=== PATIENT | female | born 1935 | race African-American/Black ===

== ENCOUNTER 2016-11-11 08:50 | Day surgery (SDC) | payer OTHER, BC ==
[2016-11-11 10:11] LABS: MCH 31.2 pg (25.7-33.7); MCHC 30.6 g/dl (32.0-36.0); MEAN CELL VOLUME 101.8 fl (80-96); RDW 24.1 % (11.6-15.6)
[2016-11-11 10:15] LABS: PLATELET COUNT 78 K/MM3 (134-434)
[2016-11-11 13:50] LABS: ANISOCYTOSIS 2+; HYPOCHROMIA 2+; POIKILOCYTOSIS 2+; POLYCHROMASIA 1+; SMUDGE CELLS FEW
[2016-11-11 13:51] LABS: MICROCYTOSIS 1+; OVALOCYTES 1+; STOMATOCYTE 1+; TEAR DROP CELLS 1+
[2016-11-11] MEDS ORDERED: ACETAMINOPHEN 325 MG TABLET (FP) PO ONE (14:45)
[2016-11-11] MEDS ORDERED: FUROSEMIDE 40 MG/4 ML INJECTABLE VIAL IVPB ONE (16:00)
[2016-11-11 17:01] VITALS: BP 143/79; PULSE 83; TEMP 99.3
== END 2016-11-11 23:00 | disposition home or self-care (01) ==
LOC: JBLOOD 08:50 → J7W 08:51 → JBLOOD 23:00
PROVIDERS: ATTEND Internal Medicine Geriatric Medicine
PROC: 30233N1 Transfusion of Nonautologous Red Blood Cells into Peripheral Vein, Percutaneous Approach (ICD-10-PCS; principal; 2016-11-11)
DX: C91.10 Chronic lymphocytic leukemia of B-cell type not having achieved remission (principal); D63.0 Anemia in neoplastic disease
CPT/HCPCS: 36415; 36430; 85027; 86850; 86900; 86901; 86922; P9058

== ENCOUNTER 2016-12-23 06:41 | Day surgery (SDC) | payer OTHER, BC ==
[2016-12-23 09:01] LABS: MCH 31.7 pg (25.7-33.7); MCHC 30.9 g/dl (32.0-36.0); MEAN CELL VOLUME 102.4 fl (80-96); MEAN PLT VOLUME 9.5 fl (7.5-11.1); PLATELET COUNT 72 K/MM3 (134-434); WHITE BLOOD COUNT 20.5 K/mm3 (4.0-10.0)
[2016-12-23] MEDS ORDERED: FUROSEMIDE 40 MG/4 ML INJECTABLE VIAL IVPB SCH (09:30)
[2016-12-23 21:52] VITALS: BP 138/75; PULSE 85; TEMP 98.5
== END 2016-12-23 21:58 | disposition home or self-care (01) ==
LOC: JBLOOD 06:41 → J7W 06:42 → JBLOOD 21:58
PROVIDERS: ATTEND Internal Medicine Geriatric Medicine
PROC: 30233N1 Transfusion of Nonautologous Red Blood Cells into Peripheral Vein, Percutaneous Approach (ICD-10-PCS; principal; 2016-12-23)
PROC: 3E033GC Introduction of Other Therapeutic Substance into Peripheral Vein, Percutaneous Approach (ICD-10-PCS; 2016-12-23)
DX: C91.10 Chronic lymphocytic leukemia of B-cell type not having achieved remission (principal); D63.0 Anemia in neoplastic disease
CPT/HCPCS: 36415; 36430; 85027; 86850; 86900; 86901; 86922; P9038; P9058

== ENCOUNTER 2017-01-25 05:37 | Inpatient (IN) | payer OTHER, BC ==
--- NOTE | 2017-01-25 05:43 | PDOC ---
[id number]: Clinical Condition - History of Present Illness Initial Comments: 01/25/17 06:09 The patient is a 81 year old female with significant past medical history of hypertension, hyperlipidemia, diabetes, anemia, recent dx of CLL, and hypothyroidism who presents to the ED BIBA from [facility] facility for respiratory distress. As per [place] records, patient was sent to the ER to be elevated due to respiratory distress. Patients O2 saturation was 73%. 8L of O2 was placed and O2 saturations went up to 95%. Patient presents to the ER on CPAP. Allergies: NKDA Social History: No alcohol, tobacco, or drug use reported. Past Surgical History: None reported PCP: Dr. Arnulfo Trejo <Ashly Sauceda - Last Filed: 01/25/17 06:24> - General History Source: EMS <Kaleb Mckee - Last Filed: 01/25/17 20:09> - General Stated Complaint: DIFFICULTY BREATHING Time Seen by Provider: 01/25/17 05:42 Past History <Ashly Sauceda - Last Filed: 01/25/17 06:24> - Past Medical History Anemia: Yes Asthma: Yes COPD: Yes Diabetes: Yes GI Disorders: Yes (GERD) HTN: Yes Hypercholesterolemia: Yes Thyroid Disease: Yes (HYPO) - Psycho/Social/Smoking Cessation Hx Suicidal Ideation: No Smoking History: Never smoked <Kaleb Mckee - Last Filed: 01/25/17 20:09> - Past Medical History Allergies/Adverse Reactions: Allergies Allergy/AdvReac Type Severity Reaction Status Date / Time No Known Allergies Allergy Verified 01/25/17 05:57 Home Medications: Ambulatory Orders Aa/Hydrolyzed Collagen, Whey [Lps Neutral Flavor Liquid] 30 ml PO BID 10/15/16 Acetaminophen [Tylenol] 650 mg PO Q6H PRN 10/15/16 Albuterol 2.5/Ipratropium 0.5 [Duoneb -] 1 amp NEB QID PRN 10/15/16 Aspirin [Ecotrin] 81 mg PO DAILY 10/15/16 Atorvastatin Ca [Lipitor] 40 mg PO HS 10/15/16 Gabapentin 300 mg PO HS 10/15/16 Insulin Detemir [Levemir Flextouch] 6 unit SQ AM 10/15/16 Menthol/Zinc Oxide [Calmoseptine Ointment] 3.5 gm TP TID 10/15/16 Metoprolol Tartrate [Lopressor -] 25 mg PO BID 10/15/16 Montelukast Na [Singulair -] 10 mg PO HS 10/15/16 Thyroid [[place] Thyroid] 30 mg PO DAILY 10/15/16 Ascorbate Calcium [Vitamin C] 500 mg PO TID 01/25/17 Benzonatate [Tessalon Pearls -] 100 mg PO TID 01/25/17 Cephalexin Monohydrate [Keflex -] 500 mg PO BID 01/25/17 Chlorhexidine Gluconate [Hibiclens For Decolonization -] 1 applic TP TID Chlorpheniramine/Dextromethorp [Robitussin Long-Acting Liq] 10 ml PO Q8H PRN 03/08 Docusate Sodium [Colace -] 200 mg PO HS 01/25/17 Ferrous Sulfate 325 mg PO TID 01/25/17 Insulin (Novolog) [Novolog Flexpen] 0 units SQ TID 01/25/17 Multivitamin with Minerals [Icaps Plus] 1 each PO DAILY 01/25/17 Review of Systems - Review of Systems Able to Perform ROS?: No Comments:: 01/25/17 06:09 Unable to obtain ROS due to clinical condition <Ashly Sauceda - Last Filed: 01/25/17 06:24> *Physical Exam - Vital Signs Last Vital Signs Temp Pulse Resp BP Pulse Ox 99.6 F 94 H 16 70/60 100 01/25/17 05:37 01/25/17 05:37 01/25/17 05:37 01/25/17 05:37 01/25/17 05:37 - Physical Exam Comments: 01/25/17 06:10 GENERAL: Well developed, well nourished. Awake and alert. No acute distress. HEENT: Normocephalic, atraumatic. PERRLA, EOMI. No conjunctival pallor. Sclera are non- icteric. Moist mucous membranes. Oropharynx is clear. NECK: Supple. Full ROM. No JVD. Carotid pulses 2+ and symmetric, without bruits. No thyromegaly. No lymphadenopathy. CARDIOVASCULAR: Regular rate and rhythm. No murmurs, rubs, or gallops. PULMONARY: Patient lying supine on CPAP. No evidence of respiratory distress. Good bilateral air exchange. Lungs clear to auscultation bilaterally. No wheezing, rales or rhonchi. ABDOMINAL: Soft. Non-tender. Non-distended. No rebound or guarding. No organomegaly. Normoactive bowel sounds. MUSCULOSKELETAL Normal range of motion at all joints. No bony deformities or tenderness. No CVA tenderness. EXTREMITIES: No cyanosis. No clubbing. No edema. No calf tenderness. SKIN: Warm and dry. Normal capillary refill. No rashes. No jaundice. NEUROLOGICAL: Alert, awake, appropriate. Cranial nerves 2-12 intact. No gross focal neurological deficits. <Ashly Sauceda - Last Filed: 01/25/17 06:24> Heart Score/ECG Review - ECG Impressions Comment:: 01/25/17 06:24 Sinus rhythm with premature supraventricular complexes @94bpm Nonspecific T wave abnormality Abnormal ECG <Ashly Sauceda - Last Filed: 01/25/17 06:24> ED Treatment Course - LABORATORY CBC & Chemistry Diagram: 01/25/17 06:07 01/25/17 06:07 <Ashly Sauceda - Last Filed: 01/25/17 06:24> - LABORATORY CBC & Chemistry Diagram: 01/25/17 06:07 01/25/17 06:07 <Kaleb Mckee - Last Filed: 01/25/17 20:09> Medical Decision Making - Medical Decision Making 01/25/17 20:08 Dr. Mckee: The scribe's documentation has been prepared under my direction and personally reviewed by me in its entirery. I confirm that the note above accurately reflects all work, treatment, procedures, and medical decision making performed by me. pATIENT ADMITTED FOR RESPIRATORY DISTRESS. <Kaleb Mckee - Last Filed: 01/25/17 20:09> *DC/Admit/Observation/Transfer - Attestations Scribe Attestion: 01/25/17 06:10 Documentation prepared by Ashly Sauceda, acting as medical insurance verifier for Kaleb Mckee MD <Ashly Sauceda - Last Filed: 01/25/17 06:24> <Kaleb Mckee - Last Filed: 01/25/17 20:09> Diagnosis at time of Disposition: Acute respiratory failure with hypoxia - Discharge Dispostion Condition at time of disposition: Guarded - Referrals
[2017-01-25] MEDS ORDERED: SODIUM CHLORIDE 1,000 ML IV STA (05:50)
[2017-01-25 06:13] VITALS: BMI 20.6
[2017-01-25 06:26] LABS: MCH 31.5 pg (25.7-33.7); MCHC 28.4 g/dl (32.0-36.0); RDW 28.2 % (11.6-15.6)
[2017-01-25 06:31] LABS: WHITE BLOOD COUNT 71.6 K/mm3 (4.0-10.0)
[2017-01-25 06:53] LABS: ALBUMIN 2.9 g/dl (3.4-5.0); ALK PHOS 47 U/L (45-117); ANION GAP 10 (8-16); BILIRUBIN,TOTAL 0.3 mg/dL (0.2-1.0); CALCIUM 8.3 mg/dL (8.5-10.1); CO2 28 mmol/L (21-32); CREATININE 0.6 mg/dL (0.55-1.02); GLUCOSE,RANDOM 219 mg/dL (74-106); SGOT/AST 28 U/L (15-37); SGPT/ALT 16 U/L (12-78); TOT PROT 5.8 g/dl (6.4-8.2)
[2017-01-25 06:55] LABS: TROPONIN I < 0.02 ng/ml (0.00-0.05)
[2017-01-25 07:19] LABS: MEAN PLT VOLUME 9.5 fl (7.5-11.1); PLATELET COUNT 72 K/MM3 (134-434)
[2017-01-25 07:21] LABS: ANISOCYTOSIS 3+
[2017-01-25 07:37] LABS: URINE APPEARANCE CLEAR; URINE BILIRUBIN NEGATIVE (NEGATIVE); URINE BLOOD NEGATIVE (NEGATIVE); URINE COLOR LTYELLOW; URINE GLUCOSE (UA) 2+ (NEGATIVE); URINE KETONE NEGATIVE (NEGATIVE); URINE LEUK ESTERASE NEGATIVE (NEGATIVE); URINE NITRITE NEGATIVE (NEGATIVE); URINE PROTEIN NEGATIVE (NEGATIVE); URINE UROBILINOGEN NEGATIVE E.U./dl (0.2-1.0)
[2017-01-25 08:20] LABS: ALLENS TEST POSITIVE; ART PUNCT SITE RIGHT RADIAL; ARTERIAL BLD GAS O2 SATURATION 96.3 % (90-98.9); ARTERIAL BLOOD GAS HCO3 25.7 meq/L (22-26); ARTERIAL BLOOD GAS PO2 82.9 mmHg (68-100); LPM/O2% 50%; MECH. VENT. BIPAP; METHEMOGLOBIN 0.3 % (0.4-1.5); PT. ON O2? YES; TYPE OF O2 BIPAP; VENT RATE 14
[2017-01-25 08:21] LABS: ARTERIAL BLOOD GAS pH 7.37 (7.35-7.45)
--- NOTE | 2017-01-25 08:43 | PDOC ---
*Physical Exam - Vital Signs Last Vital Signs Temp Pulse Resp BP Pulse Ox 99.6 F 85 18 119/52 98 01/25/17 05:37 01/25/17 06:47 01/25/17 06:47 01/25/17 06:47 01/25/17 08:18 - Physical Exam Comments: 01/25/17 08:36 111/67 RR 18, O2 100% on bipap ED Treatment Course - LABORATORY CBC & Chemistry Diagram: 01/25/17 06:07 01/25/17 06:07 - ADDITIONAL ORDERS Additional order review: Laboratory Results 01/25/17 01/25/17 01/25/17 08:10 07:10 06:07 Puncture Site Right radial ABG pH 7.37 ABG pCO2 at Pt Temp 45.3 H ABG pO2 at Pt Temp 82.9 ABG HCO3 25.7 ABG O2 Sat (Measured) 96.3 ABG O2 Content 8.2 L* ABG Base Excess 1.0 Jose Test Positive Carboxyhemoglobin 2.3 H Methemoglobin 0.3 L O2 Delivery Device Bipap Oxygen Flow Rate 50% Vent Mode S/t Vent Rate 14 Mechanical Rate Bipap PEEP 0.0 Pressure Support Vent 12/6 Sodium Potassium Chloride Carbon Dioxide Anion Gap BUN Creatinine Creat Clearance w eGFR Random Glucose Lactic Acid 2.308 H* Calcium Total Bilirubin AST ALT Alkaline Phosphatase Creatine Kinase Troponin I Total Protein Albumin Urine Color Ltyellow Urine Appearance Clear Urine pH 5.0 Ur Specific [place] 1.016 Urine Protein Negative Urine Glucose (UA) 2+ H Urine Ketones Negative Urine Blood Negative Urine Nitrite Negative Urine Bilirubin Negative Urine Urobilinogen Negative Ur Leukocyte Esterase Negative 01/25/17 01/25/17 06:07 06:07 Puncture Site ABG pH ABG pCO2 at Pt Temp ABG pO2 at Pt Temp ABG HCO3 ABG O2 Sat (Measured) ABG O2 Content ABG Base Excess Jose Test Carboxyhemoglobin Methemoglobin O2 Delivery Device Oxygen Flow Rate Vent Mode Vent Rate Mechanical Rate PEEP Pressure Support Vent Sodium 147 H Potassium 3.9 Chloride 109 H Carbon Dioxide 28 Anion Gap 10 BUN 21 H D Creatinine 0.6 Creat Clearance w eGFR > 60 Random Glucose 219 H D Lactic Acid Calcium 8.3 L Total Bilirubin 0.3 D AST 28 D ALT 16 D Alkaline Phosphatase 47 Creatine Kinase 70 Troponin I < 0.02 Total Protein 5.8 L Albumin 2.9 L Urine Color Urine Appearance Urine pH Ur Specific [place] Urine Protein Urine Glucose (UA) Urine Ketones Urine Blood Urine Nitrite Urine Bilirubin Urine Urobilinogen Ur Leukocyte Esterase 01/25/17 06:07 RBC 1.92 L MCV 111.0 H MCHC 28.4 L RDW 28.2 H MPV 9.5 Neutrophils % 7.0 L D Lymphocytes % 93.0 H - Medications Given in the ED: ED Medications Discontinued Medications Generic Name Dose Route Start Last Admin Trade Name Freq PRN Reason Stop Dose Admin Sodium Chloride 1,000 mls @ 1,000 mls/hr 01/25/17 05:50 01/25/17 05:57 Normal Saline - IV 01/25/17 06:49 1,000 mls/hr ASDIR STA Administration Medical Decision Making - Medical Decision Making 01/25/17 08:36 Received signout on this 81-year-old female who presented with hypoxic respiratory distress from [facility], improved on BiPAP. Labs were notable for baseline CLL, negative troponin, chest x-ray consistent with pulmonary edema. Patient was given normal saline bolus because of hypotension. Blood pressure currently improved at 111 systolic, will hold on any diuresis for now. Antibiotics were held in the absence of fever or clear source ABG this morning on Bipap was wnl. Plan at signout was to admit. Stephanie Trejo, accepted for inpt tele by Dr. Yoo. Will monitor and upgrade to ICU as needed - respiratory status and BP currently improved. *DC/Admit/Observation/Transfer Diagnosis at time of Disposition: Acute respiratory failure with hypoxia - Discharge Dispostion Condition at time of disposition: Guarded Admit: Yes - Referrals Referrals: Arnulfo Trejo MD [Primary Care Provider] - - Patient Instructions - Post Discharge Activity
--- NOTE | 2017-01-25 09:23 | HP ---
CHIEF COMPLAINT: Respiratory distress PCP: Dr. Trejo in [facility], previously was seeing Dr. Autumn Rosas in [place] ( [phone]; [phone]) Oncology: Dr. Hardy Cardiology: Dr. Hdz ([facility]) HISTORY OF PRESENT ILLNESS: This is an 81 year old female with a history of HTN , IDDM, CLL diagnosed about seven years ago, anemia requiring transfusions, breast ca s/p lumpectomy about 5 years ago, systolic CHF, mild dementia, and hypothyroidism transferred to the ED from her SNF this morning in respiratory distress. On arrival, patient was tachypneic with SpO2 73% on room air. She is now satting 100% on NIPPV. Her son states she was admitted [facility] about a month ago and also required Bi- Pap. She had pneumonia at that time. 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 Smoking: Never smoker Alcohol: None Family History: Non-contributory to this admission Allergies No Known Allergies Allergy (Verified 01/25/17 05:57) HOME MEDICATIONS: Home Medications Medication Instructions Recorded Aa/Hydrolyzed Collagen, Whey [Lps 30 ml PO BID 10/15/16 Neutral Flavor Liquid] Acetaminophen [Tylenol] 650 mg PO Q6H PRN 10/15/16 Albuterol 2.5/Ipratropium 0.5 1 amp NEB QID 10/15/16 [Duoneb -] Aspirin [Ecotrin] 81 mg PO DAILY 10/15/16 Atorvastatin Ca [Lipitor] 40 mg PO HS 10/15/16 Gabapentin 300 mg PO HS 10/15/16 Insulin Detemir [Levemir Flextouch] 6 unit SQ AM 10/15/16 Menthol/Zinc Oxide [Calmoseptine 3.5 gm TP TID 10/15/16 Ointment] Metoprolol Tartrate [Lopressor -] 25 mg PO BID 10/15/16 Montelukast Na [Singulair -] 10 mg PO HS 10/15/16 Thyroid [[place] Thyroid] 30 mg PO DAILY 10/15/16 Benzonatate [Tessalon Pearls -] 100 mg PO TID 01/25/17 Cephalexin Monohydrate [Keflex -] 500 mg PO BID 01/25/17 Chlorpheniramine/Dextromethorp 10 ml PO Q8H PRN 01/25/17 [Robitussin Long-Acting Liq] Docusate Sodium [Colace -] 200 mg PO HS 01/25/17 Ferrous Sulfate 325 mg PO TID 01/25/17 Insulin (Novolog) [Novolog Flexpen] 0 units SQ BIDAC 01/25/17 REVIEW OF SYSTEMS: Patient is unable to participate PHYSICAL EXAMINATION GENERAL: Lethargic but arousable to voice. HEAD: Normal with no signs of trauma. EYES: Bilateral cataracts, extraocular movements intact, sclera anicteric, conjunctiva clear. No lid lag. EARS, NOSE, THROAT: Ears normal, nares patent, oropharynx clear without exudates. Moist mucous membranes. NECK: Normal range of motion, supple without lymphadenopathy, JVD, or masses. LUNGS: Breath sounds absent right side. Coarse breath sounds left side. No wheezes, and no crackles. No accessory muscle use. HEART: Regular rate and rhythm, normal S1 and S2 without murmur, rub or gallop. ABDOMEN: Soft, nontender, not distended, normoactive bowel sounds, no guarding, no rebound, no masses. No hepatomegaly or splenomegaly. MUSCULOSKELETAL: Normal range of motion at all joints. No bony deformities or tenderness. No CVA tenderness. UPPER EXTREMITIES: 2+ pulses, warm, well-perfused. No cyanosis. No clubbing. No peripheral edema. LOWER EXTREMITIES: 2+ pulses, warm, well-perfused. No calf tenderness. No peripheral edema. NEUROLOGICAL: Cranial nerves II-XII intact. GCS E 3 V 4 M 6 = 13. PSYCHIATRIC: Cooperative. Good eye contact. Appropriate mood and affect. SKIN: 4cm x 6cm stage 2 gluteal cleft ulcer; no surrounding erythema. Open lesions/excoriation to right labia minoria and labia majora; no exudate. Problem List - Problem (1) Acute respiratory failure with hypoxia Assessment/Plan: -With opacification of right lung -Will obtain CT chest to better characterize opacification -Pulm/CCM consulted for thoracentesis (diagnostic and therapeutic) -Will cover with abx for possible HCAP -WBC 71, which is not high enough to suggest leukostasis in CLL -Work of breathing and SpO2 are stable on Bi-Pap Code(s): J96.01 - ACUTE RESPIRATORY FAILURE WITH HYPOXIA (2) CLL (chronic lymphocytic leukemia) Assessment/Plan: -Patient had an outpatient PET scan yesterday (also with history of breast ca); report is not yet available, need to follow up -Additional records requested from former PCP's office -Discussed with Dr. Young- will follow Code(s): C91.10 - CHRONIC LYMPHOCYTIC LEUK OF B-CELL TYPE NOT ACHIEVE REMIS (3) Anemia Assessment/Plan: -Transfuse 2 units PRBC now -Consent obtained from son Michi Stock via telephone, witnessed by Sheyla Forbes RN Code(s): D64.9 - ANEMIA, UNSPECIFIED Qualifiers: Anemia type: unspecified type Qualified Code(s): D64.9 - Anemia, unspecified (4) Diabetes mellitus Assessment/Plan: -FS q6h -ISS -Continue Levemir at half usual dose while NPO Code(s): E11.9 - TYPE 2 DIABETES MELLITUS WITHOUT COMPLICATIONS (5) Hypertension Assessment/Plan: -Borderline BP; hold anti-hypertensives for now Code(s): I10 - ESSENTIAL (PRIMARY) HYPERTENSION (6) Hypothyroid Assessment/Plan: -Check TSH -Continue levothyroxine (on 30mg [place] Thyroid = 50mcg levothyroxine po = 25mcg IVP daily) Code(s): E03.9 - HYPOTHYROIDISM, UNSPECIFIED (7) Leukocytosis Assessment/Plan: -[id number] secondary to CLL -Follow Code(s): D72.829 - ELEVATED WHITE BLOOD CELL COUNT, UNSPECIFIED (8) Vaginal sore Assessment/Plan: -There is a note in SNF records that patient saw gas adjuster and was prescribed "prophylactic" Keflex -Is currently receiving broad-spectrum abx -Will add Nystatin ointment Code(s): N89.8 - OTHER SPECIFIED NONINFLAMMATORY DISORDERS OF VAGINA (9) Pressure ulcer Assessment/Plan: -Frequent turning/positioning -Allevyn Code(s): L89.90 - PRESSURE ULCER OF UNSPECIFIED SITE, UNSPECIFIED STAGE (10) Elevated lactic acid level Assessment/Plan: -Likely secondary to hypoxemia, less likely sepsis -Repeat Code(s): R79.89 - OTHER SPECIFIED ABNORMAL FINDINGS OF BLOOD CHEMISTRY (11) DVT prophylaxis Assessment/Plan: -[facility] Code(s): VVM5200 - Visit type - Emergency Visit Emergency Visit: Yes ED Registration Date: 01/25/17 Care time: The patient presented to the Emergency Department on the above date and was hospitalized for further evaluation of their emergent condition. - New Patient This patient is new to me today: Yes Date on this admission: 01/25/17 - Critical Care Critical Care patient: Yes Total Critical Care Time (in minutes): 35 Critical Care Statement: The care of this patient involved high complexity decision making to prevent further life threatening deterioration of the patient 's condition and/or to evalute & treat vital organ system(s) failure or risk of failure.
[2017-01-25] MEDS ORDERED: PIPERACILLIN/TAZOB 4.5 GM/100 ML PRE-DOCKED IVPB ONE (11:30)
[2017-01-25] MEDS ORDERED: PIPERACILLIN/TAZOB 4.5 GM 100 ML IVPB ONE (12:30)
[2017-01-25] MEDS ORDERED: HEPARIN NA (PORCINE) 5,000 UNITS/ML 1ML VIAL ONE (12:30)
[2017-01-25] MEDS: HEPARIN NA (PORCINE) 5,000 UNITS/ML 1ML VIAL SQ SCH ×3 (12:38→22:14)
[2017-01-25] MEDS ORDERED: INSULIN (NOVOLOG) ASPART 100 UNITS/ML 10ML VIAL ONE (12:46)
[2017-01-25] MEDS: INSULIN SLIDING SCALE (NOVOLOG) 1 VIAL SQ SCH ×3 (12:47→22:08)
--- NOTE | 2017-01-25 13:30 | EKG ---
Test Reason : Blood Pressure : / mmHG Vent. Rate : 094 BPM Atrial Rate : 100 BPM P-R Int : 130 ms QRS Dur : 092 ms QT Int : 368 ms P-R-T Axes : 062 065 145 degrees QTc Int : 460 ms SINUS RHYTHM WITH PREMATURE SUPRAVENTRICULAR COMPLEXES NONSPECIFIC T WAVE ABNORMALITY ABNORMAL ECG WHEN COMPARED WITH ECG OF 15-OCT-2016 09:42, PREMATURE VENTRICULAR COMPLEXES ARE NO LONGER PRESENT PREMATURE SUPRAVENTRICULAR COMPLEXES ARE NOW PRESENT T WAVE INVERSION NO LONGER EVIDENT IN ANTERIOR LEADS Confirmed by OLGA MERCADO, PAIGE ([id number]) on 01/25/2017 1:29:41 PM Referred By: Confirmed By:PAIGE ESPINOZA MD
--- NOTE | 2017-01-25 16:28 | CON.PULM ---
Consult Consult Specialty:: PULMONARY Referred by:: MARTHA Alex Reason for Consultation:: abnormal CXR - History of Present Illness Chief Complaint: shortness of breath History of Present Illness: 81yo female with h/o HTN, DM, CLL, anemia, LV systolic dysfunction, hypothyroidism, dementia who was transferred from the custodial for respiratory distress. Noted to be hypoxic on room air to 73%. Pt currently on BiPAP, somnolent but arousable, unable to provide further history at this time. Noted to be anemic, CXR showing opacification of right hemithorax. CXR from Sep 2016 showing right effusion and deviation of trachea to right. No fevers recorded on admission. 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 Home Medications - Allergies Allergies/Adverse Reactions: Allergies Allergy/AdvReac Type Severity Reaction Status Date / Time No Known Allergies Allergy Verified 01/25/17 05:57 - Home Medications Home Medications: Ambulatory Orders Aa/Hydrolyzed Collagen, Whey [Lps Neutral Flavor Liquid] 30 ml PO BID 10/15/16 Acetaminophen [Tylenol] 650 mg PO Q6H PRN 10/15/16 Albuterol 2.5/Ipratropium 0.5 [Duoneb -] 1 amp NEB QID PRN 10/15/16 Aspirin [Ecotrin] 81 mg PO DAILY 10/15/16 Atorvastatin Ca [Lipitor] 40 mg PO HS 10/15/16 Gabapentin 300 mg PO HS 10/15/16 Insulin Detemir [Levemir Flextouch] 6 unit SQ AM 10/15/16 Menthol/Zinc Oxide [Calmoseptine Ointment] 3.5 gm TP TID 10/15/16 Metoprolol Tartrate [Lopressor -] 25 mg PO BID 10/15/16 Montelukast Na [Singulair -] 10 mg PO HS 10/15/16 Thyroid [[place] Thyroid] 30 mg PO DAILY 10/15/16 Ascorbate Calcium [Vitamin C] 500 mg PO TID 01/25/17 Benzonatate [Tessalon Pearls -] 100 mg PO TID 01/25/17 Cephalexin Monohydrate [Keflex -] 500 mg PO BID 01/25/17 Chlorhexidine Gluconate [Hibiclens For Decolonization -] 1 applic TP TID Chlorpheniramine/Dextromethorp [Robitussin Long-Acting Liq] 10 ml PO Q8H PRN 03/08 Docusate Sodium [Colace -] 200 mg PO HS 01/25/17 Ferrous Sulfate 325 mg PO TID 01/25/17 Insulin (Novolog) [Novolog Flexpen] 0 units SQ TID 01/25/17 Multivitamin with Minerals [Icaps Plus] 1 each PO DAILY 01/25/17 Review of Systems Unable to obtain ROS, reason: pt lethargic Physical Exam Vital Sings: Vital Signs Temperature 97.1 F L 01/25/17 14:00 Pulse Rate 74 01/25/17 14:04 Respiratory Rate 22 01/25/17 14:00 Blood Pressure 103/62 01/25/17 14:00 O2 Sat by Pulse Oximetry (%) 95 01/25/17 14:04 Constitutional: Yes: Other (somnolent but arousable) Eyes: Yes: Conjunctiva Clear, EOM Intact HENT: Yes: Atraumatic, Normocephalic Neck: Yes: Supple, Trachea Midline Cardiovascular: Yes: Regular Rate and Rhythm Respiratory: Yes: Diminished (decreased breath sounds right) ...Clubbing: No Gastrointestinal: Yes: Normal Bowel Sounds, Soft. No: Tenderness Edema: No Neurological: Yes: Other (somnolent ) Labs: ABG Results ABG pH 7.37 (7.35-7.45) 01/25/17 08:10 ABG pCO2 at Pt Temp 45.3 mmHg (35-45) H 01/25/17 08:10 ABG pO2 at Pt Temp 82.9 mmHg (68-100) 01/25/17 08:10 ABG HCO3 25.7 meq/L (22-26) 01/25/17 08:10 ABG O2 Sat (Measured) 96.3 % (90-98.9) 01/25/17 08:10 ABG O2 Content 8.2 % vol (15-22) L* 01/25/17 08:10 ABG Base Excess 1.0 meq/l (-2-2) 01/25/17 08:10 Imaging - Results Chest X-ray: Report Reviewed, Image Reviewed (opacification of right hemithorax) Problem List - Problems (1) Acute respiratory failure with hypoxia Code(s): J96.01 - ACUTE RESPIRATORY FAILURE WITH HYPOXIA (2) Pleural effusion Code(s): J90 - PLEURAL EFFUSION, NOT ELSEWHERE CLASSIFIED (3) CLL (chronic lymphocytic leukemia) Code(s): C91.10 - CHRONIC LYMPHOCYTIC LEUK OF B-CELL TYPE NOT ACHIEVE REMIS (4) Diabetes mellitus Code(s): E11.9 - TYPE 2 DIABETES MELLITUS WITHOUT COMPLICATIONS (5) Hypertension Code(s): I10 - ESSENTIAL (PRIMARY) HYPERTENSION (6) Hypothyroid Code(s): E03.9 - HYPOTHYROIDISM, UNSPECIFIED (7) Anemia Code(s): D64.9 - ANEMIA, UNSPECIFIED Qualifiers: Anemia type: unspecified type Qualified Code(s): D64.9 - Anemia, unspecified (8) Lactic acidosis Code(s): E87.2 - ACIDOSIS Assessment/Plan Acute Hypoxic Respiratory Failure Right Pleural Effusion vs Atelectasis Lactic Acidosis likely due to hypoxia CLL HTN DM Hypothyroidism - CT chest noncontrast to further evaluate abnormal CXR - O2 to keep SpO2 >90% - BiPAP as needed to assist in work of breathing - aspiration precautions - received empiric antibiotics - f/u cultures - DVT prophylaxis - further recommendations pending above CT chest Thank you for this consult Jose Fields MD
--- NOTE | 2017-01-25 19:52 | CONSULT ---
Consult - text type - Consultation Consultation Note: The patient is a 81 year old female with significant past medical history of hypertension, hyperlipidemia, diabetes, anemia, recent dx of CLL, and hypothyroidism who presents to the ED BIBA from [facility] facility for respiratory distress. As per [place] records, patient was sent to the ER to be evaluated due to respiratory distress. Patients O2 saturation was 73% . 8L of O2 was placed and O2 saturations went up to 95%. Patient presents to the ER on CPAP. Allergies: NKDA Social History: No alcohol, tobacco, or drug use reported. - Past Medical History Anemia: Yes Asthma: Yes COPD: Yes Diabetes: Yes GI Disorders: Yes (GERD) HTN: Yes Hypercholesterolemia: Yes Thyroid Disease: Yes (HYPO) CLL h/o breast cancer dementia - Psycho/Social/Smoking Cessation Hx Smoking History: Never smoked Allergies/Adverse Reactions: Allergies Allergy/AdvReac Type Severity Reaction Status Date / Time No Known Allergies Allergy Verified 01/25/17 05:57 Home Medications: Ambulatory Orders Aa/Hydrolyzed Collagen, Whey [Lps Neutral Flavor Liquid] 30 ml PO BID 10/15/16 Acetaminophen [Tylenol] 650 mg PO Q6H PRN 10/15/16 Albuterol 2.5/Ipratropium 0.5 [Duoneb -] 1 amp NEB QID 10/15/16 Aspirin [Ecotrin] 81 mg PO DAILY 10/15/16 Atorvastatin Ca [Lipitor] 40 mg PO HS 10/15/16 Gabapentin 300 mg PO HS 10/15/16 Insulin Detemir [Levemir Flextouch] 6 unit SQ AM 10/15/16 Menthol/Zinc Oxide [Calmoseptine Ointment] 3.5 gm TP TID 10/15/16 Metoprolol Tartrate [Lopressor -] 25 mg PO BID 10/15/16 Montelukast Na [Singulair -] 10 mg PO HS 10/15/16 Thyroid [Creston Thyroid] 30 mg PO DAILY 10/15/16 Benzonatate [Tessalon Pearls -] 100 mg PO TID 01/25/17 Cephalexin Monohydrate [Keflex -] 500 mg PO BID 01/25/17 Chlorpheniramine/Dextromethorp [Robitussin Long-Acting Liq] 10 ml PO Q8H PRN 03/08 Docusate Sodium [Colace -] 200 mg PO HS 01/25/17 Ferrous Sulfate 325 mg PO TID 01/25/17 Insulin (Novolog) [Novolog Flexpen] 0 units SQ BIDAC 01/25/17 Active Medications Acetaminophen (Tylenol -) 650 mg PO Q6H PRN PRN Reason: FEVER OR PAIN Heparin Sodium (Porcine) (Heparin -) 5,000 unit SQ TID [facility] Last Admin: 01/25/17 18:47 Dose: Not Given Insulin Aspart (Novolog Vial Sliding Scale -) 1 vial SQ ACHS SRINIVASA PRN Reason: Protocol Last Admin: 01/25/17 18:48 Dose: Not Given Insulin Detemir (Levemir Vial) 3 units SQ AM SRINIVASA Levothyroxine Sodium (Synthroid Injection -) 25 mcg IVPUSH DAILY SRINIVASA Nystatin (Mycostatin Ointment -) 1 applic TP BID [facility] Last Vital Signs Temp Pulse Resp BP Pulse Ox 99.6 F 94 H 16 70/60 100 01/25/17 05:37 01/25/17 05:37 01/25/17 05:37 01/25/17 05:37 01/25/17 05:37 - Physical Exam OnBiPAP Cor: RSR, No murmurs, No gallops Lungs:decreased breath sounds Abd: Soft, Normal bowel sounds, No organomegaly Ext:No significant edema paraperesis generalized lymphadenopathy rt. mastectomy Abnormal Lab Results 01/25/17 01/25/17 01/25/17 06:07 06:07 06:07 WBC 71.6 H* D RBC 1.92 L Hgb 6.0 L* Hct 21.3 L MCV 111.0 H MCHC 28.4 L RDW 28.2 H Plt Count 72 L Neutrophils % 7.0 L D Lymphocytes % 93.0 H ABG pCO2 at Pt Temp ABG O2 Content Carboxyhemoglobin Methemoglobin Sodium 147 H Chloride 109 H BUN 21 H D Random Glucose 219 H D Lactic Acid 2.308 H* Calcium 8.3 L Total Protein 5.8 L Albumin 2.9 L Urine Glucose (UA) Crossmatch 01/25/17 01/25/17 01/25/17 07:10 08:10 10:05 WBC RBC Hgb Hct MCV MCHC RDW Plt Count Neutrophils % Lymphocytes % ABG pCO2 at Pt Temp 45.3 H ABG O2 Content 8.2 L* Carboxyhemoglobin 2.3 H Methemoglobin 0.3 L Sodium Chloride BUN Random Glucose Lactic Acid Calcium Total Protein Albumin Urine Glucose (UA) 2+ H Crossmatch See Detail Current Medications Generic Name Dose Route Start Last Admin Trade Name Freq PRN Reason Stop Dose Admin Acetaminophen 650 mg 01/25/17 09:53 Tylenol - PO Q6H PRN FEVER OR PAIN Heparin Sodium (Porcine) 5,000 unit 01/25/17 10:00 01/25/17 18:47 Heparin - SQ Not Given TID SRINIVASA Insulin Aspart 1 vial 01/25/17 11:00 01/25/17 18:48 Novolog Vial Sliding Scale - SQ Not Given ACHS [facility] Protocol Insulin Detemir 3 units 01/26/17 07:00 Levemir Vial SQ AM SRINIVASA Levothyroxine Sodium 25 mcg 01/26/17 10:00 Synthroid Injection - IVPUSH DAILY SRINIVASA Nystatin 1 applic 01/25/17 22:00 Mycostatin Ointment - TP BID SRINIVASA A/P 81 y/o patient with CLL, h/o breast cancer, dementia, has been assisted resident and wheel chair 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 pleural effusion CLL--trisomy 12. also generalized adenopathy diagnosed several yrs. ago in [facility] Never treated, was being monitored More recently transfusion dependent check LDh/hapto/emiliana given overall comorbidities, functional status will need to discuss with family goals of care start allopurinol Breast cancer -- s/p resection. +margin. ER+ no adjuvant therapy was given as she declined per her primary oncologist in [place] Pleural effusion --check PT/PTT check thoracentesis fluid cytology Lt. lingular infiltrate--antibiotics empiric
[2017-01-25] MEDS: ALLOPURINOL 300 MG TABLET (FP) PO SCH (22:14)
[2017-01-25] MEDS: NYSTATIN 100000 UNIT/GM TOPICAL OINTMENT 15 GM TUBE TP SCH (23:16)
[2017-01-26] MEDS ORDERED: PIPERACILLIN/TAZOB 2.25 GM 2.25 GM in DEXTROSE 5%-WATER - 50 ML IVPB SCH (02:00)
[2017-01-26] MEDS ORDERED: PIPERACILLIN/TAZOB 2.25 GM/50 ML PRE-DOCKED BAG IVPB ONE (02:00)
[2017-01-26] MEDS: INSULIN SLIDING SCALE (NOVOLOG) 1 VIAL SQ SCH ×4 (06:19→22:02)
[2017-01-26] MEDS: INSULIN DETEMIR 100 UNITS/ML MDV SQ SCH (06:19)
[2017-01-26] MEDS: HEPARIN NA (PORCINE) 5,000 UNITS/ML 1ML VIAL SQ SCH (06:27)
[2017-01-26 08:22] LABS: MCH 29.9 pg (25.7-33.7); MCHC 30.8 g/dl (32.0-36.0); MEAN CELL VOLUME 97.1 fl (80-96); MEAN PLT VOLUME 9.9 fl (7.5-11.1); PLATELET COUNT 57 K/MM3 (134-434)
[2017-01-26 08:28] LABS: INR 1.08 (0.82-1.09); PROTHROMBIN TIME (PATIENT) 11.9 SEC (9.98-11.88)
[2017-01-26 08:31] LABS: ACTIVATED PTT 29.6 SECONDS (26.9-34.4)
[2017-01-26 08:46] LABS: WHITE BLOOD COUNT 57.9 K/mm3 (4.0-10.0)
[2017-01-26 08:48] LABS: ALBUMIN 2.8 g/dl (3.4-5.0); ALK PHOS 46 U/L (45-117); ANION GAP 12 (8-16); BILIRUBIN,TOTAL 0.6 mg/dL (0.2-1.0); CALCIUM 7.7 mg/dL (8.5-10.1); CO2 25 mmol/L (21-32); CREATININE 0.5 mg/dL (0.55-1.02); GLUCOSE,RANDOM 80 mg/dL (74-106); LDH 340 U/L (84-246); MAGNESIUM 2.4 mg/dL (1.8-2.4); SGOT/AST 16 U/L (15-37); SGPT/ALT 16 U/L (12-78); THYROID STIMULATING HORMONE 0.47 uIU/ml (0.358-3.74); TOT PROT 5.8 g/dl (6.4-8.2); TROPONIN I < 0.02 ng/ml (0.00-0.05); URIC ACID 5.6 mg/dL (2.6-7.2)
[2017-01-26] MEDS: NYSTATIN 100000 UNIT/GM TOPICAL OINTMENT 15 GM TUBE TP SCH ×2 (10:52→22:03)
[2017-01-26] MEDS: ALLOPURINOL 300 MG TABLET (FP) PO SCH ×2 (10:54→15:23)
[2017-01-26] MEDS: LEVOTHYROXINE SODIUM 100 MCG VIAL IVPUSH SCH (11:02)
--- NOTE | 2017-01-26 12:28 | PN ---
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 (short form) - Note 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: Subjective: The patient was seen and examined at the bedside, she is comfortable on bipap. She has no complaints at this time. Current Medications Generic Name Dose Route Start Last Admin Trade Name Juan Antonio PRN Reason Stop Dose Admin Acetaminophen 650 mg 01/25/17 09:53 Tylenol - PO Q6H PRN FEVER OR PAIN Allopurinol 300 mg 01/25/17 21:00 01/26/17 10:54 Zyloprim - PO Not Given DAILY SRINIVASA Heparin Sodium (Porcine) 5,000 unit 01/25/17 10:00 01/26/17 06:27 Heparin - SQ 5,000 unit TID SRINIVASA Administration Insulin Aspart 1 vial 01/25/17 11:00 01/26/17 11:08 Novolog Vial Sliding Scale - SQ Not Given ACHS [facility] Protocol Insulin Detemir 3 units 01/26/17 07:00 01/26/17 06:19 Levemir Vial SQ Not Given AM SRINIVASA Levothyroxine Sodium 25 mcg 01/26/17 10:00 01/26/17 11:02 Synthroid Injection - IVPUSH 25 mcg DAILY SRINIVASA Administration Nystatin 1 applic 01/25/17 22:00 01/26/17 10:52 Mycostatin Ointment - TP 1 applic BID SRINIVASA Administration Piperacillin Sod/Tazobactam Sod 3.375 gm 01/26/17 12:30 Zosyn 3.375gm Ivpb (Pre-Docked) IVPB Q8H-IV SRINIVASA Protocol Objective: Vital Signs Period Temp Pulse Resp BP Sys/Choi Pulse Ox Last 24 Hr 97.1 F-98.8 F 62-82 16-22 95-133/54-73 95-100 Physical Exam: General: NAD, A&Ox3 Lungs: Left lung CTA. Right lung with extremely diminished breath sounds Heart: RRR, S1S2 Abd: Soft, non-tender, non-distended. Normoactive bowel sounds Ext: Warm, well-perfused. 2+ DP/PT bilaterally Neuro: Unable to assess, patient on bipap machine CBCD WBC 57.9 K/mm3 (4.0-10.0) H* 01/26/17 05:50 RBC 2.76 M/mm3 (3.60-5.2) L D 01/26/17 05:50 Hgb 8.3 GM/dL (10.7-15.3) L D 01/26/17 05:50 Hct 26.8 % (32.4-45.2) L D 01/26/17 05:50 MCV 97.1 fl (80-96) H 01/26/17 05:50 MCHC 30.8 g/dl (32.0-36.0) L 01/26/17 05:50 RDW 27.0 % (11.6-15.6) H 01/26/17 05:50 Plt Count 57 K/MM3 (134-434) L D 01/26/17 05:50 MPV 9.9 fl (7.5-11.1) 01/26/17 05:50 CMP Sodium 151 mmol/L (136-145) H 01/26/17 05:50 Potassium 3.7 mmol/L (3.5-5.1) 01/26/17 05:50 Chloride 114 mmol/L (98-107) H 01/26/17 05:50 Carbon Dioxide 25 mmol/L (21-32) 01/26/17 05:50 Anion Gap 12 (8-16) 01/26/17 05:50 BUN 18 mg/dL (7-18) 01/26/17 05:50 Creatinine 0.5 mg/dL (0.55-1.02) L 01/26/17 05:50 Creat Clearance w eGFR > 60 (>60) 01/26/17 05:50 Random Glucose 80 mg/dL (74-106) D 01/26/17 05:50 Calcium 7.7 mg/dL (8.5-10.1) L 01/26/17 05:50 Total Bilirubin 0.6 mg/dL (0.2-1.0) D 01/26/17 05:50 AST 16 U/L (15-37) D 01/26/17 05:50 ALT 16 U/L (12-78) 01/26/17 05:50 Alkaline Phosphatase 46 U/L (45-117) 01/26/17 05:50 Total Protein 5.8 g/dl (6.4-8.2) L 01/26/17 05:50 Albumin 2.8 g/dl (3.4-5.0) L 01/26/17 05:50 CARDIAC ENZYMES Creatine Kinase 38 IU/L (26-192) 01/26/17 05:50 Troponin I < 0.02 ng/ml (0.00-0.05) 01/26/17 05:50 Microbiology 01/25/17 07:10 Urine - Urine - Catheterized Urine Culture - Final 01/25/17 06:07 Blood - Peripheral Venous Blood Culture - Preliminary NO GROWTH OBTAINED AFTER 24 HOURS, INCUBATION TO CONTINUE FOR 4 DAYS. 01/25/17 06:07 Blood - Peripheral Venous Blood Culture - Preliminary NO GROWTH OBTAINED AFTER 24 HOURS, INCUBATION TO CONTINUE FOR 4 DAYS. Assessment: This is an 81 year old female with PMHx of HTN, IDDM, CLL (dx 7 years ago), anemia requiring transfusions, breast cancer s/p lumpectomy ~5 years ago, systolic CHF, mild dementia, hypothyroidism who presented to the ED in acute respiratory distress. Plan: 1) Pulmonary: Acute hypoxic respiratory failure, large right pleural effusion - F/u IR for thoracentesis (send fluid for analysis) - Bipap as needed Lingular infiltrate - Continue Zosyn coverage for HCAP - Lactic acidosis resolved - Appreciate pulmonary consult 2) Heme/onc: CLL, chronic anemia requiring transfusion - S/p 2u PRBC, with Hgb 8.3 after infusions - Diagnosed 7 years ago with CLL, never treated - F/u LDH, hapto, emiliana - Start Allopurinol - Patient had recent PET scan, will need to follow-up results - Appreciate heme/onc consult Breast cancer s/p resection, +margin, ER+ - Per Dr. Young, "no adjuvant therapy was given as she declined per her primary oncologist in [place]" 3) Endocrine: IDDM - BGM q6h while npo - ISS - Levemir (will increase dose once tolerating diet) Hypothyroidism - F/u TSH - Continue Synthroid 4) F/E/N: - NPO for thoracentesis - Hypernatremia: continue to monitor 5) Prophylaxis: - Hold all chemical anticoagulation 2/2 thrombocytopenia - Pressure ulcers: allevyn dressing - Vaginal sore: patient was taking Keflex at SNF for it, not started here given patient on broad spectrum abx 6) Dispo: - Requires continued inpatient care CODE STATUS: FULL CODE Visit type - Emergency Visit Emergency Visit: Yes ED Registration Date: 01/25/17 Care time: The patient presented to the Emergency Department on the above date and was hospitalized for further evaluation of their emergent condition. - New Patient This patient is new to me today: Yes Date on this admission: 02/11/17 - Critical Care Critical Care patient: No
[2017-01-26 12:40] LABS: SMUDGE CELLS MANY
[2017-01-26] MEDS: PIPERACILLIN/TAZOB 3.375 GM/50 ML PRE-DOCKED IVPB SCH ×2 (13:38→18:47)
[2017-01-26 13:48] LABS: GLUCOSE,PLEURAL FLUID 61.239; TOTAL PROTEIN,PLEURAL FLUID 4.148
[2017-01-26 13:50] LABS: CHLORIDE PLEURAL FLUID 114
[2017-01-26 16:18] LABS: PLEURAL FLUID APPEARANCE TURBID; PLEURAL FLUID COLOR RED; PLEURAL FLUID LYMPHOCYTES 97 %; PLEURAL FLUID MACROPHAGES 3 %; PLEURAL FLUID SOURCE PLEURAL
--- NOTE | 2017-01-26 16:42 | PN ---
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 (short form) - Note 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: Patient seen and examined on the Telemetry unit. Lethargic but arousable on NIPPV. Intake & Output 01/23/17 01/24/17 01/25/17 01/26/17 23:59 23:59 23:59 23:59 Intake Total 450 525 Balance 450 525 Weight 128 lb 0.006 oz Last Vital Signs Temp Pulse Resp BP Pulse Ox 97.8 F 82 20 120/65 100 01/26/17 13:12 01/26/17 15:24 01/26/17 15:24 01/26/17 15:24 01/26/17 14:27 Active Medications Acetaminophen (Tylenol -) 650 mg PO Q6H PRN PRN Reason: FEVER OR PAIN Allopurinol (Zyloprim -) 300 mg PO DAILY [facility] Last Admin: 01/26/17 15:23 Dose: 300 mg Insulin Aspart (Novolog Vial Sliding Scale -) 1 vial SQ ACHS SRINIVASA PRN Reason: Protocol Last Admin: 01/26/17 11:08 Dose: Not Given Insulin Detemir (Levemir Vial) 3 units SQ AM [facility] Last Admin: 01/26/17 06:19 Dose: Not Given Levothyroxine Sodium (Synthroid Injection -) 25 mcg IVPUSH DAILY [facility] Last Admin: 01/26/17 11:02 Dose: 25 mcg Nystatin (Mycostatin Ointment -) 1 applic TP BID [facility] Last Admin: 01/26/17 10:52 Dose: 1 applic Piperacillin Sod/Tazobactam Sod (Zosyn 3.375gm Ivpb (Pre-Docked)) 3.375 gm IVPB Q8H-IV SRINIVASA PRN Reason: Protocol Last Admin: 01/26/17 13:38 Dose: 3.375 gm Constitutional: Yes: Other (somnolent but arousable on NIPPV) Eyes: Yes: Conjunctiva Clear, EOM Intact HENT: Yes: Atraumatic, Normocephalic Neck: Yes: Supple, Trachea Midline Cardiovascular: Yes: Regular Rate and Rhythm Respiratory: Yes: Diminished (decreased breath sounds right) ...Clubbing: No Gastrointestinal: Yes: Normal Bowel Sounds, Soft. No: Tenderness Edema: No Neurological: Yes: Other (somnolent ) Labs: Laboratory Results - last 24 hr 01/25/17 01/25/17 01/25/17 10:05 20:55 21:00 WBC RBC Hgb Hct MCV MCHC RDW Plt Count MPV Neutrophils % Lymphocytes % Monocytes % Differential Comment Smudge Cells INR PTT (Actin FS) Fibrinogen Sodium Potassium Chloride Carbon Dioxide Anion Gap BUN Creatinine Creat Clearance w eGFR POC Glucometer 85 Random Glucose Lactic Acid 1.234 Uric Acid Calcium Magnesium Total Bilirubin AST ALT Alkaline Phosphatase LD Total Creatine Kinase Troponin I B-Natriuretic Peptide Total Protein Albumin TSH Pleural Fluid Source Pleural Color Pleural Appearance Pleural WBC Pleural RBC Pleural Neutrophils Pleural Lymphocytes Pleural Macrophages Pleural Chloride Pleural Total Protein Pleural Albumin Pleural LDH Pleural Glucose Pleural Amylase Pleural Cholesterol Blood Type A POSITIVE Antibody Screen Negative Direct Antiglob Test Crossmatch See Detail 01/25/17 01/26/17 01/26/17 21:00 04:31 05:50 WBC 57.9 H* RBC 2.76 L D Hgb 8.3 L D Hct 26.8 L D MCV 97.1 H MCHC 30.8 L RDW 27.0 H Plt Count 57 L D MPV 9.9 Neutrophils % 19.0 L D Lymphocytes % 79.0 H Monocytes % 2.0 L Differential Comment Manual diff done Smudge Cells Many INR PTT (Actin FS) Fibrinogen Sodium Potassium Chloride Carbon Dioxide Anion Gap BUN Creatinine Creat Clearance w eGFR POC Glucometer 132 Random Glucose Lactic Acid Uric Acid Calcium Magnesium Total Bilirubin AST ALT Alkaline Phosphatase LD Total Creatine Kinase Troponin I B-Natriuretic Peptide Total Protein Albumin TSH Pleural Fluid Source Pleural Color Pleural Appearance Pleural WBC Pleural RBC Pleural Neutrophils Pleural Lymphocytes Pleural Macrophages Pleural Chloride Pleural Total Protein Pleural Albumin Pleural LDH Pleural Glucose Pleural Amylase Pleural Cholesterol Blood Type Antibody Screen Direct Antiglob Test Negative Crossmatch 01/26/17 01/26/17 01/26/17 05:50 05:50 11:06 WBC RBC Hgb Hct MCV MCHC RDW Plt Count MPV Neutrophils % Lymphocytes % Monocytes % Differential Comment Smudge Cells INR 1.08 PTT (Actin FS) 29.6 Fibrinogen 397.0 Sodium 151 H Potassium 3.7 Chloride 114 H Carbon Dioxide 25 Anion Gap 12 BUN 18 Creatinine 0.5 L Creat Clearance w eGFR > 60 POC Glucometer 94 Random Glucose 80 D Lactic Acid Uric Acid 5.6 Calcium 7.7 L Magnesium 2.4 Total Bilirubin 0.6 D AST 16 D ALT 16 Alkaline Phosphatase 46 LD Total 340 H Creatine Kinase 38 Troponin I < 0.02 B-Natriuretic Peptide 516.43 H Total Protein 5.8 L Albumin 2.8 L TSH 0.47 Pleural Fluid Source Pleural Color Pleural Appearance Pleural WBC Pleural RBC Pleural Neutrophils Pleural Lymphocytes Pleural Macrophages Pleural Chloride Pleural Total Protein Pleural Albumin Pleural LDH Pleural Glucose Pleural Amylase Pleural Cholesterol Blood Type Antibody Screen Direct Antiglob Test Crossmatch 01/26/17 01/26/17 12:00 15:45 WBC RBC Hgb Hct MCV MCHC RDW Plt Count MPV Neutrophils % Lymphocytes % Monocytes % Differential Comment Smudge Cells INR PTT (Actin FS) Fibrinogen Sodium Potassium Chloride Carbon Dioxide Anion Gap BUN Creatinine Creat Clearance w eGFR POC Glucometer 100 Random Glucose Lactic Acid Uric Acid Calcium Magnesium Total Bilirubin AST ALT Alkaline Phosphatase LD Total Creatine Kinase Troponin I B-Natriuretic Peptide Total Protein Albumin TSH Pleural Fluid Source Pleural Pleural Color Red Pleural Appearance Turbid Pleural WBC 79189 Pleural RBC 127393 Pleural Neutrophils Y Pleural Lymphocytes 97 Pleural Macrophages 3 Pleural Chloride 114 Pleural Total Protein 4.148 Pleural Albumin 2 Pleural LDH 437 Pleural Glucose 61.239 Pleural Amylase 27.264 Pleural Cholesterol 56 Blood Type Antibody Screen Direct Antiglob Test Crossmatch Imaging - Results Chest X-ray: Report Reviewed, Image Reviewed (opacification of right hemithorax) Problem List - Problems (1) Acute respiratory failure with hypoxia Code(s): J96.01 - ACUTE RESPIRATORY FAILURE WITH HYPOXIA (2) Pleural effusion Code(s): J90 - PLEURAL EFFUSION, NOT ELSEWHERE CLASSIFIED (3) CLL (chronic lymphocytic leukemia) Code(s): C91.10 - CHRONIC LYMPHOCYTIC LEUK OF B-CELL TYPE NOT ACHIEVE REMIS (4) Diabetes mellitus Code(s): E11.9 - TYPE 2 DIABETES MELLITUS WITHOUT COMPLICATIONS (5) Hypertension Code(s): I10 - ESSENTIAL (PRIMARY) HYPERTENSION (6) Hypothyroid Code(s): E03.9 - HYPOTHYROIDISM, UNSPECIFIED (7) Anemia Code(s): D64.9 - ANEMIA, UNSPECIFIED Qualifiers: Anemia type: unspecified type Qualified Code(s): D64.9 - Anemia, unspecified (8) Lactic acidosis Code(s): E87.2 - ACIDOSIS Assessment/Plan Acute Hypoxic Respiratory Failure Right Pleural Effusion vs Atelectasis Lactic Acidosis likely due to hypoxia CLL HTN DM Hypothyroidism S/P Right Pleural effusion drainage - Follow pleural cultures / cytology - O2 to keep SpO2 >90% - BiPAP as needed to assist in work of breathing - aspiration precautions - received empiric antibiotics - f/u cultures - DVT prophylaxis - Need to discuss GOC given age and overall condition Dr Darby
--- NOTE | 2017-01-26 20:11 | PN ---
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 (short form) - Note 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: PAtient seen and examined On nasl canula s/p chest tube placement feels better Last Vital Signs Temp Pulse Resp BP Pulse Ox 98.4 F 79 20 125/77 93 L 01/26/17 17:00 01/26/17 17:00 01/26/17 17:00 01/26/17 17:00 01/26/17 19:04 Cor: RSR, No murmurs, No gallops Lungs: Clear to P&A ant. Abd: Soft, Normal bowel sounds, No organomegaly Ext:No significant edema Abnormal Lab Results 01/25/17 01/26/17 01/26/17 10:05 05:50 05:50 WBC 57.9 H* RBC 2.76 L D Hgb 8.3 L D Hct 26.8 L D MCV 97.1 H MCHC 30.8 L RDW 27.0 H Plt Count 57 L D Neutrophils % 19.0 L D Lymphocytes % 79.0 H Monocytes % 2.0 L Sodium 151 H Chloride 114 H Creatinine 0.5 L Calcium 7.7 L LD Total 340 H B-Natriuretic Peptide 516.43 H Total Protein 5.8 L Albumin 2.8 L Crossmatch See Detail Active Medications Generic Name Dose Route Start Last Admin Trade Name Freq PRN Reason Stop Dose Admin Acetaminophen 650 mg 01/25/17 09:53 Tylenol - PO Q6H PRN FEVER OR PAIN Albuterol/Ipratropium 1 amp 01/26/17 18:23 Duoneb - NEB Q6H PRN SHORTNESS OF BREATH Allopurinol 300 mg 01/25/17 21:00 01/26/17 15:23 Zyloprim - PO 300 mg DAILY SRINIVASA Administration Insulin Aspart 1 vial 01/25/17 11:00 01/26/17 17:00 Novolog Vial Sliding Scale - SQ Not Given ACHS [facility] Protocol Insulin Detemir 3 units 01/26/17 07:00 01/26/17 06:19 Levemir Vial SQ Not Given AM SRINIVASA Levothyroxine Sodium 25 mcg 01/26/17 10:00 01/26/17 11:02 Synthroid Injection - IVPUSH 25 mcg DAILY SRINIVASA Administration Nystatin 1 applic 01/25/17 22:00 01/26/17 10:52 Mycostatin Ointment - TP 1 applic BID SRINIVASA Administration Piperacillin Sod/Tazobactam Sod 3.375 gm 01/26/17 12:30 01/26/17 18:47 Zosyn 3.375gm Ivpb (Pre-Docked) IVPB 3.375 gm Q8H-IV SRINIVASA Administration Protocol A/P 81 y/o patient with CLL, h/o breast cancer, dementia, has been snf resident and wheel chair 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 pleural effusion CLL--trisomy 12. also generalized adenopathy diagnosed several yrs. ago in [place] Never treated, was being monitored More recently transfusion dependent check LDh/hapto/emiliana given overall comorbidities, functional status will need to discuss with family goals of care start allopurinol Breast cancer -- s/p resection. +margin. ER+ no adjuvant therapy was given as she declined per her primary oncologist in [place] Pleural effusion --s/p chest tube on the Left await pleural fluid cytology
[2017-01-27] MEDS: ACETAMINOPHEN 325 MG TABLET (FP) PO PRN ×2 (02:30→23:14)
[2017-01-27] MEDS: PIPERACILLIN/TAZOB 3.375 GM/50 ML PRE-DOCKED IVPB SCH ×3 (02:35→18:34)
[2017-01-27] MEDS ORDERED: ACETAMINOPHEN 650 MG SUPP.RECT PR ONE (03:01)
[2017-01-27] MEDS: INSULIN SLIDING SCALE (NOVOLOG) 1 VIAL SQ SCH ×4 (06:30→23:13)
[2017-01-27] MEDS: INSULIN DETEMIR 100 UNITS/ML MDV SQ SCH (06:30)
[2017-01-27 07:31] LABS: MCHC 30.8 g/dl (32.0-36.0); MEAN CELL VOLUME 97.5 fl (80-96); MEAN PLT VOLUME 9.8 fl (7.5-11.1); PLATELET COUNT 52 K/MM3 (134-434); RDW 27.4 % (11.6-15.6)
[2017-01-27 07:36] LABS: WHITE BLOOD COUNT 43.9 K/mm3 (4.0-10.0)
[2017-01-27 07:52] LABS: ALBUMIN 2.6 g/dl (3.4-5.0); ANION GAP 9 (8-16); CALCIUM 7.5 mg/dL (8.5-10.1); CO2 28 mmol/L (21-32); CREATININE 0.6 mg/dL (0.55-1.02); GLUCOSE,RANDOM 95 mg/dL (74-106); SGOT/AST 14 U/L (15-37); SGPT/ALT 10 U/L (12-78)
[2017-01-27 07:57] LABS: ALK PHOS 43 U/L (45-117); BILIRUBIN,TOTAL 0.7 mg/dL (0.2-1.0); TOT PROT 5.2 g/dl (6.4-8.2)
[2017-01-27] MEDS ORDERED: POTASSIUM CHLORIDE TABS 20 MEQ TABLET.ER (FP) PO ONE (09:00)
--- NOTE | 2017-01-27 09:00 | CONSULT ---
Consultation: REQUESTING PROVIDER: CONSULT REQUEST: (Infectious Disease) We have been asked to medically evaluate this patient for fever. HISTORY OF PRESENT ILLNESS: Patient is an 81 year old female with a PMHx of HTN, IDDM, CLL diagnosed 7 years ago and on no treatment, Anemia requiring transfusions, systolic CHF, dementia, and hypthyroidism who presented for acute respiratory distress associated with fever and leukocytosis. Patient was then found to have a complete opacification of right hemothorax on initial chest x-ray and pleural effusion. Patient is now s/p thoracocentesis and chest tube placement. She has been on BiPaP since admission. Patient continues to have leukocytosis and fevers despite being on Zosyn. Otherwise, patient is unable to provide further history due to medical condition REVIEW OF SYSTEMS: CONSTITUTIONAL: Present: fever Absent: chills, diaphoresis, generalized weakness, malaise, loss of appetite, weight change HEENT: Absent: rhinorrhea, nasal congestion, throat pain, throat swelling, difficulty swallowing, mouth swelling, ear pain, eye pain, visual changes CARDIOVASCULAR: Absent: chest pain, syncope, palpitations, irregular heart rate, lightheadedness , peripheral edema RESPIRATORY: Present: cough, shortness of breath, dyspnea with exertion, orthopnea, wheezing Absent: stridor, hemoptysis GASTROINTESTINAL: Absent: abdominal pain, abdominal distension, nausea, vomiting, diarrhea, constipation, melena, hematochezia GENITOURINARY: Absent: dysuria, frequency, urgency, hesitancy, hematuria, flank pain, genital pain MUSCULOSKELETAL: Absent: myalgia, arthralgia, joint swelling, back pain, neck pain SKIN: Absent: rash, itching, pallor HEMATOLOGIC/IMMUNOLOGIC: Absent: easy bleeding, easy bruising, lymphadenopathy, frequent infections ENDOCRINE: Absent: unexplained weight gain, unexplained weight loss, heat intolerance, cold intolerance NEUROLOGIC: Absent: headache, focal weakness or paresthesias, dizziness, unsteady gait, seizure, mental status changes, bladder or bowel incontinence PSYCHIATRIC: Absent: anxiety, depression, suicidal or homicidal ideation, hallucinations. PHYSICAL EXAMINATION Vital Signs - 24 hr 01/26/17 01/26/17 01/26/17 10:00 10:32 11:31 Temperature 98 F Pulse Rate 78 102 H Pulse Rate [ Left Upper Arm] Respiratory 20 20 Rate Respiratory Rate [Left Upper Arm] Blood Pressure 112/59 223/82 Blood Pressure [Left Upper Arm ] O2 Sat by Pulse 100 98 Oximetry (%) O2 Sat by Pulse Oximetry (%) [ Left Upper Arm] 01/26/17 01/26/17 01/26/17 11:40 11:50 12:00 Temperature Pulse Rate Pulse Rate [ 87 88 94 H Left Upper Arm] Respiratory Rate Respiratory 21 22 20 Rate [Left Upper Arm] Blood Pressure Blood Pressure 139/71 145/65 117/58 [Left Upper Arm ] O2 Sat by Pulse Oximetry (%) O2 Sat by Pulse 97 100 100 Oximetry (%) [ Left Upper Arm] 01/26/17 01/26/17 01/26/17 12:25 13:12 14:27 Temperature 97.8 F Pulse Rate 77 73 Pulse Rate [ Left Upper Arm] Respiratory 21 20 Rate Respiratory Rate [Left Upper Arm] Blood Pressure 113/58 116/59 Blood Pressure [Left Upper Arm ] O2 Sat by Pulse 99 100 Oximetry (%) O2 Sat by Pulse Oximetry (%) [ Left Upper Arm] 01/26/17 01/26/17 01/26/17 15:24 17:00 19:04 Temperature 98.4 F Pulse Rate 82 79 Pulse Rate [ Left Upper Arm] Respiratory 20 20 Rate Respiratory Rate [Left Upper Arm] Blood Pressure 120/65 125/77 Blood Pressure [Left Upper Arm ] O2 Sat by Pulse 93 L Oximetry (%) O2 Sat by Pulse Oximetry (%) [ Left Upper Arm] 01/26/17 01/27/17 01/27/17 21:00 02:00 02:39 Temperature 99.3 F 98.2 F 101.3 F H Pulse Rate 84 117 H 114 H Pulse Rate [ Left Upper Arm] Respiratory 20 20 22 Rate Respiratory Rate [Left Upper Arm] Blood Pressure 128/57 154/94 145/76 Blood Pressure [Left Upper Arm ] O2 Sat by Pulse 93 L Oximetry (%) O2 Sat by Pulse Oximetry (%) [ Left Upper Arm] 01/27/17 06:00 Temperature 99.4 F Pulse Rate 72 Pulse Rate [ Left Upper Arm] Respiratory 20 Rate Respiratory Rate [Left Upper Arm] Blood Pressure 100/52 Blood Pressure [Left Upper Arm ] O2 Sat by Pulse Oximetry (%) O2 Sat by Pulse Oximetry (%) [ Left Upper Arm] GENERAL: Lethargic with no respiratory distress on BIPAP. NECK: Cervical lymphadenopathy bilaterally LUNGS: Decreased breath sounds throughout lung bases with rhonchi and wheezes anteriorly. HEART: RRR, normal S1 and S2 without murmur, rub or gallop. ABDOMEN: Soft, nontender, not distended EXTREMITIES: Inguinal lymphadenopathy bilaterally, 2+ pulses, warm, well- perfused. No cyanosis. No clubbing. Cap refill <2 seconds. No peripheral edema. SKIN: Warm, dry, normal turgor, no rashes or lesions noted. Laboratory Results - last 24 hr 01/26/17 01/26/17 01/26/17 05:50 05:50 11:06 WBC RBC Hgb Hct MCV MCHC RDW Plt Count MPV Neutrophils % 19.0 L D Lymphocytes % 79.0 H Monocytes % 2.0 L Differential Comment Manual diff done Smudge Cells Many Haptoglobin 325 H Sodium Potassium Chloride Carbon Dioxide Anion Gap BUN Creatinine Creat Clearance w eGFR POC Glucometer 94 Random Glucose Calcium Total Bilirubin AST ALT Alkaline Phosphatase Total Protein Albumin Pleural Fluid Source Pleural Color Pleural Appearance Pleural WBC Pleural RBC Pleural Neutrophils Pleural Lymphocytes Pleural Macrophages Pleural Chloride Pleural Total Protein Pleural Albumin Pleural LDH Pleural Glucose Pleural Amylase Pleural Cholesterol 01/26/17 01/26/17 01/26/17 12:00 15:45 22:01 WBC RBC Hgb Hct MCV MCHC RDW Plt Count MPV Neutrophils % Lymphocytes % Monocytes % Differential Comment Smudge Cells Haptoglobin Sodium Potassium Chloride Carbon Dioxide Anion Gap BUN Creatinine Creat Clearance w eGFR POC Glucometer 100 91 Random Glucose Calcium Total Bilirubin AST ALT Alkaline Phosphatase Total Protein Albumin Pleural Fluid Source Pleural Pleural Color Red Pleural Appearance Turbid Pleural WBC 60045 Pleural RBC 571404 Pleural Neutrophils Y Pleural Lymphocytes 97 Pleural Macrophages 3 Pleural Chloride 114 Pleural Total Protein 4.148 Pleural Albumin 2 Pleural LDH 437 Pleural Glucose 61.239 Pleural Amylase 27.264 Pleural Cholesterol 56 01/27/17 01/27/17 01/27/17 05:35 05:35 06:11 WBC 43.9 H* RBC 2.60 L Hgb 7.8 L Hct 25.3 L MCV 97.5 H MCHC 30.8 L RDW 27.4 H Plt Count 52 L MPV 9.8 Neutrophils % Lymphocytes % Monocytes % Differential Comment Smudge Cells Haptoglobin Sodium 149 H Potassium 3.2 L Chloride 112 H Carbon Dioxide 28 Anion Gap 9 BUN 17 Creatinine 0.6 Creat Clearance w eGFR > 60 POC Glucometer 108 Random Glucose 95 Calcium 7.5 L Total Bilirubin 0.7 AST 14 L ALT 10 L D Alkaline Phosphatase 43 L Total Protein 5.2 L Albumin 2.6 L Pleural Fluid Source Pleural Color Pleural Appearance Pleural WBC Pleural RBC Pleural Neutrophils Pleural Lymphocytes Pleural Macrophages Pleural Chloride Pleural Total Protein Pleural Albumin Pleural LDH Pleural Glucose Pleural Amylase Pleural Cholesterol Active Medications Generic Name Dose Route Start Last Admin Trade Name Freq PRN Reason Stop Dose Admin Acetaminophen 650 mg 01/25/17 09:53 01/27/17 02:30 Tylenol - PO 650 mg Q6H PRN Administration FEVER OR PAIN Albuterol/Ipratropium 1 amp 01/26/17 18:23 Duoneb - NEB Q6H PRN SHORTNESS OF BREATH Allopurinol 300 mg 01/25/17 21:00 01/26/17 15:23 Zyloprim - PO 300 mg DAILY SRINIVASA Administration Insulin Aspart 1 vial 01/25/17 11:00 01/27/17 06:30 Novolog Vial Sliding Scale - SQ Not Given ACHS SRINIVASA Protocol Insulin Detemir 3 units 01/26/17 07:00 01/27/17 06:30 Levemir Vial SQ Not Given AM SRINIVASA Levothyroxine Sodium 25 mcg 01/26/17 10:00 01/26/17 11:02 Synthroid Injection - IVPUSH 25 mcg DAILY SRINIVASA Administration Nystatin 1 applic 01/25/17 22:00 01/26/17 22:03 Mycostatin Ointment - TP 1 applic BID SRINIVASA Administration Piperacillin Sod/Tazobactam Sod 3.375 gm 01/26/17 12:30 01/27/17 02:35 Zosyn 3.375gm Ivpb (Pre-Docked) IVPB 3.375 gm Q8H-IV SRINIVASA Administration Protocol Potassium Chloride 40 meq 01/27/17 09:00 K-Dur - PO 01/27/17 09:01 ONCE ONE ASSESSMENT/PLAN: Patient likely to have leukocytosis and fevers secondary to CLL and right lung pleural effusion. Will repeat Chest X-ray Will repeat blood and urine cultures, and UA Pleural fluid cultures pending Continue Zosyn Patient is likely aspirating Chest tube draining blood, possibly malignant pleural effusion Dispo: We will continue to follow the patient. Thank you for this consultative opportunity. Visit type - Emergency Visit Emergency Visit: Yes ED Registration Date: 01/25/17 Care time: The patient presented to the Emergency Department on the above date and was hospitalized for further evaluation of their emergent condition. - New Patient This patient is new to me today: Yes Date on this admission: 01/30/17 - Critical Care Critical Care patient: No
[2017-01-27] MEDS: LEVOTHYROXINE SODIUM 100 MCG VIAL IVPUSH SCH (10:07)
[2017-01-27] MEDS: ALLOPURINOL 300 MG TABLET (FP) PO SCH (10:07)
[2017-01-27] MEDS: NYSTATIN 100000 UNIT/GM TOPICAL OINTMENT 15 GM TUBE TP SCH ×2 (10:07→23:13)
--- NOTE | 2017-01-27 10:50 | CONSULT ---
Admitting History and Physical - Primary Care Physician PCP: Irasema Wild - Admission History of Present Illness: Per EMR: "HISTORY OF PRESENT ILLNESS: Patient is an 81 year old female with a PMHx of HTN, IDDM, CLL diagnosed 7 years ago and on no treatment, Anemia requiring transfusions, systolic CHF, dementia, and hypthyroidism who presented for acute respiratory distress associated with fever and leukocytosis. Patient was then found to have a complete opacification of right hemothorax on initial chest x-ray and pleural effusion. Patient is now s/p thoracocentesis and chest tube placement. She has been on BiPaP since admission." Referred for a swallowing evaluation with report of difficulty swallowing medication and soup with mashed noodles. History Source: Medical Record Limitations to Obtaining History: Clinical Condition - Past Medical History FOSTER WINDER: Yes: Dementia Cardiovascular: Yes: HTN, Hyperlipdemia Heme/Onc: Yes: Anemia, Other (myelodysplasia/ CLL? 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 Does not to respond to questions.), Flat Affect Attention: Distractible, Mild Impairment Ability to Follow Directions: Fair Head/Neck Control: Fair - Hearing Hearing: Normal Speech Evaluation - Communication Primary Language: SUDANESE Communication: Yes: Simple Responses (vague, reduced articulatory rate and precision.) - Speech Production Intelligibility: Yes: Mildly Impaired - Speech Characteristics Voice Loudness: Normal Voice Pitch: Yes: Normal Voice Phonatory-based Quality: Yes: Normal Speech Pattern: Impaired Speech Clarity: < 75% Nasal Resonance: Normal Articulation: Yes: Imprecise Rate of Speech: Too Slow - Language/Auditory Comprehension Follows: Yes: 1 Stage Simple Commands (with repetition. Very slow to respond. Distractible. Impaired attention, insight,memory.) Observation: Comprehends Conversational Speech: Yes (simple), Benefits from Slow Speech: Yes, Benefits from Repetiton: Yes, Benefits from Increased Volume of Speech: No - Language/Verbal Expression Able to Respond to Simple Queries: Yes: Moderately Impaired - Swallow Evaluation/Bedside Assessment Current Nutritional Intake: Regular, Thin Liquids Dentition: Yes: Adequate Facial Symmetry at Rest: Symmetrical Facial Symmetry on Retraction: Symmetrical Facial Movement: Controlled Against Resistance Opening: Weak Against Resistance Closing: Weak Pucker Lips: Normal Lingual Movement: Normal, Symmetric Lingual Speed of Movement: Reduced Lingual Movement Strgth Against Opposition: Reduced Lingual Movement Characteristics: Normal Velopharyngeal Movement: Normal Laryngeal Elevation: Impaired Laryngeal Movement: Reduced Excursion, Labored,delay initiation, Reduced Velocity, Other (Very delayed, often absent swallow. Needs repeated reminders to swallow) Rate of Intake: Slow/Holding (chews extensively crushed meds in applesauce) Labial Seal: Impaired Bilaterally (weak) Chewing: Impaired (slow munching, extensive, poor rotary movement.) Oral Prep Time: Increased A-P Transit: Impaired Pocketing: Present Bilaterally Timing of Swallow: Delayed Coughing/Throat Clear: Yes (delayed) Recommendations - Speech Evaluation, Impression/Plan Impression: Slow to respond. Impaired attention with distractibility. Poor insight and memory. Moderate oropharyngeal dysphagia with moderate risk of aspiration. Needs careful monitoring in this pt with right lung involement. - Dysphagia Impressions/Plan Swallowing Skills: Impaired Dysphagia Impressions: Moderate Impairment, Ongoing Evaluation, Suspect Aspiration *Silent aspiration: cannot be R/O at bedside Dysphagia Treatment Plan: Small Bites, Chin Tuck/Down, Safe Rate, 1/2 tsp. at a time, Elevate HOB during feed, Other (tell pt to "SWALLOW" repeatedly, and palpate larynx for reflex.Alternate puree with single sip of liquid.) Recommendations: Modified Barium Swallow (When stronger.), Other (NPO if becomes more congested.) - Recommendations Diet Consistency: Dysphagia Pureed Medication Administration: Crushed with applesauce Liquids: Victor Thick (single careful sips) Supplement: Magic Cup, Other (Ensure compact)
--- NOTE | 2017-01-27 10:55 | PN ---
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 (short form) - Note 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: Subjective: The patient was seen and examined at the bedside, she is comfortable on bipap. Chest tube placed yesterday, 1L output yesterday Tmax 101.3 this AM, f/u ID consult, recultured Current Medications Generic Name Dose Route Start Last Admin Trade Name Freq PRN Reason Stop Dose Admin Acetaminophen 650 mg 01/25/17 09:53 01/27/17 02:30 Tylenol - PO 650 mg Q6H PRN Administration FEVER OR PAIN Albuterol/Ipratropium 1 amp 01/26/17 18:23 Duoneb - NEB Q6H PRN SHORTNESS OF BREATH Allopurinol 300 mg 01/25/17 21:00 01/27/17 10:07 Zyloprim - PO 300 mg DAILY SRINIVASA Administration Insulin Aspart 1 vial 01/25/17 11:00 01/27/17 06:30 Novolog Vial Sliding Scale - SQ Not Given ACHS SRINIVASA Protocol Insulin Detemir 3 units 01/26/17 07:00 01/27/17 06:30 Levemir Vial SQ Not Given AM SRINIVASA Levothyroxine Sodium 25 mcg 01/26/17 10:00 01/27/17 10:07 Synthroid Injection - IVPUSH 25 mcg DAILY SRINIVASA Administration Nystatin 1 applic 01/25/17 22:00 01/27/17 10:07 Mycostatin Ointment - TP 1 applic BID SRINIVASA Administration Piperacillin Sod/Tazobactam Sod 3.375 gm 01/26/17 12:30 01/27/17 10:05 Zosyn 3.375gm Ivpb (Pre-Docked) IVPB 3.375 gm Q8H-IV SRINIVASA Administration Protocol Objective: Vital Signs Period Temp Pulse Resp BP Sys/Choi Pulse Ox Last 24 Hr 97.8 F-101.3 F 72-117 20-22 100-223/52-94 93-100 Physical Exam: General: NAD, A&Ox3 Lungs: Left lung CTA. Right lung with diminished breath sounds, rhonchi. Right chest tube in place, bloody output Heart: RRR, S1S2 Abd: Soft, non-tender, non-distended. Normoactive bowel sounds Ext: Warm, well-perfused. 2+ DP/PT bilaterally Neuro: Unable to assess, patient on bipap machine CBCD WBC 43.9 K/mm3 (4.0-10.0) H* 01/27/17 05:35 RBC 2.60 M/mm3 (3.60-5.2) L 01/27/17 05:35 Hgb 7.8 GM/dL (10.7-15.3) L 01/27/17 05:35 Hct 25.3 % (32.4-45.2) L 01/27/17 05:35 MCV 97.5 fl (80-96) H 01/27/17 05:35 MCHC 30.8 g/dl (32.0-36.0) L 01/27/17 05:35 RDW 27.4 % (11.6-15.6) H 01/27/17 05:35 Plt Count 52 K/MM3 (134-434) L 01/27/17 05:35 MPV 9.8 fl (7.5-11.1) 01/27/17 05:35 CMP Sodium 149 mmol/L (136-145) H 01/27/17 05:35 Potassium 3.2 mmol/L (3.5-5.1) L 01/27/17 05:35 Chloride 112 mmol/L (98-107) H 01/27/17 05:35 Carbon Dioxide 28 mmol/L (21-32) 01/27/17 05:35 Anion Gap 9 (8-16) 01/27/17 05:35 BUN 17 mg/dL (7-18) 01/27/17 05:35 Creatinine 0.6 mg/dL (0.55-1.02) 01/27/17 05:35 Creat Clearance w eGFR > 60 (>60) 01/27/17 05:35 Random Glucose 95 mg/dL (74-106) 01/27/17 05:35 Calcium 7.5 mg/dL (8.5-10.1) L 01/27/17 05:35 Total Bilirubin 0.7 mg/dL (0.2-1.0) 01/27/17 05:35 AST 14 U/L (15-37) L 01/27/17 05:35 ALT 10 U/L (12-78) L D 01/27/17 05:35 Alkaline Phosphatase 43 U/L (45-117) L 01/27/17 05:35 Total Protein 5.2 g/dl (6.4-8.2) L 01/27/17 05:35 Albumin 2.6 g/dl (3.4-5.0) L 01/27/17 05:35 CARDIAC ENZYMES Creatine Kinase 38 IU/L (26-192) 01/26/17 05:50 Troponin I < 0.02 ng/ml (0.00-0.05) 01/26/17 05:50 Microbiology 01/25/17 06:07 Blood - Peripheral Venous Blood Culture - Preliminary NO GROWTH OBTAINED AFTER 48 HOURS, INCUBATION TO CONTINUE FOR 3 DAYS. 01/25/17 06:07 Blood - Peripheral Venous Blood Culture - Preliminary NO GROWTH OBTAINED AFTER 48 HOURS, INCUBATION TO CONTINUE FOR 3 DAYS. 01/26/17 12:00 Pleural Fluid LOIS Preparation - Preliminary 01/26/17 12:00 Pleural Fluid Fungal Culture - Preliminary 01/25/17 07:10 Urine - Urine - Catheterized Urine Culture - Final Assessment: This is an 81 year old female with PMHx of HTN, IDDM, CLL (dx 7 years ago), anemia requiring transfusions, breast cancer s/p lumpectomy ~5 years ago, systolic CHF, mild dementia, hypothyroidism who presented to the ED in acute respiratory distress. Plan: 1) Pulmonary: Acute hypoxic respiratory failure 2/2 large right pleural effusion - S/p right chest tube placement on 01/26 - Exudative pleural fluid - Cytology negative for malignancy - Monitor output - Bipap as needed Lingular infiltrate - Tmax 101.3 overnight, recultured, repeat chest x-ray - Continue Zosyn coverage for HCAP - Lactic acidosis resolved - Appreciate pulmonary consult 2) Heme/onc: CLL, chronic anemia requiring transfusion - S/p 2u PRBC /, monitor H/H, slight drop today - Diagnosed 7 years ago with CLL, never treated - F/u LDH, hapto, emiliana - Start Allopurinol - Patient had recent PET scan, will need to follow-up results - Appreciate heme/onc consult Breast cancer s/p resection, +margin, ER+ - Per Dr. Young, "no adjuvant therapy was given as she declined per her primary oncologist in [place]" 3) Endocrine: IDDM - BGM ACHS - ISS ACHS - Levemir (will increase dose once tolerating diet) Hypothyroidism - TSH wnl - Continue Synthroid 4) F/E/N: - F/u swallow evaluation, per RN patient was not tolerating diet well - Hypernatremia: Improving, continue to monitor 5) Prophylaxis: - Hold all chemical anticoagulation 2/2 thrombocytopenia - Pressure ulcers: allevyn dressing - Vaginal sore: patient was taking Keflex at SNF for it, not started here given patient on broad spectrum abx 6) Dispo: - Requires continued inpatient care CODE STATUS: FULL CODE Visit type - Emergency Visit Emergency Visit: Yes ED Registration Date: 01/25/17 Care time: The patient presented to the Emergency Department on the above date and was hospitalized for further evaluation of their emergent condition. - New Patient This patient is new to me today: No - Critical Care Critical Care patient: No
--- NOTE | 2017-01-27 11:03 | PN ---
Teaching Attending Note Name of Resident: Cee Lynne ATTENDING PHYSICIAN STATEMENT I saw and evaluated the patient. I reviewed the resident's note and discussed the case with the resident. I agree with the resident's findings and plan as documented. 81 year old with CLL admitted with tachypnea, dount to have large right pleural effusion on 01/25 tapped on 01/26 fever overnight SUBJECTIVE: awake and alert not eager to talk, doesnt want to be hear no headache, no chest pain, no abdominal pain no nausea or vomiting no dysuria OBJECTIVE: Vital Signs Period Temp Pulse Resp BP Sys/Choi Pulse Ox Last 24 Hr 97.8 F-101.3 F 72-117 20-22 100-154/52-94 93-100 cor-rrr lungs decreased bs at bases abd soft,nt ext no edema +adenopathy CBC, BMP 01/27/17 05:35 01/27/17 05:35 ASSESSMENT AND PLAN: fever s/p chest tube drainaage exudative pleural effusion CLL ?parapneumonic ?malignant could she be aspirating continue zosyn f/u cultures
--- NOTE | 2017-01-27 11:44 | PN ---
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 (short form) - Note 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: PAtient seen and examined On nasal canula s/p chest tube placement Last Vital Signs Temp Pulse Resp BP Pulse Ox 99.4 F 72 20 100/52 95 01/27/17 06:00 01/27/17 06:00 01/27/17 06:00 01/27/17 06:00 01/27/17 11:18 Cor: RSR, No murmurs, No gallops Lungs: Clear to P&A ant. Abd: Soft, Normal bowel sounds, No organomegaly Ext:No significant edema Abnormal Lab Results 01/26/17 01/26/17 01/27/17 05:50 05:50 05:35 WBC 43.9 H* RBC 2.60 L Hgb 7.8 L Hct 25.3 L MCV 97.5 H MCHC 30.8 L RDW 27.4 H Plt Count 52 L Neutrophils % 19.0 L D Lymphocytes % 79.0 H Monocytes % 2.0 L Haptoglobin 325 H Sodium Potassium Chloride Calcium AST ALT Alkaline Phosphatase Total Protein Albumin 01/27/17 05:35 WBC RBC Hgb Hct MCV MCHC RDW Plt Count Neutrophils % Lymphocytes % Monocytes % Haptoglobin Sodium 149 H Potassium 3.2 L Chloride 112 H Calcium 7.5 L AST 14 L ALT 10 L D Alkaline Phosphatase 43 L Total Protein 5.2 L Albumin 2.6 L Active Medications Generic Name Dose Route Start Last Admin Trade Name Freq PRN Reason Stop Dose Admin Acetaminophen 650 mg 01/25/17 09:53 01/27/17 02:30 Tylenol - PO 650 mg Q6H PRN Administration FEVER OR PAIN Albuterol/Ipratropium 1 amp 01/26/17 18:23 Duoneb - NEB Q6H PRN SHORTNESS OF BREATH Allopurinol 300 mg 01/25/17 21:00 01/27/17 10:07 Zyloprim - PO 300 mg DAILY SRINIVASA Administration Insulin Aspart 1 vial 01/25/17 11:00 01/27/17 11:20 Novolog Vial Sliding Scale - SQ Not Given ACHS [facility] Protocol Insulin Detemir 3 units 01/26/17 07:00 01/27/17 06:30 Levemir Vial SQ Not Given AM SRINIVASA Levothyroxine Sodium 25 mcg 01/26/17 10:00 01/27/17 10:07 Synthroid Injection - IVPUSH 25 mcg DAILY SRINIVASA Administration Nystatin 1 applic 01/25/17 22:00 01/27/17 10:07 Mycostatin Ointment - TP 1 applic BID SRINIVASA Administration Piperacillin Sod/Tazobactam Sod 3.375 gm 01/26/17 12:30 01/27/17 10:05 Zosyn 3.375gm Ivpb (Pre-Docked) IVPB 3.375 gm Q8H-IV SRINIVASA Administration Protocol A/P 81 y/o patient with CLL, h/o breast cancer, dementia, 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 pleural effusion CLL--trisomy 12. also generalized adenopathy diagnosed several yrs. ago in [place] Never treated, was being monitored More recently transfusion dependent emiliana --neg. LDH --300s given overall comorbidities, functional status will need to discuss with family goals of care---called son and discussed that she is being treated for a pneumonia ? aspiration, lowere immunity from CLL Check Quant. immunoglobulins Breast cancer -- s/p resection. +margin. ER+ no adjuvant therapy was given as she declined per her primary oncologist in [place] will check bone scan Pleural effusion --s/p chest tube on the Left await pleural fluid cytology Pneumonia: on zosyn ? aspiration check speech and swallow palliative care team and family meeting regrding goals of care ?
[2017-01-27 12:20] LABS: URINE APPEARANCE CLEAR; URINE BILIRUBIN NEGATIVE (NEGATIVE); URINE BLOOD NEGATIVE (NEGATIVE); URINE COLOR YELLOW; URINE GLUCOSE (UA) NEGATIVE (NEGATIVE); URINE KETONE 1+ (NEGATIVE); URINE LEUK ESTERASE NEGATIVE (NEGATIVE); URINE NITRITE NEGATIVE (NEGATIVE); URINE PROTEIN NEGATIVE (NEGATIVE); URINE UROBILINOGEN NEGATIVE E.U./dl (0.2-1.0)
--- NOTE | 2017-01-27 13:21 | PATH ---
Cytology Non-Gynecological Report Patient Name: ANGEL MORALES Med. Rec. #: [id number] /Age/Gender: 1935 (Age: 81) / F Account: [id number] Location: 4 TELEMETRY U Taken: 01/26/2017 Received: 01/26/2017 Reported: 01/27/2017 Physicians: Devonte Wyatt M.D. Smitha Mellacheruvu, M.D. Specimen(s) Received MISCELLANEOUS FLUID RIGHT CHEST Clinical History None given Final Diagnosis RIGHT CHEST, THORACENTESIS: SATISFACTORY FOR EVALUATION. LYMPHOCYTIC PLEURAL EFFUSION; CANNOT RULE OUT INVOLVEMENT BY CHRONIC LYMPHOCYTIC LEUKEMIA (CLL). NO METASTATIC CARCINOMA IDENTIFIED. ABUNDANT SMALL LYMPHOCYTES, AND BENIGN MESOTHELIAL CELLS PRESENT. Comment: This case was discussed with Dr. Souza on January 27, 2017. Hematopathology consultation to rule out involvement by CLL has been requested, and a report will follow. Electronically Signed Jose Grewal M.D. Addendum Reported: 02/01/2017 Addendum Diagnosis This case was seen in consultation with hematopathology service at [facility], [place], [place] ([id number], Dr. Lama). The consult's diagnosis is as follows: Low grade CD5+ B cell lymphoma (see comment). Comment: Clinical history of previously diagnosed chronic lymphocytic leukemia (CLL) is noted. The immunophenotypic findings are compatible with involvement by CLL. The cell block shows predominantly small-medium size lymphocytes, rare larger forms are seen. Scattered mesothelial cells also identified. Immunostains performed and interpreted at [facility] demonstrate B-cell predominance this co-expression of CD5(dim) and CD23(dim, focal). CD20 and PAX5 immunostains highlight B cells with a subset positive for CD5 and CD23; CD3 and LEF1 highlighted T cells; BCL-2 is positive; BCL-6 and BCL-1 are negative. Jose Mccurdy M.D. Gross Description A. Approximately 50 cc of bloody fluid received fixed in 50% alcohol. One cytofunnel and one cellblock prepared.
--- NOTE | 2017-01-27 14:37 | PN ---
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 (short form) - Note 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: PULMONARY CHART REVIEWED PATIENT EXAMINED RIGHT CHEST TUBE BLOODY DRAINAGE PLEURAL FLUID CYTOLOGY MAY BE C/W CLL AWAIT FURTHER TESTING Acute Hypoxic Respiratory Failure Right Pleural Effusion bloody lymphocytic exudate s/p drainage Lactic Acidosis CLL HTN DM Hypothyroidism - await final ananlysis on pleural fluid - O2 to keep SpO2 >90% - BiPAP as needed to assist in work of breathing - aspiration precautions - received empiric antibiotics - f/u cultures - DVT prophylaxis - Need to discuss GOC given age and overall condition Cheri ALAS MD
[2017-01-27] MEDS: ALBUTEROL SO4 2.5/IPRATROPIUM 0.5 INH SOL 3 ML VIAL.NEB. NEB PRN (23:20)
[2017-01-28] MEDS: PIPERACILLIN/TAZOB 3.375 GM/50 ML PRE-DOCKED IVPB SCH (02:37)
[2017-01-28] MEDS: INSULIN SLIDING SCALE (NOVOLOG) 1 VIAL SQ SCH ×4 (06:19→22:00)
[2017-01-28] MEDS: INSULIN DETEMIR 100 UNITS/ML MDV SQ SCH (06:20)
[2017-01-28 07:42] LABS: MCH 30.4 pg (25.7-33.7); MCHC 30.9 g/dl (32.0-36.0); MEAN CELL VOLUME 98.4 fl (80-96); MEAN PLT VOLUME 10.1 fl (7.5-11.1); PLATELET COUNT 44 K/MM3 (134-434); RDW 27.5 % (11.6-15.6); WHITE BLOOD COUNT 44.6 K/mm3 (4.0-10.0)
[2017-01-28 08:18] LABS: ALBUMIN 2.5 g/dl (3.4-5.0); ALK PHOS 41 U/L (45-117); ANION GAP 9 (8-16); BILIRUBIN,TOTAL 0.5 mg/dL (0.2-1.0); CALCIUM 7.5 mg/dL (8.5-10.1); CO2 28 mmol/L (21-32); COCKROFT - GAULT 82.195; CREATININE 0.5 mg/dL (0.55-1.02); GLUCOSE,RANDOM 86 mg/dL (74-106); SGOT/AST 11 U/L (15-37); SGPT/ALT 10 U/L (12-78); TOT PROT 5.3 g/dl (6.4-8.2)
[2017-01-28 09:44] LABS: SMUDGE CELLS MANY
--- NOTE | 2017-01-28 09:55 | PN ---
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, Physician Chief Complaint: ID Zosyn continues Bloody drainage through the chest tube No fevers complaints NAD - Current Medication List Current Medications: Active Medications Acetaminophen (Tylenol -) 650 mg PO Q6H PRN PRN Reason: FEVER OR PAIN Last Admin: 01/27/17 23:14 Dose: 650 mg Albuterol/Ipratropium (Duoneb -) 1 amp NEB Q6H PRN PRN Reason: SHORTNESS OF BREATH Last Admin: 01/27/17 23:20 Dose: 1 amp Allopurinol (Zyloprim -) 300 mg PO DAILY [facility] Last Admin: 01/27/17 10:07 Dose: 300 mg Insulin Aspart (Novolog Vial Sliding Scale -) 1 vial SQ ACHS SRINIVASA PRN Reason: Protocol Last Admin: 01/28/17 06:19 Dose: Not Given Insulin Detemir (Levemir Vial) 3 units SQ AM SRINIVASA Last Admin: 01/28/17 06:20 Dose: 3 units Levothyroxine Sodium (Synthroid Injection -) 25 mcg IVPUSH DAILY [facility] Last Admin: 01/27/17 10:07 Dose: 25 mcg Nystatin (Mycostatin Ointment -) 1 applic TP BID [facility] Last Admin: 01/27/17 23:13 Dose: 1 applic Piperacillin Sod/Tazobactam Sod (Zosyn 3.375gm Ivpb (Pre-Docked)) 3.375 gm IVPB Q8H-IV SRINIVASA PRN Reason: Protocol Last Admin: 01/28/17 02:37 Dose: 3.375 gm - Objective Vital Signs: Vital Signs Temperature 98.0 F 01/28/17 06:21 Pulse Rate 83 01/28/17 06:21 Respiratory Rate 20 01/28/17 09:00 Blood Pressure 138/74 01/28/17 06:21 O2 Sat by Pulse Oximetry (%) 98 01/28/17 09:00 Neck: Yes: WNL, Supple Cardiovascular: Yes: Regular Rate and Rhythm, S1, S2 Respiratory: Yes: WNL, Regular, CTA Bilaterally, Diminished Gastrointestinal: Yes: Soft. No: Tenderness Labs: CBC, BMP 01/28/17 05:35 01/28/17 05:35 INR, PTT INR 1.08 (0.82-1.09) 01/26/17 05:50 Fibrinogen 397.0 mg/dL (238-498) 01/26/17 05:50 Assessment/Plan Microbiology 01/27/17 11:30 Urine - Urine - Catheterized Urine Culture - Final NO GROWTH OBTAINED 01/26/17 12:00 Pleural Fluid Gram Stain - Final 01/27/17 08:52 Blood - Peripheral Venous Blood Culture - Preliminary NO GROWTH OBTAINED AFTER 24 HOURS, INCUBATION TO CONTINUE FOR 4 DAYS. 01/27/17 08:42 Blood - Peripheral Venous Blood Culture - Preliminary NO GROWTH OBTAINED AFTER 24 HOURS, INCUBATION TO CONTINUE FOR 4 DAYS. 01/26/17 12:00 Pleural Fluid LOIS Preparation - Preliminary 01/26/17 12:00 Pleural Fluid Fungal Culture - Preliminary 01/26/17 12:00 Pleural Fluid Body Fluid Culture - Preliminary NO AEROBIC GROWTH, 24 HRS Laboratory Tests 01/26/17 01/28/17 01/28/17 12:00 05:35 05:35 WBC 44.6 H* Hgb 8.0 L Hct 26.0 L Plt Count 44 L BUN 18 Pleural Fluid Source Pleural Pleural Color Red Pleural Appearance Turbid Pleural WBC 83764 Pleural RBC 613947 Pleural Total Protein 4.148 Pleural LDH 437 Pleural Glucose 61.239 Assessment CLL with bloody pleural effusion Does not appear infected On Zosyn Plan Consider stopping antibiotic Cryptococcal Kwaku Tran MD
[2017-01-28] MEDS: ALLOPURINOL 300 MG TABLET (FP) PO SCH (10:02)
[2017-01-28] MEDS: NYSTATIN 100000 UNIT/GM TOPICAL OINTMENT 15 GM TUBE TP SCH ×2 (10:02→22:00)
[2017-01-28] MEDS: LEVOTHYROXINE SODIUM 100 MCG VIAL IVPUSH SCH (10:04)
[2017-01-28] MEDS: ACETAMINOPHEN 325 MG TABLET (FP) PO PRN (15:16)
[2017-01-28] MEDS: ACETAMINOPHEN 650 MG SUPP.RECT PR PRN (16:05)
--- NOTE | 2017-01-28 16:10 | PN ---
Physical Exam: SUBJECTIVE: Patient seen and examined. She has no acute complaints, she appears weak, denies SOB. Answers yes and no, slow response. Events: T max 101.2 OBJECTIVE: Vital Signs Period Temp Pulse Resp BP Sys/Choi Pulse Ox Last 24 Hr 98.0 F-101.6 F 74-99 18-20 106-145/60-84 96-98 PE Neuro: alert, awake, cn 2-12intact Pulm: bibasilar ronchi, R>L, R sided CT with sanguinous drainage CV: s1 s2 rrr no mrg Abd: s nt nd +bs Ext: warm, no le edema Skin: feels hot Laboratory Results - last 24 hr 01/28/17 01/28/17 01/28/17 05:35 05:35 06:13 WBC 44.6 H* RBC 2.64 L Hgb 8.0 L Hct 26.0 L MCV 98.4 H MCHC 30.9 L RDW 27.5 H Plt Count 44 L MPV 10.1 Neutrophils % 11.0 L D Lymphocytes % 89.0 H Differential Comment Manual diff done Smudge Cells Many Sodium 151 H Potassium 3.5 Chloride 114 H Carbon Dioxide 28 Anion Gap 9 BUN 18 Creatinine 0.5 L Creat Clearance w eGFR > 60 POC Glucometer 95 Random Glucose 86 Calcium 7.5 L Total Bilirubin 0.5 D AST 11 L D ALT 10 L Alkaline Phosphatase 41 L Total Protein 5.3 L Albumin 2.5 L Blood Type Antibody Screen Crossmatch 01/26/17 01/26/17 01/28/17 05:50 05:50 05:35 Haptoglobin 325 H LD Total 340 H IgG Pending IgA Pending IgM Pending Active Medications Generic Name Dose Route Start Last Admin Trade Name Freq PRN Reason Stop Dose Admin Acetaminophen 650 mg 01/25/17 09:53 01/27/17 23:14 Tylenol - PO 650 mg Q6H PRN Administration FEVER OR PAIN Acetaminophen 650 mg 01/28/17 15:33 01/28/17 16:05 Tylenol Suppository - [place] 650 mg Q6H PRN Administration FEVER OR PAIN Albuterol/Ipratropium 1 amp 01/26/17 18:23 01/27/17 23:20 Duoneb - NEB 1 amp Q6H PRN Administration SHORTNESS OF BREATH Allopurinol 300 mg 01/25/17 21:00 01/28/17 10:02 Zyloprim - PO 300 mg DAILY SRINIVASA Administration Insulin Aspart 1 vial 01/25/17 11:00 01/28/17 12:04 Novolog Vial Sliding Scale - SQ 2 unit ACHS SRINIVASA Administration Protocol Insulin Detemir 3 units 01/26/17 07:00 01/28/17 06:20 Levemir Vial SQ 3 units AM SRINIVASA Administration Levothyroxine Sodium 25 mcg 01/26/17 10:00 01/28/17 10:04 Synthroid Injection - IVPUSH 25 mcg DAILY SRINIVASA Administration Nystatin 1 applic 01/25/17 22:00 01/28/17 10:02 Mycostatin Ointment - TP 1 applic BID SRINIVASA Administration Imaging: - ECHO: normal LV size, function, severe MR, RVSP 50-60mmhg Assessment: 81 year old female with PMHx of HTN, IDDM, CLL (dx 7 years ago), anemia requiring transfusions, breast cancer s/p lumpectomy ~5 years ago, systolic CHF, mild dementia, hypothyroidism admitted for acute respiratory distress. Plan: 1. Acute hypoxic respiratory failure 2/2 large right pleural effusion - S/p right chest tube placement on 01/26 - Exudative pleural fluid - Cytology negative for malignancy - Bipap as needed 2. Lingular infiltrate - Febrile this afternoon - Continue zosyn - Repeat BC negative - ID seeing 3. CLL, chronic anemia requiring transfusion - Diagnosed 7 years ago with CLL, declined treatment - 2uPRBC 01/25 - Bone scan per oncology - Palliative Care consulted - Allopurinol 300mg - Follow-up results to recent PET scan 4. Breast cancer s/p resection, +margin, ER+ - Per Dr. Young, "no adjuvant therapy was given as she declined per her primary oncologist in [place]" 5. DM II - BGM, ISS ACHS - Levemir 3units qam 6. Hypothyroidism - TSH wnl - Continue Synthroid 7. Hypovolemic Hypernatremia - Appears chronic while here - 2L water deficit - Will give NS @75cc/hr x1 bag 8. Nutrition - Dysphagia pureed 9. Prophylaxis - Hold all chemical anticoagulation 2/2 thrombocytopenia - Pressure ulcers: allevyn dressing - Vaginal sore: patient was taking Keflex at SNF for it, not started here given patient on broad spectrum abx Visit type - Emergency Visit Emergency Visit: Yes ED Registration Date: 01/25/17 Care time: The patient presented to the Emergency Department on the above date and was hospitalized for further evaluation of their emergent condition. - New Patient This patient is new to me today: Yes Date on this admission: 01/28/17 - Critical Care Critical Care patient: No
[2017-01-28] MEDS ORDERED: SODIUM CHLORIDE 1,000 ML IV SCH (16:45)
[2017-01-29] MEDS: INSULIN DETEMIR 100 UNITS/ML MDV SQ SCH (06:30)
[2017-01-29] MEDS: INSULIN SLIDING SCALE (NOVOLOG) 1 VIAL SQ SCH ×4 (06:31→21:21)
[2017-01-29 08:06] LABS: IGG IMMUNOGLOBULIN 825 mg/dL (700-1600); IGM IMMUNOGLOBULIN 7 mg/dL (26-217)
--- NOTE | 2017-01-29 10:40 | PN ---
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 (short form) - Note 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: PULMONARY FEBRILE BP 138/68 ANICTERIC RIGHT CHEST TUBE S1S2 BS+ SOFT DIMINISHED EDEMA RIGHT CHEST TUBE BLOODY DRAINAGE PLEURAL FLUID CYTOLOGY MAY BE C/W CLL AWAIT FURTHER TESTING Acute Hypoxic Respiratory Failure Right Pleural Effusion bloody lymphocytic exudate s/p drainage Lactic Acidosis CLL HTN DM Hypothyroidism - await final ananlysis on pleural fluid - O2 to keep SpO2 >90% - BiPAP as needed to assist in work of breathing - aspiration precautions - off antibiotics at this point - cultures unrevealing - DVT prophylaxis - Need to discuss GOC given age and overall condition Cheri ALAS MD
[2017-01-29] MEDS ORDERED: PT OWN MED DRAWER 7, Y5N ONE (11:27)
[2017-01-29] MEDS: ALLOPURINOL 300 MG TABLET (FP) PO SCH (11:30)
[2017-01-29] MEDS: LEVOTHYROXINE SODIUM 100 MCG VIAL IVPUSH SCH (11:31)
[2017-01-29] MEDS: NYSTATIN 100000 UNIT/GM TOPICAL OINTMENT 15 GM TUBE TP SCH ×2 (11:31→21:20)
--- NOTE | 2017-01-29 15:33 | PN ---
Physical Exam: SUBJECTIVE: Patient seen and examined. She says she feels better than yesterday , no dyspnea, or tachypnea noted. OBJECTIVE: Vital Signs Period Temp Pulse Resp BP Sys/Choi Pulse Ox Last 24 Hr 97.3 F-101.5 F 76-103 16-22 111-139/64-74 98-100 PE Neuro: alert, awake, cn 2-12intact Pulm: bibasilar ronchi, R>L, R sided CT with sanguinous drainage CV: s1 s2 rrr no mrg Abd: s nt nd +bs Ext: warm, no le edema Laboratory Results - last 24 hr 01/25/17 01/28/17 01/28/17 10:05 05:35 17:31 POC Glucometer 122 IgG 825 IgA 134 IgM 7 L Blood Type A POSITIVE Antibody Screen Negative Crossmatch See Detail Active Medications Generic Name Dose Route Start Last Admin Trade Name Freq PRN Reason Stop Dose Admin Acetaminophen 650 mg 01/25/17 09:53 01/27/17 23:14 Tylenol - PO 650 mg Q6H PRN Administration FEVER OR PAIN Acetaminophen 650 mg 01/28/17 15:33 01/28/17 16:05 Tylenol Suppository - [place] 650 mg Q6H PRN Administration FEVER OR PAIN Albuterol/Ipratropium 1 amp 01/26/17 18:23 01/27/17 23:20 Duoneb - NEB 1 amp Q6H PRN Administration SHORTNESS OF BREATH Allopurinol 300 mg 01/25/17 21:00 01/29/17 11:30 Zyloprim - PO 300 mg DAILY SRINIVASA Administration Insulin Aspart 1 vial 01/25/17 11:00 01/29/17 12:19 Novolog Vial Sliding Scale - SQ Not Given [facility] Protocol Insulin Detemir 3 units 01/26/17 07:00 01/29/17 06:30 Levemir Vial SQ 3 units AM SRINIVASA Administration Levothyroxine Sodium 25 mcg 01/26/17 10:00 01/29/17 11:31 Synthroid Injection - IVPUSH 25 mcg DAILY SRINIVASA Administration Nystatin 1 applic 01/25/17 22:00 01/29/17 11:31 Mycostatin Ointment - TP 1 applic BID SRINIVASA Administration Imaging: - ECHO: normal LV size, function, severe MR, RVSP 50-60mmhg Assessment: 81 year old female with PMHx of HTN, IDDM, CLL (dx 7 years ago), anemia requiring transfusions, breast cancer s/p lumpectomy ~5 years ago, systolic CHF, mild dementia, hypothyroidism admitted for acute respiratory distress. Plan: 1. Acute hypoxic respiratory failure 2/2 large right pleural effusion - S/p right chest tube placement on 01/26 - Exudative pleural fluid, final results pending - Cytology negative for malignancy - Bipap as needed 2. Lingular infiltrate - Observe off zosyn (day 1) - Afebrile today 3. CLL, chronic anemia requiring transfusion - Diagnosed 7 years ago with CLL, declined treatment - 2uPRBC 4/5 - IGM- 7 - Allopurinol 300mg - Follow-up results to recent PET scan - Bone scan per oncology - Palliative Care consulted 4. Breast cancer s/p resection, +margin, ER+ - Per Dr. Young, "no adjuvant therapy was given as she declined per her primary oncologist in [place]" 5. DM II - BGM, ISS ACHS - Levemir 3 units qam 6. Hypothyroidism - Continue Synthroid - TSH wnl 7. Hypovolemic Hypernatremia - s/p 1L NS - Repeat BMP now 8. Nutrition - Dysphagia pureed 9. Prophylaxis - Hold all chemical anticoagulation 2/2 thrombocytopenia - Pressure ulcers: allevyn dressing - Vaginal sore: patient was taking Keflex at SNF for it, not started here given patient on broad spectrum abx Visit type - Emergency Visit Emergency Visit: Yes ED Registration Date: 01/25/17 Care time: The patient presented to the Emergency Department on the above date and was hospitalized for further evaluation of their emergent condition. - New Patient This patient is new to me today: No - Critical Care Critical Care patient: No
[2017-01-29 18:40] LABS: CALCIUM 7.5 mg/dL (8.5-10.1); COCKROFT - GAULT 102.765; CREATININE 0.4 mg/dL (0.55-1.02)
[2017-01-29] MEDS: ACETAMINOPHEN 325 MG TABLET (FP) PO PRN (21:18)
[2017-01-29] MEDS: ALBUTEROL SO4 2.5/IPRATROPIUM 0.5 INH SOL 3 ML VIAL.NEB. NEB PRN (22:20)
[2017-01-30] MEDS: INSULIN SLIDING SCALE (NOVOLOG) 1 VIAL SQ SCH ×4 (06:17→22:44)
[2017-01-30] MEDS: INSULIN DETEMIR 100 UNITS/ML MDV SQ SCH (06:21)
[2017-01-30 07:55] LABS: ALBUMIN 2.4 g/dl (3.4-5.0); ANION GAP 11 (8-16); CALCIUM 7.7 mg/dL (8.5-10.1); CO2 27 mmol/L (21-32); GLUCOSE,RANDOM 91 mg/dL (74-106); MAGNESIUM 2.3 mg/dL (1.8-2.4)
[2017-01-30 08:00] LABS: ALK PHOS 43 U/L (45-117); BILIRUBIN,TOTAL 0.4 mg/dL (0.2-1.0); CREATININE 0.3 mg/dL (0.55-1.02); PHOSPHOROUS 2.6 mg/dL (2.5-4.9); SGOT/AST 15 U/L (15-37); SGPT/ALT 10 U/L (12-78); TOT PROT 5.4 g/dl (6.4-8.2)
[2017-01-30 08:02] LABS: MCH 30.6 pg (25.7-33.7); MCHC 30.8 g/dl (32.0-36.0); MEAN CELL VOLUME 99.1 fl (80-96); MEAN PLT VOLUME 9.2 fl (7.5-11.1); PLATELET COUNT 42 K/MM3 (134-434); RDW 27.3 % (11.6-15.6)
[2017-01-30 08:16] LABS: WHITE BLOOD COUNT 43.9 K/mm3 (4.0-10.0)
--- NOTE | 2017-01-30 08:25 | PN ---
Physical Exam: SUBJECTIVE: Patient seen and examined by me at bedside. Patient is more alert and responsive today. Chest tube still in place with sanguineous drainage. Otherwise, no overnight events. OBJECTIVE: Vital Signs Period Temp Pulse Resp BP Sys/Choi Pulse Ox Last 24 Hr 98.4 F-100.4 F 87-103 20-22 119-159/58-88 94-98 GENERAL: Awake, alert and in no acute distress NECK: Cervical lymphadenopathy bilaterally LUNGS: Decreased breath sounds throughout lung bases with rhonchi and wheezes anteriorly. HEART: RRR, normal S1 and S2 without murmur, rub or gallop. ABDOMEN: Soft, nontender, not distended EXTREMITIES: Inguinal lymphadenopathy bilaterally, No peripheral edema. Laboratory Results - last 24 hr 01/29/17 01/29/17 01/29/17 11:55 18:10 21:14 WBC RBC Hgb Hct MCV MCHC RDW Plt Count MPV Neutrophils % Lymphocytes % Sodium 149 H Potassium 3.6 Chloride 112 H Carbon Dioxide 29 Anion Gap 8 BUN 13 D Creatinine 0.4 L POC Glucometer 115 99 Random Glucose 85 Calcium 7.5 L 01/30/17 05:35 WBC 43.9 H* RBC 2.76 L Hgb 8.4 L Hct 27.4 L MCV 99.1 H MCHC 30.8 L RDW 27.3 H Plt Count 42 L MPV 9.2 Neutrophils % Y Lymphocytes % Y Sodium Potassium Chloride Carbon Dioxide Anion Gap BUN Creatinine POC Glucometer Random Glucose Calcium Active Medications Generic Name Dose Route Start Last Admin Trade Name Freq PRN Reason Stop Dose Admin Acetaminophen 650 mg 01/25/17 09:53 01/29/17 21:18 Tylenol - PO 650 mg Q6H PRN Administration FEVER OR PAIN Acetaminophen 650 mg 01/28/17 15:33 01/28/17 16:05 Tylenol Suppository - [place] 650 mg Q6H PRN Administration FEVER OR PAIN Albuterol/Ipratropium 1 amp 01/26/17 18:23 01/29/17 22:20 Duoneb - NEB 1 amp Q6H PRN Administration SHORTNESS OF BREATH Allopurinol 300 mg 01/25/17 21:00 01/29/17 11:30 Zyloprim - PO 300 mg DAILY SRINIVASA Administration Insulin Aspart 1 vial 01/25/17 11:00 01/30/17 06:17 Novolog Vial Sliding Scale - SQ Not Given ACHS [facility] Protocol Insulin Detemir 3 units 01/26/17 07:00 01/30/17 06:21 Levemir Vial SQ 3 units AM SRINIVASA Administration Levothyroxine Sodium 25 mcg 01/26/17 10:00 01/29/17 11:31 Synthroid Injection - IVPUSH 25 mcg DAILY SRINIVASA Administration Nystatin 1 applic 01/25/17 22:00 01/29/17 21:20 Mycostatin Ointment - TP 1 applic BID SRINIVASA Administration ASSESSMENT/PLAN: leukocytosis secondary to CLL and right lung pleural effusion -Patient is on aspiration precautions -Afebrile today -WBC's trending down -Last CXR on 01/27 showed marked improvement in pleural effusion -Pleural fluid cultures negative -Continue to monitor off Zosyn (Day 2) Visit type - Emergency Visit Emergency Visit: Yes ED Registration Date: 01/25/17 Care time: The patient presented to the Emergency Department on the above date and was hospitalized for further evaluation of their emergent condition. - New Patient This patient is new to me today: No - Critical Care Critical Care patient: No
[2017-01-30] MEDS: ALLOPURINOL 300 MG TABLET (FP) PO SCH (09:53)
[2017-01-30] MEDS: LEVOTHYROXINE SODIUM 100 MCG VIAL IVPUSH SCH (09:54)
[2017-01-30] MEDS: NYSTATIN 100000 UNIT/GM TOPICAL OINTMENT 15 GM TUBE TP SCH (09:55)
[2017-01-30 10:27] LABS: HYPOCHROMIA 2+; PLATELET ESTIMATE Decreased (NORMAL); POLYCHROMASIA 1+
[2017-01-30 10:35] LABS: ANISOCYTOSIS 2+
[2017-01-30] MEDS: ALBUTEROL SO4 2.5/IPRATROPIUM 0.5 INH SOL 3 ML VIAL.NEB. NEB PRN (11:20)
--- NOTE | 2017-01-30 12:35 | PN ---
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 Looks comfortable on NC.
--- NOTE | 2017-01-30 12:36 | PN ---
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, Physician History of Present Illness: pulmonary no distress on nasal o2,-dyspnea,-tachypnea, chest tube draining 350cc bloody fluid - Current Medication List Current Medications: Active Medications Acetaminophen (Tylenol -) 650 mg PO Q6H PRN PRN Reason: FEVER OR PAIN Last Admin: 01/29/17 21:18 Dose: 650 mg Acetaminophen (Tylenol Suppository -) 650 mg [place] Q6H PRN PRN Reason: FEVER OR PAIN Last Admin: 01/28/17 16:05 Dose: 650 mg Albuterol/Ipratropium (Duoneb -) 1 amp NEB Q6H PRN PRN Reason: SHORTNESS OF BREATH Last Admin: 01/29/17 22:20 Dose: 1 amp Allopurinol (Zyloprim -) 300 mg PO DAILY [facility] Last Admin: 01/30/17 09:53 Dose: 300 mg Insulin Aspart (Novolog Vial Sliding Scale -) 1 vial SQ ACHS [facility] PRN Reason: Protocol Last Admin: 01/30/17 11:18 Dose: 4 unit Insulin Detemir (Levemir Vial) 3 units SQ AM [facility] Last Admin: 01/30/17 06:21 Dose: 3 units Levothyroxine Sodium (Synthroid Injection -) 25 mcg IVPUSH DAILY [facility] Last Admin: 01/30/17 09:54 Dose: 25 mcg Nystatin (Mycostatin Ointment -) 1 applic TP BID [facility] Last Admin: 01/30/17 09:55 Dose: 1 applic - Objective Vital Signs: Vital Signs Temperature 98.8 F 01/30/17 05:27 Pulse Rate 89 01/30/17 05:27 Respiratory Rate 20 01/30/17 05:27 Blood Pressure 144/88 01/30/17 05:27 O2 Sat by Pulse Oximetry (%) 94 L 01/29/17 20:40 Constitutional: Yes: Calm, Thin Eyes: Yes: WNL HENT: Yes: WNL Neck: Yes: WNL Cardiovascular: Yes: Regular Rate and Rhythm, S1, S2 Respiratory: Yes: Diminished Gastrointestinal: Yes: Normal Bowel Sounds, Soft Extremities: Yes: WNL Edema: No Labs: CBC, BMP 01/30/17 05:35 01/30/17 05:35 INR, PTT INR 1.08 (0.82-1.09) 01/26/17 05:50 Fibrinogen 397.0 mg/dL (238-498) 01/26/17 05:50 Assessment/Plan Problem List - Problems (1) Acute respiratory failure with hypoxia Code(s): J96.01 - ACUTE RESPIRATORY FAILURE WITH HYPOXIA (2) Pleural effusion Code(s): J90 - PLEURAL EFFUSION, NOT ELSEWHERE CLASSIFIED (3) CLL (chronic lymphocytic leukemia) Code(s): C91.10 - CHRONIC LYMPHOCYTIC LEUK OF B-CELL TYPE NOT ACHIEVE REMIS (4) Diabetes mellitus Code(s): E11.9 - TYPE 2 DIABETES MELLITUS WITHOUT COMPLICATIONS (5) Hypertension Code(s): I10 - ESSENTIAL (PRIMARY) HYPERTENSION (6) Hypothyroid Code(s): E03.9 - HYPOTHYROIDISM, UNSPECIFIED (7) Anemia Code(s): D64.9 - ANEMIA, UNSPECIFIED Qualifiers: Anemia type: unspecified type Qualified Code(s): D64.9 - Anemia, unspecified (8) Lactic acidosis Code(s): E87.2 - ACIDOSIS Assessment/Plan Acute Hypoxic Respiratory Failure improving Right Pleural Effusion exudate CLL Lactic Acidosis likely due to hypoxia CLL HTN DM Hypothyroidism - O2 to keep SpO2 >90% - BiPAP prn - aspiration precautions - received empiric antibiotics - DVT prophylaxis - monitor chest tube drainage DR CHAVARRIA
[2017-01-30] MEDS ORDERED: POTASSIUM CHLORIDE ORAL LIQUID 20 MEQ/15 ML PO ONE (15:33)
--- NOTE | 2017-01-30 15:34 | PN ---
Physical Exam: SUBJECTIVE: Patient seen and examined. She says her vagina doesn't hurt now, only when washing, she feels ok, she again says she does not want treatment Events: 350cc pleural CT drainage, sanguineous OBJECTIVE: Vital Signs Period Temp Pulse Resp BP Sys/Choi Pulse Ox Last 24 Hr 98.2 F-100.4 F 87-105 20-22 119-159/58-90 92-95 PE Neuro: alert, awake, cn 2-12intact Pulm: scattered bilateral rhonchi R sided CT with sanguinous drainage CV: s1 s2 rrr no mrg Abd: s nt nd +bs : vaginal sore to labia majora and internal labia majora Ext: warm, no le edema CBCD WBC 43.9 K/mm3 (4.0-10.0) H* 01/30/17 05:35 RBC 2.76 M/mm3 (3.60-5.2) L 01/30/17 05:35 Hgb 8.4 GM/dL (10.7-15.3) L 01/30/17 05:35 Hct 27.4 % (32.4-45.2) L 01/30/17 05:35 MCV 99.1 fl (80-96) H 01/30/17 05:35 MCHC 30.8 g/dl (32.0-36.0) L 01/30/17 05:35 RDW 27.3 % (11.6-15.6) H 01/30/17 05:35 Plt Count 42 K/MM3 (134-434) L 01/30/17 05:35 MPV 9.2 fl (7.5-11.1) 01/30/17 05:35 CMP Sodium 151 mmol/L (136-145) H 01/30/17 05:35 Potassium 3.3 mmol/L (3.5-5.1) L 01/30/17 05:35 Chloride 113 mmol/L (98-107) H 01/30/17 05:35 Carbon Dioxide 27 mmol/L (21-32) 01/30/17 05:35 Anion Gap 11 (8-16) 01/30/17 05:35 BUN 13 mg/dL (7-18) 01/30/17 05:35 Creatinine 0.3 mg/dL (0.55-1.02) L D 01/30/17 05:35 Creat Clearance w eGFR > 60 (>60) 01/30/17 05:35 Calcium 7.7 mg/dL (8.5-10.1) L 01/30/17 05:35 Total Bilirubin 0.4 mg/dL (0.2-1.0) 01/30/17 05:35 AST 15 U/L (15-37) D 01/30/17 05:35 ALT 10 U/L (12-78) L 01/30/17 05:35 Alkaline Phosphatase 43 U/L (45-117) L 01/30/17 05:35 Total Protein 5.4 g/dl (6.4-8.2) L 01/30/17 05:35 Albumin 2.4 g/dl (3.4-5.0) L 01/30/17 05:35 01/30/17 05:35 Phosphorus 2.6 Magnesium 2.3 Active Medications Generic Name Dose Route Start Last Admin Trade Name Freq PRN Reason Stop Dose Admin Acetaminophen 650 mg 01/25/17 09:53 01/29/17 21:18 Tylenol - PO 650 mg Q6H PRN Administration FEVER OR PAIN Acetaminophen 650 mg 01/28/17 15:33 01/28/17 16:05 Tylenol Suppository - NM 650 mg Q6H PRN Administration FEVER OR PAIN Albuterol/Ipratropium 1 amp 01/26/17 18:23 01/30/17 11:20 Duoneb - NEB 1 amp Q6H PRN Administration SHORTNESS OF BREATH Allopurinol 300 mg 01/25/17 21:00 01/30/17 09:53 Zyloprim - PO 300 mg DAILY SRINIVASA Administration Bacitracin 1 applic 01/30/17 22:00 Bacitracin - TP BID SRINIVASA Insulin Aspart 1 vial 01/25/17 11:00 01/30/17 11:18 Novolog Vial Sliding Scale - SQ 4 unit ACHS SRINIVASA Administration Protocol Insulin Detemir 3 units 01/26/17 07:00 01/30/17 06:21 Levemir Vial SQ 3 units AM SRINIVASA Administration Levothyroxine Sodium 25 mcg 01/26/17 10:00 01/30/17 09:54 Synthroid Injection - IVPUSH 25 mcg DAILY SRINIVASA Administration Imaging: - ECHO: normal LV size, function, severe MR, RVSP 50-60mmhg Assessment: 81 year old female with PMHx of HTN, IDDM, CLL (dx 7 years ago), anemia requiring transfusions, breast cancer s/p lumpectomy ~5 years ago, systolic CHF, mild dementia, hypothyroidism admitted for acute respiratory distress. Plan: 1. Acute hypoxic respiratory failure 2/2 large right pleural effusion - S/p right chest tube placement on 01/26 - Exudative pleural fluid, final results pending - Cytology negative for malignancy - Bipap as needed 2. Lingular infiltrate - Observe off zosyn (day 2) - Afebrile today 3. CLL, chronic anemia requiring transfusion - Diagnosed 7 years ago with CLL, declined treatment - 2uPRBC 4/ - IGM- 7 - Allopurinol 300mg - Follow-up results to recent PET scan - Bone scan per oncology - Palliative Care consulted 4. Breast cancer s/p resection, +margin, ER+ - Per Dr. Young, "no adjuvant therapy was given as she declined per her primary oncologist in [place]" 5. Thrombocytopenia - Downtrending - Would consider d/c Allopurinol, defer to heme 6. Vaginal sores - Bacitracin BID 7. DM II - BGM, ISS ACHS - Levemir 3 units qam 8. Hypothyroidism - Continue Synthroid - TSH wnl 9. Hypovolemic Hypernatremia - 2L water deficit - Gentle fluids pt appears dry will give NS 10. Nutrition - Dysphagia pureed/nectar thick 11. Prophylaxis - Hold all chemical anticoagulation 2/2 thrombocytopenia - Pressure ulcers: allevyn dressing Visit type - Emergency Visit Emergency Visit: Yes ED Registration Date: 01/25/17 Care time: The patient presented to the Emergency Department on the above date and was hospitalized for further evaluation of their emergent condition. - New Patient This patient is new to me today: No - Critical Care Critical Care patient: No
[2017-01-30] MEDS ORDERED: SODIUM CHLORIDE 1,000 ML IV SCH (15:45)
--- NOTE | 2017-01-30 21:21 | HOSP ---
Subjective - Review of Symptoms Events since last encounter: Nurse called to report fever. Subjective: Pt noted with lethargy upon exam. Responds uh-huh to all questions, whether appropriate response would be yes or no. Physical Examination Vital Signs: Vital Signs Temperature 99.0 F 01/30/17 17:00 Pulse Rate 104 H 01/30/17 17:00 Respiratory Rate 18 01/30/17 17:00 Blood Pressure 148/81 01/30/17 17:00 O2 Sat by Pulse Oximetry (%) 92 L 01/30/17 11:20 Cardiovascular: Yes: Regular Rate and Rhythm Respiratory: Yes: Other (diminished bilateral bases. No wheezing or rhonchi) Gastrointestinal: Yes: Normal Bowel Sounds, Soft Renal/: Yes: Other (large area of ulceration noted to right external labia, smaller left external labia, perivaginal area noted with posterior aspect ulcerated. moy rectal ulcerations noted as well. no foul odor, no exudate noted.) Labs: CBC, BMP 01/30/17 05:35 01/30/17 05:35 Hospitalist Encounter Assessment: fever - D/W Dr. Tran, will obtain blood c/s, U/A and C/S - Restart zosyn vaginal and perianal lesions - consider SHANK CARRIER consult.
--- NOTE | 2017-01-30 22:12 | PN ---
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 (short form) - Note 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: PAtient seen and examined On nasal canula s/p chest tube placement lethargic Last Vital Signs Temp Pulse Resp BP Pulse Ox 100.7 F H 90 20 101/50 98 01/31/17 01:00 01/31/17 01:00 01/31/17 01:00 01/31/17 01:00 01/31/17 00:51 Cor: RSR, No murmurs, No gallops Lungs: decreased at bases Abd: Soft, Normal bowel sounds, No organomegaly Ext:No significant edema Abnormal Lab Results 01/30/17 01/30/17 01/30/17 05:35 05:35 23:00 WBC 43.9 H* RBC 2.76 L Hgb 8.4 L Hct 27.4 L MCV 99.1 H MCHC 30.8 L RDW 27.3 H Plt Count 42 L Neutrophils % 9.0 L Lymphocytes % 82.0 H Nucleated RBCs 2 H Sodium 151 H Potassium 3.3 L Chloride 113 H Creatinine 0.3 L D Calcium 7.7 L ALT 10 L Alkaline Phosphatase 43 L Total Protein 5.4 L Albumin 2.4 L Urine Protein 1+ H Home Medication List Medication Instructions Recorded Confirmed Type Aa/Hydrolyzed Collagen, Whey [Lps 30 ml PO BID 10/15/16 01/25/17 History Neutral Flavor Liquid] Acetaminophen [Tylenol] 650 mg PO Q6H PRN 10/15/16 01/25/17 History Albuterol 2.5/Ipratropium 0.5 1 amp NEB QID PRN 10/15/16 01/25/17 History [Duoneb -] Aspirin [Ecotrin] 81 mg PO DAILY 10/15/16 01/25/17 History Atorvastatin Ca [Lipitor] 40 mg PO HS 10/15/16 01/25/17 History Gabapentin 300 mg PO HS 10/15/16 01/25/17 History Insulin Detemir [Levemir Flextouch] 6 unit SQ AM 10/15/16 01/25/17 History Menthol/Zinc Oxide [Calmoseptine 3.5 gm TP TID 10/15/16 01/25/17 History Ointment] Metoprolol Tartrate [Lopressor -] 25 mg PO BID 10/15/16 01/25/17 History Montelukast Na [Singulair -] 10 mg PO HS 10/15/16 01/25/17 History Thyroid [[place] Thyroid] 30 mg PO DAILY 10/15/16 01/25/17 History Ascorbate Calcium [Vitamin C] 500 mg PO TID 01/25/17 01/25/17 History Benzonatate [Tessalon Pearls -] 100 mg PO TID 01/25/17 01/25/17 History Cephalexin Monohydrate [Keflex -] 500 mg PO BID 01/25/17 01/25/17 History Chlorhexidine Gluconate [Hibiclens 1 applic TP TID 01/25/17 01/25/17 History For Decolonization -] Chlorpheniramine/Dextromethorp 10 ml PO Q8H PRN 01/25/17 01/25/17 History [Robitussin Long-Acting Liq] Docusate Sodium [Colace -] 200 mg PO HS 01/25/17 01/25/17 History Ferrous Sulfate 325 mg PO TID 01/25/17 01/25/17 History Insulin (Novolog) [Novolog Flexpen] 0 units SQ TID 01/25/17 01/25/17 History Multivitamin with Minerals [Icaps 1 each PO DAILY 01/25/17 01/25/17 History Plus] Active Medications Generic Name Dose Route Start Last Admin Trade Name Ruebenq PRN Reason Stop Dose Admin Acetaminophen 650 mg 01/25/17 09:53 01/29/17 21:18 Tylenol - PO 650 mg Q6H PRN Administration FEVER OR PAIN Acetaminophen 650 mg 01/28/17 15:33 01/30/17 22:13 Tylenol Suppository - GA 650 mg Q6H PRN Administration FEVER OR PAIN Albuterol/Ipratropium 1 amp 01/26/17 18:23 01/30/17 11:20 Duoneb - NEB 1 amp Q6H PRN Administration SHORTNESS OF BREATH Allopurinol 300 mg 01/25/17 21:00 01/30/17 09:53 Zyloprim - PO 300 mg DAILY SRINIVASA Administration Bacitracin 1 applic 01/30/17 22:00 01/30/17 22:44 Bacitracin - TP 1 applic BID SRINIVASA Administration Insulin Aspart 1 vial 01/25/17 11:00 01/30/17 22:44 Novolog Vial Sliding Scale - SQ Not Given ACHS SRINIVASA Protocol Insulin Detemir 3 units 01/26/17 07:00 01/30/17 06:21 Levemir Vial SQ 3 units AM SRINIVASA Administration Levothyroxine Sodium 25 mcg 01/26/17 10:00 01/30/17 09:54 Synthroid Injection - IVPUSH 25 mcg DAILY SRINIVASA Administration A/P 81 y/o patient with CLL, h/o breast cancer, dementia, has been group home resident and wheel chair 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 pleural effusion CLL--trisomy 12. also generalized adenopathy diagnosed several yrs. ago in [place] Never treated, was being monitored More recently transfusion dependent emiliana --neg. LDH --300s given overall comorbidities, functional status will need to discuss with family goals of care on tumor lysis prophy Breast cancer -- s/p resection. +margin. ER+ no adjuvant therapy was given as she declined per her primary oncologist in [place] will check bone scan Pleural effusion --s/p chest tube on the Left cytology s/o CLL will discuss with pulmonary team palliative care team and family meeting regrding goals of care
[2017-01-30] MEDS: ACETAMINOPHEN 650 MG SUPP.RECT PR PRN (22:13)
[2017-01-30] MEDS: BACITRACIN 30 GM TUBE TOPICAL OINTMENT TP SCH (22:44)
[2017-01-31] MEDS ORDERED: PIPERACILLIN/TAZOB 3.375 GM/50 ML PRE-DOCKED IVPB ONE (00:30)
[2017-01-31 01:03] LABS: URINE APPEARANCE CLEAR; URINE BILIRUBIN NEGATIVE (NEGATIVE); URINE BLOOD NEGATIVE (NEGATIVE); URINE COLOR YELLOW; URINE GLUCOSE (UA) NEGATIVE (NEGATIVE); URINE KETONE NEGATIVE (NEGATIVE); URINE LEUK ESTERASE NEGATIVE (NEGATIVE); URINE NITRITE NEGATIVE (NEGATIVE); URINE UROBILINOGEN NEGATIVE E.U./dl (0.2-1.0)
[2017-01-31 01:12] LABS: URINE PROTEIN 1+ (NEGATIVE)
[2017-01-31 01:14] LABS: URINE MUCUS FEW; URINE RBC 3 /hpf (0-3); URINE WBC 4 /hpf (3-5)
[2017-01-31] MEDS: ACETAMINOPHEN 650 MG SUPP.RECT PR PRN ×2 (04:15→20:00)
[2017-01-31] MEDS: INSULIN DETEMIR 100 UNITS/ML MDV SQ SCH (06:44)
[2017-01-31] MEDS: INSULIN SLIDING SCALE (NOVOLOG) 1 VIAL SQ SCH ×4 (06:45→21:31)
[2017-01-31 08:25] LABS: MCH 30.5 pg (25.7-33.7); MCHC 30.3 g/dl (32.0-36.0); MEAN CELL VOLUME 100.7 fl (80-96); MEAN PLT VOLUME 9.1 fl (7.5-11.1); PLATELET COUNT 41 K/MM3 (134-434); RDW 27.6 % (11.6-15.6)
[2017-01-31 08:42] LABS: WHITE BLOOD COUNT 35.7 K/mm3 (4.0-10.0)
[2017-01-31 09:03] LABS: COCKROFT - GAULT 102.765; CREATININE 0.4 mg/dL (0.55-1.02)
[2017-01-31 09:04] LABS: CALCIUM 7.7 mg/dL (8.5-10.1)
[2017-01-31] MEDS: LEVOTHYROXINE SODIUM 100 MCG VIAL IVPUSH SCH (09:31)
[2017-01-31] MEDS: BACITRACIN 30 GM TUBE TOPICAL OINTMENT TP SCH ×2 (09:32→21:23)
[2017-01-31] MEDS: ALLOPURINOL 300 MG TABLET (FP) PO SCH (09:32)
[2017-01-31 10:25] LABS: SMUDGE CELLS MANY
--- NOTE | 2017-01-31 12:30 | PN ---
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, Physician History of Present Illness: pulmonary alert,nad,sob. chest tube draining 125cc - Current Medication List Current Medications: Active Medications Acetaminophen (Tylenol -) 650 mg PO Q6H PRN PRN Reason: FEVER OR PAIN Last Admin: 01/29/17 21:18 Dose: 650 mg Acetaminophen (Tylenol Suppository -) 650 mg GA Q6H PRN PRN Reason: FEVER OR PAIN Last Admin: 01/31/17 04:15 Dose: 650 mg Albuterol/Ipratropium (Duoneb -) 1 amp NEB Q6H PRN PRN Reason: SHORTNESS OF BREATH Last Admin: 01/30/17 11:20 Dose: 1 amp Allopurinol (Zyloprim -) 300 mg PO DAILY [facility] Last Admin: 01/31/17 09:32 Dose: 300 mg Bacitracin (Bacitracin -) 1 applic TP BID [facility] Last Admin: 01/31/17 09:32 Dose: 1 applic Insulin Aspart (Novolog Vial Sliding Scale -) 1 vial SQ ACHS [facility] PRN Reason: Protocol Last Admin: 01/31/17 11:48 Dose: 2 unit Insulin Detemir (Levemir Vial) 3 units SQ AM [facility] Last Admin: 01/31/17 06:44 Dose: 3 units Levothyroxine Sodium (Synthroid Injection -) 25 mcg IVPUSH DAILY [facility] Last Admin: 01/31/17 09:31 Dose: 25 mcg - Objective Vital Signs: Vital Signs Temperature 98.2 F 01/31/17 09:00 Pulse Rate 82 01/31/17 09:00 Respiratory Rate 20 01/31/17 09:00 Blood Pressure 110/60 01/31/17 09:00 O2 Sat by Pulse Oximetry (%) 95 01/31/17 09:00 Constitutional: Yes: Well Nourished, Calm Eyes: Yes: WNL HENT: Yes: WNL Neck: Yes: WNL Cardiovascular: Yes: Regular Rate and Rhythm, S1, S2 Respiratory: Yes: Rhonchi (few scatered rhonchi) Gastrointestinal: Yes: Normal Bowel Sounds, Soft Extremities: Yes: WNL Edema: No Labs: CBC, BMP 01/31/17 06:10 01/31/17 06:10 INR, PTT INR 1.08 (0.82-1.09) 01/26/17 05:50 Fibrinogen 397.0 mg/dL (238-498) 01/26/17 05:50 Assessment/Plan Problem List - Problems (1) Acute respiratory failure with hypoxia Code(s): J96.01 - ACUTE RESPIRATORY FAILURE WITH HYPOXIA (2) Pleural effusion Code(s): J90 - PLEURAL EFFUSION, NOT ELSEWHERE CLASSIFIED (3) CLL (chronic lymphocytic leukemia) Code(s): C91.10 - CHRONIC LYMPHOCYTIC LEUK OF B-CELL TYPE NOT ACHIEVE REMIS (4) Diabetes mellitus Code(s): E11.9 - TYPE 2 DIABETES MELLITUS WITHOUT COMPLICATIONS (5) Hypertension Code(s): I10 - ESSENTIAL (PRIMARY) HYPERTENSION (6) Hypothyroid Code(s): E03.9 - HYPOTHYROIDISM, UNSPECIFIED (7) Anemia Code(s): D64.9 - ANEMIA, UNSPECIFIED Qualifiers: Anemia type: unspecified type Qualified Code(s): D64.9 - Anemia, unspecified (8) Lactic acidosis Code(s): E87.2 - ACIDOSIS Assessment/Plan Acute Hypoxic Respiratory Failure improving Right Pleural Effusion exudate CLL Lactic Acidosis likely due to hypoxia CLL HTN DM Hypothyroidism - O2 to keep SpO2 >90% - BiPAP prn - aspiration precautions - received empiric antibiotics - DVT prophylaxis - monitor chest tube drainage - chest x-ray today DR CHAVARRIA
--- NOTE | 2017-01-31 12:57 | PN ---
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, RAILWAY SIGNALLING ENGINEER - Note 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: Case reviewed with RD, BLOCKLAYER and Nursing.Pt noted to be coughing. Unclear if responsive to PO intake or due to clinical/pulmonary condition. Pt has chest tube in place, draining fluid. Diet order states nectar thick, although pt is receiving honey thick liquid, per RD's diet downgrade suggestion, as pt was seen coughing mealtime. Pt is not medically stable for MBS at this time. Swallow is delayed in onset but fairly brisk, once palpated. Vocal quality is euphonic. REC: continue providing dys puree/honey thick order (need MD order) Feed as fully upright as tolerated. MBS
--- NOTE | 2017-01-31 15:20 | PN ---
Physical Exam: SUBJECTIVE: Patient seen and examined by me at bedside. Overnight events noted. Patient had fever overnight and repeat chest x-ray revealed right sided infiltrate. Patient is currently awake and responding. Chest tube still has serosanguinous drainage. She denies any nausea, vomiting, chest pain, palpitations. OBJECTIVE: Vital Signs Period Temp Pulse Resp BP Sys/Choi Pulse Ox Last 24 Hr 98.0 F-102.3 F 82-108 18-20 101-164/50-90 94-98 GENERAL: Awake, alert and in no acute distress NECK: Cervical lymphadenopathy bilaterally LUNGS: Decreased breath sounds throughout lung bases with rhonchi and wheezes anteriorly. HEART: RRR, normal S1 and S2 without murmur, rub or gallop. ABDOMEN: Soft, nontender, not distended EXTREMITIES: Axillary lymphadenopathy bilaterally. Inguinal lymphadenopathy bilaterally, No peripheral edema. Laboratory Results - last 24 hr 01/30/17 01/30/17 01/30/17 17:11 22:43 23:00 WBC RBC Hgb Hct MCV MCHC RDW Plt Count MPV Neutrophils % Lymphocytes % Monocytes % Differential Comment Smudge Cells Sodium Potassium Chloride Carbon Dioxide Anion Gap BUN Creatinine POC Glucometer 224 143 Random Glucose Calcium Urine Color Yellow Urine Appearance Clear Urine pH 6.0 Ur Specific [place] 1.024 Urine Protein 1+ H Urine Glucose (UA) Negative Urine Ketones Negative Urine Blood Negative Urine Nitrite Negative Urine Bilirubin Negative Urine Urobilinogen Negative Ur Leukocyte Esterase Negative Urine RBC 3 Urine WBC 4 Ur Epithelial Cells Rare Urine Mucus Few 01/31/17 01/31/17 01/31/17 05:58 06:10 06:10 WBC 35.7 H* RBC 2.52 L Hgb 7.7 L Hct 25.4 L MCV 100.7 H MCHC 30.3 L RDW 27.6 H Plt Count 41 L MPV 9.1 Neutrophils % 5.0 L D Lymphocytes % 94.0 H Monocytes % 1.0 L Differential Comment Manual diff done Smudge Cells Many Sodium 153 H Potassium 3.4 L Chloride 116 H Carbon Dioxide 28 Anion Gap 9 BUN 15 Creatinine 0.4 L D POC Glucometer 139 Random Glucose 127 H D Calcium 7.7 L Urine Color Urine Appearance Urine pH Ur Specific [place] Urine Protein Urine Glucose (UA) Urine Ketones Urine Blood Urine Nitrite Urine Bilirubin Urine Urobilinogen Ur Leukocyte Esterase Urine RBC Urine WBC Ur Epithelial Cells Urine Mucus 01/31/17 11:45 WBC RBC Hgb Hct MCV MCHC RDW Plt Count MPV Neutrophils % Lymphocytes % Monocytes % Differential Comment Smudge Cells Sodium Potassium Chloride Carbon Dioxide Anion Gap BUN Creatinine POC Glucometer 189 Random Glucose Calcium Urine Color Urine Appearance Urine pH Ur Specific [place] Urine Protein Urine Glucose (UA) Urine Ketones Urine Blood Urine Nitrite Urine Bilirubin Urine Urobilinogen Ur Leukocyte Esterase Urine RBC Urine WBC Ur Epithelial Cells Urine Mucus Active Medications Generic Name Dose Route Start Last Admin Trade Name Juan Antonio PRN Reason Stop Dose Admin Acetaminophen 650 mg 01/25/17 09:53 01/29/17 21:18 Tylenol - PO 650 mg Q6H PRN Administration FEVER OR PAIN Acetaminophen 650 mg 01/28/17 15:33 01/31/17 04:15 Tylenol Suppository - GA 650 mg Q6H PRN Administration FEVER OR PAIN Albuterol/Ipratropium 1 amp 01/26/17 18:23 01/30/17 11:20 Duoneb - NEB 1 amp Q6H PRN Administration SHORTNESS OF BREATH Allopurinol 300 mg 01/25/17 21:00 01/31/17 09:32 Zyloprim - PO 300 mg DAILY SRINIVASA Administration Bacitracin 1 applic 01/30/17 22:00 01/31/17 09:32 Bacitracin - TP 1 applic BID SRINIVASA Administration Insulin Aspart 1 vial 01/25/17 11:00 01/31/17 11:48 Novolog Vial Sliding Scale - SQ 2 unit ACHS SRINIVASA Administration Protocol Insulin Detemir 3 units 01/26/17 07:00 01/31/17 06:44 Levemir Vial SQ 3 units AM SRINIVASA Administration Levothyroxine Sodium 25 mcg 01/26/17 10:00 01/31/17 09:31 Synthroid Injection - IVPUSH 25 mcg DAILY SRINIVASA Administration ASSESSMENT/PLAN: leukocytosis secondary to CLL and right lung pleural effusion -Patient is on aspiration precautions -Febrile last night with dyspnea -Repeat blood and urine cultures sent -Zosyn resumed due to infiltrate in CXR -WBC's continue to trend down Visit type - Emergency Visit Emergency Visit: Yes ED Registration Date: 01/25/17 Care time: The patient presented to the Emergency Department on the above date and was hospitalized for further evaluation of their emergent condition. - New Patient This patient is new to me today: No - Critical Care Critical Care patient: No
[2017-01-31] MEDS: POTASSIUM CHLORIDE TABS 20 MEQ TABLET.ER (FP) PO SCH (18:16)
[2017-01-31] MEDS: PIPERACILLIN/TAZOB 3.375 GM/50 ML PRE-DOCKED IVPB SCH (18:17)
--- NOTE | 2017-01-31 18:40 | PN ---
Physical Exam: SUBJECTIVE: Patient seen and examined at bedside. OBJECTIVE: Vital Signs Period Temp Pulse Resp BP Sys/Choi Pulse Ox Last 24 Hr 98.0 F-102.3 F 82-108 20-20 101-164/50-80 94-98 GENERAL/NEURO: The patient is awake. Very weak. Head nods in response to questions.CN II-XII grossly intact. HEAD: Normal with no signs of trauma. EYES: PERRL, extraocular movements intact, sclera anicteric, conjunctiva clear. No ptosis. LUNGS: Coarse breath sounds. HEART: Regular rate and rhythm, S1, S2 without murmur, rub or gallop. ABDOMEN: Soft, nontender, nondistended, normoactive bowel sounds, no guarding, no rebound EXTREMITIES: 2+ pulses, warm, well-perfused, no edema. PSYCH: Depressed affect. Laboratory Results - last 24 hr 01/30/17 01/30/17 01/31/17 22:43 23:00 05:58 WBC RBC Hgb Hct MCV MCHC RDW Plt Count MPV Neutrophils % Lymphocytes % Monocytes % Differential Comment Smudge Cells Sodium Potassium Chloride Carbon Dioxide Anion Gap BUN Creatinine POC Glucometer 143 139 Random Glucose Calcium Urine Color Yellow Urine Appearance Clear Urine pH 6.0 Ur Specific [place] 1.024 Urine Protein 1+ H Urine Glucose (UA) Negative Urine Ketones Negative Urine Blood Negative Urine Nitrite Negative Urine Bilirubin Negative Urine Urobilinogen Negative Ur Leukocyte Esterase Negative Urine RBC 3 Urine WBC 4 Ur Epithelial Cells Rare Urine Mucus Few 01/31/17 01/31/17 01/31/17 06:10 06:10 11:45 WBC 35.7 H* RBC 2.52 L Hgb 7.7 L Hct 25.4 L MCV 100.7 H MCHC 30.3 L RDW 27.6 H Plt Count 41 L MPV 9.1 Neutrophils % 5.0 L D Lymphocytes % 94.0 H Monocytes % 1.0 L Differential Comment Manual diff done Smudge Cells Many Sodium 153 H Potassium 3.4 L Chloride 116 H Carbon Dioxide 28 Anion Gap 9 BUN 15 Creatinine 0.4 L D POC Glucometer 189 Random Glucose 127 H D Calcium 7.7 L Urine Color Urine Appearance Urine pH Ur Specific [place] Urine Protein Urine Glucose (UA) Urine Ketones Urine Blood Urine Nitrite Urine Bilirubin Urine Urobilinogen Ur Leukocyte Esterase Urine RBC Urine WBC Ur Epithelial Cells Urine Mucus Active Medications Generic Name Dose Route Start Last Admin Trade Name Freq PRN Reason Stop Dose Admin Acetaminophen 650 mg 01/25/17 09:53 01/29/17 21:18 Tylenol - PO 650 mg Q6H PRN Administration FEVER OR PAIN Acetaminophen 650 mg 01/28/17 15:33 01/31/17 04:15 Tylenol Suppository - CT 650 mg Q6H PRN Administration FEVER OR PAIN Albuterol/Ipratropium 1 amp 01/26/17 18:23 01/30/17 11:20 Duoneb - NEB 1 amp Q6H PRN Administration SHORTNESS OF BREATH Allopurinol 300 mg 01/25/17 21:00 01/31/17 09:32 Zyloprim - PO 300 mg DAILY SRINIVASA Administration Bacitracin 1 applic 01/30/17 22:00 01/31/17 09:32 Bacitracin - TP 1 applic BID SRINIVASA Administration Insulin Aspart 1 vial 01/25/17 11:00 01/31/17 16:59 Novolog Vial Sliding Scale - SQ 2 unit ACHS SRINIVASA Administration Protocol Insulin Detemir 3 units 01/26/17 07:00 01/31/17 06:44 Levemir Vial SQ 3 units AM SRINIVASA Administration Levothyroxine Sodium 25 mcg 01/26/17 10:00 01/31/17 09:31 Synthroid Injection - IVPUSH 25 mcg DAILY SRINIVASA Administration Piperacillin Sod/Tazobactam Sod 3.375 gm 01/31/17 18:00 01/31/17 18:17 Zosyn 3.375gm Ivpb (Pre-Docked) IVPB 3.375 gm Q8H-IV SRINIVASA Administration Protocol Potassium Chloride 40 meq 01/31/17 18:00 01/31/17 18:16 K-Dur - PO 02/01/17 00:01 40 meq Q6HPO SRINIVASA Administration Imaging: - ECHO: normal LV size, function, severe MR, RVSP 50-60mmhg ASSESSMENT & PLAN 81 year old female with PMHx of HTN, IDDM, CLL (dx 7 years ago), anemia requiring transfusions, breast cancer s/p lumpectomy ~5 years ago, systolic CHF , mild dementia, hypothyroidism admitted for acute respiratory distress. 1. Acute hypoxic respiratory failure 2/2 large right pleural effusion --oxygenation requirements improved, satting 955 on 4L NC --right chest tube draining sanguinous fluid, 400cc's over past 24 hours --exudative pleural fluid, final results pending --cytology negative for malignancy --PRN 2. Bacterial pneumonia - Spiked temp to 102 today - resume Zosyn (01/25-->01/28; 01/31 restart) - ID following 3. CLL, chronic anemia requiring transfusion - Hgb 7.7; repeat in am - last transfused 01/25 2U PRBC - Follow-up results to recent PET scan - Bone scan per oncology - Palliative Care had a meeting scheduled today with son, he did not come 4. Breast cancer s/p resection, +margin, ER+ - Per Dr. Young, "no adjuvant therapy was given as she declined per her primary oncologist in [place]" 5. Thrombocytosis - Downtrending - Would consider d/c Allopurinol, defer to heme 6. Vaginal sores - Bacitracin BID - HABILITATIVE INTERVENTIONIST consult requested 7. DM II - BGM, ISS ACHS - Levemir 3 units qam 8. Hypothyroidism - Continue Synthroid - TSH wnl 9. Hypovolemic Hypernatremia - 2L water deficit - Gentle fluids pt appears dry will give NS 19. Nutrition - Dysphagia pureed/honey thick 11. Prophylaxis - Hold all chemical anticoagulation - Pressure ulcers: allevyn dressing Visit type - Emergency Visit Emergency Visit: Yes ED Registration Date: 01/25/17 Care time: The patient presented to the Emergency Department on the above date and was hospitalized for further evaluation of their emergent condition. - New Patient This patient is new to me today: Yes Date on this admission: 01/31/17 - Critical Care Critical Care patient: No
--- NOTE | 2017-01-31 18:41 | PN ---
Teaching Attending Note Name of Resident: Cee Lynne ATTENDING PHYSICIAN STATEMENT I saw and evaluated the patient. I reviewed the resident's note and discussed the case with the resident. I agree with the resident's findings and plan as documented. SUBJECTIVE: fever to 102 overnight started on zosyn cxray with right sided infiltrate OBJECTIVE: Vital Signs Period Temp Pulse Resp BP Sys/Choi Pulse Ox Last 24 Hr 98.0 F-102.3 F 82-108 20-20 101-164/50-80 94-98 cor-rrr lungs decreased bs t bases +CHEST tube abd soft,nt ext no edema CBC, BMP 01/31/17 06:10 01/31/17 06:10 Microbiology 01/27/17 08:52 Blood - Peripheral Venous Blood Culture - Preliminary NO GROWTH OBTAINED AFTER 96 HOURS, INCUBATION TO CONTINUE FOR 1 DAYS. 01/27/17 08:42 Blood - Peripheral Venous Blood Culture - Preliminary NO GROWTH OBTAINED AFTER 96 HOURS, INCUBATION TO CONTINUE FOR 1 DAYS. 01/28/17 05:35 Serum Cryptococcal Antigen - Preliminary 01/26/17 12:00 Pleural Fluid Mycobacterial Culture - Preliminary 01/25/17 06:07 Blood - Peripheral Venous Blood Culture - Final NO GROWTH AFTER 5 DAYS INCUBATION 01/25/17 06:07 Blood - Peripheral Venous Blood Culture - Final NO GROWTH AFTER 5 DAYS INCUBATION 01/26/17 12:00 Pleural Fluid Gram Stain - Final 01/26/17 12:00 Pleural Fluid Body Fluid Culture - Final NO GROWTH OF AEROBIC ORGANISMS AFTER 48 HOURS INCUBATION 01/26/17 12:00 Pleural Fluid Anaerobic Culture - Final NO ANAEROBES WERE ISOLATED 01/27/17 11:30 Urine - Urine - Catheterized Urine Culture - Final NO GROWTH OBTAINED 01/26/17 12:00 Pleural Fluid LOIS Preparation - Preliminary 01/26/17 12:00 Pleural Fluid Fungal Culture - Preliminary 01/25/17 07:10 Urine - Urine - Catheterized Urine Culture - Final ASSESSMENT AND PLAN: fever- culltures sent, continue zosyn (started last night) CLL effusion- chest tube in place, suggestive of CLL
[2017-02-01] MEDS: PIPERACILLIN/TAZOB 3.375 GM/50 ML PRE-DOCKED IVPB SCH ×3 (01:50→17:18)
[2017-02-01] MEDS: POTASSIUM CHLORIDE TABS 20 MEQ TABLET.ER (FP) PO SCH (01:51)
[2017-02-01] MEDS: ACETAMINOPHEN 650 MG SUPP.RECT PR PRN ×2 (02:00→17:18)
[2017-02-01] MEDS: INSULIN SLIDING SCALE (NOVOLOG) 1 VIAL SQ SCH ×4 (06:46→22:14)
[2017-02-01] MEDS: INSULIN DETEMIR 100 UNITS/ML MDV SQ SCH (06:47)
[2017-02-01 06:59] LABS: MCH 30.1 pg (25.7-33.7); MCHC 29.9 g/dl (32.0-36.0); MEAN CELL VOLUME 100.6 fl (80-96); MEAN PLT VOLUME 8.8 fl (7.5-11.1); PLATELET COUNT 39 K/MM3 (134-434); RDW 27.5 % (11.6-15.6)
[2017-02-01 07:16] LABS: ALBUMIN 2.3 g/dl (3.4-5.0); ANION GAP 6 (8-16); CALCIUM 7.8 mg/dL (8.5-10.1); CO2 30 mmol/L (21-32); GLUCOSE,RANDOM 94 mg/dL (74-106); MAGNESIUM 2.4 mg/dL (1.8-2.4)
[2017-02-01 07:20] LABS: ALK PHOS 40 U/L (45-117); BILIRUBIN,TOTAL 0.4 mg/dL (0.2-1.0); COCKROFT - GAULT 102.765; CREATININE 0.4 mg/dL (0.55-1.02); PHOSPHOROUS 2.6 mg/dL (2.5-4.9); SGOT/AST 15 U/L (15-37); SGPT/ALT 10 U/L (12-78); TOT PROT 5.4 g/dl (6.4-8.2)
[2017-02-01 07:53] LABS: WHITE BLOOD COUNT 35.6 K/mm3 (4.0-10.0)
[2017-02-01 09:42] LABS: SMUDGE CELLS MANY
[2017-02-01] MEDS ORDERED: PT OWN MED DRAWER 7, Y5N ONE (09:43)
[2017-02-01] MEDS: ALLOPURINOL 300 MG TABLET (FP) PO SCH (09:57)
--- NOTE | 2017-02-01 09:57 | PN ---
Physical Exam: SUBJECTIVE: Patient seen and examined by me at bedside. Patient is more awake and alert. Patient noted to have fever last night with Tmax 103.0 F but is afebrile today. Otherwise, patient denies chest pain, palpitations, dysuria, hematuria. OBJECTIVE: Vital Signs Period Temp Pulse Resp BP Sys/Choi Pulse Ox Last 24 Hr 99.1 F-103.0 F 85-100 18-22 103-138/58-79 95-98 GENERAL: Awake, alert and in no acute distress NECK: Cervical lymphadenopathy bilaterally LUNGS: Decreased breath sounds throughout lung bases. Draining right chest tube HEART: RRR, normal S1 and S2 with 2/6 systolic murmur ABDOMEN: Soft, nontender, not distended EXTREMITIES: Axillary lymphadenopathy bilaterally. Inguinal lymphadenopathy bilaterally, No peripheral edema. Laboratory Results - last 24 hr 01/31/17 01/31/17 01/31/17 06:10 11:45 15:42 WBC RBC Hgb Hct MCV MCHC RDW Plt Count MPV Neutrophils % 5.0 L D Lymphocytes % 94.0 H Monocytes % 1.0 L Differential Comment Manual diff done Smudge Cells Many Sodium Potassium Chloride Carbon Dioxide Anion Gap BUN Creatinine Creat Clearance w eGFR POC Glucometer 189 178 Random Glucose Calcium Phosphorus Magnesium Total Bilirubin AST ALT Alkaline Phosphatase Total Protein Albumin 01/31/17 02/01/17 02/01/17 21:29 05:35 05:35 WBC 35.6 H* RBC 2.59 L Hgb 7.8 L Hct 26.0 L MCV 100.6 H MCHC 29.9 L RDW 27.5 H Plt Count 39 L MPV 8.8 Neutrophils % 4.0 L Lymphocytes % 96.0 H Monocytes % Differential Comment Manual diff done Smudge Cells Many Sodium 151 H Potassium 3.6 Chloride 115 H Carbon Dioxide 30 Anion Gap 6 L BUN 15 Creatinine 0.4 L Creat Clearance w eGFR > 60 POC Glucometer 93 Random Glucose 94 D Calcium 7.8 L Phosphorus 2.6 Magnesium 2.4 Total Bilirubin 0.4 AST 15 ALT 10 L Alkaline Phosphatase 40 L Total Protein 5.4 L Albumin 2.3 L 02/01/17 06:43 WBC RBC Hgb Hct MCV MCHC RDW Plt Count MPV Neutrophils % Lymphocytes % Monocytes % Differential Comment Smudge Cells Sodium Potassium Chloride Carbon Dioxide Anion Gap BUN Creatinine Creat Clearance w eGFR POC Glucometer 98 Random Glucose Calcium Phosphorus Magnesium Total Bilirubin AST ALT Alkaline Phosphatase Total Protein Albumin Active Medications Generic Name Dose Route Start Last Admin Trade Name Freq PRN Reason Stop Dose Admin Acetaminophen 650 mg 01/25/17 09:53 01/29/17 21:18 Tylenol - PO 650 mg Q6H PRN Administration FEVER OR PAIN Acetaminophen 650 mg 01/28/17 15:33 02/01/17 02:00 Tylenol Suppository - PA 650 mg Q6H PRN Administration FEVER OR PAIN Albuterol/Ipratropium 1 amp 01/26/17 18:23 01/30/17 11:20 Duoneb - NEB 1 amp Q6H PRN Administration SHORTNESS OF BREATH Allopurinol 300 mg 01/25/17 21:00 01/31/17 09:32 Zyloprim - PO 300 mg DAILY SRINIVASA Administration Bacitracin 1 applic 01/30/17 22:00 01/31/17 21:23 Bacitracin - TP 1 applic BID SRINIVASA Administration Insulin Aspart 1 vial 01/25/17 11:00 02/01/17 06:46 Novolog Vial Sliding Scale - SQ Not Given ACHS [facility] Protocol Insulin Detemir 3 units 01/26/17 07:00 02/01/17 06:47 Levemir Vial SQ 3 units AM SRINIVASA Administration Levothyroxine Sodium 25 mcg 01/26/17 10:00 01/31/17 09:31 Synthroid Injection - IVPUSH 25 mcg DAILY SRINIVASA Administration Piperacillin Sod/Tazobactam Sod 3.375 gm 01/31/17 18:00 02/01/17 01:50 Zosyn 3.375gm Ivpb (Pre-Docked) IVPB 3.375 gm Q8H-IV SRINIVASA Administration Protocol ASSESSMENT/PLAN: leukocytosis secondary to CLL and right lung pleural effusion and Pneumonia -Patient is on aspiration precautions -Febrile last night with dyspnea -Repeat blood and urine cultures negative -Continue Zosyn due to infiltrate in repeat CXR -WBC's continue to trend down Visit type - Emergency Visit Emergency Visit: Yes ED Registration Date: 01/25/17 Care time: The patient presented to the Emergency Department on the above date and was hospitalized for further evaluation of their emergent condition. - New Patient This patient is new to me today: No - Critical Care Critical Care patient: No
[2017-02-01] MEDS: LEVOTHYROXINE SODIUM 100 MCG VIAL IVPUSH SCH (09:58)
[2017-02-01] MEDS: BACITRACIN 30 GM TUBE TOPICAL OINTMENT TP SCH ×2 (09:59→22:13)
--- NOTE | 2017-02-01 10:55 | PN ---
Teaching Attending Note Name of Resident: Cee Lynne ATTENDING PHYSICIAN STATEMENT I saw and evaluated the patient. I reviewed the resident's note and discussed the case with the resident. I agree with the resident's findings and plan as documented. SUBJECTIVE: much more alert today febrile last night but now no fever OBJECTIVE: Vital Signs Period Temp Pulse Resp BP Sys/Choi Pulse Ox Last 24 Hr 99.1 F-103.0 F 85-100 18-22 103-138/58-79 95-98 cor-rrr lungs decreased bs at bases +chest tube right lung abd soft,nt ext no edema CBC, BMP cxray unchanged right lung infiltrate 02/01/17 05:35 02/01/17 05:35 Microbiology 01/30/17 23:00 Urine - Urine - Catheterized Urine Culture - Final NO GROWTH OBTAINED 01/27/17 08:52 Blood - Peripheral Venous Blood Culture - Final NO GROWTH AFTER 5 DAYS INCUBATION 01/27/17 08:42 Blood - Peripheral Venous Blood Culture - Final NO GROWTH AFTER 5 DAYS INCUBATION 01/30/17 20:00 Blood - Peripheral Venous Blood Culture - Preliminary NO GROWTH OBTAINED AFTER 24 HOURS, INCUBATION TO CONTINUE FOR 4 DAYS. 01/30/17 20:00 Blood - Peripheral Venous Blood Culture - Preliminary NO GROWTH OBTAINED AFTER 24 HOURS, INCUBATION TO CONTINUE FOR 4 DAYS. 01/28/17 05:35 Serum Cryptococcal Antigen - Preliminary ASSESSMENT AND PLAN: pneumonia s/p drainage of effusion- ?secondary to CLL CLL continue zosyn, cxray stable, clinically more alert today f/u cultures
--- NOTE | 2017-02-01 11:29 | CON.OBG ---
Consult Consult Specialty:: process assistant Referred by:: Anna Barboza NP Reason for Consultation:: vulva ulcers - History of Present Illness Chief Complaint: pt admitted for Ac Resp Distress on 01/25/17, is noted to have ulcers on vulva is being consulted for evaluation History of Present Illness: patient is 81 yrs menopause at age51 yrs c/o she states has cuts on her vulva for 2 weeks & hurts her . pt is s/p chest tube on RT side for Pleural effusion s/p Rt hemothorax, CT mediastannial hilar lymph nodes enlarged , path report, no carcinoma, lhyphocytic in filtration . 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 1 - History Source History Provided By: Medical Record - Past Medical History ECHOCARDIOGRAPHY RADIOLOGY TECHNOLOGIST: Yes: Dementia Cardio/Vascular: Yes: HTN, Hyperlipdemia Pulmonary: Yes: Pneumonia, Other (Pleural Effusion , RT Hemothorax) Gastrointestinal: Yes: GERD Reproductive: Yes: Other (Postmenopause) ...: No Heme/Onc: Yes: Anemia, Cancer (CLL), Thrombocytopenia, Other Psych: Yes: Other (Dementia) Endocrine: Yes: Diabetes Mellitus, Hypothyroidism - Past Surgical History Additional Surgical History: RT Breast Lumpectomy - Alcohol/Substance Use Hx Alcohol Use: No History of Substance Use: reports: None - Smoking History Smoking history: Never smoked Have you smoked in the past 12 months: No - Social History Usual Living Arrangement: Prison 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 Home Medications - Allergies Allergies/Adverse Reactions: Allergies Allergy/AdvReac Type Severity Reaction Status Date / Time No Known Allergies Allergy Verified 01/25/17 05:57 - Home Medications Home Medications: Ambulatory Orders Aa/Hydrolyzed Collagen, Whey [Lps Neutral Flavor Liquid] 30 ml PO BID 10/15/16 Acetaminophen [Tylenol] 650 mg PO Q6H PRN 10/15/16 Albuterol 2.5/Ipratropium 0.5 [Duoneb -] 1 amp NEB QID PRN 10/15/16 Aspirin [Ecotrin] 81 mg PO DAILY 10/15/16 Atorvastatin Ca [Lipitor] 40 mg PO HS 10/15/16 Gabapentin 300 mg PO HS 10/15/16 Insulin Detemir [Levemir Flextouch] 6 unit SQ AM 10/15/16 Menthol/Zinc Oxide [Calmoseptine Ointment] 3.5 gm TP TID 10/15/16 Metoprolol Tartrate [Lopressor -] 25 mg PO BID 10/15/16 Montelukast Na [Singulair -] 10 mg PO HS 10/15/16 Thyroid [Flushing Thyroid] 30 mg PO DAILY 10/15/16 Ascorbate Calcium [Vitamin C] 500 mg PO TID 01/25/17 Benzonatate [Tessalon Pearls -] 100 mg PO TID 01/25/17 Cephalexin Monohydrate [Keflex -] 500 mg PO BID 01/25/17 Chlorhexidine Gluconate [Hibiclens For Decolonization -] 1 applic TP TID Chlorpheniramine/Dextromethorp [Robitussin Long-Acting Liq] 10 ml PO Q8H PRN 03/08 Docusate Sodium [Colace -] 200 mg PO HS 01/25/17 Ferrous Sulfate 325 mg PO TID 01/25/17 Insulin (Novolog) [Novolog Flexpen] 0 units SQ TID 01/25/17 Multivitamin with Minerals [Icaps Plus] 1 each PO DAILY 01/25/17 Physical Exam-MEDICAL SALES CONSULTANT Vital Signs: Vital Signs Temperature 99.8 F H 02/01/17 09:00 Pulse Rate 85 02/01/17 09:51 Respiratory Rate 22 02/01/17 09:00 Blood Pressure 108/59 02/01/17 09:00 O2 Sat by Pulse Oximetry (%) 95 02/01/17 09:51 Constitutional: Yes: Pallor, Thin, Other (lying in rt lateral decubitus. pt alert, oriented in time & space) Respiratory: Yes: SOB ...Rectal Exam: Yes: Other (perianal lesions) External Genitalia: Yes: Other (Rt Labium Majus large 3 cm irregular margins sharp base is erhthematous ,another small 2.cm ulcer not as deep like previous one on RT Labium Minus Lt labium Minus large superficial ulcer. perineum at introitus , including perianal area large 5 cm deep , indurated, sharp edges, indurated, very tender, pt does not allow to touch involves lower vagina also , vagina is shallow indurated, unable to feel any cervix. Left inguinal large lymph node horizintally felt , fixed. RT inguinal small 2 -3 LNodes papable, movable not tender) Internal Exam Deferred: Yes Vaginal Exam: Yes: Other (s/a) Cervix: Yes: Other (not palpable) Uterus: Yes: Other (not palpable) Adnexa: Not Palpable: Bilateral Breast(s): Yes: Other (not done) Extremities: Yes: Other (TEDS & SCD in situ) Labs: CBC, BMP 02/01/17 05:35 02/01/17 05:35 Assessment/Plan 81 yrs with s/p ac resp didtress, RT hemothrax,Pleural effusion on Rt Chest tube s/p Rt breast ca lumpectomy ClLL/Severe Anemia s/p Blood Transfusion Thrombocytopenia IDDM, CHF, Hypothyroid MEDICAL SALES CONSULTANT : Multiple Vulva ulcers , with bilat Inguinal lymph nodes palpable Aetiology can not be ruled out until Vulva biopsy is done hospital does not have VUlva punch Bx forcep, but can be arranged from office She is high risk for bleeding post Biopsy due to thromocytopenia If one wants to pursue for diagnosis , Consent has to be obtained . Medical clearance is required Let me know iif Vulva multiple punch biopsies are desired
--- NOTE | 2017-02-01 13:15 | PN ---
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, Physician History of Present Illness: pulmonary alert,nad,less sob, chest tube draining 125cc - Current Medication List Current Medications: Active Medications Acetaminophen (Tylenol -) 650 mg PO Q6H PRN PRN Reason: FEVER OR PAIN Last Admin: 01/29/17 21:18 Dose: 650 mg Acetaminophen (Tylenol Suppository -) 650 mg [place] Q6H PRN PRN Reason: FEVER OR PAIN Last Admin: 02/01/17 02:00 Dose: 650 mg Albuterol/Ipratropium (Duoneb -) 1 amp NEB Q6H PRN PRN Reason: SHORTNESS OF BREATH Last Admin: 01/30/17 11:20 Dose: 1 amp Allopurinol (Zyloprim -) 300 mg PO DAILY [facility] Last Admin: 02/01/17 09:57 Dose: 300 mg Bacitracin (Bacitracin -) 1 applic TP BID [facility] Last Admin: 02/01/17 09:59 Dose: 1 applic Insulin Aspart (Novolog Vial Sliding Scale -) 1 vial SQ ACHS SRINIVASA PRN Reason: Protocol Last Admin: 02/01/17 12:05 Dose: Not Given Insulin Detemir (Levemir Vial) 3 units SQ AM [facility] Last Admin: 02/01/17 06:47 Dose: 3 units Levothyroxine Sodium (Synthroid Injection -) 25 mcg IVPUSH DAILY [facility] Last Admin: 02/01/17 09:58 Dose: 25 mcg Piperacillin Sod/Tazobactam Sod (Zosyn 3.375gm Ivpb (Pre-Docked)) 3.375 gm IVPB Q8H-IV SRINIVASA PRN Reason: Protocol Last Admin: 02/01/17 09:58 Dose: 3.375 gm - Objective Vital Signs: Vital Signs Temperature 99.8 F H 02/01/17 09:00 Pulse Rate 85 02/01/17 09:51 Respiratory Rate 22 02/01/17 09:00 Blood Pressure 108/59 02/01/17 09:00 O2 Sat by Pulse Oximetry (%) 95 02/01/17 09:51 Constitutional: Yes: Well Nourished, Calm Eyes: Yes: WNL HENT: Yes: WNL Neck: Yes: WNL Cardiovascular: Yes: Regular Rate and Rhythm, S1, S2 Respiratory: Yes: Rhonchi (scattered rhonchi) Gastrointestinal: Yes: Normal Bowel Sounds, Soft Extremities: Yes: WNL Edema: No Labs: CBC, BMP 02/01/17 05:35 02/01/17 05:35 INR, PTT INR 1.08 (0.82-1.09) 01/26/17 05:50 Fibrinogen 397.0 mg/dL (238-498) 01/26/17 05:50 Assessment/Plan Problem List - Problems (1) Acute respiratory failure with hypoxia Code(s): J96.01 - ACUTE RESPIRATORY FAILURE WITH HYPOXIA (2) Pleural effusion Code(s): J90 - PLEURAL EFFUSION, NOT ELSEWHERE CLASSIFIED (3) CLL (chronic lymphocytic leukemia) Code(s): C91.10 - CHRONIC LYMPHOCYTIC LEUK OF B-CELL TYPE NOT ACHIEVE REMIS (4) Diabetes mellitus Code(s): E11.9 - TYPE 2 DIABETES MELLITUS WITHOUT COMPLICATIONS (5) Hypertension Code(s): I10 - ESSENTIAL (PRIMARY) HYPERTENSION (6) Hypothyroid Code(s): E03.9 - HYPOTHYROIDISM, UNSPECIFIED (7) Anemia Code(s): D64.9 - ANEMIA, UNSPECIFIED Qualifiers: Anemia type: unspecified type Qualified Code(s): D64.9 - Anemia, unspecified (8) Lactic acidosis Code(s): E87.2 - ACIDOSIS Assessment/Plan Acute Hypoxic Respiratory Failure improving Right Pleural Effusion exudate CLL Lactic Acidosis likely due to hypoxia improved CLL HTN DM Hypothyroidism - O2 to keep SpO2 >90% - BiPAP prn - aspiration precautions - received empiric antibiotics - DVT prophylaxis - continue to monitor chest tube drainage DR CHAVARRIA
--- NOTE | 2017-02-01 14:03 | PN ---
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 Palliative care note reviewed. Pt is a full code. Pt unable to be brought downstairs for mbs with Chest tube in place. CLL/PNA. For MBS, when stable. Selected Entries 01/28/17 01/28/17 01/28/17 02:32 06:21 11:00 Breakfast Supper Temperature 99.0 F 98.0 F 98.5 F 01/28/17 01/28/17 01/28/17 15:00 18:00 22:00 Breakfast Supper Temperature 98.1 F 101.5 F H 100 F H 01/29/17 01/29/17 01/29/17 02:00 05:33 09:00 Breakfast Supper Temperature 97.3 F L 99.1 F 98.4 F 01/29/17 01/29/17 01/29/17 14:00 18:00 21:18 Breakfast Supper Temperature 98.8 F 99.5 F 100.4 F H 01/29/17 01/30/17 01/30/17 23:20 02:06 05:27 Breakfast Supper Temperature 99.8 F H 99.8 F H 98.8 F 01/30/17 01/30/17 01/30/17 10:00 15:23 17:00 Breakfast Supper Temperature 98.2 F 99.9 F H 99.0 F 01/30/17 01/31/17 01/31/17 21:00 01:00 05:00 Breakfast Supper Temperature 102.3 F H 100.7 F H 98.0 F 01/31/17 01/31/17 01/31/17 09:00 14:16 17:00 Breakfast Supper Temperature 98.2 F 99.1 F 100.1 F H 01/31/17 01/31/17 02/01/17 20:00 23:00 02:00 Breakfast Supper Temperature 103.0 F H 101.3 F H 101.4 F H 02/01/17 02/01/17 02/01/17 05:12 08:54 09:00 Breakfast Supper 0 Temperature 99.5 F 99.8 F H 02/01/17 09:23 Breakfast 100% Supper Temperature Laboratory Tests 01/30/17 01/31/17 02/01/17 05:35 06:10 05:35 WBC 43.9 H* 35.7 H* 35.6 H* Intermittent cough with and without PO trials. If congestion worsens and aspiration is suspected, may need to hold po intake until mbs can be done. I'm concerned pt would pull out NGT at this time and she lies down, curled and flat, increasing risk of aspiration with TF.
--- NOTE | 2017-02-01 22:36 | PN ---
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 (short form) - Note 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: PAtient seen and examined On nasal canula s/p chest tube placement more alert febrile, vss Cor: RSR, No murmurs, No gallops Lungs: decreased at bases Abd: Soft, Normal bowel sounds, No organomegaly Ext:No significant edema vulva/peranal area---tender ulcers with base?? chancroid Abnormal Lab Results 02/01/17 02/01/17 05:35 05:35 WBC 35.6 H* RBC 2.59 L Hgb 7.8 L Hct 26.0 L MCV 100.6 H MCHC 29.9 L RDW 27.5 H Plt Count 39 L Neutrophils % 4.0 L Lymphocytes % 96.0 H Sodium 151 H Chloride 115 H Anion Gap 6 L Creatinine 0.4 L Calcium 7.8 L ALT 10 L Alkaline Phosphatase 40 L Total Protein 5.4 L Albumin 2.3 L Active Medications Generic Name Dose Route Start Last Admin Trade Name Freq PRN Reason Stop Dose Admin Acetaminophen 650 mg 01/25/17 09:53 01/29/17 21:18 Tylenol - PO 650 mg Q6H PRN Administration FEVER OR PAIN Acetaminophen 650 mg 01/28/17 15:33 02/01/17 17:18 Tylenol Suppository - [place] 650 mg Q6H PRN Administration FEVER OR PAIN Albuterol/Ipratropium 1 amp 01/26/17 18:23 01/30/17 11:20 Duoneb - NEB 1 amp Q6H PRN Administration SHORTNESS OF BREATH Allopurinol 300 mg 01/25/17 21:00 02/01/17 09:57 Zyloprim - PO 300 mg DAILY SRINIVASA Administration Bacitracin 1 applic 01/30/17 22:00 02/01/17 22:13 Bacitracin - TP 1 applic BID SRINIVASA Administration Insulin Aspart 1 vial 01/25/17 11:00 02/02/17 06:07 Novolog Vial Sliding Scale - SQ Not Given ACHS [facility] Protocol Insulin Detemir 3 units 01/26/17 07:00 02/02/17 06:07 Levemir Vial SQ 3 units AM SRINIVASA Administration Levothyroxine Sodium 25 mcg 01/26/17 10:00 02/01/17 09:58 Synthroid Injection - IVPUSH 25 mcg DAILY SRINIVASA Administration Piperacillin Sod/Tazobactam Sod 3.375 gm 01/31/17 18:00 02/02/17 03:29 Zosyn 3.375gm Ivpb (Pre-Docked) IVPB 3.375 gm Q8H-IV SRINIVASA Administration Protocol A/P 81 y/o patient with CLL, h/o breast cancer, dementia, has been residential resident and wheel chair 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 pleural effusion CLL--trisomy 12. also generalized adenopathy diagnosed several yrs. ago in [place] Never treated, was being monitored More recently transfusion dependent emiliana --neg. LDH --300s given overall comorbidities, functional status will need to discuss with family goals of care on tumor lysis prophy ?? chlorambucil Breast cancer -- s/p resection. +margin. 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 tumor fevers vulvar lesions--will discuss with ID . palliative care team and family meeting regrding goals of care
[2017-02-02] MEDS: PIPERACILLIN/TAZOB 3.375 GM/50 ML PRE-DOCKED IVPB SCH ×3 (03:29→17:22)
[2017-02-02] MEDS: INSULIN SLIDING SCALE (NOVOLOG) 1 VIAL SQ SCH ×4 (06:07→22:58)
[2017-02-02] MEDS: INSULIN DETEMIR 100 UNITS/ML MDV SQ SCH (06:07)
--- NOTE | 2017-02-02 08:49 | PN ---
Physical Exam: SUBJECTIVE: Patient seen and examined by me at bedside. Currently on BIPAP saturating at 98%. Currently offers no complaints and said she ate her breakfast. Patient still has draining chest tube but only had 20cc drainage. Evaluation for possible clot should by surgeon and PCP. Otherwise, patient denies chest pain, palpitations, denies shortness of breath but is on BIPAP. She is still not oriented but is awake and alert. Overnight showed Tmax of 100.2 F OBJECTIVE: Vital Signs Period Temp Pulse Resp BP Sys/Choi Pulse Ox Last 24 Hr 99.1 F-101.6 F 75-110 18-22 108-144/55-82 91-95 GENERAL: Awake, alert and in no acute distress NECK: Cervical lymphadenopathy bilaterally LUNGS: Decreased breath sounds throughout lung bases. Draining right chest tube HEART: RRR, normal S1 and S2 with 2/6 systolic murmur ABDOMEN: Soft, nontender, not distended EXTREMITIES: Axillary lymphadenopathy bilaterally. Inguinal lymphadenopathy bilaterally. No peripheral edema. Laboratory Results - last 24 hr 02/01/17 02/01/17 02/01/17 05:35 11:55 15:43 Neutrophils % 4.0 L Lymphocytes % 96.0 H Differential Comment Manual diff done Smudge Cells Many POC Glucometer 129 147 02/01/17 02/02/17 21:19 05:24 Neutrophils % Lymphocytes % Differential Comment Smudge Cells POC Glucometer 163 90 Active Medications Generic Name Dose Route Start Last Admin Trade Name Freq PRN Reason Stop Dose Admin Acetaminophen 650 mg 01/25/17 09:53 01/29/17 21:18 Tylenol - PO 650 mg Q6H PRN Administration FEVER OR PAIN Acetaminophen 650 mg 01/28/17 15:33 02/01/17 17:18 Tylenol Suppository - [place] 650 mg Q6H PRN Administration FEVER OR PAIN Albuterol/Ipratropium 1 amp 01/26/17 18:23 01/30/17 11:20 Duoneb - NEB 1 amp Q6H PRN Administration SHORTNESS OF BREATH Allopurinol 300 mg 01/25/17 21:00 02/01/17 09:57 Zyloprim - PO 300 mg DAILY SRINIVASA Administration Bacitracin 1 applic 01/30/17 22:00 02/01/17 22:13 Bacitracin - TP 1 applic BID SRINIVASA Administration Insulin Aspart 1 vial 01/25/17 11:00 02/02/17 06:07 Novolog Vial Sliding Scale - SQ Not Given ACHS [facility] Protocol Insulin Detemir 3 units 01/26/17 07:00 02/02/17 06:07 Levemir Vial SQ 3 units AM SRINIVASA Administration Levothyroxine Sodium 25 mcg 01/26/17 10:00 02/01/17 09:58 Synthroid Injection - IVPUSH 25 mcg DAILY SRINIVASA Administration Piperacillin Sod/Tazobactam Sod 3.375 gm 01/31/17 18:00 02/02/17 03:29 Zosyn 3.375gm Ivpb (Pre-Docked) IVPB 3.375 gm Q8H-IV SRINIVASA Administration Protocol ASSESSMENT/PLAN: leukocytosis secondary to CLL and right lung pleural effusion and Pneumonia -Patient is on aspiration precautions -Tmax 100.2 overnight -Repeat blood and urine cultures negative -Continue Zosyn day #3 due to infiltrate in repeat CXR -WBC's continue to trend down Visit type - Emergency Visit Emergency Visit: Yes ED Registration Date: 01/25/17 Care time: The patient presented to the Emergency Department on the above date and was hospitalized for further evaluation of their emergent condition. - New Patient This patient is new to me today: No - Critical Care Critical Care patient: No
[2017-02-02] MEDS ORDERED: PT OWN MED DRAWER 7, Y5N ONE (09:41)
[2017-02-02] MEDS: ALLOPURINOL 300 MG TABLET (FP) PO SCH (09:43)
[2017-02-02] MEDS: LEVOTHYROXINE SODIUM 100 MCG VIAL IVPUSH SCH (10:06)
--- NOTE | 2017-02-02 11:29 | PN ---
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 Palliative care team and family meeting regarding goals of care Intermittent cough with and without PO trials. Right Pleural Effusion exudate CLL with possible aspiration? If congestion worsens and aspiration is suspected, may need to hold po intake until mbs can be done. I'm concerned pt would pull out NGT at this time and she lies down, curled and flat, increasing risk of aspiration with TF. Oncology note noted. Palliative care team and family meeting regarding goals of care. Depending on plan of care, MBS may not be indicated.
--- NOTE | 2017-02-02 11:41 | EKG ---
Test Reason : Blood Pressure : / mmHG Vent. Rate : 089 BPM Atrial Rate : 085 BPM P-R Int : 000 ms QRS Dur : 088 ms QT Int : 348 ms P-R-T Axes : 000 045 145 degrees QTc Int : 423 ms SINUS RHYTHM WITH MARKED SINUS ARRHYTHMIA NONSPECIFIC T WAVE ABNORMALITY ABNORMAL ECG Confirmed by TRISTON MERCADO, MEGHNA ([id number]) on 02/02/2017 11:40:46 AM Referred By: Sherrell LE Confirmed By:MEGHNA GOLDSTEIN MD
[2017-02-02] MEDS: BACITRACIN 30 GM TUBE TOPICAL OINTMENT TP SCH ×2 (12:13→22:00)
--- NOTE | 2017-02-02 12:17 | PN ---
Teaching Attending Note Name of Resident: Cee Lynne ATTENDING PHYSICIAN STATEMENT I saw and evaluated the patient. I reviewed the resident's note and discussed the case with the resident. I agree with the resident's findings and plan as documented. SUBJECTIVE:Day 3 Zosyn for fever. Intermittent fevers Appear confortable OBJECTIVE:Chest tube right side ASSESSMENT AND PLAN:Fever ? tumor lymphoma related IF fevers continue stop antibiotics [facility] MER[place]O
--- NOTE | 2017-02-02 13:01 | PN ---
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, Physician Chief Complaint: Ms Stock says she is feeling better. Denies pain. Denies cp, sob, n/v. - Current Medication List Current Medications: Active Medications Acetaminophen (Tylenol -) 650 mg PO Q6H PRN PRN Reason: FEVER OR PAIN Last Admin: 01/29/17 21:18 Dose: 650 mg Acetaminophen (Tylenol Suppository -) 650 mg MO Q6H PRN PRN Reason: FEVER OR PAIN Last Admin: 02/01/17 17:18 Dose: 650 mg Albuterol/Ipratropium (Duoneb -) 1 amp NEB Q6H PRN PRN Reason: SHORTNESS OF BREATH Last Admin: 01/30/17 11:20 Dose: 1 amp Allopurinol (Zyloprim -) 300 mg PO DAILY COUNTS [facility]CLUDE 234 BEDS AT THE [facility] Last Admin: 02/02/17 09:43 Dose: 300 mg Bacitracin (Bacitracin -) 1 applic TP BID COUNTS INCLUDE 234 BEDS AT THE [facility] Last Admin: 02/02/17 12:13 Dose: 1 applic Insulin Aspart (Novolog Vial Sliding Scale -) 1 vial SQ ACHS COUNTS INCLUDE 234 BEDS AT THE [facility] PRN Reason: Protocol Last Admin: 02/02/17 12:13 Dose: Not Given Insulin Detemir (Levemir Vial) 3 units SQ AM COUNTS INCLUDE 234 BEDS AT THE [facility] Last Admin: 02/02/17 06:07 Dose: 3 units Levothyroxine Sodium (Synthroid Injection -) 25 mcg IVPUSH DAILY COUNTS INCLUDE 234 BEDS AT THE [facility] Last Admin: 02/02/17 10:06 Dose: 25 mcg Piperacillin Sod/Tazobactam Sod (Zosyn 3.375gm Ivpb (Pre-Docked)) 3.375 gm IVPB Q8H-IV SRINIVASA PRN Reason: Protocol Last Admin: 02/02/17 09:43 Dose: 3.375 gm - Objective Vital Signs: Vital Signs Temperature 99.1 F 02/02/17 08:17 Pulse Rate 85 02/02/17 11:16 Respiratory Rate 22 02/02/17 08:17 Blood Pressure 124/59 02/02/17 08:17 O2 Sat by Pulse Oximetry (%) 93 L 02/02/17 11:16 Constitutional: Yes: No Distress, Calm Cardiovascular: Yes: Regular Rate and Rhythm. No: Gallop, Murmur, Rub Respiratory: Yes: Regular, CTA Bilaterally. No: Rales, Rhonchi, Wheezes Gastrointestinal: Yes: Normal Bowel Sounds, Soft. No: Distention, Tenderness Extremities: Yes: WNL Edema: No Labs: CBC, BMP 02/01/17 05:35 02/01/17 05:35 INR, PTT INR 1.08 (0.82-1.09) 01/26/17 05:50 Fibrinogen 397.0 mg/dL (238-498) 01/26/17 05:50 Assessment/Plan 1. Acute hypoxic respiratory failure 2/2 large right pleural effusion -improving -still with chest tube placement -pulmonary managing chest tube 2. Bacterial pneumonia -ID following and note reviewed -? if fever is from malignancy -continue zosyn currently, may stop if continues to have fever 3. CLL, chronic anemia requiring transfusion -oncology following -poor prognosis, however family currently wants full treatment -management per oncology 4. Breast cancer s/p resection, +margin, ER+ - Per Dr. Young, "no adjuvant therapy was given as she declined per her primary oncologist in [place]" 5. Thrombocytosis -continue to monitor -management per oncology 6. Vaginal sores -Bacitracin BID -[employer] consulted and case discussed -recommended biopsy, however not medically stable for this -consider once improved from other issues 7. DM II -continue low dose levemir -SSI 8. Hypothyroidism -continue synthroid -change to oral 9. Hypovolemic Hypernatremia -continue hydration 19. Nutrition - Dysphagia pureed/honey thick 11. Prophylaxis -Hold all chemical anticoagulation -Pressure ulcers: allevyn dressing
--- NOTE | 2017-02-02 14:23 | PN ---
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 (short form) - Note 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: PULMONARY Lethargic, arousable. No fevers recorded. Last Vital Signs Temp Pulse Resp BP Pulse Ox 98.9 F 85 20 130/67 93 L 02/02/17 14:13 02/02/17 11:16 02/02/17 14:13 02/02/17 14:13 02/02/17 11:16 Gen: breathing nonlabored Heart: RRR Lung: decreased breath sounds at the bases Abd: soft, nontender Ext: no edema Chest tube: no air leak, dark fluid drainage CBC, BMP 02/01/17 05:35 02/01/17 05:35 Active Medications Acetaminophen (Tylenol -) 650 mg PO Q6H PRN PRN Reason: FEVER OR PAIN Last Admin: 01/29/17 21:18 Dose: 650 mg Acetaminophen (Tylenol Suppository -) 650 mg IN Q6H PRN PRN Reason: FEVER OR PAIN Last Admin: 02/01/17 17:18 Dose: 650 mg Albuterol/Ipratropium (Duoneb -) 1 amp NEB Q6H PRN PRN Reason: SHORTNESS OF BREATH Last Admin: 01/30/17 11:20 Dose: 1 amp Allopurinol (Zyloprim -) 300 mg PO DAILY [facility] Last Admin: 02/02/17 09:43 Dose: 300 mg Bacitracin (Bacitracin -) 1 applic TP BID [facility] Last Admin: 02/02/17 12:13 Dose: 1 applic Insulin Aspart (Novolog Vial Sliding Scale -) 1 vial SQ ACHS [facility] PRN Reason: Protocol Last Admin: 02/02/17 12:13 Dose: Not Given Insulin Detemir (Levemir Vial) 3 units SQ AM [facility] Last Admin: 02/02/17 06:07 Dose: 3 units Levothyroxine Sodium (Synthroid -) 25 mcg PO DAILY@0700 [facility] Piperacillin Sod/Tazobactam Sod (Zosyn 3.375gm Ivpb (Pre-Docked)) 3.375 gm IVPB Q8H-IV SRINIVASA PRN Reason: Protocol Last Admin: 02/02/17 09:43 Dose: 3.375 gm A/P Acute Hypoxic Respiratory Failure improved Right Pleural Effusion exudate CLL Lactic Acidosis likely due to hypoxia improved CLL HTN DM Hypothyroidism - O2 to keep SpO2 >90% - BiPAP as needed - aspiration precautions - on empiric antibiotics - DVT prophylaxis - continue to monitor chest tube drainage Problem List - Problems (1) Acute respiratory failure with hypoxia Code(s): J96.01 - ACUTE RESPIRATORY FAILURE WITH HYPOXIA (2) Pleural effusion Code(s): J90 - PLEURAL EFFUSION, NOT ELSEWHERE CLASSIFIED (3) CLL (chronic lymphocytic leukemia) Code(s): C91.10 - CHRONIC LYMPHOCYTIC LEUK OF B-CELL TYPE NOT ACHIEVE REMIS (4) Diabetes mellitus Code(s): E11.9 - TYPE 2 DIABETES MELLITUS WITHOUT COMPLICATIONS (5) Hypertension Code(s): I10 - ESSENTIAL (PRIMARY) HYPERTENSION (6) Hypothyroid Code(s): E03.9 - HYPOTHYROIDISM, UNSPECIFIED (7) Anemia Code(s): D64.9 - ANEMIA, UNSPECIFIED Qualifiers: Qualified Code(s): D64.9 - Anemia, unspecified (8) Lactic acidosis Code(s): E87.2 - ACIDOSIS
[2017-02-02] MEDS ORDERED: ACETAMINOPHEN 325 MG TABLET (FP) ONE (16:26)
[2017-02-02] MEDS: ACETAMINOPHEN 325 MG TABLET (FP) PO PRN (16:39)
--- NOTE | 2017-02-02 22:54 | PN ---
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 (short form) - Note 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: PAtient seen and examined On nasal canula s/p chest tube placement more alert febrile, vss Cor: RSR, No murmurs, No gallops Lungs: decreased at bases Abd: Soft, Normal bowel sounds, No organomegaly Ext:No significant edema vulva/peranal area---tender ulcers with base?? chancroid Active Medications Generic Name Dose Route Start Last Admin Trade Name Freq PRN Reason Stop Dose Admin Acetaminophen 650 mg 01/25/17 09:53 02/02/17 16:39 Tylenol - PO 650 mg Q6H PRN Administration FEVER OR PAIN Acetaminophen 650 mg 01/28/17 15:33 02/01/17 17:18 Tylenol Suppository - NC 650 mg Q6H PRN Administration FEVER OR PAIN Albuterol/Ipratropium 1 amp 01/26/17 18:23 01/30/17 11:20 Duoneb - NEB 1 amp Q6H PRN Administration SHORTNESS OF BREATH Allopurinol 300 mg 01/25/17 21:00 02/02/17 09:43 Zyloprim - PO 300 mg DAILY SRINIVASA Administration Bacitracin 1 applic 01/30/17 22:00 02/02/17 22:00 Bacitracin - TP 1 applic BID SRINIVASA Administration Insulin Aspart 1 vial 01/25/17 11:00 02/03/17 06:33 Novolog Vial Sliding Scale - SQ Not Given ACHS [facility] Protocol Insulin Detemir 3 units 01/26/17 07:00 02/03/17 06:33 Levemir Vial SQ 3 units AM SRINIVASA Administration Levothyroxine Sodium 25 mcg 02/03/17 07:00 02/03/17 06:33 Synthroid - PO 25 mcg DAILY@0700 SRINIVASA Administration Piperacillin Sod/Tazobactam Sod 3.375 gm 01/31/17 18:00 02/03/17 01:42 Zosyn 3.375gm Ivpb (Pre-Docked) IVPB 3.375 gm Q8H-IV SRINIVASA Administration Protocol A/P 81 y/o patient with CLL, h/o breast cancer, dementia, has been [facility] resident and wheel chair 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 pleural effusion CLL--trisomy 12. also generalized adenopathy diagnosed several yrs[place] ago [place] Never treated, was being monitored More recently transfusion dependent emiliana --neg. LDH --300s given overall comorbidities, functional status will need to discuss with family goals of care---will call son on tumor lysis prophy ?? chlorambucil Breast cancer -- s/p resection. +margin. 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 pleurex fever-- pneumonia/aspiration, ?? tumor fevers vulvar lesions--will discuss with ID . palliative care team and family meeting regrding goals of care
[2017-02-03] MEDS: PIPERACILLIN/TAZOB 3.375 GM/50 ML PRE-DOCKED IVPB SCH ×3 (01:42→18:38)
[2017-02-03] MEDS: LEVOTHYROXINE NA 25 MCG TABLET (FP) PO SCH (06:33)
[2017-02-03] MEDS: INSULIN SLIDING SCALE (NOVOLOG) 1 VIAL SQ SCH ×4 (06:33→22:03)
[2017-02-03] MEDS: INSULIN DETEMIR 100 UNITS/ML MDV SQ SCH (06:33)
[2017-02-03 07:54] LABS: MCHC 31.2 g/dl (32.0-36.0); MEAN CELL VOLUME 99.3 fl (80-96); MEAN PLT VOLUME 10.1 fl (7.5-11.1); PLATELET COUNT 48 K/MM3 (134-434); RDW 27.1 % (11.6-15.6); WHITE BLOOD COUNT 26.7 K/mm3 (4.0-10.0)
[2017-02-03 08:15] LABS: CALCIUM 7.8 mg/dL (8.5-10.1); COCKROFT - GAULT 82.195; CREATININE 0.5 mg/dL (0.55-1.02); MAGNESIUM 2.2 mg/dL (1.8-2.4); PHOSPHOROUS 3.1 mg/dL (2.5-4.9)
--- NOTE | 2017-02-03 08:32 | PN ---
Physical Exam: SUBJECTIVE: Patient seen and examined by me at bedside. No overnight events noted except for low grade fevers. Otherwise, patient awake, alert and responding. Still remains confused. OBJECTIVE: Vital Signs Period Temp Pulse Resp BP Sys/Choi Pulse Ox Last 24 Hr 98.9 F-100.4 F 85-110 18-20 122-148/61-76 93-95 GENERAL: Awake, alert and in no acute distress NECK: Cervical lymphadenopathy bilaterally LUNGS: Decreased breath sounds throughout lung bases. Draining right chest tube HEART: RRR, normal S1 and S2 with 2/6 systolic murmur ABDOMEN: Soft, nontender, not distended : Tender open Vulva/Perianal lesions with mild draining EXTREMITIES: Axillary lymphadenopathy bilaterally. Inguinal lymphadenopathy bilaterally. No peripheral edema. Laboratory Results - last 24 hr 02/02/17 02/02/17 02/02/17 12:08 16:21 22:56 WBC RBC Hgb Hct MCV MCHC RDW Plt Count MPV Neutrophils % Lymphocytes % POC Glucometer 96 107 142 02/03/17 02/03/17 05:33 05:48 WBC 26.7 H RBC 2.33 L Hgb 7.2 L Hct 23.1 L MCV 99.3 H MCHC 31.2 L RDW 27.1 H Plt Count 48 L D MPV 10.1 D Neutrophils % Y Lymphocytes % Y POC Glucometer 131 Active Medications Generic Name Dose Route Start Last Admin Trade Name Freq PRN Reason Stop Dose Admin Acetaminophen 650 mg 01/25/17 09:53 02/02/17 16:39 Tylenol - PO 650 mg Q6H PRN Administration FEVER OR PAIN Acetaminophen 650 mg 01/28/17 15:33 02/01/17 17:18 Tylenol Suppository - [place] 650 mg Q6H PRN Administration FEVER OR PAIN Albuterol/Ipratropium 1 amp 01/26/17 18:23 01/30/17 11:20 Duoneb - NEB 1 amp Q6H PRN Administration SHORTNESS OF BREATH Allopurinol 300 mg 01/25/17 21:00 02/02/17 09:43 Zyloprim - PO 300 mg DAILY SRINIVASA Administration Bacitracin 1 applic 01/30/17 22:00 02/02/17 22:00 Bacitracin - TP 1 applic BID SRINIVASA Administration Insulin Aspart 1 vial 01/25/17 11:00 02/03/17 06:33 Novolog Vial Sliding Scale - SQ Not Given ACHS [facility] Protocol Insulin Detemir 3 units 01/26/17 07:00 02/03/17 06:33 Levemir Vial SQ 3 units AM SRINIVASA Administration Levothyroxine Sodium 25 mcg 02/03/17 07:00 02/03/17 06:33 Synthroid - PO 25 mcg DAILY@0700 SRINIVASA Administration Piperacillin Sod/Tazobactam Sod 3.375 gm 01/31/17 18:00 02/03/17 01:42 Zosyn 3.375gm Ivpb (Pre-Docked) IVPB 3.375 gm Q8H-IV SRINIVASA Administration Protocol ASSESSMENT/PLAN: leukocytosis secondary to CLL and right lung pleural effusion and Pneumonia ( Improving) -Patient is on aspiration precautions -Tmax 99.8 overnight. Possibly due to tumor fevers -Repeat blood and urine cultures negative -Continue Zosyn day #4 due to infiltrate in repeat CXR -WBC's continue to trend down -Repeat chest x-xray PA and LAT Vulva/Perianal lesions -Wound cultures done -Will check RPR to rule out Syphilis -Will prophylactically treat for HSV and ordered Valtrex 1gm BID for 7 days Visit type - Emergency Visit Emergency Visit: Yes ED Registration Date: 01/25/17 Care time: The patient presented to the Emergency Department on the above date and was hospitalized for further evaluation of their emergent condition. - New Patient This patient is new to me today: No - Critical Care Critical Care patient: No
[2017-02-03 09:32] LABS: PLATELET ESTIMATE DECREASED (NORMAL); SMUDGE CELLS MANY
[2017-02-03] MEDS: ACETAMINOPHEN 325 MG TABLET (FP) PO PRN (09:36)
[2017-02-03] MEDS: ALLOPURINOL 300 MG TABLET (FP) PO SCH (09:36)
--- NOTE | 2017-02-03 10:50 | PN ---
Teaching Attending Note Name of Resident: Cee Lynne ATTENDING PHYSICIAN STATEMENT I saw and evaluated the patient. I reviewed the resident's note and discussed the case with the resident. I agree with the resident's findings and plan as documented. SUBJECTIVE: intermittent fevers OBJECTIVE: ASSESSMENT AND PLAN: plan as outilined in resident note continue zosyn for pneumonia most likelly effusion due to CLL vulvar/perineal lesions- for outpt biopsy, trial of valtrex, ?HSV
--- NOTE | 2017-02-03 11:17 | PN ---
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 Right Pleural Effusion exudate CLL with possible aspiration If congestion worsens and aspiration is suspected, may need to hold po intake until mbs can be done. I'm concerned pt would pull out NGT at this time and she lies down, curled and flat, increasing risk of aspiration with TF. Selected Entries 01/30/17 01/30/17 01/30/17 02:06 05:27 10:00 Breakfast Lunch Supper Temperature 99.8 F H 98.8 F 98.2 F 01/30/17 01/30/17 01/30/17 15:23 17:00 21:00 Breakfast Lunch Supper Temperature 99.9 F H 99.0 F 102.3 F H 01/31/17 01/31/17 01/31/17 01:00 05:00 09:00 Breakfast Lunch Supper Temperature 100.7 F H 98.0 F 98.2 F 01/31/17 01/31/17 01/31/17 14:16 17:00 20:00 Breakfast Lunch Supper Temperature 99.1 F 100.1 F H 103.0 F H 01/31/17 02/01/17 02/01/17 23:00 02:00 05:12 Breakfast Lunch Supper Temperature 101.3 F H 101.4 F H 99.5 F 02/01/17 02/01/17 02/01/17 09:00 14:28 16:16 Breakfast Lunch Supper Temperature 99.8 F H 99.7 F H 99.7 F H 02/01/17 02/01/17 02/02/17 17:00 22:00 02:00 Breakfast Lunch Supper Temperature 101.6 F H 99.2 F 100.2 F H 02/02/17 02/02/17 02/02/17 04:44 08:17 12:21 Breakfast 50% Lunch 50% Supper Temperature 99.6 F 99.1 F 02/02/17 02/02/17 02/02/17 14:13 17:00 19:48 Breakfast Lunch Supper 25% Temperature 98.9 F 100.4 F H 02/02/17 02/03/17 02/03/17 22:00 02:00 05:47 Breakfast Lunch Supper Temperature 99.2 F 99.8 F H 99.2 F 02/03/17 07:38 Breakfast Lunch Supper Temperature 99.5 F Laboratory Tests 02/03/17 05:48 WBC 26.7 H WBC trending down. MBS once chest tunbe removed? Hold PO if more congested. Seat pt fully upright and remind pt to swallow.
--- NOTE | 2017-02-03 11:30 | PN ---
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, Physician Chief Complaint: Ms Stock says she is feeling better. Denies pain. Denies cp, sob, n/v. - Current Medication List Current Medications: Active Medications Acetaminophen (Tylenol -) 650 mg PO Q6H PRN PRN Reason: FEVER OR PAIN Last Admin: 02/03/17 09:36 Dose: 650 mg Acetaminophen (Tylenol Suppository -) 650 mg [place] Q6H PRN PRN Reason: FEVER OR PAIN Last Admin: 02/01/17 17:18 Dose: 650 mg Albuterol/Ipratropium (Duoneb -) 1 amp NEB Q6H PRN PRN Reason: SHORTNESS OF BREATH Last Admin: 01/30/17 11:20 Dose: 1 amp Allopurinol (Zyloprim -) 300 mg PO DAILY [facility] Last Admin: 02/03/17 09:36 Dose: 300 mg Bacitracin (Bacitracin -) 1 applic TP BID [facility] Last Admin: 02/02/17 22:00 Dose: 1 applic Insulin Aspart (Novolog Vial Sliding Scale -) 1 vial SQ ACHS [facility] PRN Reason: Protocol Last Admin: 02/03/17 06:33 Dose: Not Given Insulin Detemir (Levemir Vial) 3 units SQ AM [facility] Last Admin: 02/03/17 06:33 Dose: 3 units Levothyroxine Sodium (Synthroid -) 25 mcg PO DAILY@0700 [facility] Last Admin: 02/03/17 06:33 Dose: 25 mcg Piperacillin Sod/Tazobactam Sod (Zosyn 3.375gm Ivpb (Pre-Docked)) 3.375 gm IVPB Q8H-IV SRINIVASA PRN Reason: Protocol Last Admin: 02/03/17 09:36 Dose: 3.375 gm Valacyclovir HCl (Valtrex -) 1,000 mg PO BID [facility] - Objective Vital Signs: Vital Signs Temperature 99.5 F 02/03/17 07:38 Pulse Rate 94 H 02/03/17 07:38 Respiratory Rate 20 02/03/17 07:38 Blood Pressure 132/74 02/03/17 07:38 O2 Sat by Pulse Oximetry (%) 95 02/03/17 04:06 Constitutional: Yes: No Distress, Calm, Thin Cardiovascular: Yes: Regular Rate and Rhythm. No: Gallop, Murmur, Rub Respiratory: Yes: Regular, CTA Bilaterally. No: Rales, Rhonchi, Wheezes Gastrointestinal: Yes: Normal Bowel Sounds, Soft. No: Distention, Tenderness Extremities: Yes: WNL Edema: No Labs: CBC, BMP 02/03/17 05:48 02/03/17 05:48 INR, PTT INR 1.08 (0.82-1.09) 01/26/17 05:50 Fibrinogen 397.0 mg/dL (238-498) 01/26/17 05:50 Assessment/Plan 1. Acute hypoxic respiratory failure 2/2 large right pleural effusion -improving -still with chest tube placement -pulmonary managing chest tube 2. Bacterial pneumonia -ID following and note reviewed -? if fever is from malignancy -continue zosyn currently, may stop if continues to have fever -repeat chest x-ray 3. CLL, chronic anemia requiring transfusion -oncology following -poor prognosis, however family currently wants full treatment -management per oncology 4. Breast cancer s/p resection, +margin, ER+ - Per Dr. Young, "no adjuvant therapy was given as she declined per her primary oncologist in [place]" 5. Thrombocytosis -continue to monitor -management per oncology 6. Vaginal sores -Bacitracin BID -[employer] consulted and case discussed -recommended biopsy, however not medically stable for this -consider once improved from other issues -will trial valtrex to see if improves 7. DM II -continue low dose levemir -SSI 8. Hypothyroidism -continue synthroid 9. Hypovolemic Hypernatremia -continue hydration 19. Nutrition - Dysphagia pureed/honey thick 11. Prophylaxis -Hold all chemical anticoagulation -Pressure ulcers: allevyn dressing
--- NOTE | 2017-02-03 11:58 | PN ---
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, Physician History of Present Illness: pulmonary awake,nad,-sob,chest tube still draining 200cc - Current Medication List Current Medications: Active Medications Acetaminophen (Tylenol -) 650 mg PO Q6H PRN PRN Reason: FEVER OR PAIN Last Admin: 02/03/17 09:36 Dose: 650 mg Acetaminophen (Tylenol Suppository -) 650 mg CO Q6H PRN PRN Reason: FEVER OR PAIN Last Admin: 02/01/17 17:18 Dose: 650 mg Albuterol/Ipratropium (Duoneb -) 1 amp NEB Q6H PRN PRN Reason: SHORTNESS OF BREATH Last Admin: 01/30/17 11:20 Dose: 1 amp Allopurinol (Zyloprim -) 300 mg PO DAILY [facility] Last Admin: 02/03/17 09:36 Dose: 300 mg Bacitracin (Bacitracin -) 1 applic TP BID [facility] Last Admin: 02/02/17 22:00 Dose: 1 applic Sodium Chloride (Normal Saline -) 1,000 mls @ 50 mls/hr IV ASDIR [facility] Stop: 02/04/17 11:30 Insulin Aspart (Novolog Vial Sliding Scale -) 1 vial SQ ACHS [facility] PRN Reason: Protocol Last Admin: 02/03/17 11:42 Dose: 4 unit Insulin Detemir (Levemir Vial) 3 units SQ AM [facility] Last Admin: 02/03/17 06:33 Dose: 3 units Levothyroxine Sodium (Synthroid -) 25 mcg PO DAILY@0700 [facility] Last Admin: 02/03/17 06:33 Dose: 25 mcg Piperacillin Sod/Tazobactam Sod (Zosyn 3.375gm Ivpb (Pre-Docked)) 3.375 gm IVPB Q8H-IV SRINIVASA PRN Reason: Protocol Last Admin: 02/03/17 09:36 Dose: 3.375 gm Valacyclovir HCl (Valtrex -) 1,000 mg PO BID [facility] - Objective Vital Signs: Vital Signs Temperature 99.5 F 02/03/17 07:38 Pulse Rate 94 H 02/03/17 07:38 Respiratory Rate 20 02/03/17 09:00 Blood Pressure 132/74 02/03/17 07:38 O2 Sat by Pulse Oximetry (%) 95 02/03/17 04:06 Constitutional: Yes: Well Nourished, Calm Eyes: Yes: WNL HENT: Yes: WNL Cardiovascular: Yes: Regular Rate and Rhythm, S1, S2 Respiratory: Yes: Diminished, Rhonchi (few rhonchi) Gastrointestinal: Yes: Normal Bowel Sounds, Soft Extremities: Yes: WNL Edema: No Labs: CBC, BMP 02/03/17 05:48 02/03/17 05:48 INR, PTT INR 1.08 (0.82-1.09) 01/26/17 05:50 Fibrinogen 397.0 mg/dL (238-498) 01/26/17 05:50 Assessment/Plan Problem List - Problems (1) Acute respiratory failure with hypoxia Code(s): J96.01 - ACUTE RESPIRATORY FAILURE WITH HYPOXIA (2) Pleural effusion Code(s): J90 - PLEURAL EFFUSION, NOT ELSEWHERE CLASSIFIED (3) CLL (chronic lymphocytic leukemia) Code(s): C91.10 - CHRONIC LYMPHOCYTIC LEUK OF B-CELL TYPE NOT ACHIEVE REMIS (4) Diabetes mellitus Code(s): E11.9 - TYPE 2 DIABETES MELLITUS WITHOUT COMPLICATIONS (5) Hypertension Code(s): I10 - ESSENTIAL (PRIMARY) HYPERTENSION (6) Hypothyroid Code(s): E03.9 - HYPOTHYROIDISM, UNSPECIFIED (7) Anemia Code(s): D64.9 - ANEMIA, UNSPECIFIED Qualifiers: Anemia type: unspecified type Qualified Code(s): D64.9 - Anemia, unspecified (8) Lactic acidosis Code(s): E87.2 - ACIDOSIS Assessment/Plan Acute Hypoxic Respiratory Failure improving Right Pleural Effusion exudate CLL Lactic Acidosis likely due to hypoxia improved CLL HTN DM Hypothyroidism - O2 to keep SpO2 >90% - BiPAP prn - aspiration precautions - received empiric antibiotics - DVT prophylaxis - continue to monitor chest tube drainage DR CHAVARRIA
[2017-02-03] MEDS: SODIUM CHLORIDE 1,000 ML IV SCH (12:00)
[2017-02-03] MEDS: valACYclovir HCL 500 MG TABLET (FP) PO SCH ×2 (12:02→22:07)
--- NOTE | 2017-02-03 12:53 | PN ---
Teaching Attending Note Name of Resident: Cee Lynne ATTENDING PHYSICIAN STATEMENT I saw and evaluated the patient. I reviewed the resident's note and discussed the case with the resident. I agree with the resident's findings and plan as documented. SUBJECTIVE: awake, still with cough OBJECTIVE: Vital Signs Period Temp Pulse Resp BP Sys/Choi Pulse Ox Last 24 Hr 98.9 F-100.4 F 90-110 18-20 122-148/61-76 93-95 cor-rrr lungs decreased bs at bases abd soft,nt +vulvar ulcers, +perianal ulcers ext no edema +chest tube CBC, BMP 02/03/17 05:48 02/03/17 05:48 Active Medications Acetaminophen (Tylenol -) 650 mg PO Q6H PRN PRN Reason: FEVER OR PAIN Last Admin: 02/03/17 09:36 Dose: 650 mg Acetaminophen (Tylenol Suppository -) 650 mg MD Q6H PRN PRN Reason: FEVER OR PAIN Last Admin: 02/01/17 17:18 Dose: 650 mg Albuterol/Ipratropium (Duoneb -) 1 amp NEB Q6H PRN PRN Reason: SHORTNESS OF BREATH Last Admin: 01/30/17 11:20 Dose: 1 amp Allopurinol (Zyloprim -) 300 mg PO DAILY [facility] Last Admin: 02/03/17 09:36 Dose: 300 mg Bacitracin (Bacitracin -) 1 applic TP BID [facility] Last Admin: 02/02/17 22:00 Dose: 1 applic Sodium Chloride (Normal Saline -) 1,000 mls @ 50 mls/hr IV ASDIR [facility] Stop: 02/04/17 11:30 Insulin Aspart (Novolog Vial Sliding Scale -) 1 vial SQ ACHS [facility] PRN Reason: Protocol Last Admin: 02/03/17 11:42 Dose: 4 unit Insulin Detemir (Levemir Vial) 3 units SQ AM [facility] Last Admin: 02/03/17 06:33 Dose: 3 units Levothyroxine Sodium (Synthroid -) 25 mcg PO DAILY@0700 [facility] Last Admin: 02/03/17 06:33 Dose: 25 mcg Piperacillin Sod/Tazobactam Sod (Zosyn 3.375gm Ivpb (Pre-Docked)) 3.375 gm IVPB Q8H-IV SRINIVASA PRN Reason: Protocol Last Admin: 02/03/17 09:36 Dose: 3.375 gm Valacyclovir HCl (Valtrex -) 1,000 mg PO BID SRINIVASA ASSESSMENT AND PLAN: pneumonia effusion- ?cll vulvar/perianal lesions gyne consult noted, unable to biopsy as inpatient we will send viral culture, check RPR and try empiric course of valtrex for possible HSV continue zosyn day #3 repeat cxray pulmonary f/u for chest tube
[2017-02-03] MEDS: BACITRACIN 30 GM TUBE TOPICAL OINTMENT TP SCH ×2 (17:00→21:50)
[2017-02-03] MEDS: KCL 10 MEQ IVPB 100 ML IVPB SCH ×3 (17:59→21:49)
--- NOTE | 2017-02-03 18:54 | CON.CARD ---
Cardiology Consult (text) - Consultation Consultation Note: CC: SVT 81 year old female with significant past medical history of hypertension, hyperlipidemia, diabetes, anemia, recent dx of CLL, and hypothyroidism who presents to the ED BIBA from [facility] facility for respiratory distress and found to have large right pleural effusion 2/2 CLL and whose hospital course is now complicated by SVT. . Patient currently denies palps, cp, sob. dizziness, orthopnea, le edema. Denies all symptoms. no f/c/s, n/v/d, cough congestion, rashes. + vaginal lesions per report Unclear whether patient history is reliable. Allergies: NKDA Social History: No alcohol, tobacco, or drug use reported. family hx: denies cardiac hx Past Surgical History: recent thoracentesis and chest tube placement on this admit ros: per hpi - Past Medical History Anemia: Yes Asthma: Yes COPD: Yes Diabetes: Yes GI Disorders: Yes (GERD) HTN: Yes Hypercholesterolemia: Yes Thyroid Disease: Yes (HYPO) - Psycho/Social/Smoking Cessation Hx Suicidal Ideation: No Smoking History: Never smoked - Current Medication List Current Medications: Active Medications Acetaminophen (Tylenol -) 650 mg PO Q6H PRN PRN Reason: FEVER OR PAIN Last Admin: 02/03/17 09:36 Dose: 650 mg Acetaminophen (Tylenol Suppository -) 650 mg [place] Q6H PRN PRN Reason: FEVER OR PAIN Last Admin: 02/01/17 17:18 Dose: 650 mg Albuterol/Ipratropium (Duoneb -) 1 amp NEB Q6H PRN PRN Reason: SHORTNESS OF BREATH Last Admin: 01/30/17 11:20 Dose: 1 amp Allopurinol (Zyloprim -) 300 mg PO DAILY [facility] Last Admin: 02/03/17 09:36 Dose: 300 mg Bacitracin (Bacitracin -) 1 applic TP BID [facility] Last Admin: 02/02/17 22:00 Dose: 1 applic Sodium Chloride (Normal Saline -) 1,000 mls @ 50 mls/hr IV ASDIR [facility] Stop: 02/04/17 11:30 Insulin Aspart (Novolog Vial Sliding Scale -) 1 vial SQ ACHS [facility] PRN Reason: Protocol Last Admin: 02/03/17 11:42 Dose: 4 unit Insulin Detemir (Levemir Vial) 3 units SQ AM [facility] Last Admin: 02/03/17 06:33 Dose: 3 units Levothyroxine Sodium (Synthroid -) 25 mcg PO DAILY@0700 [facility] Last Admin: 02/03/17 06:33 Dose: 25 mcg Piperacillin Sod/Tazobactam Sod (Zosyn 3.375gm Ivpb (Pre-Docked)) 3.375 gm IVPB Q8H-IV [facility] PRN Reason: Protocol Last Admin: 02/03/17 09:36 Dose: 3.375 gm Valacyclovir HCl (Valtrex -) 1,000 mg PO BID [facility] Vital Signs - 24 hr 02/02/17 02/02/17 02/03/17 21:00 22:00 00:14 Temperature 99.2 F Pulse Rate 103 H Respiratory 20 20 Rate Blood Pressure 130/76 O2 Sat by Pulse 94 L 94 L Oximetry (%) 02/03/17 02/03/17 02/03/17 02:00 04:06 05:47 Temperature 99.8 F H 99.2 F Pulse Rate 110 H 90 Respiratory 20 20 Rate Blood Pressure 143/75 122/76 O2 Sat by Pulse 95 Oximetry (%) 02/03/17 02/03/17 02/03/17 07:38 09:00 14:30 Temperature 99.5 F 98.7 F Pulse Rate 94 H 90 Respiratory 20 20 20 Rate Blood Pressure 132/74 127/62 O2 Sat by Pulse Oximetry (%) 02/03/17 18:00 Temperature 98.7 F Pulse Rate 115 H Respiratory 20 Rate Blood Pressure 128/68 O2 Sat by Pulse Oximetry (%) Intake & Output 02/01/17 02/02/17 02/03/17 02/04/17 07:59 07:59 07:59 07:59 Intake Total 0 830 400 120 Output Total 540 560 200 100 Balance -540 270 200 20 NAD, calm, cachectic JVD mild elevation, neck supple bibsilar dullness, nl effort rrr nl s1, s2 2/6 murmur at apex. + bs soft nt nd ext without e/c/c + dp/pt no jaundice, diaphoresis no carotid bruits CBC, BMP 02/03/17 05:48 02/03/17 05:48 Laboratory Tests 02/03/17 05:48 Magnesium 2.2 Laboratory Tests 01/26/17 05:50 TSH 0.47 ekg: sr, pac's. non-specific t wave abnormalities tele: difficult to assess p waves, appears to be sinus rhythm with frequent pac' s and intermittent brief svt. echo : nl lv/rv. mod tio, severe mr, mod-sev tr, rvsp 50-60. pleural effusion 81 year old female with significant past medical history of hypertension, hyperlipidemia, diabetes, anemia, recent dx of CLL, and hypothyroidism who presents to the ED BIBA from [facility] facility for respiratory distress and found to have large right pleural effusion 2/2 CLL and whose hospital course is now complicated by SVT. SVT - con't telemetry monitoring - tsh within normal limits. - start beta eleanor, aggressive electrolyte repletion, management of underlying pulmonary disease, fevers severe MR/TR - would reassess now that large pleural effusion has drained. HTN - well controlled, starting bb as above HL - ok to defer statin given co-morbidities.
[2017-02-04] MEDS: ALBUTEROL SO4 2.5/IPRATROPIUM 0.5 INH SOL 3 ML VIAL.NEB. NEB PRN ×2 (00:10→11:43)
[2017-02-04] MEDS: ACETAMINOPHEN 650 MG SUPP.RECT PR PRN (02:26)
[2017-02-04] MEDS: PIPERACILLIN/TAZOB 3.375 GM/50 ML PRE-DOCKED IVPB SCH ×3 (02:39→18:50)
[2017-02-04] MEDS: INSULIN SLIDING SCALE (NOVOLOG) 1 VIAL SQ SCH ×4 (06:26→23:54)
[2017-02-04] MEDS: INSULIN DETEMIR 100 UNITS/ML MDV SQ SCH (06:45)
[2017-02-04] MEDS: LEVOTHYROXINE NA 25 MCG TABLET (FP) PO SCH (06:45)
[2017-02-04 08:12] LABS: MCHC 31.6 g/dl (32.0-36.0); MEAN CELL VOLUME 98.1 fl (80-96); PLATELET COUNT 53 K/MM3 (134-434); RDW 26.1 % (11.6-15.6); WHITE BLOOD COUNT 22.3 K/mm3 (4.0-10.0)
[2017-02-04 08:41] LABS: CALCIUM 7.6 mg/dL (8.5-10.1)
[2017-02-04 08:42] LABS: COCKROFT - GAULT 102.765; CREATININE 0.4 mg/dL (0.55-1.02); PHOSPHOROUS 2.3 mg/dL (2.5-4.9)
[2017-02-04] MEDS: ALLOPURINOL 300 MG TABLET (FP) PO SCH (09:52)
[2017-02-04] MEDS: valACYclovir HCL 500 MG TABLET (FP) PO SCH ×2 (09:52→23:54)
[2017-02-04] MEDS: BACITRACIN 30 GM TUBE TOPICAL OINTMENT TP SCH ×2 (09:52→23:53)
[2017-02-04] MEDS ORDERED: POTASSIUM CHLORIDE TABS 20 MEQ TABLET.ER (FP) PO ONE (10:16)
[2017-02-04] MEDS ORDERED: METOPROLOL TARTRATE 25 MG TABLET (FP) ONE (11:06)
[2017-02-04] MEDS: METOPROLOL TARTRATE 25 MG TABLET (FP) PO SCH ×2 (11:11→13:38)
[2017-02-04] MEDS: SODIUM CHLORIDE 1,000 ML IV SCH (11:28)
[2017-02-04 11:43] LABS: ANISOCYTOSIS 3+; HYPOCHROMIA 2+; PLATELET COMMENT2 NO CLOTTING DETECTED; PLATELET ESTIMATE DECREASED (NORMAL); SMUDGE CELLS MODERATE
[2017-02-04] MEDS: KCL 10 MEQ IVPB 100 ML IVPB SCH ×4 (11:47→18:16)
--- NOTE | 2017-02-04 13:14 | PN ---
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 (short form) - Note 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: PULMONARY Somnolent but arousable. No fevers recorded. Last Vital Signs Temp Pulse Resp BP Pulse Ox 99.7 F H 86 20 120/70 96 02/04/17 09:57 02/04/17 09:57 02/04/17 09:57 02/04/17 09:57 02/04/17 06:00 Gen: breathing nonlabored Heart: RRR Lung: decreased breath sounds at the bases Abd: soft, nontender Ext: no edema Chest tube: no air leak, dark fluid drainage CBC, BMP 02/04/17 06:05 02/04/17 06:05 Active Medications Acetaminophen (Tylenol -) 650 mg PO Q6H PRN PRN Reason: FEVER OR PAIN Last Admin: 02/03/17 09:36 Dose: 650 mg Acetaminophen (Tylenol Suppository -) [address] Q6H PRN PRN Reason: FEVER OR PAIN Last Admin: 02/04/17 02:26 Dose: 650 mg Albuterol/Ipratropium (Duoneb -) 1 amp NEB Q6H PRN PRN Reason: SHORTNESS OF BREATH Last Admin: 02/04/17 11:43 Dose: 1 amp Allopurinol (Zyloprim -) 300 mg PO DAILY [facility] Last Admin: 02/04/17 09:52 Dose: 300 mg Bacitracin (Bacitracin -) 1 applic TP BID [facility] Last Admin: 02/04/17 09:52 Dose: 1 applic Potassium Chloride (Potassium Chloride 10 Meq Premix Ivpb -) 100 mls @ 100 mls/ hr IVPB Q60M [facility] Stop: 02/04/17 14:59 Last Admin: 02/04/17 11:47 Dose: 100 mls/hr Insulin Aspart (Novolog Vial Sliding Scale -) 1 vial SQ ACHS [facility] PRN Reason: Protocol Last Admin: 02/04/17 10:55 Dose: Not Given Insulin Detemir (Levemir Vial) 3 units SQ AM [facility] Last Admin: 02/04/17 06:45 Dose: 3 units Levothyroxine Sodium (Synthroid -) 25 mcg PO DAILY@0700 [facility] Last Admin: 02/04/17 06:45 Dose: 25 mcg Metoprolol Tartrate (Lopressor -) 12.5 mg PO TID [facility] Last Admin: 02/04/17 11:11 Dose: 12.5 mg Piperacillin Sod/Tazobactam Sod (Zosyn 3.375gm Ivpb (Pre-Docked)) 3.375 gm IVPB Q8H-IV [facility] PRN Reason: Protocol Last Admin: 02/04/17 09:52 Dose: 3.375 gm Valacyclovir HCl (Valtrex -) 1,000 mg PO BID [facility] Last Admin: 02/04/17 09:52 Dose: 1,000 mg A/P Acute Hypoxic Respiratory Failure improved Right Pleural Effusion exudate CLL Lactic Acidosis likely due to hypoxia improved CLL HTN DM Hypothyroidism - O2 to keep SpO2 >90% - BiPAP as needed - aspiration precautions - on empiric antibiotics - DVT prophylaxis - continue to monitor chest tube drainage, will likely need pleur-x catheter Problem List - Problems (1) Acute respiratory failure with hypoxia Code(s): J96.01 - ACUTE RESPIRATORY FAILURE WITH HYPOXIA (2) Pleural effusion Code(s): J90 - PLEURAL EFFUSION, NOT ELSEWHERE CLASSIFIED (3) CLL (chronic lymphocytic leukemia) Code(s): C91.10 - CHRONIC LYMPHOCYTIC LEUK OF B-CELL TYPE NOT ACHIEVE REMIS (4) Diabetes mellitus Code(s): E11.9 - TYPE 2 DIABETES MELLITUS WITHOUT COMPLICATIONS (5) Hypertension Code(s): I10 - ESSENTIAL (PRIMARY) HYPERTENSION (6) Hypothyroid Code(s): E03.9 - HYPOTHYROIDISM, UNSPECIFIED (7) Anemia Code(s): D64.9 - ANEMIA, UNSPECIFIED Qualifiers: Qualified Code(s): D64.9 - Anemia, unspecified (8) Lactic acidosis Code(s): E87.2 - ACIDOSIS
--- NOTE | 2017-02-04 13:19 | PN ---
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, Physician History of Present Illness: Patient feeling weak, has been able to eat, with variable appetite. Still with drainage from chest tube. - Current Medication List Current Medications: Active Medications Acetaminophen (Tylenol -) 650 mg PO Q6H PRN PRN Reason: FEVER OR PAIN Last Admin: 02/03/17 09:36 Dose: 650 mg Acetaminophen (Tylenol Suppository -) 650 mg [place] Q6H PRN PRN Reason: FEVER OR PAIN Last Admin: 02/04/17 02:26 Dose: 650 mg Albuterol/Ipratropium (Duoneb -) 1 amp NEB Q6H PRN PRN Reason: SHORTNESS OF BREATH Last Admin: 02/04/17 11:43 Dose: 1 amp Allopurinol (Zyloprim -) 300 mg PO DAILY [facility] Last Admin: 02/04/17 09:52 Dose: 300 mg Bacitracin (Bacitracin -) 1 applic TP BID [facility] Last Admin: 02/04/17 09:52 Dose: 1 applic Potassium Chloride (Potassium Chloride 10 Meq Premix Ivpb -) 100 mls @ 100 mls/ hr IVPB Q60M [facility] Stop: 02/04/17 14:59 Last Admin: 02/04/17 11:47 Dose: 100 mls/hr Insulin Aspart (Novolog Vial Sliding Scale -) 1 vial SQ ACHS [facility] PRN Reason: Protocol Last Admin: 02/04/17 10:55 Dose: Not Given Insulin Detemir (Levemir Vial) 3 units SQ AM [facility] Last Admin: 02/04/17 06:45 Dose: 3 units Levothyroxine Sodium (Synthroid -) 25 mcg PO DAILY@0700 [facility] Last Admin: 02/04/17 06:45 Dose: 25 mcg Metoprolol Tartrate (Lopressor -) 12.5 mg PO TID [facility] Last Admin: 02/04/17 11:11 Dose: 12.5 mg Piperacillin Sod/Tazobactam Sod (Zosyn 3.375gm Ivpb (Pre-Docked)) 3.375 gm IVPB Q8H-IV [facility] PRN Reason: Protocol Last Admin: 02/04/17 09:52 Dose: 3.375 gm Valacyclovir HCl (Valtrex -) 1,000 mg PO BID [facility] Last Admin: 02/04/17 09:52 Dose: 1,000 mg - Objective Vital Signs: Vital Signs Temperature 99.7 F H 02/04/17 09:57 Pulse Rate 86 02/04/17 09:57 Respiratory Rate 20 02/04/17 09:57 Blood Pressure 120/70 02/04/17 09:57 O2 Sat by Pulse Oximetry (%) 96 02/04/17 06:00 Constitutional: Yes: No Distress, Calm Neck: Yes: Supple, Trachea Midline Cardiovascular: Yes: Regular Rate and Rhythm, S1, S2. No: Murmur Respiratory: Yes: Diminished, Other (chest tube present) Gastrointestinal: Yes: Normal Bowel Sounds, Soft. No: Distention, Tenderness Edema: No Neurological: Yes: Alert, Oriented Labs: CBC, BMP 02/04/17 06:05 02/04/17 06:05 INR, PTT INR 1.08 (0.82-1.09) 01/26/17 05:50 Fibrinogen 397.0 mg/dL (238-498) 01/26/17 05:50 Assessment/Plan All Active Problems Acute respiratory failure with hypoxia (Acute) CLL (chronic lymphocytic leukemia) (Acute) DVT prophylaxis (Acute) Elevated lactic acid level (Acute) Lactic acidosis (Acute) Pleural effusion (Acute) s/p chest tube placement Pressure ulcer (Acute) Vaginal sore (Acute) Anemia (Acute) Diabetes mellitus (Acute) Hypertension (Acute) Hypothyroid (Acute) Leukocytosis (Acute) -had fever overnight (still on abx) -follow blood counts -may need blood transfusion (if hgb <7) -pulmonary following for effusion/ chest tube drainage -may need pleurex catheter for malignant effusion -?poor prognosis, but family wants everything done currently
--- NOTE | 2017-02-04 13:19 | PN ---
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 (short form) - Note 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: Patient seen and examined Lying in bed poorly responsive and non communicative Last Vital Signs Temp Pulse Resp BP Pulse Ox 99.7 F H 86 20 120/70 96 02/04/17 09:57 02/04/17 09:57 02/04/17 09:57 02/04/17 09:57 02/04/17 06:00 Nodes: Left supraclavicular nodes, bilateral axillary nodes Breasts: Without masses Cor: RSR, systolic murmur Lungs: rhonchi , diminished breath sounds chest tube- 200 cc since 02/02 Abd: Soft, Normal bowel sounds, No organomegaly Ext:No significant edema,SCD Skin: No rashes, Integument intact CBC, BMP 02/04/17 06:05 02/04/17 06:05 Current Medications Generic Name Dose Route Start Last Admin Trade Name Freq PRN Reason Stop Dose Admin Acetaminophen 650 mg 01/25/17 09:53 02/03/17 09:36 Tylenol - PO 650 mg Q6H PRN Administration FEVER OR PAIN Acetaminophen 650 mg 01/28/17 15:33 02/04/17 02:26 Tylenol Suppository - SC 650 mg Q6H PRN Administration FEVER OR PAIN Albuterol/Ipratropium 1 amp 01/26/17 18:23 02/04/17 11:43 Duoneb - NEB 1 amp Q6H PRN Administration SHORTNESS OF BREATH Allopurinol 300 mg 01/25/17 21:00 02/04/17 09:52 Zyloprim - PO 300 mg DAILY [facility] Administration Bacitracin 1 applic 01/30/17 22:00 02/04/17 09:52 Bacitracin - TP 1 applic BID [facility] Administration Potassium Chloride 100 mls @ 100 mls/hr 02/04/17 12:00 02/04/17 11:47 Potassium Chloride 10 Meq Premix Ivpb - IVPB 02/04/17 14:59 100 mls/hr Q60M [facility] Administration Insulin Aspart 1 vial 01/25/17 11:00 02/04/17 10:55 Novolog Vial Sliding Scale - SQ Not Given ACHS [facility] Protocol Insulin Detemir 3 units 01/26/17 07:00 02/04/17 06:45 Levemir Vial SQ 3 units AM [facility] Administration Levothyroxine Sodium 25 mcg 02/03/17 07:00 04/15/17 06:45 Synthroid - PO 25 mcg DAILY@0700 [facility] Administration Metoprolol Tartrate 12.5 mg 02/04/17 10:50 02/04/17 11:11 Lopressor - PO 12.5 mg TID [facility] Administration Piperacillin Sod/Tazobactam Sod 3.375 gm 01/31/17 18:00 02/04/17 09:52 Zosyn 3.375gm Ivpb (Pre-Docked) IVPB 3.375 gm Q8H-IV [facility] Administration Protocol Valacyclovir HCl 1,000 mg 02/03/17 11:00 02/04/17 09:52 Valtrex - PO 1,000 mg BID [facility] Administration Impression: Pneumonia Pleual effusion-s/p chest tube CLL Anemia Thrombocytopenia genital lesions Dementia Plan:: Monitoring labs- My need blood bank support Pulmonary f/u chest tube ID f/u for pneumonia ?? low dose leukeran for CLL
--- NOTE | 2017-02-04 15:47 | PN ---
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 (short form) - Note 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: CC: SVT S: denies palps, cp, sob. dizziness Current Medications Acetaminophen (Tylenol -) 650 mg PO Q6H PRN PRN Reason: FEVER OR PAIN Last Admin: 02/03/17 09:36 Dose: 650 mg Acetaminophen (Tylenol Suppository -) 650 mg [place] Q6H PRN PRN Reason: FEVER OR PAIN Last Admin: 02/04/17 02:26 Dose: 650 mg Albuterol/Ipratropium (Duoneb -) 1 amp NEB Q6H PRN PRN Reason: SHORTNESS OF BREATH Last Admin: 02/04/17 11:43 Dose: 1 amp Allopurinol (Zyloprim -) 300 mg PO DAILY [facility] Last Admin: 02/04/17 09:52 Dose: 300 mg Bacitracin (Bacitracin -) 1 applic TP BID [facility] Last Admin: 02/04/17 09:52 Dose: 1 applic Insulin Aspart (Novolog Vial Sliding Scale -) 1 vial SQ ACHS [facility] PRN Reason: Protocol Last Admin: 02/04/17 10:55 Dose: Not Given Insulin Detemir (Levemir Vial) 3 units SQ AM [facility] Last Admin: 02/04/17 06:45 Dose: 3 units Levothyroxine Sodium (Synthroid -) 25 mcg PO DAILY@0700 [facility] Last Admin: 02/04/17 06:45 Dose: 25 mcg Metoprolol Tartrate (Lopressor -) 12.5 mg PO TID [facility] Last Admin: 02/04/17 13:38 Dose: 12.5 mg Piperacillin Sod/Tazobactam Sod (Zosyn 3.375gm Ivpb (Pre-Docked)) 3.375 gm IVPB Q8H-IV [facility] PRN Reason: Protocol Last Admin: 02/04/17 09:52 Dose: 3.375 gm Valacyclovir HCl (Valtrex -) 1,000 mg PO BID [facility] Last Admin: 02/04/17 09:52 Dose: 1,000 mg Vital Signs - 24 hr 02/03/17 02/03/17 02/03/17 17:45 18:00 20:24 Temperature 98.7 F Pulse Rate 115 H Respiratory 20 Rate Blood Pressure 128/68 O2 Sat by Pulse 95 94 L Oximetry (%) 02/03/17 02/03/17 02/04/17 21:00 22:00 02:00 Temperature 98.8 F 102.1 F H Pulse Rate 100 H 101 H Respiratory 20 20 24 Rate Blood Pressure 132/83 115/73 O2 Sat by Pulse 94 L Oximetry (%) 02/04/17 02/04/17 02/04/17 06:00 09:57 12:00 Temperature 99.8 F H 99.7 F H Pulse Rate 90 86 Respiratory 22 20 Rate Blood Pressure 123/60 120/70 O2 Sat by Pulse 96 91 L Oximetry (%) 02/04/17 14:10 Temperature 99.8 F H Pulse Rate 80 Respiratory 18 Rate Blood Pressure 94/52 O2 Sat by Pulse Oximetry (%) Intake & Output 02/02/17 02/03/17 02/04/17 02/05/17 07:59 07:59 07:59 07:59 Intake Total 400 330 1329 Output Total 560 200 150 Balance 395 048 1406 NAD, calm, cachectic JVD mild elevation, neck supple bibsilar dullness, nl effort rrr nl s1, s2 2/6 murmur at apex. + bs soft nt nd ext without e/c/c + dp/pt no jaundice, diaphoresis no carotid bruits CBC, BMP 02/04/17 06:05 02/04/17 06:05 ekg: sr, pac's. non-specific t wave abnormalities tele: appears to be sinus rhythm with frequent pac's and intermittent brief svt. echo : nl lv/rv. mod tio, severe mr, mod-sev tr, rvsp 50-60. pleural effusion 81 year old female with significant past medical history of hypertension, hyperlipidemia, diabetes, anemia, recent dx of CLL, and hypothyroidism who presents to the ED BIBA from [facility] facility for respiratory distress and found to have large right pleural effusion 2/2 CLL and whose hospital course is now complicated by SVT. SVT - con't telemetry monitoring - tsh within normal limits. - started beta eleanor, but this afternoon blood pressure low and febrile will hold. Aggressive electrolyte repletion, management of underlying pulmonary disease, fevers per pmd/pulm. severe MR/TR - would reassess now that large pleural effusion has drained. blood pressure controlled and would not diurese in setting of hypernatremia poor po intake. HTN - hold bb as mentioned above. HL - ok to defer statin given co-morbidities.
[2017-02-05] MEDS: PIPERACILLIN/TAZOB 3.375 GM/50 ML PRE-DOCKED IVPB SCH ×3 (03:40→17:07)
[2017-02-05] MEDS: LEVOTHYROXINE NA 25 MCG TABLET (FP) PO SCH (06:25)
[2017-02-05] MEDS: INSULIN DETEMIR 100 UNITS/ML MDV SQ SCH (06:27)
[2017-02-05] MEDS: INSULIN SLIDING SCALE (NOVOLOG) 1 VIAL SQ SCH ×4 (06:27→21:43)
[2017-02-05 08:45] LABS: MCH 30.4 pg (25.7-33.7); MCHC 30.7 g/dl (32.0-36.0); MEAN CELL VOLUME 98.8 fl (80-96); MEAN PLT VOLUME 10.1 fl (7.5-11.1); PLATELET COUNT 53 K/MM3 (134-434); RDW 27.1 % (11.6-15.6)
[2017-02-05] MEDS: ALLOPURINOL 300 MG TABLET (FP) PO SCH (09:11)
[2017-02-05 09:22] LABS: ANION GAP 8 (8-16); CALCIUM 7.5 mg/dL (8.5-10.1); CO2 29 mmol/L (21-32); GLUCOSE,RANDOM 91 mg/dL (74-106); MAGNESIUM 2.1 mg/dL (1.8-2.4); PHOSPHOROUS 2.1 mg/dL (2.5-4.9); SGOT/AST 15 U/L (15-37)
[2017-02-05 09:25] LABS: ALK PHOS 40 U/L (45-117); BILIRUBIN,TOTAL 0.4 mg/dL (0.2-1.0); COCKROFT - GAULT 102.765; CREATININE 0.4 mg/dL (0.55-1.02); SGPT/ALT 10 U/L (12-78); TOT PROT 5.1 g/dl (6.4-8.2)
--- NOTE | 2017-02-05 11:00 | PN ---
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, Physician History of Present Illness: Feeling a little better today, a little more talkative. Notes that her mouth feels dry (sodium has been increased on labs). Still with chest tube and drainage. - Current Medication List Current Medications: Active Medications Acetaminophen (Tylenol -) 650 mg PO Q6H PRN PRN Reason: FEVER OR PAIN Last Admin: 02/03/17 09:36 Dose: 650 mg Acetaminophen (Tylenol Suppository -) 650 mg [place] Q6H PRN PRN Reason: FEVER OR PAIN Last Admin: 02/04/17 02:26 Dose: 650 mg Albuterol/Ipratropium (Duoneb -) 1 amp NEB Q6H PRN PRN Reason: SHORTNESS OF BREATH Last Admin: 02/04/17 11:43 Dose: 1 amp Allopurinol (Zyloprim -) 300 mg PO DAILY [facility] Last Admin: 02/05/17 09:11 Dose: 300 mg Bacitracin (Bacitracin -) 1 applic TP BID [facility] Last Admin: 02/04/17 23:53 Dose: 1 applic Insulin Aspart (Novolog Vial Sliding Scale -) 1 vial SQ ACHS [facility] PRN Reason: Protocol Last Admin: 02/05/17 06:27 Dose: Not Given Insulin Detemir (Levemir Vial) 3 units SQ AM [facility] Last Admin: 02/05/17 06:27 Dose: 3 units Levothyroxine Sodium (Synthroid -) 25 mcg PO DAILY@0700 [facility] Last Admin: 02/05/17 06:25 Dose: 25 mcg Piperacillin Sod/Tazobactam Sod (Zosyn 3.375gm Ivpb (Pre-Docked)) 3.375 gm IVPB Q8H-IV [facility] PRN Reason: Protocol Last Admin: 02/05/17 09:10 Dose: 3.375 gm Valacyclovir HCl (Valtrex -) 1,000 mg PO BID [facility] Last Admin: 02/04/17 23:54 Dose: 1,000 mg - Objective Vital Signs: Vital Signs Temperature 97.8 F 02/05/17 06:00 Pulse Rate 86 02/05/17 06:00 Respiratory Rate 20 02/05/17 06:00 Blood Pressure 142/56 02/05/17 06:00 O2 Sat by Pulse Oximetry (%) 94 L 02/04/17 21:00 Constitutional: Yes: No Distress, Calm Cardiovascular: Yes: Regular Rate and Rhythm, S1, S2. No: Murmur Respiratory: Yes: Regular, Diminished. No: Wheezes Gastrointestinal: Yes: Normal Bowel Sounds, Soft. No: Distention, Tenderness Edema: No Neurological: Yes: Alert, Oriented Labs: CBC, BMP 02/05/17 06:20 02/05/17 06:20 INR, PTT INR 1.08 (0.82-1.09) 01/26/17 05:50 Fibrinogen 397.0 mg/dL (238-498) 01/26/17 05:50 Assessment/Plan All Active Problems Acute respiratory failure with hypoxia (Acute) CLL (chronic lymphocytic leukemia) (Acute) DVT prophylaxis (Acute) Elevated lactic acid level (Acute) Lactic acidosis (Acute) Pleural effusion (Acute) s/p chest tube placement Pressure ulcer (Acute) Vaginal sore (Acute) Anemia (Acute) Diabetes mellitus (Acute) Hypertension (Acute) Hypothyroid (Acute) Leukocytosis (Acute) -blood counts stable (likely will need transfusion soon) -increase free water PO
[2017-02-05 11:09] LABS: ANISOCYTOSIS 2+; HYPOCHROMIA 2+; PLATELET COMMENT2 NO CLOTTING DETECTED; PLATELET COMMENT3 FEW LARGE PLTS; PLATELET ESTIMATE MARKEDLY DECREASED (NORMAL)
[2017-02-05] MEDS ORDERED: POTASSIUM CHLORIDE TABS 20 MEQ TABLET.ER (FP) PO ONE (11:15)
[2017-02-05] MEDS: ALBUTEROL SO4 2.5/IPRATROPIUM 0.5 INH SOL 3 ML VIAL.NEB. NEB PRN (11:20)
[2017-02-05] MEDS: BACITRACIN 30 GM TUBE TOPICAL OINTMENT TP SCH ×2 (11:46→21:44)
[2017-02-05] MEDS: valACYclovir HCL 500 MG TABLET (FP) PO SCH ×2 (11:46→21:43)
[2017-02-05] MEDS: DEXTROSE 5%-WATER - 1,000 ML IV SCH (11:47)
--- NOTE | 2017-02-05 13:09 | PN ---
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 (short form) - Note 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: PULMONARY No acute events overnight. Somnolent but arousable. No fevers recorded. Last Vital Signs Temp Pulse Resp BP Pulse Ox 97.8 F 86 20 142/56 94 L 02/05/17 06:00 02/05/17 06:00 02/05/17 06:00 02/05/17 06:00 02/04/17 21:00 Gen: breathing nonlabored Heart: RRR Lung: decreased breath sounds at the bases Abd: soft, nontender Ext: no edema Chest tube: no air leak, dark fluid drainage CBC, BMP 02/05/17 06:20 02/05/17 06:20 Active Medications Acetaminophen (Tylenol -) 650 mg PO Q6H PRN PRN Reason: FEVER OR PAIN Last Admin: 02/03/17 09:36 Dose: 650 mg Acetaminophen (Tylenol Suppository -) 650 mg [place] Q6H PRN PRN Reason: FEVER OR PAIN Last Admin: 02/04/17 02:26 Dose: 650 mg Albuterol/Ipratropium (Duoneb -) 1 amp NEB Q6H PRN PRN Reason: SHORTNESS OF BREATH Last Admin: 02/04/17 11:43 Dose: 1 amp Allopurinol (Zyloprim -) 300 mg PO DAILY [facility] Last Admin: 02/05/17 09:11 Dose: 300 mg Bacitracin (Bacitracin -) 1 applic TP BID [facility] Last Admin: 02/05/17 11:46 Dose: 1 applic Dextrose (D5w -) 1,000 mls @ 50 mls/hr IV ASDIR [facility] Last Admin: 02/05/17 11:47 Dose: 50 mls/hr Insulin Aspart (Novolog Vial Sliding Scale -) 1 vial SQ ACHS [facility] PRN Reason: Protocol Last Admin: 02/05/17 11:46 Dose: Not Given Insulin Detemir (Levemir Vial) 3 units SQ AM [facility] Last Admin: 02/05/17 06:27 Dose: 3 units Levothyroxine Sodium (Synthroid -) 25 mcg PO DAILY@0700 [facility] Last Admin: 02/05/17 06:25 Dose: 25 mcg Piperacillin Sod/Tazobactam Sod (Zosyn 3.375gm Ivpb (Pre-Docked)) 3.375 gm IVPB Q8H-IV [facility] PRN Reason: Protocol Last Admin: 02/05/17 09:10 Dose: 3.375 gm Valacyclovir HCl (Valtrex -) 1,000 mg PO BID [facility] Last Admin: 02/05/17 11:46 Dose: 1,000 mg A/P Acute Hypoxic Respiratory Failure improved Right Pleural Effusion exudate CLL Lactic Acidosis likely due to hypoxia improved CLL HTN DM Hypothyroidism - O2 to keep SpO2 >90% - BiPAP as needed - aspiration precautions - on empiric antibiotics - DVT prophylaxis - continue to monitor chest tube drainage, will likely need pleur-x catheter Problem List - Problems (1) Acute respiratory failure with hypoxia Code(s): J96.01 - ACUTE RESPIRATORY FAILURE WITH HYPOXIA (2) Pleural effusion Code(s): J90 - PLEURAL EFFUSION, NOT ELSEWHERE CLASSIFIED (3) CLL (chronic lymphocytic leukemia) Code(s): C91.10 - CHRONIC LYMPHOCYTIC LEUK OF B-CELL TYPE NOT ACHIEVE REMIS (4) Diabetes mellitus Code(s): E11.9 - TYPE 2 DIABETES MELLITUS WITHOUT COMPLICATIONS (5) Hypertension Code(s): I10 - ESSENTIAL (PRIMARY) HYPERTENSION (6) Hypothyroid Code(s): E03.9 - HYPOTHYROIDISM, UNSPECIFIED (7) Anemia Code(s): D64.9 - ANEMIA, UNSPECIFIED Qualifiers: Qualified Code(s): D64.9 - Anemia, unspecified (8) Lactic acidosis Code(s): E87.2 - ACIDOSIS
[2017-02-05] MEDS: KCL 10 MEQ IVPB 100 ML IVPB SCH ×3 (18:57→21:56)
--- NOTE | 2017-02-05 22:48 | PN ---
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 (short form) - Note 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: CC: SVT S: denies palps, cp, sob. dizziness Current Medications Acetaminophen (Tylenol -) 650 mg PO Q6H PRN PRN Reason: FEVER OR PAIN Last Admin: 02/03/17 09:36 Dose: 650 mg Acetaminophen (Tylenol Suppository -) 650 mg GA Q6H PRN PRN Reason: FEVER OR PAIN Last Admin: 02/04/17 02:26 Dose: 650 mg Albuterol/Ipratropium (Duoneb -) 1 amp NEB Q6H PRN PRN Reason: SHORTNESS OF BREATH Last Admin: 02/05/17 11:20 Dose: 1 amp Allopurinol (Zyloprim -) 300 mg PO DAILY [facility] Last Admin: 02/05/17 09:11 Dose: 300 mg Bacitracin (Bacitracin -) 1 applic TP BID [facility] Last Admin: 02/05/17 21:44 Dose: 1 applic Dextrose (D5w -) 1,000 mls @ 50 mls/hr IV ASDIR [facility] Last Admin: 02/05/17 11:47 Dose: 50 mls/hr Insulin Aspart (Novolog Vial Sliding Scale -) 1 vial SQ ACHS [facility] PRN Reason: Protocol Last Admin: 02/05/17 21:43 Dose: 2 unit Insulin Detemir (Levemir Vial) 3 units SQ AM [facility] Last Admin: 02/05/17 06:27 Dose: 3 units Levothyroxine Sodium (Synthroid -) 25 mcg PO DAILY@0700 [facility] Last Admin: 02/05/17 06:25 Dose: 25 mcg Piperacillin Sod/Tazobactam Sod (Zosyn 3.375gm Ivpb (Pre-Docked)) 3.375 gm IVPB Q8H-IV [facility] PRN Reason: Protocol Last Admin: 02/05/17 17:07 Dose: 3.375 gm Valacyclovir HCl (Valtrex -) 1,000 mg PO BID [facility] Last Admin: 02/05/17 21:43 Dose: 1,000 mg Vital Signs - 24 hr 02/05/17 02/05/17 02/05/17 02:00 06:00 10:00 Temperature 98.1 F 97.8 F 98.8 F Pulse Rate 81 86 84 Respiratory 20 20 18 Rate Blood Pressure 125/63 142/56 131/59 O2 Sat by Pulse 97 Oximetry (%) 02/05/17 02/05/17 02/05/17 11:20 14:51 17:00 Temperature 98.8 F 98.8 F Pulse Rate 98 H 105 H Respiratory 18 18 Rate Blood Pressure 138/64 138/85 O2 Sat by Pulse 97 Oximetry (%) Intake & Output 02/03/17 02/04/17 02/05/17 02/06/17 07:59 07:59 07:59 07:59 Intake Total 400 1320 610 Output Total 200 150 100 Balance 200 1170 510 NAD, calm, cachectic JVD flat neck supple bibsilar dullness, nl effort rrr nl s1, s2 2/6 murmur at apex. + bs soft nt nd ext without e/c/c + dp/pt no jaundice, diaphoresis no carotid bruits CBC, BMP 02/05/17 06:20 02/05/17 06:20 ekg: sr, pac's. non-specific t wave abnormalities tele: difficult to assess p waves, appears to be sinus rhythm with frequent pac' s and intermittent brief svt. echo : nl lv/rv. mod tio, severe mr, mod-sev tr, rvsp 50-60. pleural effusion 81 year old female with significant past medical history of hypertension, hyperlipidemia, diabetes, anemia, recent dx of CLL, and hypothyroidism who presents to the ED BIBA from [facility] facility for respiratory distress and found to have large right pleural effusion 2/2 CLL and whose hospital course is now complicated by SVT. SVT - con't telemetry monitoring - tsh within normal limits. - bp improved today, will resume BB. Aggressive electrolyte repletion, management of underlying pulmonary disease, fevers per pmd/pulm. severe MR/TR - would reassess now that large pleural effusion has drained. blood pressure controlled and would not diurese in setting of hypernatremia poor po intake. HTN - bb as mentioned above. HL - ok to defer statin given co-morbidities.
[2017-02-05] MEDS: METOPROLOL TARTRATE 25 MG TABLET (FP) PO SCH (23:18)
[2017-02-06] MEDS: PIPERACILLIN/TAZOB 3.375 GM/50 ML PRE-DOCKED IVPB SCH ×3 (02:01→17:25)
[2017-02-06] MEDS: INSULIN SLIDING SCALE (NOVOLOG) 1 VIAL SQ SCH ×4 (06:10→22:46)
[2017-02-06] MEDS: LEVOTHYROXINE NA 25 MCG TABLET (FP) PO SCH (06:40)
[2017-02-06] MEDS: METOPROLOL TARTRATE 25 MG TABLET (FP) PO SCH ×3 (06:40→22:39)
[2017-02-06] MEDS: INSULIN DETEMIR 100 UNITS/ML MDV SQ SCH (06:41)
[2017-02-06 07:13] LABS: MCH 30.1 pg (25.7-33.7); MCHC 30.7 g/dl (32.0-36.0); MEAN CELL VOLUME 98.1 fl (80-96); MEAN PLT VOLUME 8.6 fl (7.5-11.1); PLATELET COUNT 54 K/MM3 (134-434); RDW 26.9 % (11.6-15.6); WHITE BLOOD COUNT 25.3 K/mm3 (4.0-10.0)
[2017-02-06 07:42] LABS: ALBUMIN 2.1 g/dl (3.4-5.0); ALK PHOS 41 U/L (45-117); ANION GAP 8 (8-16); BILIRUBIN,TOTAL 0.5 mg/dL (0.2-1.0); CALCIUM 7.8 mg/dL (8.5-10.1); CO2 29 mmol/L (21-32); COCKROFT - GAULT 102.765; CREATININE 0.4 mg/dL (0.55-1.02); GLUCOSE,RANDOM 100 mg/dL (74-106); SGOT/AST 19 U/L (15-37); SGPT/ALT 10 U/L (12-78); TOT PROT 5.4 g/dl (6.4-8.2)
--- NOTE | 2017-02-06 09:00 | PN ---
Teaching Attending Note Name of Resident: Cee yLnne ATTENDING PHYSICIAN STATEMENT I saw and evaluated the patient. I reviewed the resident's note and discussed the case with the resident. I agree with the resident's findings and plan as documented. SUBJECTIVE: Vital Signs Period Temp Pulse Resp BP Sys/Choi Pulse Ox Last 24 Hr 97.8 F-98.8 F 84-105 18-20 130-156/59-87 97-98 alert this am, remains tachypneic "I feel Lousy" no more fevers OBJECTIVE: Vital Signs Period Temp Pulse Resp BP Sys/Choi Pulse Ox Last 24 Hr 97.8 F-98.8 F 84-105 18-20 130-156/59-87 97-98 cor-rrr lungs decreased bs at bases +Chest Tube abd soft,nt ext no edema CBC, BMP 02/06/17 05:35 02/06/17 05:35 viral culture pending ASSESSMENT AND PLAN: fevers resolved day #7 zosyn- can d/c after today's dose chest tube management per pulmonary vulvar lesions- continue valtrex , followup hsv cultue CLL ?effusion due to CLL
[2017-02-06] MEDS: ALLOPURINOL 300 MG TABLET (FP) PO SCH (09:22)
[2017-02-06] MEDS: valACYclovir HCL 500 MG TABLET (FP) PO SCH ×2 (09:22→22:39)
[2017-02-06] MEDS: BACITRACIN 30 GM TUBE TOPICAL OINTMENT TP SCH ×2 (09:23→22:46)
[2017-02-06 10:03] LABS: SMUDGE CELLS MANY
--- NOTE | 2017-02-06 10:07 | PN ---
Physical Exam: SUBJECTIVE: Patient seen and examined by me at bedside. Patient reports she feels tired and restless today. Chest tube still draining. No overnight events and patient remains afebrile for the last 48 hours. Otherwise, patient denies chills, nausea, vomiting, chest pain, palpitations, shortness of breath, abdominal pain. OBJECTIVE: Vital Signs Period Temp Pulse Resp BP Sys/Choi Pulse Ox Last 24 Hr 97.8 F-98.8 F 84-105 18-20 130-156/59-87 97-98 GENERAL: Awake, alert and in no acute distress NECK: Cervical lymphadenopathy bilaterally LUNGS: Decreased breath sounds throughout lung bases. Draining right chest tube HEART: RRR, normal S1 and S2 with 2/6 systolic murmur ABDOMEN: Soft, nontender, not distended EXTREMITIES: Axillary lymphadenopathy bilaterally. Inguinal lymphadenopathy bilaterally. No peripheral edema. Laboratory Results - last 24 hr 02/05/17 02/05/17 02/05/17 06:20 11:43 17:05 WBC RBC Hgb Hct MCV MCHC RDW Plt Count MPV Neutrophils % 20.0 L D Lymphocytes % 72.0 H Monocytes % 2.0 L D Band Neutrophils 1.0 Nucleated RBCs 1 H Reactive Lymphocytes 5 Platelet Estimate Markedly decreased Platelet Comment No clotting detected Hypochromic-Microcytic 2+ Anisocytosis 2+ Sodium Potassium Chloride Carbon Dioxide Anion Gap BUN Creatinine Creat Clearance w eGFR POC Glucometer 157 239 Random Glucose Calcium Total Bilirubin AST ALT Alkaline Phosphatase Total Protein Albumin 02/05/17 02/06/17 02/06/17 21:18 05:35 05:35 WBC 25.3 H D RBC 2.52 L Hgb 7.6 L Hct 24.7 L MCV 98.1 H MCHC 30.7 L RDW 26.9 H Plt Count 54 L MPV 8.6 D Neutrophils % Y Lymphocytes % Y Monocytes % Band Neutrophils Nucleated RBCs Reactive Lymphocytes Platelet Estimate Platelet Comment Hypochromic-Microcytic Anisocytosis Sodium 147 H Potassium 3.6 Chloride 110 H Carbon Dioxide 29 Anion Gap 8 BUN 7 D Creatinine 0.4 L Creat Clearance w eGFR > 60 POC Glucometer 190 Random Glucose 100 Calcium 7.8 L Total Bilirubin 0.5 D AST 19 D ALT 10 L Alkaline Phosphatase 41 L Total Protein 5.4 L Albumin 2.1 L 02/06/17 02/06/17 06:02 09:20 WBC RBC Hgb Hct MCV MCHC RDW Plt Count MPV Neutrophils % Lymphocytes % Monocytes % Band Neutrophils Nucleated RBCs Reactive Lymphocytes Platelet Estimate Platelet Comment Hypochromic-Microcytic Anisocytosis Sodium Potassium Chloride Carbon Dioxide Anion Gap BUN Creatinine Creat Clearance w eGFR POC Glucometer 115 122 Random Glucose Calcium Total Bilirubin AST ALT Alkaline Phosphatase Total Protein Albumin Active Medications Generic Name Dose Route Start Last Admin Trade Name Freq PRN Reason Stop Dose Admin Acetaminophen 650 mg 01/25/17 09:53 02/03/17 09:36 Tylenol - PO 650 mg Q6H PRN Administration FEVER OR PAIN Acetaminophen 650 mg 01/28/17 15:33 02/04/17 02:26 Tylenol Suppository - ME 650 mg Q6H PRN Administration FEVER OR PAIN Albuterol/Ipratropium 1 amp 01/26/17 18:23 02/05/17 11:20 Duoneb - NEB 1 amp Q6H PRN Administration SHORTNESS OF BREATH Allopurinol 300 mg 01/25/17 21:00 02/06/17 09:22 Zyloprim - PO 300 mg DAILY [facility] Administration Bacitracin 1 applic 01/30/17 22:00 02/06/17 09:23 Bacitracin - TP 1 applic BID [facility] Administration Dextrose 1,000 mls @ 50 mls/hr 02/05/17 11:15 02/05/17 11:47 D5w - IV 50 mls/hr ASDIR [facility] Administration Insulin Aspart 1 vial 01/25/17 11:00 02/06/17 06:10 Novolog Vial Sliding Scale - SQ Not Given ACHS [facility] Protocol Insulin Detemir 3 units 01/26/17 07:00 02/06/17 06:41 Levemir Vial SQ 3 units AM [facility] Administration Levothyroxine Sodium 25 mcg 02/03/17 07:00 02/06/17 06:40 Synthroid - PO 25 mcg DAILY@0700 [facility] Administration Metoprolol Tartrate 25 mg 02/05/17 23:00 02/06/17 06:40 Lopressor - PO 25 mg TID [facility] Administration Piperacillin Sod/Tazobactam Sod 3.375 gm 01/31/17 18:00 02/06/17 09:23 Zosyn 3.375gm Ivpb (Pre-Docked) IVPB 3.375 gm Q8H-IV [facility] Administration Protocol Valacyclovir HCl 1,000 mg 02/03/17 11:00 02/06/17 09:22 Valtrex - PO 1,000 mg BID [facility] Administration ASSESSMENT/PLAN: leukocytosis secondary to CLL and right lung pleural effusion and Pneumonia ( Improving) -Patient is on aspiration precautions -Afebrile in the last 48 hours -On Zosyn day #7 and will discontinue after today's dose Vulva/Perianal lesions -Wound cultures done -RPR nonreactive -Continue HSV prophylaxis with Valtrex 1gm BID day #4 -Viral cultures pending Visit type - Emergency Visit Emergency Visit: Yes ED Registration Date: 01/25/17 Care time: The patient presented to the Emergency Department on the above date and was hospitalized for further evaluation of their emergent condition. - New Patient This patient is new to me today: No - Critical Care Critical Care patient: No
--- NOTE | 2017-02-06 11:31 | PN ---
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, Physician History of Present Illness: pulmonary awake no change ,comfortable on nasal o2,chest tube still draining approx 100cc - Current Medication List Current Medications: Active Medications Acetaminophen (Tylenol -) 650 mg PO Q6H PRN PRN Reason: FEVER OR PAIN Last Admin: 02/03/17 09:36 Dose: 650 mg Acetaminophen (Tylenol Suppository -) 650 mg [place] Q6H PRN PRN Reason: FEVER OR PAIN Last Admin: 02/04/17 02:26 Dose: 650 mg Albuterol/Ipratropium (Duoneb -) 1 amp NEB Q6H PRN PRN Reason: SHORTNESS OF BREATH Last Admin: 02/05/17 11:20 Dose: 1 amp Allopurinol (Zyloprim -) 300 mg PO DAILY [facility] Last Admin: 02/06/17 09:22 Dose: 300 mg Bacitracin (Bacitracin -) 1 applic TP BID [facility] Last Admin: 02/06/17 09:23 Dose: 1 applic Dextrose (D5w -) 1,000 mls @ 50 mls/hr IV ASDIR [facility] Last Admin: 02/05/17 11:47 Dose: 50 mls/hr Insulin Aspart (Novolog Vial Sliding Scale -) 1 vial SQ ACHS [facility] PRN Reason: Protocol Last Admin: 02/06/17 06:10 Dose: Not Given Insulin Detemir (Levemir Vial) 3 units SQ AM [facility] Last Admin: 02/06/17 06:41 Dose: 3 units Levothyroxine Sodium (Synthroid -) 25 mcg PO DAILY@0700 [facility] Last Admin: 02/06/17 06:40 Dose: 25 mcg Metoprolol Tartrate (Lopressor -) 25 mg PO TID [facility] Last Admin: 02/06/17 06:40 Dose: 25 mg Piperacillin Sod/Tazobactam Sod (Zosyn 3.375gm Ivpb (Pre-Docked)) 3.375 gm IVPB Q8H-IV [facility] PRN Reason: Protocol Last Admin: 02/06/17 09:23 Dose: 3.375 gm Valacyclovir HCl (Valtrex -) 1,000 mg PO BID [facility] Last Admin: 02/06/17 09:22 Dose: 1,000 mg - Objective Vital Signs: Vital Signs Temperature 98 F 02/06/17 10:00 Pulse Rate 90 02/06/17 10:00 Respiratory Rate 20 02/06/17 10:00 Blood Pressure 140/70 02/06/17 10:00 O2 Sat by Pulse Oximetry (%) 97 02/06/17 09:00 Constitutional: Yes: Well Nourished, Calm Eyes: Yes: WNL HENT: Yes: WNL Neck: Yes: Supple Cardiovascular: Yes: Regular Rate and Rhythm, S1, S2 Respiratory: Yes: Rhonchi (few scattered maral rhonchi) Gastrointestinal: Yes: Normal Bowel Sounds, Soft Extremities: Yes: WNL Edema: No Labs: CBC, BMP 02/06/17 05:35 02/06/17 05:35 INR, PTT INR 1.08 (0.82-1.09) 01/26/17 05:50 Fibrinogen 397.0 mg/dL (238-498) 01/26/17 05:50 Assessment/Plan Problem List - Problems (1) Acute respiratory failure with hypoxia Code(s): J96.01 - ACUTE RESPIRATORY FAILURE WITH HYPOXIA (2) Pleural effusion Code(s): J90 - PLEURAL EFFUSION, NOT ELSEWHERE CLASSIFIED (3) CLL (chronic lymphocytic leukemia) Code(s): C91.10 - CHRONIC LYMPHOCYTIC LEUK OF B-CELL TYPE NOT ACHIEVE REMIS (4) Diabetes mellitus Code(s): E11.9 - TYPE 2 DIABETES MELLITUS WITHOUT COMPLICATIONS (5) Hypertension Code(s): I10 - ESSENTIAL (PRIMARY) HYPERTENSION (6) Hypothyroid Code(s): E03.9 - HYPOTHYROIDISM, UNSPECIFIED (7) Anemia Code(s): D64.9 - ANEMIA, UNSPECIFIED Qualifiers: Anemia type: unspecified type Qualified Code(s): D64.9 - Anemia, unspecified (8) Lactic acidosis Code(s): E87.2 - ACIDOSIS Assessment/Plan Acute Hypoxic Respiratory Failure improving Right Pleural Effusion exudate CLL Lactic Acidosis likely due to hypoxia improved CLL HTN DM Hypothyroidism - O2 to keep SpO2 >90% - BiPAP prn - aspiration precautions - antibiotics - DVT prophylaxis - continue to monitor chest tube drainage - may require pleur-x DR CHAVARRIA
[2017-02-06] MEDS: DEXTROSE 5%-WATER - 1,000 ML IV SCH (11:54)
[2017-02-06] MEDS ORDERED: POTASSIUM CHLORIDE ORAL LIQUID 20 MEQ/15 ML PO ONE (13:30)
--- NOTE | 2017-02-06 13:55 | PN ---
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, [employer] - Note 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: CXR 02/04 (-) Selected Entries 02/04/17 02/04/17 02/04/17 02:00 06:00 09:57 Breakfast Lunch Supper Temperature 102.1 F H 99.8 F H 99.7 F H 02/04/17 02/04/17 02/04/17 12:52 14:10 17:00 Breakfast 25% Lunch 25% Supper Temperature 99.8 F H 97.7 F 02/04/17 02/04/17 02/05/17 20:05 22:00 02:00 Breakfast Lunch Supper 0 Temperature 97.0 F L 98.1 F 02/05/17 02/05/17 02/05/17 06:00 10:00 12:49 Breakfast 25% Lunch 25% Supper Temperature 97.8 F 98.8 F 02/05/17 02/05/17 02/05/17 14:51 17:00 19:43 Breakfast Lunch Supper 25% Temperature 98.8 F 98.8 F 02/05/17 02/06/17 02/06/17 21:00 02:13 10:00 Breakfast 25% Lunch Supper Temperature 97.8 F 98.7 F 98 F pt still has chest tube with continuous drainage. Seems more confused to me, feeling "terrible", reduced articulatory rate. PO tolerance is questionable with intermittent cough demonstrated. On puree and honey thick liquids. Case reviewed with PMD.
--- NOTE | 2017-02-06 16:42 | PN ---
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, Physician Chief Complaint: Ms Stock says she feels terrible because she needs to eat. Denies cp, sob, n/v. - Current Medication List Current Medications: Active Medications Acetaminophen (Tylenol -) 650 mg PO Q6H PRN PRN Reason: FEVER OR PAIN Last Admin: 02/03/17 09:36 Dose: 650 mg Acetaminophen (Tylenol Suppository -) 650 mg CO Q6H PRN PRN Reason: FEVER OR PAIN Last Admin: 02/04/17 02:26 Dose: 650 mg Albuterol/Ipratropium (Duoneb -) 1 amp NEB Q6H PRN PRN Reason: SHORTNESS OF BREATH Last Admin: 02/05/17 11:20 Dose: 1 amp Allopurinol (Zyloprim -) 300 mg PO DAILY [facility] Last Admin: 02/06/17 09:22 Dose: 300 mg Bacitracin (Bacitracin -) 1 applic TP BID [facility] Last Admin: 02/06/17 09:23 Dose: 1 applic Dextrose (D5w -) 1,000 mls @ 50 mls/hr IV ASDIR [facility] Last Admin: 02/06/17 11:54 Dose: 50 mls/hr Insulin Aspart (Novolog Vial Sliding Scale -) 1 vial SQ ACHS [facility] PRN Reason: Protocol Last Admin: 02/06/17 11:54 Dose: Not Given Insulin Detemir (Levemir Vial) 3 units SQ AM [facility] Last Admin: 02/06/17 06:41 Dose: 3 units Levothyroxine Sodium (Synthroid -) 25 mcg PO DAILY@0700 [facility] Last Admin: 02/06/17 06:40 Dose: 25 mcg Metoprolol Tartrate (Lopressor -) 25 mg PO TID [facility] Last Admin: 02/06/17 13:28 Dose: 25 mg Piperacillin Sod/Tazobactam Sod (Zosyn 3.375gm Ivpb (Pre-Docked)) 3.375 gm IVPB Q8H-IV [facility] PRN Reason: Protocol Last Admin: 02/06/17 09:23 Dose: 3.375 gm Valacyclovir HCl (Valtrex -) 1,000 mg PO BID [facility] Last Admin: 02/06/17 09:22 Dose: 1,000 mg - Objective Vital Signs: Vital Signs Temperature 98.4 F 02/06/17 15:00 Pulse Rate 110 H 02/06/17 15:00 Respiratory Rate 20 02/06/17 15:00 Blood Pressure 149/80 02/06/17 15:00 O2 Sat by Pulse Oximetry (%) 97 02/06/17 09:00 Constitutional: Yes: No Distress, Calm, Thin Cardiovascular: Yes: Tachycardia. No: Pulse Irregular, Gallop, Murmur, Rub Respiratory: Yes: Regular, On Nasal O2, Rhonchi, Other (chest tube in place draining serosanguinous fluid). No: Rales, Wheezes Gastrointestinal: Yes: Normal Bowel Sounds, Soft. No: Distention, Tenderness Extremities: Yes: WNL Edema: Yes Edema: LLE: Trace, RLE: Trace Labs: CBC, BMP 02/06/17 05:35 02/06/17 05:35 INR, PTT INR 1.08 (0.82-1.09) 01/26/17 05:50 Fibrinogen 397.0 mg/dL (238-498) 01/26/17 05:50 Assessment/Plan 1. Acute hypoxic respiratory failure 2/2 large right pleural effusion -still with chest tube, draining -may need pleurex -case d/w pulmonary 2. Bacterial pneumonia -ID following and note reviewed -continue zosyn currently 3. CLL, chronic anemia requiring transfusion -oncology following -poor prognosis, however family currently wants full treatment -management per oncology 4. Breast cancer s/p resection, +margin, ER+ - Per Dr. Young, "no adjuvant therapy was given as she declined per her primary oncologist in [place]" 5. Thrombocytosis -continue to monitor -management per oncology 6. Vaginal sores -Bacitracin BID -[employer] consulted and case discussed -recommended biopsy, however not medically stable for this -continue valtrex 7. DM II -continue low dose levemir -SSI 8. Hypothyroidism -continue synthroid 9. Hypernatremia -continue hydration with D5W 19. Nutrition - Dysphagia pureed/honey thick 11. Prophylaxis -Hold all chemical anticoagulation -Pressure ulcers: allevyn dressing
--- NOTE | 2017-02-06 19:06 | PN ---
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 (short form) - Note 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: CC: SVT S: denies palps, cp, sob. dizziness Current Medications Acetaminophen (Tylenol -) 650 mg PO Q6H PRN PRN Reason: FEVER OR PAIN Last Admin: 02/03/17 09:36 Dose: 650 mg Acetaminophen (Tylenol Suppository -) 650 mg [place] Q6H PRN PRN Reason: FEVER OR PAIN Last Admin: 02/04/17 02:26 Dose: 650 mg Albuterol/Ipratropium (Duoneb -) 1 amp NEB Q6H PRN PRN Reason: SHORTNESS OF BREATH Last Admin: 02/05/17 11:20 Dose: 1 amp Allopurinol (Zyloprim -) 300 mg PO DAILY [facility] Last Admin: 02/06/17 09:22 Dose: 300 mg Bacitracin (Bacitracin -) 1 applic TP BID [facility] Last Admin: 02/06/17 09:23 Dose: 1 applic Dextrose (D5w -) 1,000 mls @ 50 mls/hr IV ASDIR [facility] Last Admin: 02/06/17 11:54 Dose: 50 mls/hr Insulin Aspart (Novolog Vial Sliding Scale -) 1 vial SQ ACHS [facility] PRN Reason: Protocol Last Admin: 02/06/17 17:25 Dose: Not Given Insulin Detemir (Levemir Vial) 3 units SQ AM [facility] Last Admin: 02/06/17 06:41 Dose: 3 units Levothyroxine Sodium (Synthroid -) 25 mcg PO DAILY@0700 [facility] Last Admin: 02/06/17 06:40 Dose: 25 mcg Metoprolol Tartrate (Lopressor -) 25 mg PO TID [facility] Last Admin: 02/06/17 13:28 Dose: 25 mg Piperacillin Sod/Tazobactam Sod (Zosyn 3.375gm Ivpb (Pre-Docked)) 3.375 gm IVPB Q8H-IV [facility] PRN Reason: Protocol Last Admin: 02/06/17 17:25 Dose: 3.375 gm Valacyclovir HCl (Valtrex -) 1,000 mg PO BID [facility] Last Admin: 02/06/17 09:22 Dose: 1,000 mg Vital Signs - 24 hr 02/05/17 02/06/17 02/06/17 21:00 02:13 09:00 Temperature 97.8 F 98.7 F Pulse Rate 92 H 95 H Respiratory 20 20 Rate Blood Pressure 130/80 156/87 O2 Sat by Pulse 98 97 Oximetry (%) 02/06/17 02/06/17 10:00 15:00 Temperature 98 F 98.4 F Pulse Rate 90 110 H Respiratory 20 20 Rate Blood Pressure 140/70 149/80 O2 Sat by Pulse Oximetry (%) Intake & Output 02/04/17 02/05/17 02/06/17 02/07/17 07:59 07:59 07:59 07:59 Intake Total 1501 789 1409 50 Output Total 150 100 100 Balance 9721 839 3989 50 NAD, calm, cachectic JVD flat neck supple bibsilar dullness, nl effort rrr nl s1, s2 2/6 murmur at apex. + bs soft nt nd ext without e/c/c + dp/pt no jaundice, diaphoresis no carotid bruits CBC, BMP 02/06/17 05:35 02/06/17 05:35 ekg: sr, pac's. non-specific t wave abnormalities tele: sinus rhythm with frequent pac's echo : nl lv/rv. mod tio, severe mr, mod-sev tr, rvsp 50-60. pleural effusion 81 year old female with significant past medical history of hypertension, hyperlipidemia, diabetes, anemia, recent dx of CLL, and hypothyroidism who presents to the ED BIBA from [facility] facility for respiratory distress and found to have large right pleural effusion 2/2 CLL and whose hospital course is now complicated by SVT. SVT - con't telemetry monitoring - tsh within normal limits. - bp stable on BB, will uptitrate today. Aggressive electrolyte repletion, management of underlying pulmonary disease, fevers per pmd/pulm. severe MR/TR - would reassess now that large pleural effusion has drained. blood pressure controlled and would not diurese in setting of hypernatremia poor po intake. HTN - bb as mentioned above. HL - ok to defer statin given co-morbidities.
[2017-02-07] MEDS: ALBUTEROL SO4 2.5/IPRATROPIUM 0.5 INH SOL 3 ML VIAL.NEB. NEB PRN
[2017-02-07] MEDS: PIPERACILLIN/TAZOB 3.375 GM/50 ML PRE-DOCKED IVPB SCH ×2 (02:55→10:01)
[2017-02-07] MEDS: METOPROLOL TARTRATE 25 MG TABLET (FP) PO SCH ×2 (06:11→22:25)
[2017-02-07] MEDS: INSULIN DETEMIR 100 UNITS/ML MDV SQ SCH (06:43)
[2017-02-07] MEDS: INSULIN SLIDING SCALE (NOVOLOG) 1 VIAL SQ SCH ×4 (06:43→22:25)
[2017-02-07] MEDS: LEVOTHYROXINE NA 25 MCG TABLET (FP) PO SCH (06:45)
[2017-02-07 07:22] LABS: CALCIUM 7.6 mg/dL (8.5-10.1); COCKROFT - GAULT 82.195; CREATININE 0.5 mg/dL (0.55-1.02); MAGNESIUM 1.8 mg/dL (1.8-2.4); PHOSPHOROUS 2.6 mg/dL (2.5-4.9)
[2017-02-07 07:33] LABS: MCH 30.8 pg (25.7-33.7); MCHC 31.6 g/dl (32.0-36.0); MEAN CELL VOLUME 97.5 fl (80-96); MEAN PLT VOLUME 9.3 fl (7.5-11.1); PLATELET COUNT 57 K/MM3 (134-434); RDW 26.6 % (11.6-15.6); WHITE BLOOD COUNT 27.2 K/mm3 (4.0-10.0)
--- NOTE | 2017-02-07 09:54 | PN ---
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, STEWARD/STEWARDESS - Note 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: Pt seen bedside, HOB elevated to 90 degrees. Initially, speech production was precise and vocal quality euphonic. Pt given 2 tsp of yogurt. Cough response noted before and after swallow onset. Following PO trial, voice was wet and gurgly, c/w aspiration. Pt is only accepting a couple of tsp at a time, refusing more, with suspicion of aspiration. Selected Entries 02/06/17 02/06/17 02/06/17 02:13 10:00 15:00 Breakfast 25% Lunch 25% Supper Temperature 98.7 F 98 F 98.4 F 02/06/17 02/06/17 02/06/17 18:00 20:31 22:00 Breakfast Lunch Supper 25% Temperature 98.6 F 98 F 02/07/17 02/07/17 02:00 06:00 Breakfast Lunch Supper Temperature 98.0 F 98.1 F Laboratory Tests 02/04/17 02/05/17 02/06/17 06:05 06:20 05:35 WBC 22.3 H 16.0 H 25.3 H D 02/07/17 05:35 WBC 27.2 H Pt is a full code at this time. My concern is suspected aspiration and insufficient nutritional intake. MBS can not be done due to chest tube at this time. Family's wishes regarding TF? temporary NGT/ PEG?
[2017-02-07] MEDS: valACYclovir HCL 500 MG TABLET (FP) PO SCH ×2 (10:00→22:26)
[2017-02-07] MEDS: BACITRACIN 30 GM TUBE TOPICAL OINTMENT TP SCH ×2 (10:00→22:25)
[2017-02-07] MEDS: ALLOPURINOL 300 MG TABLET (FP) PO SCH (10:01)
[2017-02-07 10:05] LABS: PLATELET ESTIMATE MARKEDLY DECREASED (NORMAL)
[2017-02-07] MEDS: DEXTROSE 5%-WATER - 1,000 ML IV SCH ×2 (10:13→11:37)
--- NOTE | 2017-02-07 11:00 | PN ---
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 (short form) - Note 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: resting comfortably Vital Signs Period Temp Pulse Resp BP Sys/Choi Pulse Ox Last 24 Hr 98 F-98.6 F 86-110 18-20 95-149/40-89 92-94 cor-rrr lungs decreased bs at bases left chest tube abd soft,nt ext no edema CBC, BMP 02/07/17 05:35 02/07/17 05:35 viral culture pending Current Medications Acetaminophen (Tylenol -) 650 mg PO Q6H PRN PRN Reason: FEVER OR PAIN Last Admin: 02/03/17 09:36 Dose: 650 mg Acetaminophen (Tylenol Suppository -) 650 mg [place] Q6H PRN PRN Reason: FEVER OR PAIN Last Admin: 02/04/17 02:26 Dose: 650 mg Albuterol/Ipratropium (Duoneb -) 1 amp NEB Q6H PRN PRN Reason: SHORTNESS OF BREATH Last Admin: 02/07/17 00:00 Dose: 1 amp Allopurinol (Zyloprim -) 300 mg PO DAILY [facility] Last Admin: 02/07/17 10:01 Dose: 300 mg Bacitracin (Bacitracin -) 1 applic TP BID [facility] Last Admin: 02/07/17 10:00 Dose: 1 applic Dextrose (D5w -) 1,000 mls @ 50 mls/hr IV ASDIR [facility] Last Admin: 02/07/17 10:13 Dose: 50 mls/hr Insulin Aspart (Novolog Vial Sliding Scale -) 1 vial SQ ACHS [facility] PRN Reason: Protocol Last Admin: 02/07/17 06:43 Dose: Not Given Insulin Detemir (Levemir Vial) 3 units SQ AM [facility] Last Admin: 02/07/17 06:43 Dose: 3 units Levothyroxine Sodium (Synthroid -) 25 mcg PO DAILY@0700 [facility] Last Admin: 02/07/17 06:45 Dose: Not Given Metoprolol Tartrate (Lopressor -) 25 mg PO TID [facility] Last Admin: 02/07/17 06:11 Dose: Not Given Piperacillin Sod/Tazobactam Sod (Zosyn 3.375gm Ivpb (Pre-Docked)) 3.375 gm IVPB Q8H-IV [facility] PRN Reason: Protocol Last Admin: 02/07/17 10:01 Dose: 3.375 gm Valacyclovir HCl (Valtrex -) 1,000 mg PO BID [facility] Last Admin: 02/07/17 10:00 Dose: 1,000 mg a/p pneumonia- ?aspiration s/p 7 days zosyn, afebrile, d/c antibiotics pleural effusions- lymphocytic, suspect CLL CLL management of chest tube per pulmonary d/c antibiotics ?MBS d/w Dr Oshea, Dr Cat
--- NOTE | 2017-02-07 11:11 | PN ---
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, Physician History of Present Illness: PULMONARY AWAKE ,NAD ON NASAL O2,CHEST TUBE WITH MIN DRAINAGE APPROX 30CC - Current Medication List Current Medications: Active Medications Acetaminophen (Tylenol -) 650 mg PO Q6H PRN PRN Reason: FEVER OR PAIN Last Admin: 02/03/17 09:36 Dose: 650 mg Acetaminophen (Tylenol Suppository -) 650 mg [place] Q6H PRN PRN Reason: FEVER OR PAIN Last Admin: 02/04/17 02:26 Dose: 650 mg Albuterol/Ipratropium (Duoneb -) 1 amp NEB Q6H PRN PRN Reason: SHORTNESS OF BREATH Last Admin: 02/07/17 00:00 Dose: 1 amp Allopurinol (Zyloprim -) 300 mg PO DAILY [facility] Last Admin: 02/07/17 10:01 Dose: 300 mg Bacitracin (Bacitracin -) 1 applic TP BID [facility] Last Admin: 02/07/17 10:00 Dose: 1 applic Dextrose (D5w -) 1,000 mls @ 50 mls/hr IV ASDIR [facility] Last Admin: 02/07/17 10:13 Dose: 50 mls/hr Insulin Aspart (Novolog Vial Sliding Scale -) 1 vial SQ ACHS [facility] PRN Reason: Protocol Last Admin: 02/07/17 06:43 Dose: Not Given Insulin Detemir (Levemir Vial) 3 units SQ AM [facility] Last Admin: 02/07/17 06:43 Dose: 3 units Levothyroxine Sodium (Synthroid -) 25 mcg PO DAILY@0700 [facility] Last Admin: 02/07/17 06:45 Dose: Not Given Metoprolol Tartrate (Lopressor -) 25 mg PO TID [facility] Last Admin: 02/07/17 06:11 Dose: Not Given Valacyclovir HCl (Valtrex -) 1,000 mg PO BID [facility] Last Admin: 02/07/17 10:00 Dose: 1,000 mg - Objective Vital Signs: Vital Signs Temperature 98.1 F 02/07/17 06:00 Pulse Rate 95 H 02/07/17 06:00 Respiratory Rate 18 02/07/17 06:00 Blood Pressure 95/40 02/07/17 06:00 O2 Sat by Pulse Oximetry (%) 94 L 02/07/17 06:00 Constitutional: Yes: Well Nourished, Calm Eyes: Yes: WNL HENT: Yes: WNL Neck: Yes: WNL Cardiovascular: Yes: Regular Rate and Rhythm, S1, S2 Respiratory: Yes: Diminished Gastrointestinal: Yes: Normal Bowel Sounds, Soft Extremities: Yes: WNL Edema: Yes Edema: LLE: Trace, RLE: Trace Labs: CBC, BMP 02/07/17 05:35 02/07/17 05:35 INR, PTT INR 1.08 (0.82-1.09) 01/26/17 05:50 Fibrinogen 397.0 mg/dL (238-498) 01/26/17 05:50 Assessment/Plan Problem List - Problems (1) Acute respiratory failure with hypoxia Code(s): J96.01 - ACUTE RESPIRATORY FAILURE WITH HYPOXIA (2) Pleural effusion Code(s): J90 - PLEURAL EFFUSION, NOT ELSEWHERE CLASSIFIED (3) CLL (chronic lymphocytic leukemia) Code(s): C91.10 - CHRONIC LYMPHOCYTIC LEUK OF B-CELL TYPE NOT ACHIEVE REMIS (4) Diabetes mellitus Code(s): E11.9 - TYPE 2 DIABETES MELLITUS WITHOUT COMPLICATIONS (5) Hypertension Code(s): I10 - ESSENTIAL (PRIMARY) HYPERTENSION (6) Hypothyroid Code(s): E03.9 - HYPOTHYROIDISM, UNSPECIFIED (7) Anemia Code(s): D64.9 - ANEMIA, UNSPECIFIED Qualifiers: Anemia type: unspecified type Qualified Code(s): D64.9 - Anemia, unspecified (8) Lactic acidosis Code(s): E87.2 - ACIDOSIS Assessment/Plan Acute Hypoxic Respiratory Failure improving Right Pleural Effusion exudate CLL Lactic Acidosis likely due to hypoxia improved CLL HTN DM Hypothyroidism - O2 to keep SpO2 >90% - BiPAP prn - aspiration precautions - DVT prophylaxis - d/c chest tube and observe,if fluid reaccumulates with insert pleur-x DR CHAVARRIA
[2017-02-07] MEDS ORDERED: INSULIN (NOVOLOG) ASPART 100 UNITS/ML 10ML VIAL ONE (11:34)
--- NOTE | 2017-02-07 11:56 | PN ---
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, Physician Chief Complaint: Ms Stock says she feels fine. Denies cp, sob, n/v. RN says patient with minimal intake and coughs with swallowing. - Current Medication List Current Medications: Active Medications Acetaminophen (Tylenol -) 650 mg PO Q6H PRN PRN Reason: FEVER OR PAIN Last Admin: 02/03/17 09:36 Dose: 650 mg Acetaminophen (Tylenol Suppository -) 650 mg [place] Q6H PRN PRN Reason: FEVER OR PAIN Last Admin: 02/04/17 02:26 Dose: 650 mg Albuterol/Ipratropium (Duoneb -) 1 amp NEB Q6H PRN PRN Reason: SHORTNESS OF BREATH Last Admin: 02/07/17 00:00 Dose: 1 amp Allopurinol (Zyloprim -) 300 mg PO DAILY [facility] Last Admin: 02/07/17 10:01 Dose: 300 mg Bacitracin (Bacitracin -) 1 applic TP BID [facility] Last Admin: 02/07/17 10:00 Dose: 1 applic Dextrose (D5w -) 1,000 mls @ 50 mls/hr IV ASDIR [facility] Last Admin: 02/07/17 11:37 Dose: 50 mls/hr Insulin Aspart (Novolog Vial Sliding Scale -) 1 vial SQ ACHS [facility] PRN Reason: Protocol Last Admin: 02/07/17 11:36 Dose: Not Given Insulin Detemir (Levemir Vial) 3 units SQ AM [facility] Last Admin: 02/07/17 06:43 Dose: 3 units Levothyroxine Sodium (Synthroid -) 25 mcg PO DAILY@0700 [facility] Last Admin: 02/07/17 06:45 Dose: Not Given Metoprolol Tartrate (Lopressor -) 25 mg PO TID [facility] Last Admin: 02/07/17 06:11 Dose: Not Given Valacyclovir HCl (Valtrex -) 1,000 mg PO BID [facility] Last Admin: 02/07/17 10:00 Dose: 1,000 mg - Objective Vital Signs: Vital Signs Temperature 98.2 F 02/07/17 10:00 Pulse Rate 90 02/07/17 10:00 Respiratory Rate 18 02/07/17 10:00 Blood Pressure 110/64 02/07/17 10:00 O2 Sat by Pulse Oximetry (%) 95 02/07/17 09:00 Constitutional: Yes: No Distress, Calm, Thin Cardiovascular: Yes: Regular Rate and Rhythm. No: Gallop, Murmur, Rub Respiratory: Yes: Regular, Rales, Other (chest tube in place). No: Rhonchi, Wheezes Gastrointestinal: Yes: Normal Bowel Sounds, Soft. No: Distention, Tenderness Extremities: Yes: WNL Edema: No Labs: CBC, BMP 02/07/17 05:35 02/07/17 05:35 INR, PTT INR 1.08 (0.82-1.09) 01/26/17 05:50 Fibrinogen 397.0 mg/dL (238-498) 01/26/17 05:50 Assessment/Plan 1. Acute hypoxic respiratory failure 2/2 large right pleural effusion -chest tube drainage decreased -case d/w Dr Cat -remove chest tube today and observe -if recurs, will need pleurex catheter 2. Bacterial pneumonia -ID following and case discussed -stop antibiotics today -monitor off of antibiotics 3. CLL, chronic anemia requiring transfusion -oncology following -poor prognosis, however family currently wants full treatment -management per oncology 4. Breast cancer s/p resection, +margin, ER+ - Per Dr. Young, "no adjuvant therapy was given as she declined per her primary oncologist in [place]" 5. Thrombocytosis -continue to monitor -management per oncology 6. Vaginal sores -improving with valtrex 7. DM II -continue low dose levemir -SSI 8. Hypothyroidism -continue synthroid 9. Hypernatremia -continue hydration with D5W 19. Nutrition -Dysphagia pureed/honey thick -attempt MBS after chest tube removed 11. Prophylaxis -Hold all chemical anticoagulation -Pressure ulcers: allevyn dressing
--- NOTE | 2017-02-07 12:59 | PN ---
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 (short form) - Note 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: CC: SVT S: Current Medications Acetaminophen (Tylenol -) 650 mg PO Q6H PRN PRN Reason: FEVER OR PAIN Last Admin: 02/03/17 09:36 Dose: 650 mg Acetaminophen (Tylenol Suppository -) 650 mg [place] Q6H PRN PRN Reason: FEVER OR PAIN Last Admin: 02/04/17 02:26 Dose: 650 mg Albuterol/Ipratropium (Duoneb -) 1 amp NEB Q6H PRN PRN Reason: SHORTNESS OF BREATH Last Admin: 02/07/17 00:00 Dose: 1 amp Allopurinol (Zyloprim -) 300 mg PO DAILY [facility] Last Admin: 02/07/17 10:01 Dose: 300 mg Bacitracin (Bacitracin -) 1 applic TP BID [facility] Last Admin: 02/07/17 10:00 Dose: 1 applic Potassium Chloride 10 meq/ (Dextrose) 1,005 mls @ 50 mls/hr IVPB Q20H [facility] Insulin Aspart (Novolog Vial Sliding Scale -) 1 vial SQ ACHS [facility] PRN Reason: Protocol Last Admin: 02/07/17 11:36 Dose: Not Given Insulin Detemir (Levemir Vial) 3 units SQ AM [facility] Last Admin: 02/07/17 06:43 Dose: 3 units Levothyroxine Sodium (Synthroid -) 25 mcg PO DAILY@0700 [facility] Last Admin: 02/07/17 06:45 Dose: Not Given Metoprolol Tartrate (Lopressor -) 25 mg PO TID [facility] Last Admin: 02/07/17 06:11 Dose: Not Given Valacyclovir HCl (Valtrex -) 1,000 mg PO BID [facility] Last Admin: 02/07/17 10:00 Dose: 1,000 mg Vital Signs - 24 hr 02/06/17 02/06/17 02/06/17 15:00 18:00 21:00 Temperature 98.4 F 98.6 F Pulse Rate 110 H 103 H Respiratory 20 20 Rate Blood Pressure 149/80 145/89 O2 Sat by Pulse 92 L Oximetry (%) 02/06/17 02/07/17 02/07/17 22:00 02:00 06:00 Temperature 98 F 98.0 F 98.1 F Pulse Rate 100 H 86 95 H Respiratory 18 20 18 Rate Blood Pressure 131/72 111/60 95/40 O2 Sat by Pulse 92 L 94 L Oximetry (%) 02/07/17 02/07/17 09:00 10:00 Temperature 98.2 F Pulse Rate 90 Respiratory 18 Rate Blood Pressure 110/64 O2 Sat by Pulse 95 Oximetry (%) Intake & Output 02/05/17 02/06/17 02/07/17 02/08/17 07:59 07:59 07:59 07:59 Intake Total 610 1170 665 Output Total 100 100 35 Balance 510 1070 630 NAD, calm, cachectic JVD mild elevation, neck supple bibsilar dullness, diffuse rales, nl effort rrr nl s1, s2 2/6 murmur at apex. + bs soft nt nd ext without e/c/c + dp/pt no jaundice, diaphoresis no carotid bruits CBC, BMP 02/07/17 05:35 02/07/17 05:35 ekg: sr, pac's. non-specific t wave abnormalities tele: pvc's, 1 nsvt echo : nl lv/rv. mod tio, severe mr, mod-sev tr, rvsp 50-60. pleural effusion 81 year old female with significant past medical history of hypertension, hyperlipidemia, diabetes, anemia, recent dx of CLL, and hypothyroidism who presents to the ED BIBA from [facility] facility for respiratory distress and found to have large right pleural effusion 2/2 CLL and whose hospital course is now complicated by SVT. SVT - con't telemetry monitoring - tsh within normal limits. - on metoprolol. today 02/07 bp running low, briefly decreased metoprolol dose today, bp improved this evening and will resume prior 25 mg tid dose. ongoing lyte repletion. severe MR/TR - would reassess once acute issues resolve now that large pleural effusion has drained. blood pressure controlled and would not diurese in setting o poor po intake. HTN - bb as mentioned above. HL - ok to defer statin given co-morbidities. CLL - heme following.
[2017-02-07] MEDS: POTASSIUM CHLORIDE 10 MEQ in DEXTROSE 5%-WATER - 1,000 ML IVPB SCH (13:30)
[2017-02-07] MEDS ORDERED: METOPROLOL TARTRATE 25 MG TABLET (FP) PO SCH (14:00)
--- NOTE | 2017-02-07 17:32 | PN ---
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 (short form) - Note 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: Patient seen and examined Awake and responds to simple questions Denies pain Chronic hacking cough Last Vital Signs Temp Pulse Resp BP Pulse Ox 99.0 F 90 20 99/59 95 02/07/17 13:42 02/07/17 10:00 02/07/17 13:42 02/07/17 13:42 02/07/17 09:00 THRUSH Rhonchi Irregular rhythm Abdomen soft Lymph nodes- left sc area, bilateral axillary nodes Ext-skin breakdown CBC, BMP 02/07/17 05:35 02/07/17 05:35 Current Medications Generic Name Dose Route Start Last Admin Trade Name Freq PRN Reason Stop Dose Admin Acetaminophen 650 mg 01/25/17 09:53 02/03/17 09:36 Tylenol - PO 650 mg Q6H PRN Administration FEVER OR PAIN Acetaminophen 650 mg 01/28/17 15:33 02/04/17 02:26 Tylenol Suppository - [place] 650 mg Q6H PRN Administration FEVER OR PAIN Albuterol/Ipratropium 1 amp 01/26/17 18:23 02/07/17 00:00 Duoneb - NEB 1 amp Q6H PRN Administration SHORTNESS OF BREATH Allopurinol 300 mg 01/25/17 21:00 02/07/17 10:01 Zyloprim - PO 300 mg DAILY [facility] Administration Bacitracin 1 applic 01/30/17 22:00 02/07/17 10:00 Bacitracin - TP 1 applic BID [facility] Administration Potassium Chloride 10 meq/ 1,005 mls @ 50 mls/hr 02/07/17 12:00 02/07/17 13:30 Dextrose IVPB 50 mls/hr Q20H [facility] Administration Insulin Aspart 1 vial 01/25/17 11:00 02/07/17 16:30 Novolog Vial Sliding Scale - SQ Not Given ACHS [facility] Protocol Insulin Detemir 3 units 01/26/17 07:00 02/07/17 06:43 Levemir Vial SQ 3 units AM [facility] Administration Levothyroxine Sodium 25 mcg 02/03/17 07:00 02/07/17 06:45 Synthroid - PO Not Given DAILY@0700 [facility] Metoprolol Tartrate 12.5 mg 02/07/17 14:00 02/07/17 13:15 Lopressor - PO 12.5 mg TID [facility] Administration Valacyclovir HCl 1,000 mg 02/03/17 11:00 02/07/17 10:00 Valtrex - PO 1,000 mg BID [facility] Administration Impression: ?aspiration pneumonia CLL Pleural effusion likely secondary to CLL Anemia Thrombocytopenia Plan:: Antibiotics per I.D. Chest tube per pulmonary --minimal drainage past 24 hrs. ? Rx of CLL
[2017-02-07] MEDS ORDERED: POTASSIUM CHLORIDE TABS 20 MEQ TABLET.ER (FP) PO ONE ×2 (19:15→22:30)
[2017-02-07] MEDS ORDERED: PT OWN MED DRAWER 7, Y5N ONE ×2 (22:22→22:30)
[2017-02-08] MEDS: INSULIN DETEMIR 100 UNITS/ML MDV SQ SCH (06:26)
[2017-02-08] MEDS: METOPROLOL TARTRATE 25 MG TABLET (FP) PO SCH ×3 (06:26→22:20)
[2017-02-08] MEDS: LEVOTHYROXINE NA 25 MCG TABLET (FP) PO SCH (06:27)
[2017-02-08] MEDS: INSULIN SLIDING SCALE (NOVOLOG) 1 VIAL SQ SCH ×4 (06:27→22:20)
[2017-02-08] MEDS: POTASSIUM CHLORIDE 10 MEQ in DEXTROSE 5%-WATER - 1,000 ML IVPB SCH (08:34)
[2017-02-08] MEDS ORDERED: PT OWN MED DRAWER 7, Y5N ONE ×3 (08:46→22:07)
--- NOTE | 2017-02-08 09:16 | PN ---
Physical Exam: SUBJECTIVE: Patient seen and examined by me at bedside. Patient is awake, alert and responding. Thrush was found in the mouth. She reports eating breakfast and denies any pain. OBJECTIVE: Vital Signs Period Temp Pulse Resp BP Sys/Choi Pulse Ox Last 24 Hr 97.6 F-99.0 F 80-92 18-20 99-130/53-70 96-97 GENERAL: Awake, alert and in no acute distress HEENT: Oral Thrush NECK: Cervical lymphadenopathy bilaterally LUNGS: Decreased breath sounds throughout lung bases. Draining right chest tube HEART: RRR, normal S1 and S2 with 2/6 systolic murmur ABDOMEN: Soft, nontender, not distended EXTREMITIES: Axillary lymphadenopathy bilaterally. Inguinal lymphadenopathy bilaterally. No peripheral edema. Laboratory Results - last 24 hr 02/07/17 02/07/17 02/07/17 05:35 11:35 16:28 Neutrophils % 15.0 L Lymphocytes % 83.0 H Band Neutrophils 2.0 D Nucleated RBCs 1 H Differential Comment Manual diff done Platelet Estimate Markedly decreased RBC Morphology POC Glucometer 129 93 02/07/17 02/08/17 22:17 05:32 Neutrophils % Lymphocytes % Band Neutrophils Nucleated RBCs Differential Comment Platelet Estimate RBC Morphology POC Glucometer 108 87 Active Medications Generic Name Dose Route Start Last Admin Trade Name Freq PRN Reason Stop Dose Admin Acetaminophen 650 mg 01/25/17 09:53 02/03/17 09:36 Tylenol - PO 650 mg Q6H PRN Administration FEVER OR PAIN Acetaminophen 650 mg 01/28/17 15:33 02/04/17 02:26 Tylenol Suppository - [place] 650 mg Q6H PRN Administration FEVER OR PAIN Albuterol/Ipratropium 1 amp 01/26/17 18:23 02/07/17 00:00 Duoneb - NEB 1 amp Q6H PRN Administration SHORTNESS OF BREATH Allopurinol 300 mg 01/25/17 21:00 02/07/17 10:01 Zyloprim - PO 300 mg DAILY [facility] Administration Bacitracin 1 applic 01/30/17 22:00 02/07/17 22:25 Bacitracin - TP 1 applic BID [facility] Administration Fluconazole 100 mg 02/08/17 10:00 Diflucan - PO DAILY [facility] Potassium Chloride 10 meq/ 1,005 mls @ 50 mls/hr 02/07/17 12:00 02/08/17 08:34 Dextrose IVPB 50 mls/hr Q20H [facility] Administration Insulin Aspart 1 vial 01/25/17 11:00 02/08/17 06:27 Novolog Vial Sliding Scale - SQ Not Given ACHS [facility] Protocol Insulin Detemir 3 units 01/26/17 07:00 02/08/17 06:26 Levemir Vial SQ Not Given AM [facility] Levothyroxine Sodium 25 mcg 02/03/17 07:00 02/08/17 06:27 Synthroid - PO 25 mcg DAILY@0700 [facility] Administration Metoprolol Tartrate 25 mg 02/07/17 22:00 02/08/17 06:26 Lopressor - PO 25 mg TID [facility] Administration Valacyclovir HCl 1,000 mg 02/03/17 11:00 02/07/17 22:26 Valtrex - PO 1,000 mg BID [facility] Administration ASSESSMENT/PLAN: leukocytosis secondary to CLL and right lung pleural effusion and Pneumonia ( Improving) -Patient is on aspiration precautions -Remains off Antibiotics and remains Afebrile -Will continue to monitor off antibiotics Vulva/Perianal lesions -Wound cultures done -RPR nonreactive -Continue HSV prophylaxis with Valtrex 1gm BID day #6 Visit type - Emergency Visit Emergency Visit: Yes ED Registration Date: 01/25/17 Care time: The patient presented to the Emergency Department on the above date and was hospitalized for further evaluation of their emergent condition. - New Patient This patient is new to me today: No - Critical Care Critical Care patient: No
[2017-02-08] MEDS: FLUCONAZOLE 100 MG TABLET (UD) PO SCH (09:22)
[2017-02-08] MEDS: valACYclovir HCL 500 MG TABLET (FP) PO SCH ×2 (09:22→22:20)
[2017-02-08] MEDS: ALLOPURINOL 300 MG TABLET (FP) PO SCH (09:22)
[2017-02-08] MEDS: BACITRACIN 30 GM TUBE TOPICAL OINTMENT TP SCH ×2 (09:25→22:20)
--- NOTE | 2017-02-08 11:27 | PN ---
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 (short form) - Note 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: S: no cp sob palps dizzy Current Medications Generic Name Dose Route Start Last Admin Trade Name Freq PRN Reason Stop Dose Admin Acetaminophen 650 mg 01/25/17 09:53 02/03/17 09:36 Tylenol - PO 650 mg Q6H PRN Administration FEVER OR PAIN Acetaminophen 650 mg 01/28/17 15:33 02/04/17 02:26 Tylenol Suppository - [place] 650 mg Q6H PRN Administration FEVER OR PAIN Albuterol/Ipratropium 1 amp 01/26/17 18:23 02/07/17 00:00 Duoneb - NEB 1 amp Q6H PRN Administration SHORTNESS OF BREATH Allopurinol 300 mg 01/25/17 21:00 02/08/17 09:22 Zyloprim - PO 300 mg DAILY [facility] Administration Bacitracin 1 applic 01/30/17 22:00 02/08/17 09:25 Bacitracin - TP 1 applic BID [facility] Administration Fluconazole 100 mg 02/08/17 10:00 02/08/17 09:22 Diflucan - PO 100 mg DAILY [facility] Administration Potassium Chloride 10 meq/ 1,005 mls @ 50 mls/hr 02/07/17 12:00 02/08/17 08:34 Dextrose IVPB 50 mls/hr Q20H [facility] Administration Insulin Aspart 1 vial 01/25/17 11:00 02/08/17 06:27 Novolog Vial Sliding Scale - SQ Not Given ACHS [facility] Protocol Insulin Detemir 3 units 01/26/17 07:00 02/08/17 06:26 Levemir Vial SQ Not Given AM [facility] Levothyroxine Sodium 25 mcg 02/03/17 07:00 02/08/17 06:27 Synthroid - PO 25 mcg DAILY@0700 [facility] Administration Metoprolol Tartrate 25 mg 02/07/17 22:00 02/08/17 06:26 Lopressor - PO 25 mg TID [facility] Administration Valacyclovir HCl 1,000 mg 02/03/17 11:00 02/08/17 09:22 Valtrex - PO 1,000 mg BID [facility] Administration Vital Signs Period Temp Pulse Resp BP Sys/Choi Pulse Ox Last 24 Hr 97.6 F-99.0 F 80-92 19-20 99-130/53-70 96-97 NAD, calm, cachectic JVD mild elevation, neck supple bibsilar dullness, nl effort rrr nl s1, s2 2/6 murmur at apex. + bs soft nt nd ext without e/c/c no jaundice, diaphoresis CBC, BMP 02/07/17 05:35 02/07/17 05:35 ekg: sr, pac's. non-specific t wave abnormalities tele: sr echo : nl lv/rv. mod tio, severe mr, mod-sev tr, rvsp 50-60. pleural effusion a/p: 81 year old female with significant past medical history of hypertension, hyperlipidemia, diabetes, anemia, recent dx of CLL, and hypothyroidism who presents to the ED BIBA from [facility] facility for respiratory distress and found to have large right pleural effusion 2/2 CLL and whose hospital course is now complicated by SVT. SVT - con't telemetry monitoring, no further svt. - tsh within normal limits. - continue metoprolol severe MR/TR - would reassess once acute issues resolve now that large pleural effusion has drained. blood pressure controlled and would not diurese in setting of poor po intake. HTN - bb as mentioned above. HL - ok to defer statin given co-morbidities. CLL - heme following.
--- NOTE | 2017-02-08 12:54 | PN ---
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, Physician History of Present Illness: PULMONARY AWAKE,NAD,-SOB. CHEST TUBE WITH MINIMAL DRAINAGE - Current Medication List Current Medications: Active Medications Acetaminophen (Tylenol -) 650 mg PO Q6H PRN PRN Reason: FEVER OR PAIN Last Admin: 02/03/17 09:36 Dose: 650 mg Acetaminophen (Tylenol Suppository -) 650 mg [place] Q6H PRN PRN Reason: FEVER OR PAIN Last Admin: 02/04/17 02:26 Dose: 650 mg Albuterol/Ipratropium (Duoneb -) 1 amp NEB Q6H PRN PRN Reason: SHORTNESS OF BREATH Last Admin: 02/07/17 00:00 Dose: 1 amp Allopurinol (Zyloprim -) 300 mg PO DAILY [facility] Last Admin: 02/08/17 09:22 Dose: 300 mg Bacitracin (Bacitracin -) 1 applic TP BID [facility] Last Admin: 02/08/17 09:25 Dose: 1 applic Fluconazole (Diflucan -) 100 mg PO DAILY [facility] Last Admin: 02/08/17 09:22 Dose: 100 mg Potassium Chloride 10 meq/ (Dextrose) 1,005 mls @ 50 mls/hr IVPB Q20H [facility] Last Admin: 02/08/17 08:34 Dose: 50 mls/hr Insulin Aspart (Novolog Vial Sliding Scale -) 1 vial SQ ACHS [facility] PRN Reason: Protocol Last Admin: 02/08/17 06:27 Dose: Not Given Insulin Detemir (Levemir Vial) 3 units SQ AM [facility] Last Admin: 02/08/17 06:26 Dose: Not Given Levothyroxine Sodium (Synthroid -) 25 mcg PO DAILY@0700 [facility] Last Admin: 02/08/17 06:27 Dose: 25 mcg Metoprolol Tartrate (Lopressor -) 25 mg PO TID [facility] Last Admin: 02/08/17 06:26 Dose: 25 mg Valacyclovir HCl (Valtrex -) 1,000 mg PO BID [facility] Last Admin: 02/08/17 09:22 Dose: 1,000 mg - Objective Vital Signs: Vital Signs Temperature 97.8 F 02/08/17 12:01 Pulse Rate 82 02/08/17 12:01 Respiratory Rate 20 02/08/17 12:01 Blood Pressure 132/66 02/08/17 12:01 O2 Sat by Pulse Oximetry (%) 96 02/08/17 11:53 Constitutional: Yes: Well Nourished, Calm Eyes: Yes: WNL HENT: Yes: WNL Neck: Yes: WNL Cardiovascular: Yes: Regular Rate and Rhythm, S1, S2 Respiratory: Yes: Diminished Gastrointestinal: Yes: Normal Bowel Sounds, Soft Extremities: Yes: WNL Edema: No Labs: CBC, BMP 02/07/17 05:35 02/07/17 05:35 INR, PTT INR 1.08 (0.82-1.09) 01/26/17 05:50 Fibrinogen 397.0 mg/dL (238-498) 01/26/17 05:50 Assessment/Plan Problem List - Problems (1) Acute respiratory failure with hypoxia Code(s): J96.01 - ACUTE RESPIRATORY FAILURE WITH HYPOXIA (2) Pleural effusion Code(s): J90 - PLEURAL EFFUSION, NOT ELSEWHERE CLASSIFIED (3) CLL (chronic lymphocytic leukemia) Code(s): C91.10 - CHRONIC LYMPHOCYTIC LEUK OF B-CELL TYPE NOT ACHIEVE REMIS (4) Diabetes mellitus Code(s): E11.9 - TYPE 2 DIABETES MELLITUS WITHOUT COMPLICATIONS (5) Hypertension Code(s): I10 - ESSENTIAL (PRIMARY) HYPERTENSION (6) Hypothyroid Code(s): E03.9 - HYPOTHYROIDISM, UNSPECIFIED (7) Anemia Code(s): D64.9 - ANEMIA, UNSPECIFIED Qualifiers: Anemia type: unspecified type Qualified Code(s): D64.9 - Anemia, unspecified (8) Lactic acidosis Code(s): E87.2 - ACIDOSIS Assessment/Plan Acute Hypoxic Respiratory Failure improving Right Pleural Effusion exudate CLL Lactic Acidosis likely due to hypoxia improved CLL HTN DM Hypothyroidism - O2 to keep SpO2 >90% - BiPAP prn - aspiration precautions - DVT prophylaxis - d/c chest tube and observe,if fluid reaccumulates with insert pleur-x DR CHAVARRIA
--- NOTE | 2017-02-08 13:37 | PN ---
Teaching Attending Note Name of Resident: Cee Lynne ATTENDING PHYSICIAN STATEMENT I saw and evaluated the patient. I reviewed the resident's note and discussed the case with the resident. I agree with the resident's findings and plan as documented. SUBJECTIVE: OBJECTIVE: ASSESSMENT AND PLAN: stable off antibiotics f/u chest tube per pulmonary vulvar lesions- continue valtrex f/u hsv culture
--- NOTE | 2017-02-08 14:03 | PN ---
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, LENS FINISHER - Note 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: Medical notes reviewed and case discussed with PMD.Note regarding d/c of Chest tube noted. Selected Entries 02/07/17 02/07/17 02/07/17 10:00 13:42 19:35 Breakfast 25% Lunch 25% Skin Risk Level Supper 25% Total Score - Skin Risk Assessment 02/07/17 02/08/17 22:00 10:35 Breakfast 25% Lunch Skin Risk Level High Risk Supper Total Score - 11 Skin Risk Assessment Suggest MBS to r/o aspiration and determine indication for tube feeding. Per PMD , family wanted "everything done." PO intake is poor and pt is at high risk of breakdown per EMR.
--- NOTE | 2017-02-08 14:56 | PN ---
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, Physician Chief Complaint: Ms Stock says she feels fine. Denies cp, sob, n/v. - Current Medication List Current Medications: Active Medications Acetaminophen (Tylenol -) 650 mg PO Q6H PRN PRN Reason: FEVER OR PAIN Last Admin: 02/03/17 09:36 Dose: 650 mg Acetaminophen (Tylenol Suppository -) 650 mg [place] Q6H PRN PRN Reason: FEVER OR PAIN Last Admin: 02/04/17 02:26 Dose: 650 mg Albuterol/Ipratropium (Duoneb -) 1 amp NEB Q6H PRN PRN Reason: SHORTNESS OF BREATH Last Admin: 02/07/17 00:00 Dose: 1 amp Allopurinol (Zyloprim -) 300 mg PO DAILY [facility] Last Admin: 02/08/17 09:22 Dose: 300 mg Bacitracin (Bacitracin -) 1 applic TP BID [facility] Last Admin: 02/08/17 09:25 Dose: 1 applic Fluconazole (Diflucan -) 100 mg PO DAILY [facility] Last Admin: 02/08/17 09:22 Dose: 100 mg Potassium Chloride 10 meq/ (Dextrose) 1,005 mls @ 50 mls/hr IVPB Q20H [facility] Last Admin: 02/08/17 08:34 Dose: 50 mls/hr Insulin Aspart (Novolog Vial Sliding Scale -) 1 vial SQ ACHS [facility] PRN Reason: Protocol Last Admin: 02/08/17 06:27 Dose: Not Given Insulin Detemir (Levemir Vial) 3 units SQ AM [facility] Last Admin: 02/08/17 06:26 Dose: Not Given Levothyroxine Sodium (Synthroid -) 25 mcg PO DAILY@0700 [facility] Last Admin: 02/08/17 06:27 Dose: 25 mcg Metoprolol Tartrate (Lopressor -) 25 mg PO TID [facility] Last Admin: 02/08/17 14:31 Dose: 25 mg Valacyclovir HCl (Valtrex -) 1,000 mg PO BID [facility] Last Admin: 02/08/17 09:22 Dose: 1,000 mg - Objective Vital Signs: Vital Signs Temperature 98 F 02/08/17 14:27 Pulse Rate 85 02/08/17 14:27 Respiratory Rate 20 02/08/17 14:27 Blood Pressure 127/65 02/08/17 14:27 O2 Sat by Pulse Oximetry (%) 94 L 02/08/17 14:27 Constitutional: Yes: No Distress, Calm Cardiovascular: Yes: Regular Rate and Rhythm. No: Gallop, Murmur, Rub Respiratory: Yes: Regular, Rhonchi. No: Rales, Wheezes Gastrointestinal: Yes: Normal Bowel Sounds, Soft. No: Distention, Tenderness Extremities: Yes: WNL Edema: No Labs: CBC, BMP 02/07/17 05:35 02/07/17 05:35 INR, PTT INR 1.08 (0.82-1.09) 01/26/17 05:50 Fibrinogen 397.0 mg/dL (238-498) 01/26/17 05:50 Assessment/Plan 1. Acute hypoxic respiratory failure 2/2 large right pleural effusion -chest tube removal per Dr Cat -monitor for re-occurrence 2. Bacterial pneumonia -ID following and case discussed -antibiotics stopped -monitor off of antibiotics 3. CLL, chronic anemia requiring transfusion -oncology following -poor prognosis, however family currently wants full treatment -management per oncology 4. Breast cancer s/p resection, +margin, ER+ - Per Dr. Young, "no adjuvant therapy was given as she declined per her primary oncologist in [place]" 5. Thrombocytosis -continue to monitor -management per oncology 6. Vaginal sores -improving with valtrex 7. DM II -continue low dose levemir -SSI 8. Hypothyroidism -continue synthroid 9. Hypernatremia -continue hydration with D5W 19. Nutrition -Dysphagia pureed/honey thick -attempt MBS after chest tube removed 11. Prophylaxis -Hold all chemical anticoagulation -Pressure ulcers: allevyn dressing
[2017-02-09] MEDS: INSULIN SLIDING SCALE (NOVOLOG) 1 VIAL SQ SCH ×4 (07:01→21:34)
[2017-02-09] MEDS: ALBUTEROL SO4 2.5/IPRATROPIUM 0.5 INH SOL 3 ML VIAL.NEB. NEB PRN (07:02)
[2017-02-09] MEDS: METOPROLOL TARTRATE 25 MG TABLET (FP) PO SCH ×3 (07:05→21:28)
[2017-02-09] MEDS: LEVOTHYROXINE NA 25 MCG TABLET (FP) PO SCH (07:05)
[2017-02-09] MEDS: INSULIN DETEMIR 100 UNITS/ML MDV SQ SCH (07:05)
[2017-02-09] MEDS ORDERED: PT OWN MED DRAWER 7, Y5N ONE ×2 (08:08→09:05)
--- NOTE | 2017-02-09 08:12 | PN ---
Physical Exam: SUBJECTIVE: Patient seen and examined by me at bedside. Patient is sleeping with no difficulty breathing on 3L NC. No overnight events noted. OBJECTIVE: Vital Signs Period Temp Pulse Resp BP Sys/Choi Pulse Ox Last 24 Hr 97.0 F-98.5 F 73-94 20-20 127-148/65-77 94-97 GENERAL: Awake, alert and in no acute distress HEENT: Oral Thrush NECK: Cervical lymphadenopathy bilaterally LUNGS: Decreased breath sounds throughout lung bases. Draining right chest tube HEART: RRR, normal S1 and S2 with 2/6 systolic murmur ABDOMEN: Soft, nontender, not distended EXTREMITIES: Axillary lymphadenopathy bilaterally. Inguinal lymphadenopathy bilaterally. No peripheral edema. Laboratory Results - last 24 hr 02/08/17 02/08/17 02/09/17 16:25 22:02 05:39 POC Glucometer 145 168 116 Active Medications Generic Name Dose Route Start Last Admin Trade Name Freq PRN Reason Stop Dose Admin Acetaminophen 650 mg 01/25/17 09:53 02/03/17 09:36 Tylenol - PO 650 mg Q6H PRN Administration FEVER OR PAIN Acetaminophen 650 mg 01/28/17 15:33 02/04/17 02:26 Tylenol Suppository - [place] 650 mg Q6H PRN Administration FEVER OR PAIN Albuterol/Ipratropium 1 amp 01/26/17 18:23 02/09/17 07:02 Duoneb - NEB 1 amp Q6H PRN Administration SHORTNESS OF BREATH Allopurinol 300 mg 01/25/17 21:00 02/08/17 09:22 Zyloprim - PO 300 mg DAILY [facility] Administration Bacitracin 1 applic 01/30/17 22:00 02/08/17 22:20 Bacitracin - TP 1 applic BID [facility] Administration Fluconazole 100 mg 02/08/17 10:00 02/08/17 09:22 Diflucan - PO 100 mg DAILY [facility] Administration Potassium Chloride 10 meq/ 1,005 mls @ 50 mls/hr 02/07/17 12:00 02/08/17 08:34 Dextrose IVPB 50 mls/hr Q20H [facility] Administration Insulin Aspart 1 vial 01/25/17 11:00 02/09/17 07:01 Novolog Vial Sliding Scale - SQ Not Given ACHS [facility] Protocol Insulin Detemir 3 units 01/26/17 07:00 02/09/17 07:05 Levemir Vial SQ 3 units AM [facility] Administration Levothyroxine Sodium 25 mcg 02/03/17 07:00 02/09/17 07:05 Synthroid - PO 25 mcg DAILY@0700 [facility] Administration Metoprolol Tartrate 25 mg 02/07/17 22:00 02/09/17 07:05 Lopressor - PO 25 mg TID [facility] Administration Valacyclovir HCl 1,000 mg 02/03/17 11:00 02/08/17 22:20 Valtrex - PO 1,000 mg BID [facility] Administration ASSESSMENT/PLAN: leukocytosis secondary to CLL and right lung pleural effusion and Pneumonia ( Improving) -Patient is on aspiration precautions -Will continue to monitor off antibiotics Vulva/Perianal lesions -RPR nonreactive -Complete HSV prophylaxis with Valtrex 1gm BID day #7. -HSV viral panel positive Visit type - Emergency Visit Emergency Visit: Yes ED Registration Date: 01/25/17 Care time: The patient presented to the Emergency Department on the above date and was hospitalized for further evaluation of their emergent condition. - New Patient This patient is new to me today: No - Critical Care Critical Care patient: No
[2017-02-09 08:51] LABS: MCH 30.3 pg (25.7-33.7); MEAN CELL VOLUME 97.8 fl (80-96); MEAN PLT VOLUME 9.3 fl (7.5-11.1); PLATELET COUNT 54 K/MM3 (134-434); RDW 26.5 % (11.6-15.6)
[2017-02-09 08:58] LABS: COCKROFT - GAULT 102.765; CREATININE 0.4 mg/dL (0.55-1.02); MAGNESIUM 2.1 mg/dL (1.8-2.4); PHOSPHOROUS 2.1 mg/dL (2.5-4.9)
[2017-02-09] MEDS: valACYclovir HCL 500 MG TABLET (FP) PO SCH (09:09)
[2017-02-09] MEDS: FLUCONAZOLE 100 MG TABLET (UD) PO SCH (09:10)
[2017-02-09] MEDS: ALLOPURINOL 300 MG TABLET (FP) PO SCH (09:10)
[2017-02-09] MEDS: POTASSIUM CHLORIDE 10 MEQ in DEXTROSE 5%-WATER - 1,000 ML IVPB SCH ×2 (09:11→21:00)
[2017-02-09 09:26] LABS: WHITE BLOOD COUNT 55.3 K/mm3 (4.0-10.0)
[2017-02-09] MEDS: BACITRACIN 30 GM TUBE TOPICAL OINTMENT TP SCH ×2 (11:23→21:34)
[2017-02-09 12:04] LABS: PLATELET ESTIMATE MARKEDLY DECREASED (NORMAL); SMUDGE CELLS MANY
--- NOTE | 2017-02-09 12:53 | PN ---
Teaching Attending Note Name of Resident: Cee Lynne ATTENDING PHYSICIAN STATEMENT I saw and evaluated the patient. I reviewed the resident's note and discussed the case with the resident. I agree with the resident's findings and plan as documented. SUBJECTIVE: OBJECTIVE: ASSESSMENT AND PLAN: Genital HSV Plan Justina Tran MD
--- NOTE | 2017-02-09 13:45 | PN ---
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, Physician Chief Complaint: Ms Stock says she feels fine. Denies cp, sob, n/v. - Current Medication List Current Medications: Active Medications Acetaminophen (Tylenol -) 650 mg PO Q6H PRN PRN Reason: FEVER OR PAIN Last Admin: 02/03/17 09:36 Dose: 650 mg Acetaminophen (Tylenol Suppository -) 650 mg [place] Q6H PRN PRN Reason: FEVER OR PAIN Last Admin: 02/04/17 02:26 Dose: 650 mg Allopurinol (Zyloprim -) 300 mg PO DAILY [facility] Last Admin: 02/09/17 09:10 Dose: 300 mg Bacitracin (Bacitracin -) 1 applic TP BID [facility] Last Admin: 02/09/17 11:23 Dose: Not Given Fluconazole (Diflucan -) 100 mg PO DAILY [facility] Last Admin: 02/09/17 09:10 Dose: 100 mg Potassium Chloride 10 meq/ (Dextrose) 1,005 mls @ 50 mls/hr IVPB Q20H [facility] Last Admin: 02/09/17 09:11 Dose: 50 mls/hr Insulin Aspart (Novolog Vial Sliding Scale -) 1 vial SQ ACHS [facility] PRN Reason: Protocol Last Admin: 02/09/17 11:23 Dose: Not Given Insulin Detemir (Levemir Vial) 3 units SQ AM [facility] Last Admin: 02/09/17 07:05 Dose: 3 units Levothyroxine Sodium (Synthroid -) 25 mcg PO DAILY@0700 [facility] Last Admin: 02/09/17 07:05 Dose: 25 mcg Metoprolol Tartrate (Lopressor -) 25 mg PO TID [facility] Last Admin: 02/09/17 07:05 Dose: 25 mg - Objective Vital Signs: Vital Signs Temperature 98.5 F 02/09/17 07:29 Pulse Rate 86 02/09/17 07:29 Respiratory Rate 20 02/09/17 07:35 Blood Pressure 139/72 02/09/17 07:29 O2 Sat by Pulse Oximetry (%) 97 02/09/17 07:35 Constitutional: Yes: No Distress, Calm Cardiovascular: Yes: Regular Rate and Rhythm. No: Gallop, Murmur, Rub Respiratory: Yes: Regular, On Nasal O2, Rhonchi. No: Rales, Wheezes Gastrointestinal: Yes: Normal Bowel Sounds, Soft. No: Distention, Tenderness Extremities: Yes: WNL Edema: No Labs: CBC, BMP 02/09/17 08:10 02/09/17 08:10 INR, PTT INR 1.08 (0.82-1.09) 01/26/17 05:50 Fibrinogen 397.0 mg/dL (238-498) 01/26/17 05:50 Assessment/Plan 1. Acute hypoxic respiratory failure 2/2 large right pleural effusion -chest tube removal per Dr Cat -monitor for re-occurrence 2. Bacterial pneumonia -ID following and case discussed -antibiotics stopped -monitor off of antibiotics 3. CLL, chronic anemia requiring transfusion -oncology following -poor prognosis, however family currently wants full treatment -management per oncology 4. Breast cancer s/p resection, +margin, ER+ - Per Dr. Young, "no adjuvant therapy was given as she declined per her primary oncologist in [place]" 5. Thrombocytosis -continue to monitor -management per oncology 6. Vaginal sores -improving with valtrex 7. DM II -continue low dose levemir -SSI 8. Hypothyroidism -continue synthroid 9. Hypernatremia -continue hydration with D5W 19. Nutrition -Dysphagia pureed/honey thick -MBS to be performed 11. Prophylaxis -Hold all chemical anticoagulation -Pressure ulcers: allevyn dressing Dispo -attempted to call family today, no answer -follow up if pleural effusion recurs and MBS
--- NOTE | 2017-02-09 14:18 | PN ---
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 (short form) - Note 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: S: no cp sob palps dizzy, chest tube removal today Current Medications Generic Name Dose Route Start Last Admin Trade Name Freq PRN Reason Stop Dose Admin Acetaminophen 650 mg 01/25/17 09:53 02/03/17 09:36 Tylenol - PO 650 mg Q6H PRN Administration FEVER OR PAIN Acetaminophen 650 mg 01/28/17 15:33 02/04/17 02:26 Tylenol Suppository - [place] 650 mg Q6H PRN Administration FEVER OR PAIN Allopurinol 300 mg 01/25/17 21:00 02/09/17 09:10 Zyloprim - PO 300 mg DAILY [facility] Administration Bacitracin 1 applic 01/30/17 22:00 02/09/17 11:23 Bacitracin - TP Not Given BID [facility] Fluconazole 100 mg 02/08/17 10:00 02/09/17 09:10 Diflucan - PO 100 mg DAILY [facility] Administration Potassium Chloride 10 meq/ 1,005 mls @ 50 mls/hr 02/07/17 12:00 02/09/17 09:11 Dextrose IVPB 50 mls/hr Q20H [facility] Administration Insulin Aspart 1 vial 01/25/17 11:00 02/09/17 11:23 Novolog Vial Sliding Scale - SQ Not Given ACHS [facility] Protocol Insulin Detemir 3 units 01/26/17 07:00 02/09/17 07:05 Levemir Vial SQ 3 units AM [facility] Administration Levothyroxine Sodium 25 mcg 02/03/17 07:00 02/09/17 07:05 Synthroid - PO 25 mcg DAILY@0700 [facility] Administration Metoprolol Tartrate 25 mg 02/07/17 22:00 02/09/17 07:05 Lopressor - PO 25 mg TID [facility] Administration Vital Signs Period Temp Pulse Resp BP Sys/Choi Pulse Ox Last 24 Hr 97.0 F-98.5 F 75-94 20-20 127-148/65-77 94-97 NAD, calm JVD mild elevation, neck supple bibsilar dullness, nl effort rrr nl s1, s2 2/6 murmur at apex. + bs soft nt nd ext without e/c/c no jaundice, diaphoresis CBC, BMP 02/09/17 08:10 02/09/17 08:10 ekg: sr, pac's. non-specific t wave abnormalities tele: sr echo : nl lv/rv. mod tio, severe mr, mod-sev tr, rvsp 50-60. pleural effusion a/p: 81 year old female with significant past medical history of hypertension, hyperlipidemia, diabetes, anemia, recent dx of CLL, and hypothyroidism who presents to the ED BIB[facility] from [facility] facility for respiratory distress and found to have large right pleural effusion 2/2 CLL and whose hospital course is now complicated by SVT. SVT - admitted for respiratory distress and found to have large right pleural effusion 2/2 CLL and hospital course complicated by episode of SVT. - no further svt after several days of tele - tsh within normal limits. - continue metoprolol - can dc tele now severe MR/TR - would reassess once acute issues resolve now that large pleural effusion has drained. blood pressure controlled and would not diurese in setting of poor po intake. HTN - cont bb HL - ok to defer statin given co-morbidities. CLL - heme following.
[2017-02-10] MEDS: POTASSIUM CHLORIDE 10 MEQ in DEXTROSE 5%-WATER - 1,000 ML IVPB SCH ×3 (00:55→21:47)
[2017-02-10] MEDS: LEVOTHYROXINE NA 25 MCG TABLET (FP) PO SCH (06:04)
[2017-02-10] MEDS: INSULIN SLIDING SCALE (NOVOLOG) 1 VIAL SQ SCH ×4 (06:04→21:42)
[2017-02-10] MEDS: INSULIN DETEMIR 100 UNITS/ML MDV SQ SCH (06:22)
[2017-02-10] MEDS: METOPROLOL TARTRATE 25 MG TABLET (FP) PO SCH ×3 (06:22→21:46)
[2017-02-10 07:28] LABS: MCH 30.1 pg (25.7-33.7); MCHC 30.3 g/dl (32.0-36.0); MEAN CELL VOLUME 99.6 fl (80-96); MEAN PLT VOLUME 9.3 fl (7.5-11.1); PLATELET COUNT 51 K/MM3 (134-434)
[2017-02-10 07:56] LABS: ALBUMIN 2.1 g/dl (3.4-5.0); ANION GAP 8 (8-16); CALCIUM 8.2 mg/dL (8.5-10.1); CO2 28 mmol/L (21-32); GLUCOSE,RANDOM 97 mg/dL (74-106); MAGNESIUM 2.2 mg/dL (1.8-2.4)
[2017-02-10 07:59] LABS: ALK PHOS 47 U/L (45-117); BILIRUBIN,TOTAL 0.4 mg/dL (0.2-1.0); COCKROFT - GAULT 102.765; CREATININE 0.4 mg/dL (0.55-1.02); LDH 328 U/L (84-246); PHOSPHOROUS 2.6 mg/dL (2.5-4.9); SGOT/AST 17 U/L (15-37); SGPT/ALT 8 U/L (12-78); TOT PROT 5.1 g/dl (6.4-8.2)
[2017-02-10 08:49] LABS: PLATELET ESTIMATE MARKEDLY DECREASED (NORMAL); SMUDGE CELLS MANY
[2017-02-10] MEDS: FLUCONAZOLE 100 MG TABLET (UD) PO SCH (10:57)
[2017-02-10] MEDS: ALLOPURINOL 300 MG TABLET (FP) PO SCH (10:57)
[2017-02-10] MEDS: BACITRACIN 30 GM TUBE TOPICAL OINTMENT TP SCH ×2 (11:04→21:43)
[2017-02-10 11:11] LABS: URIC ACID 2.8 mg/dL (2.6-7.2)
--- NOTE | 2017-02-10 11:13 | PN ---
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, Physician Chief Complaint: Ms Stock says she feels fine. Denies cp, sob, n/v. Says she is eating well. - Current Medication List Current Medications: Active Medications Acetaminophen (Tylenol -) 650 mg PO Q6H PRN PRN Reason: FEVER OR PAIN Last Admin: 02/03/17 09:36 Dose: 650 mg Acetaminophen (Tylenol Suppository -) 650 mg [place] Q6H PRN PRN Reason: FEVER OR PAIN Last Admin: 02/04/17 02:26 Dose: 650 mg Allopurinol (Zyloprim -) 300 mg PO DAILY [facility] Last Admin: 02/09/17 09:10 Dose: 300 mg Bacitracin (Bacitracin -) 1 applic TP BID [facility] Last Admin: 02/09/17 21:34 Dose: 1 applic Fluconazole (Diflucan -) 100 mg PO DAILY [facility] Last Admin: 02/09/17 09:10 Dose: 100 mg Potassium Chloride 10 meq/ (Dextrose) 1,005 mls @ 50 mls/hr IVPB Q20H [facility] Last Admin: 02/10/17 00:55 Dose: Not Given Insulin Aspart (Novolog Vial Sliding Scale -) 1 vial SQ ACHS [facility] PRN Reason: Protocol Last Admin: 02/10/17 06:04 Dose: Not Given Insulin Detemir (Levemir Vial) 3 units SQ AM [facility] Last Admin: 02/10/17 06:22 Dose: 3 units Levothyroxine Sodium (Synthroid -) 25 mcg PO DAILY@0700 [facility] Last Admin: 02/10/17 06:04 Dose: 25 mcg Metoprolol Tartrate (Lopressor -) 25 mg PO TID [facility] Last Admin: 02/10/17 06:22 Dose: 25 mg - Objective Vital Signs: Vital Signs Temperature 99.6 F 02/10/17 10:53 Pulse Rate 85 02/10/17 09:35 Respiratory Rate 20 02/10/17 09:35 Blood Pressure 138/70 02/10/17 09:35 O2 Sat by Pulse Oximetry (%) 94 L 02/09/17 21:00 Constitutional: Yes: No Distress, Calm Cardiovascular: Yes: Regular Rate and Rhythm. No: Gallop, Murmur, Rub Respiratory: Yes: Regular, CTA Bilaterally. No: Rales, Rhonchi, Wheezes Gastrointestinal: Yes: Normal Bowel Sounds, Soft. No: Distention, Tenderness Extremities: Yes: WNL Edema: No Labs: CBC, BMP 02/10/17 06:15 02/10/17 06:15 INR, PTT INR 1.08 (0.82-1.09) 01/26/17 05:50 Fibrinogen 397.0 mg/dL (238-498) 01/26/17 05:50 Assessment/Plan 1. Acute hypoxic respiratory failure 2/2 large right pleural effusion -chest tube removal per Dr Cat -monitor for re-occurrence -pulmonary following 2. Bacterial pneumonia -ID following and case discussed -antibiotics stopped -monitor off of antibiotics 3. CLL, chronic anemia requiring transfusion -oncology following -poor prognosis, however family currently wants full treatment -management per oncology -with increasing WBC count, defer to oncology for treatment 4. Breast cancer s/p resection, +margin, ER+ - Per Dr. Young, "no adjuvant therapy was given as she declined per her primary oncologist in [place]" 5. Thrombocytosis -continue to monitor -management per oncology 6. Vaginal sores -improving with valtrex 7. DM II -continue low dose levemir -SSI 8. Hypothyroidism -continue synthroid 9. Hypernatremia -resolved 19. Nutrition -MBS performed -? if needs PEG tube -spoke with family about goals of care, unsure of his mother's wishes and desires a family meeting 11. Prophylaxis -Hold all chemical anticoagulation -Pressure ulcers: allevyn dressing Dispo -will set up meeting with family for Monday for goals of care -patient would benefit from hospice/palliative care, in discussion family is not understanding poor prognosis of patient
--- NOTE | 2017-02-10 11:50 | PN ---
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, ABRASIVE SAWYER - Note 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: Selected Entries 02/08/17 02/08/17 02/08/17 10:35 14:27 20:16 Breakfast 25% Lunch 25% Supper 25% Temperature 02/09/17 02/09/17 02/09/17 02:00 07:29 15:46 Breakfast Lunch Supper 25% Temperature 98.2 F 98.5 F 99 F 02/09/17 02/09/17 02/10/17 17:06 22:16 06:00 Breakfast Lunch Supper Temperature 99 F 98.9 F 98.7 F 02/10/17 02/10/17 09:35 10:53 Breakfast Lunch Supper Temperature 97.7 F 99.6 F MBS - no gross aspiration noted. Oral dyscoordination with delayed swallow. Limited nutritional intake. Risk of malnutrition/dehydration. Pending family meeting with palliative care, regarding pt's wishes and TF.
--- NOTE | 2017-02-10 15:11 | PN ---
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 (short form) - Note 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: PULMONARY VSS/AFEBRILE ANICTERIC RIGHT CHEST TUBE REMOVED S1S2 BS+ SOFT DIMINISHED EDEMA NOTES/MEDS/LABS REVIEWED Acute Hypoxic Respiratory Failure Right Pleural Effusion bloody lymphocytic exudate s/p drainage Lactic Acidosis CLL HTN DM Hypothyroidism - O2 to keep SpO2 >90% - BiPAP as needed to assist in work of breathing - aspiration precautions - off antibiotics at this point - cultures unrevealing - DVT prophylaxis - Need to discuss GOC given age and overall condition Cheir ALAS MD
--- NOTE | 2017-02-10 23:41 | PN ---
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 (short form) - Note 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: PAtient seen and examined On nasal canula s/p chest tube placement more alert febrile, vss Cor: RSR, No murmurs, No gallops Lungs: decreased at bases Abd: Soft, Normal bowel sounds, No organomegaly Ext:No significant edema vulva/peranal area---tender ulcers with base?? 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 pleural effusion CLL--trisomy 12. also generalized adenopathy diagnosed several yrs. ago in [place] Never treated, was being monitored More recently transfusion dependent emiliana --neg. LDH --300s given overall comorbidities, functional status will need to discuss with family goals of care---will call son on tumor lysis prophy ?? chlorambucil Breast cancer -- s/p resection. +margin. 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 pleurex vulvar lesions--on hsv treatment palliative care team and family meeting regrding goals of care
[2017-02-11] MEDS: INSULIN SLIDING SCALE (NOVOLOG) 1 VIAL SQ SCH ×4 (06:10→22:31)
[2017-02-11] MEDS: METOPROLOL TARTRATE 25 MG TABLET (FP) PO SCH ×3 (06:10→22:32)
[2017-02-11] MEDS: LEVOTHYROXINE NA 25 MCG TABLET (FP) PO SCH (06:10)
[2017-02-11] MEDS: INSULIN DETEMIR 100 UNITS/ML MDV SQ SCH (06:11)
[2017-02-11 07:14] LABS: MCHC 30.3 g/dl (32.0-36.0); PLATELET COUNT 46 K/MM3 (134-434); RDW 26.8 % (11.6-15.6)
[2017-02-11 07:27] LABS: WHITE BLOOD COUNT 62.9 K/mm3 (4.0-10.0)
[2017-02-11 07:40] LABS: ALBUMIN 2.1 g/dl (3.4-5.0); ALK PHOS 43 U/L (45-117); ANION GAP 7 (8-16); BILIRUBIN,TOTAL 0.3 mg/dL (0.2-1.0); CALCIUM 7.6 mg/dL (8.5-10.1); CO2 28 mmol/L (21-32); CREATININE 0.3 mg/dL (0.55-1.02); GLUCOSE,RANDOM 103 mg/dL (74-106); MAGNESIUM 2.1 mg/dL (1.8-2.4); PHOSPHOROUS 2.2 mg/dL (2.5-4.9); SGOT/AST 18 U/L (15-37); SGPT/ALT 7 U/L (12-78)
--- NOTE | 2017-02-11 08:24 | PN ---
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 (short form) - Note 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: Patient seen and examined. Chart reviewed at length. Currently lethargic, lying supine in bed. Wearing nasal cannula O2. No apparent distress. Labs and financial analysis consultant notes reviewed. Family discussion planned to discuss issues of multiple chronic problems and poor prognosis. Selected Entries 02/11/17 06:00 Temperature 99.4 F Pulse Rate 87 Respiratory 20 Rate Blood Pressure 148/92 Laboratory Tests 02/11/17 02/11/17 06:00 06:00 WBC 62.9 H* Hgb 7.1 L Hct 23.6 L Plt Count 46 L Sodium 142 Potassium 3.6 Chloride 107 Carbon Dioxide 28 BUN 6 L Creatinine 0.3 L D Random Glucose 103 Calcium 7.6 L Phosphorus 2.2 L Magnesium 2.1 Total Bilirubin 0.3 D AST 18 ALT 7 L Alkaline Phosphatase 43 L Total Protein 5.0 L Albumin 2.1 L Chest Clear to auscultation Cor RRR Abd Soft no mass or tenderness Ext No edema Neuro Lethargic No focal deficit Assessment and Plan Weakness and lethargy Multi-factorial Discuss plan and goal of care with family Acute hypoxic respiratory failure Improved O2 via nasal cannula Bi-PAP as needed Bacterial pneumonia Improved CLL To discuss plan of care Oncologic input appreciated Anemia 7.1/23.6 May require transfusion based on plan of care Thrombocytopenia 46K Likely ongoing effects of primary marrow dysfunction related to CLL vs peripheral destruction from immunologic cause Dysproteinemia Low IgM on immunoelectrophoresis Hypernatremia Resolved DM Stable H/O Breast Cancer Further unresolved issues Hypothyroid Stable Vagina sores Stable Hypoalbuminemia Multifactorial from chronic disease as well as nutritional factors (dysphagia described in previous notes) Continue supportive care Decision to be discussed with family regarding extent and goals of therapy at this point
[2017-02-11 08:39] LABS: PLATELET ESTIMATE DECREASED (NORMAL)
[2017-02-11 08:41] LABS: SMUDGE CELLS MANY
[2017-02-11] MEDS: BACITRACIN 30 GM TUBE TOPICAL OINTMENT TP SCH ×2 (11:18→22:32)
[2017-02-11] MEDS: FLUCONAZOLE 100 MG TABLET (UD) PO SCH (11:18)
[2017-02-11] MEDS: ALLOPURINOL 300 MG TABLET (FP) PO SCH (11:19)
[2017-02-11] MEDS ORDERED: PT OWN MED DRAWER 7, Y5N ONE (12:22)
--- NOTE | 2017-02-11 13:01 | PN ---
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, Physician History of Present Illness: pulmonary still lethargic,-resp distress,-congestion - Current Medication List Current Medications: Active Medications Acetaminophen (Tylenol -) 650 mg PO Q6H PRN PRN Reason: FEVER OR PAIN Last Admin: 02/03/17 09:36 Dose: 650 mg Acetaminophen (Tylenol Suppository -) 650 mg [place] Q6H PRN PRN Reason: FEVER OR PAIN Last Admin: 02/04/17 02:26 Dose: 650 mg Allopurinol (Zyloprim -) 300 mg PO DAILY [facility] Last Admin: 02/11/17 11:19 Dose: 300 mg Bacitracin (Bacitracin -) 1 applic TP BID [facility] Last Admin: 02/11/17 11:18 Dose: 1 applic Fluconazole (Diflucan -) 100 mg PO DAILY [facility] Last Admin: 02/11/17 11:18 Dose: 100 mg Potassium Chloride 10 meq/ (Dextrose) 1,005 mls @ 50 mls/hr IVPB Q20H [facility] Last Admin: 02/10/17 21:47 Dose: Not Given Insulin Aspart (Novolog Vial Sliding Scale -) 1 vial SQ ACHS [facility] PRN Reason: Protocol Last Admin: 02/11/17 11:22 Dose: 2 unit Insulin Detemir (Levemir Vial) 3 units SQ AM [facility] Last Admin: 02/11/17 06:11 Dose: 3 units Levothyroxine Sodium (Synthroid -) 25 mcg PO DAILY@0700 [facility] Last Admin: 02/11/17 06:10 Dose: 25 mcg Metoprolol Tartrate (Lopressor -) 25 mg PO TID [facility] Last Admin: 02/11/17 06:10 Dose: 25 mg - Objective Vital Signs: Vital Signs Temperature 99.4 F 02/11/17 06:00 Pulse Rate 73 02/11/17 09:36 Respiratory Rate 20 02/11/17 06:00 Blood Pressure 148/92 02/11/17 06:00 O2 Sat by Pulse Oximetry (%) 97 02/11/17 09:36 Constitutional: Yes: Well Nourished, Other (lethargic) Eyes: Yes: WNL HENT: Yes: WNL Neck: Yes: WNL Cardiovascular: Yes: Regular Rate and Rhythm, S1, S2 Respiratory: Yes: Diminished (poor inspiratory effort) Gastrointestinal: Yes: Normal Bowel Sounds, Soft Extremities: Yes: WNL Edema: No Labs: CBC, BMP 02/11/17 06:00 02/11/17 06:00 INR, PTT INR 1.08 (0.82-1.09) 01/26/17 05:50 Fibrinogen 397.0 mg/dL (238-498) 01/26/17 05:50 Assessment/Plan Problem List - Problems (1) Acute respiratory failure with hypoxia Code(s): J96.01 - ACUTE RESPIRATORY FAILURE WITH HYPOXIA (2) Pleural effusion Code(s): J90 - PLEURAL EFFUSION, NOT ELSEWHERE CLASSIFIED (3) CLL (chronic lymphocytic leukemia) Code(s): C91.10 - CHRONIC LYMPHOCYTIC LEUK OF B-CELL TYPE NOT ACHIEVE REMIS (4) Diabetes mellitus Code(s): E11.9 - TYPE 2 DIABETES MELLITUS WITHOUT COMPLICATIONS (5) Hypertension Code(s): I10 - ESSENTIAL (PRIMARY) HYPERTENSION (6) Hypothyroid Code(s): E03.9 - HYPOTHYROIDISM, UNSPECIFIED (7) Anemia Code(s): D64.9 - ANEMIA, UNSPECIFIED Qualifiers: Anemia type: unspecified type Qualified Code(s): D64.9 - Anemia, unspecified (8) Lactic acidosis Code(s): E87.2 - ACIDOSIS Assessment/Plan Acute Hypoxic Respiratory Failure improving Right Pleural Effusion exudate CLL Lactic Acidosis likely due to hypoxia improved CLL HTN DM Hypothyroidism - O2 to keep SpO2 >90% - BiPAP prn - aspiration precautions - DVT prophylaxis - f/u chest x-ray - prognosis poor DR CHAVARRIA
[2017-02-11] MEDS: POTASSIUM CHLORIDE 10 MEQ in DEXTROSE 5%-WATER - 1,000 ML IVPB SCH (18:31)
[2017-02-12] MEDS: METOPROLOL TARTRATE 25 MG TABLET (FP) PO SCH ×3 (05:49→22:24)
[2017-02-12] MEDS: INSULIN SLIDING SCALE (NOVOLOG) 1 VIAL SQ SCH ×4 (06:03→22:16)
[2017-02-12] MEDS: INSULIN DETEMIR 100 UNITS/ML MDV SQ SCH (06:03)
[2017-02-12] MEDS: LEVOTHYROXINE NA 25 MCG TABLET (FP) PO SCH (06:04)
--- NOTE | 2017-02-12 08:22 | PN ---
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 (short form) - Note 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: Patient seen and examined. Chart reviewed. Currently remains lethargic, lying supine in bed. Wearing nasal cannula O2. No apparent distress. Labs and parts consultant notes reviewed. Family discussion planned to review issues of multiple chronic problems and poor prognosis. Selected Entries 02/11/17 02/12/17 21:00 07:47 Temperature 99.4 F Pulse Rate 82 Respiratory 20 Rate Blood Pressure 115/69 O2 Sat by Pulse 97 Oximetry (%) Oxygen Delivery Nasal Cannula Method Oxygen Flow 2 Rate Today' labs CMP CBC pending Chest Clear to auscultation Cor RRR Abd Soft no mass or tenderness Ext No edema Neuro Lethargic Patient opened her eyes and looked at me upon hearing her name called No focal deficit Assessment and Plan Weakness and lethargy Multi-factorial Discuss plan and goal of care with family Acute hypoxic respiratory failure Improved O2 via nasal cannula Bi-PAP as needed Bacterial pneumonia Improved CLL To discuss plan of care Oncologic input appreciated Anemia 7.1/23.6 noted yesterday Today' lab pending May require transfusion based on plan of care Thrombocytopenia 46K yesterday Likely ongoing effects of primary marrow dysfunction related to CLL vs peripheral destruction from immunologic cause Dysproteinemia Low IgM on immunoelectrophoresis Hypernatremia Resolved DM Stable H/O Breast Cancer Further unresolved issues Hypothyroid Stable Vagina sores Stable Hypoalbuminemia Multifactorial from chronic disease as well as nutritional factors (dysphagia described in previous notes) Continue supportive care Decision to be discussed with family regarding extent and goals of therapy at this point
[2017-02-12 08:30] LABS: MCH 30.1 pg (25.7-33.7); MCHC 30.3 g/dl (32.0-36.0); MEAN CELL VOLUME 99.5 fl (80-96); MEAN PLT VOLUME 8.8 fl (7.5-11.1); PLATELET COUNT 47 K/MM3 (134-434); RDW 26.6 % (11.6-15.6)
--- NOTE | 2017-02-12 08:37 | PN ---
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, Physician Chief Complaint: PSVT History of Present Illness: lethargic, opens eyes slowly--not communicative - Current Medication List Current Medications: Active Medications Acetaminophen (Tylenol -) 650 mg PO Q6H PRN PRN Reason: FEVER OR PAIN Last Admin: 02/03/17 09:36 Dose: 650 mg Acetaminophen (Tylenol Suppository -) 650 mg [place] Q6H PRN PRN Reason: FEVER OR PAIN Last Admin: 02/04/17 02:26 Dose: 650 mg Allopurinol (Zyloprim -) 300 mg PO DAILY [facility] Last Admin: 02/11/17 11:19 Dose: 300 mg Bacitracin (Bacitracin -) 1 applic TP BID [facility] Last Admin: 02/11/17 22:32 Dose: 1 applic Fluconazole (Diflucan -) 100 mg PO DAILY [facility] Last Admin: 02/11/17 11:18 Dose: 100 mg Potassium Chloride 10 meq/ (Dextrose) 1,005 mls @ 50 mls/hr IVPB Q20H [facility] Last Admin: 02/11/17 18:31 Dose: 50 mls/hr Insulin Aspart (Novolog Vial Sliding Scale -) 1 vial SQ ACHS [facility] PRN Reason: Protocol Last Admin: 02/12/17 06:03 Dose: Not Given Insulin Detemir (Levemir Vial) 3 units SQ AM [facility] Last Admin: 02/12/17 06:03 Dose: 3 units Levothyroxine Sodium (Synthroid -) 25 mcg PO DAILY@0700 [facility] Last Admin: 02/12/17 06:04 Dose: 25 mcg Metoprolol Tartrate (Lopressor -) 25 mg PO TID [facility] Last Admin: 02/12/17 05:49 Dose: 25 mg - Objective Vital Signs: Vital Signs Temperature 99.4 F 02/12/17 07:47 Pulse Rate 82 02/12/17 07:47 Respiratory Rate 20 02/12/17 07:47 Blood Pressure 115/69 02/12/17 07:47 O2 Sat by Pulse Oximetry (%) 97 02/11/17 21:00 Constitutional: Yes: Well Nourished, No Distress, Calm Cardiovascular: Yes: Regular Rate and Rhythm, S1, S2. No: JVD, Gallop, Murmur Respiratory: Yes: Regular, CTA Bilaterally (not deep breaths for exam). No: Accessory Muscle Use, Rales, Wheezes Extremities: No: Cold Edema: No Neurological: Yes: Lethargy. No: Seizure Psychiatric: No: Agitated Labs: INR, PTT INR 1.08 (0.82-1.09) 01/26/17 05:50 Fibrinogen 397.0 mg/dL (238-498) 01/26/17 05:50 Assessment/Plan ekg: sr, pac's. non-specific t wave abnormalities echo here 02/06: nl lv/rv. mod tio, severe mr, mod-sev tr, rvsp 50-60. pleural effusion a/p: 81 year old female with significant past medical history of hypertension, hyperlipidemia, diabetes, anemia, recent dx of CLL, and hypothyroidism who presents to the ED BIBA from [facility] facility for respiratory distress and found to have large right pleural effusion 2/2 CLL and whose hospital course is now complicated by SVT. SVT - admitted for respiratory distress and found to have large right pleural effusion 2/2 CLL and hospital course complicated by episode of SVT. - no further svt episodes here, on lopressor 25 tid - same meds as doing severe MR/mod-severe TR/moderate pulm HTN - echo needs review by our team: no JVD or other signs chf, no audible murmurs in pt with thin habitus - given unspecified degree of underlying dementia and functional status, and uncontrolled hematologic malignancy now causing pleural effusion, may not be a candidate for any therapy other than diuretics in any event - observe for s/sx of chf - no lasix currently indicated pleural effusion - s/p thoracentesis--exudative c/w CLL disease process HTN - cont bb HL - ok to defer statin given co-morbidities. CLL - heme following.
[2017-02-12 08:43] LABS: WHITE BLOOD COUNT 56.8 K/mm3 (4.0-10.0)
[2017-02-12 09:01] LABS: ALBUMIN 2.2 g/dl (3.4-5.0); ANION GAP 8 (8-16); CALCIUM 7.8 mg/dL (8.5-10.1); CO2 29 mmol/L (21-32); GLUCOSE,RANDOM 106 mg/dL (74-106)
[2017-02-12 09:06] LABS: ALK PHOS 45 U/L (45-117); BILIRUBIN,TOTAL 0.4 mg/dL (0.2-1.0); CREATININE 0.3 mg/dL (0.55-1.02); SGOT/AST 18 U/L (15-37); SGPT/ALT 8 U/L (12-78); TOT PROT 5.3 g/dl (6.4-8.2)
[2017-02-12 10:21] LABS: ANISOCYTOSIS 2+; SMUDGE CELLS MANY; TEAR DROP CELLS 1+
[2017-02-12] MEDS: ALLOPURINOL 300 MG TABLET (FP) PO SCH (10:31)
[2017-02-12] MEDS: FLUCONAZOLE 100 MG TABLET (UD) PO SCH (10:31)
[2017-02-12] MEDS: BACITRACIN 30 GM TUBE TOPICAL OINTMENT TP SCH ×2 (10:31→22:24)
[2017-02-12] MEDS: POTASSIUM CHLORIDE 10 MEQ in DEXTROSE 5%-WATER - 1,000 ML IVPB SCH ×2 (10:33→12:14)
--- NOTE | 2017-02-12 14:54 | PN ---
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, Physician History of Present Illness: pulmonary lethargic ,nad,-tachypnea,-dyspnea - Current Medication List Current Medications: Active Medications Acetaminophen (Tylenol -) 650 mg PO Q6H PRN PRN Reason: FEVER OR PAIN Last Admin: 02/03/17 09:36 Dose: 650 mg Acetaminophen (Tylenol Suppository -) 650 mg [place] Q6H PRN PRN Reason: FEVER OR PAIN Last Admin: 02/04/17 02:26 Dose: 650 mg Allopurinol (Zyloprim -) 300 mg PO DAILY [facility] Last Admin: 02/12/17 10:31 Dose: 300 mg Bacitracin (Bacitracin -) 1 applic TP BID [facility] Last Admin: 02/12/17 10:31 Dose: 1 applic Fluconazole (Diflucan -) 100 mg PO DAILY [facility] Last Admin: 02/12/17 10:31 Dose: 100 mg Potassium Chloride 10 meq/ (Dextrose) 1,005 mls @ 50 mls/hr IVPB Q20H [facility] Last Admin: 02/12/17 12:14 Dose: Not Given Insulin Aspart (Novolog Vial Sliding Scale -) 1 vial SQ ACHS [facility] PRN Reason: Protocol Last Admin: 02/12/17 12:14 Dose: Not Given Insulin Detemir (Levemir Vial) 3 units SQ AM [facility] Last Admin: 02/12/17 06:03 Dose: 3 units Levothyroxine Sodium (Synthroid -) 25 mcg PO DAILY@0700 [facility] Last Admin: 02/12/17 06:04 Dose: 25 mcg Metoprolol Tartrate (Lopressor -) 25 mg PO TID [facility] Last Admin: 02/12/17 14:04 Dose: 25 mg - Objective Vital Signs: Vital Signs Temperature 99.3 F 02/12/17 10:00 Pulse Rate 63 02/12/17 11:15 Respiratory Rate 20 02/12/17 10:00 Blood Pressure 118/71 02/12/17 10:00 O2 Sat by Pulse Oximetry (%) 94 L 02/12/17 11:15 Constitutional: Yes: Well Nourished, Calm Eyes: Yes: WNL HENT: Yes: WNL Neck: Yes: WNL Cardiovascular: Yes: Regular Rate and Rhythm, S1, S2 Respiratory: Yes: Diminished (poor inspiratory effort) Gastrointestinal: Yes: Normal Bowel Sounds, Soft Extremities: Yes: WNL Edema: No Labs: CBC, BMP 02/12/17 06:30 02/12/17 06:30 INR, PTT INR 1.08 (0.82-1.09) 01/26/17 05:50 Fibrinogen 397.0 mg/dL (238-498) 01/26/17 05:50 Assessment/Plan Problem List - Problems (1) Acute respiratory failure with hypoxia Code(s): J96.01 - ACUTE RESPIRATORY FAILURE WITH HYPOXIA (2) Pleural effusion Code(s): J90 - PLEURAL EFFUSION, NOT ELSEWHERE CLASSIFIED (3) CLL (chronic lymphocytic leukemia) Code(s): C91.10 - CHRONIC LYMPHOCYTIC LEUK OF B-CELL TYPE NOT ACHIEVE REMIS (4) Diabetes mellitus Code(s): E11.9 - TYPE 2 DIABETES MELLITUS WITHOUT COMPLICATIONS (5) Hypertension Code(s): I10 - ESSENTIAL (PRIMARY) HYPERTENSION (6) Hypothyroid Code(s): E03.9 - HYPOTHYROIDISM, UNSPECIFIED (7) Anemia Code(s): D64.9 - ANEMIA, UNSPECIFIED Qualifiers: Anemia type: unspecified type Qualified Code(s): D64.9 - Anemia, unspecified (8) Lactic acidosis Code(s): E87.2 - ACIDOSIS Assessment/Plan Acute Hypoxic Respiratory Failure improving Right Pleural Effusion exudate CLL Lactic Acidosis likely due to hypoxia improved CLL HTN DM Hypothyroidism - O2 to keep SpO2 >90% - BiPAP prn - aspiration precautions - DVT prophylaxis - f/u chest x-ray in am - prognosis poor DR CHAVARRIA
[2017-02-12] MEDS ORDERED: INSULIN (NOVOLOG) ASPART 100 UNITS/ML 10ML VIAL ONE (18:22)
[2017-02-13] MEDS: ACETAMINOPHEN 650 MG SUPP.RECT PR PRN (02:43)
[2017-02-13] MEDS: INSULIN SLIDING SCALE (NOVOLOG) 1 VIAL SQ SCH ×4 (06:33→22:16)
[2017-02-13] MEDS: METOPROLOL TARTRATE 25 MG TABLET (FP) PO SCH ×3 (06:39→22:20)
[2017-02-13] MEDS: INSULIN DETEMIR 100 UNITS/ML MDV SQ SCH (06:39)
[2017-02-13] MEDS: POTASSIUM CHLORIDE 10 MEQ in DEXTROSE 5%-WATER - 1,000 ML IVPB SCH ×2 (06:40→10:18)
[2017-02-13] MEDS: LEVOTHYROXINE NA 25 MCG TABLET (FP) PO SCH (06:40)
[2017-02-13 08:30] LABS: MCH 30.5 pg (25.7-33.7); MEAN CELL VOLUME 98.6 fl (80-96); MEAN PLT VOLUME 9.7 fl (7.5-11.1); PLATELET COUNT 50 K/MM3 (134-434); RDW 26.9 % (11.6-15.6)
[2017-02-13 08:55] LABS: ALBUMIN 2.2 g/dl (3.4-5.0); ALK PHOS 46 U/L (45-117); ANION GAP 6 (8-16); BILIRUBIN,TOTAL 0.3 mg/dL (0.2-1.0); CALCIUM 7.8 mg/dL (8.5-10.1); CO2 30 mmol/L (21-32); CREATININE 0.3 mg/dL (0.55-1.02); GLUCOSE,RANDOM 123 mg/dL (74-106); SGOT/AST 19 U/L (15-37); SGPT/ALT 8 U/L (12-78); TOT PROT 5.3 g/dl (6.4-8.2)
[2017-02-13 09:11] LABS: WHITE BLOOD COUNT 58.5 K/mm3 (4.0-10.0)
[2017-02-13] MEDS: BACITRACIN 30 GM TUBE TOPICAL OINTMENT TP SCH ×2 (10:11→22:20)
[2017-02-13] MEDS: FLUCONAZOLE 100 MG TABLET (UD) PO SCH (10:11)
[2017-02-13] MEDS: ALLOPURINOL 300 MG TABLET (FP) PO SCH (10:11)
--- NOTE | 2017-02-13 10:38 | PN ---
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 (short form) - Note 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: PULMONARY More alert, awake. No fevers recorded. Last Vital Signs Temp Pulse Resp BP Pulse Ox 99.6 F 99 H 20 110/64 94 L 02/13/17 07:51 02/13/17 07:51 02/13/17 07:51 02/13/17 07:51 02/12/17 21:00 Gen: breathing nonlabored Heart: RRR Lung: decreased breath sounds at the bases Abd: soft, nontender Ext: no edema CBC, BMP 02/13/17 06:15 02/13/17 06:15 Active Medications Acetaminophen (Tylenol -) 650 mg PO Q6H PRN PRN Reason: FEVER OR PAIN Last Admin: 02/03/17 09:36 Dose: 650 mg Acetaminophen (Tylenol Suppository -) 650 mg [place] Q6H PRN PRN Reason: FEVER OR PAIN Last Admin: 02/13/17 02:43 Dose: 650 mg Allopurinol (Zyloprim -) 300 mg PO DAILY [facility] Last Admin: 02/13/17 10:11 Dose: 300 mg Bacitracin (Bacitracin -) 1 applic TP BID [facility] Last Admin: 02/13/17 10:11 Dose: 1 applic Fluconazole (Diflucan -) 100 mg PO DAILY [facility] Last Admin: 02/13/17 10:11 Dose: 100 mg Potassium Chloride 10 meq/ (Dextrose) 1,005 mls @ 50 mls/hr IVPB Q20H [facility] Last Admin: 02/13/17 10:18 Dose: 50 mls/hr Insulin Aspart (Novolog Vial Sliding Scale -) 1 vial SQ ACHS [facility] PRN Reason: Protocol Last Admin: 02/13/17 06:33 Dose: Not Given Insulin Detemir (Levemir Vial) 3 units SQ AM [facility] Last Admin: 02/13/17 06:39 Dose: 3 units Levothyroxine Sodium (Synthroid -) 25 mcg PO DAILY@0700 [facility] Last Admin: 02/13/17 06:40 Dose: 25 mcg Metoprolol Tartrate (Lopressor -) 25 mg PO TID [facility] Last Admin: 02/13/17 06:39 Dose: 25 mg A/P Acute Hypoxic Respiratory Failure improved 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 Lactic Acidosis likely due to hypoxia improved HTN DM Hypothyroidism - O2 to keep SpO2 >90% - BiPAP as needed - aspiration precautions - on empiric antibiotics - DVT prophylaxis - continue discussions regarding goals of care and advanced directives Problem List - Problems (1) Acute respiratory failure with hypoxia Code(s): J96.01 - ACUTE RESPIRATORY FAILURE WITH HYPOXIA (2) Pleural effusion Code(s): J90 - PLEURAL EFFUSION, NOT ELSEWHERE CLASSIFIED (3) CLL (chronic lymphocytic leukemia) Code(s): C91.10 - CHRONIC LYMPHOCYTIC LEUK OF B-CELL TYPE NOT ACHIEVE REMIS (4) Diabetes mellitus Code(s): E11.9 - TYPE 2 DIABETES MELLITUS WITHOUT COMPLICATIONS (5) Hypertension Code(s): I10 - ESSENTIAL (PRIMARY) HYPERTENSION (6) Hypothyroid Code(s): E03.9 - HYPOTHYROIDISM, UNSPECIFIED (7) Anemia Code(s): D64.9 - ANEMIA, UNSPECIFIED Qualifiers: Qualified Code(s): D64.9 - Anemia, unspecified (8) Lactic acidosis Code(s): E87.2 - ACIDOSIS
[2017-02-13 11:11] LABS: PLATELET ESTIMATE MARKEDLY DECREASED (NORMAL); SMUDGE CELLS MANY
--- NOTE | 2017-02-13 11:20 | PN ---
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, Physician Chief Complaint: effusion, SVT History of Present Illness: much more alert/communicative today denies sob, PND, palpitations, leg swelling - Current Medication List Current Medications: Active Medications Acetaminophen (Tylenol -) 650 mg PO Q6H PRN PRN Reason: FEVER OR PAIN Last Admin: 02/03/17 09:36 Dose: 650 mg Acetaminophen (Tylenol Suppository -) 650 mg [place] Q6H PRN PRN Reason: FEVER OR PAIN Last Admin: 02/13/17 02:43 Dose: 650 mg Allopurinol (Zyloprim -) 300 mg PO DAILY [facility] Last Admin: 02/13/17 10:11 Dose: 300 mg Bacitracin (Bacitracin -) 1 applic TP BID [facility] Last Admin: 02/13/17 10:11 Dose: 1 applic Fluconazole (Diflucan -) 100 mg PO DAILY [facility] Last Admin: 02/13/17 10:11 Dose: 100 mg Potassium Chloride 10 meq/ (Dextrose) 1,005 mls @ 50 mls/hr IVPB Q20H [facility] Last Admin: 02/13/17 10:18 Dose: 50 mls/hr Insulin Aspart (Novolog Vial Sliding Scale -) 1 vial SQ ACHS [facility] PRN Reason: Protocol Last Admin: 02/13/17 06:33 Dose: Not Given Insulin Detemir (Levemir Vial) 3 units SQ AM [facility] Last Admin: 02/13/17 06:39 Dose: 3 units Levothyroxine Sodium (Synthroid -) 25 mcg PO DAILY@0700 [facility] Last Admin: 02/13/17 06:40 Dose: 25 mcg Metoprolol Tartrate (Lopressor -) 25 mg PO TID [facility] Last Admin: 02/13/17 06:39 Dose: 25 mg - Objective Vital Signs: Vital Signs Temperature 99.6 F 02/13/17 07:51 Pulse Rate 99 H 02/13/17 07:51 Respiratory Rate 20 02/13/17 07:51 Blood Pressure 110/64 02/13/17 07:51 O2 Sat by Pulse Oximetry (%) 94 L 02/12/17 21:00 Constitutional: Yes: Well Nourished, No Distress, Calm Cardiovascular: Yes: Regular Rate and Rhythm, S1, S2. No: JVD, Gallop, Murmur Respiratory: Yes: Regular, Diminished (L base). No: Accessory Muscle Use, Rales , Wheezes Extremities: No: Cold Edema: No Neurological: Yes: Alert. No: Seizure Psychiatric: No: Agitated Labs: CBC, BMP 02/13/17 06:15 02/13/17 06:15 INR, PTT INR 1.08 (0.82-1.09) 01/26/17 05:50 Fibrinogen 397.0 mg/dL (238-498) 01/26/17 05:50 Assessment/Plan ekg: sr, pac's. non-specific t wave abnormalities echo here 02/06: nl lv/rv. mod tio, severe mr, mod-sev tr, rvsp 50-60. pleural effusion a/p: 81 year old female with significant past medical history of hypertension, hyperlipidemia, diabetes, anemia, recent dx of CLL, and hypothyroidism who presents to the ED BIBA from [facility] facility for respiratory distress and found to have large right pleural effusion 2/2 CLL and whose hospital course is now complicated by SVT. SVT - admitted for respiratory distress and found to have large right pleural effusion 2/2 CLL and hospital course complicated by episode of SVT. - no further svt episodes here, on lopressor 25 tid--bp tolerating this dose - cont same meds severe MR/mod-severe TR/moderate pulm HTN - echo needs review by our team: no JVD or other signs chf, no audible murmurs in pt with thin habitus - given unspecified degree of underlying dementia and functional status, and uncontrolled hematologic malignancy now causing pleural effusion, may not be a candidate for any therapy other than diuretics in any event - observe for s/sx of chf - no lasix currently indicated pleural effusion - s/p thoracentesis--exudative c/w CLL disease process HTN - cont bb HL - ok to defer statin given co-morbidities. CLL - heme following.
--- NOTE | 2017-02-13 13:09 | PN ---
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, [employer] - Note 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: Selected Entries 02/08/17 02/08/17 02/08/17 10:35 14:27 20:16 Breakfast 25% Lunch 25% Supper 25% Temperature 02/09/17 02/09/17 02/09/17 02:00 07:29 15:46 Breakfast Lunch Supper 25% Temperature 98.2 F 98.5 F 99 F 02/09/17 02/09/17 02/10/17 17:06 22:16 06:00 Breakfast Lunch Supper Temperature 99 F 98.9 F 98.7 F 02/10/17 02/10/17 09:35 10:53 Breakfast Lunch Supper Temperature 97.7 F 99.6 F Selected Entries 02/10/17 02/10/17 02/10/17 12:12 15:41 19:03 Breakfast 25% Lunch 25% Supper 25% Temperature 02/11/17 02/11/17 02/11/17 06:00 11:34 15:50 Breakfast 50% Lunch 50% Supper Temperature 99.4 F 02/11/17 02/11/17 02/11/17 15:52 17:26 22:15 Breakfast Lunch Supper 50% Temperature 97.7 F 98.9 F 02/12/17 02/12/17 02/12/17 01:40 07:47 10:00 Breakfast Lunch Supper Temperature 100.3 F H 99.4 F 99.3 F 02/12/17 02/12/17 02/12/17 11:03 15:11 18:14 Breakfast 25% Lunch 25% Supper 25% Temperature 98.4 F 100.0 F H 02/12/17 02/13/17 02/13/17 22:00 07:51 11:56 Breakfast 75% Lunch Supper Temperature 99.2 F 99.6 F MBS - no gross aspiration noted. Oral dyscoordination with delayed swallow. Limited nutritional intake. Risk of malnutrition/dehydration. Pending family meeting with palliative care, regarding pt's wishes and TF. Suggest puree and nectar thick liquid, and provide ensure compact b/n meals for increased density of caloric intake.
--- NOTE | 2017-02-13 15:16 | PN ---
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 (short form) - Note 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: PAtient seen and examined alert answering simple questions Last Vital Signs Temp Pulse Resp BP Pulse Ox -98.5 F L 86 16 115/59 94 L 02/13/17 15:23 02/13/17 15:23 02/13/17 15:23 02/13/17 15:23 02/12/17 21:00 Cor: RSR, No murmurs, No gallops Lungs: decreased at bases Abd: Soft, Normal bowel sounds, No organomegaly Ext:No significant edema vulva/peranal area---tender ulcers with base?? chancroid Abnormal Lab Results 02/13/17 02/13/17 06:15 06:15 WBC 58.5 H* RBC 2.34 L Hgb 7.1 L Hct 23.0 L MCV 98.6 H MCHC 31.0 L RDW 26.9 H Plt Count 50 L Neutrophils % 12.0 L Lymphocytes % 86.0 H Monocytes % 2.0 L Anion Gap 6 L Creatinine 0.3 L Random Glucose 123 H Calcium 7.8 L ALT 8 L Total Protein 5.3 L Albumin 2.2 L Active Medications Generic Name Dose Route Start Last Admin Trade Name Freq PRN Reason Stop Dose Admin Acetaminophen 650 mg 01/25/17 09:53 02/03/17 09:36 Tylenol - PO 650 mg Q6H PRN Administration FEVER OR PAIN Acetaminophen 650 mg 01/28/17 15:33 02/13/17 02:43 Tylenol Suppository - [place] 650 mg Q6H PRN Administration FEVER OR PAIN Allopurinol 300 mg 01/25/17 21:00 02/13/17 10:11 Zyloprim - PO 300 mg DAILY [facility] Administration Bacitracin 1 applic 01/30/17 22:00 02/13/17 10:11 Bacitracin - TP 1 applic BID [facility] Administration Fluconazole 100 mg 02/08/17 10:00 02/13/17 10:11 Diflucan - PO 100 mg DAILY [facility] Administration Potassium Chloride 10 meq/ 1,005 mls @ 50 mls/hr 02/07/17 12:00 02/13/17 10:18 Dextrose IVPB 50 mls/hr Q20H [facility] Administration Insulin Aspart 1 vial 01/25/17 11:00 02/13/17 12:22 Novolog Vial Sliding Scale - SQ 2 unit ACHS [facility] Administration Protocol Insulin Detemir 3 units 01/26/17 07:00 02/13/17 06:39 Levemir Vial SQ 3 units AM [facility] Administration Levothyroxine Sodium 25 mcg 02/03/17 07:00 02/13/17 06:40 Synthroid - PO 25 mcg DAILY@0700 [facility] Administration Metoprolol Tartrate 25 mg 02/07/17 22:00 02/13/17 15:18 Lopressor - PO 25 mg TID [facility] Administration Valacyclovir HCl 500 mg 02/13/17 22:00 Valtrex - PO BID [facility] A/P 81 y/o patient with CLL, h/o breast cancer, dementia, has been group home resident and wheel chair 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 pleural effusion CLL--trisomy 12. also generalized adenopathy diagnosed several yrs. ago in [place] Never treated, was being monitored More recently transfusion dependent emiliana --neg. LDH --300s given overall comorbidities, functional status will need to discuss with family goals of care---discussed with son, daughter in law,patient discusseed at length side effects of chemotherapy including life threatening sepsis, tumor lysis which could be potentially fatal they have agreed upon chlorambucil Will start chlorambucil information material given will need monitoring of CBC/CMP twice weekly Breast cancer -- s/p resection. +margin. 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 pleurex vulvar lesions--s/p hsv2 treatment. discussed with ID discussed with primary team
--- NOTE | 2017-02-13 16:16 | PN ---
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, Physician History of Present Illness: + persistant vulvar/perirectal ulcers Viral c/s + HSV2 To receive chemo am - Current Medication List Current Medications: Active Medications Acetaminophen (Tylenol -) 650 mg PO Q6H PRN PRN Reason: FEVER OR PAIN Last Admin: 02/03/17 09:36 Dose: 650 mg Acetaminophen (Tylenol Suppository -) 650 mg [place] Q6H PRN PRN Reason: FEVER OR PAIN Last Admin: 02/13/17 02:43 Dose: 650 mg Allopurinol (Zyloprim -) 300 mg PO DAILY [facility] Last Admin: 02/13/17 10:11 Dose: 300 mg Bacitracin (Bacitracin -) 1 applic TP BID [facility] Last Admin: 02/13/17 10:11 Dose: 1 applic Fluconazole (Diflucan -) 100 mg PO DAILY [facility] Last Admin: 02/13/17 10:11 Dose: 100 mg Potassium Chloride 10 meq/ (Dextrose) 1,005 mls @ 50 mls/hr IVPB Q20H [facility] Last Admin: 02/13/17 10:18 Dose: 50 mls/hr Insulin Aspart (Novolog Vial Sliding Scale -) 1 vial SQ ACHS [facility] PRN Reason: Protocol Last Admin: 02/13/17 12:22 Dose: 2 unit Insulin Detemir (Levemir Vial) 3 units SQ AM [facility] Last Admin: 02/13/17 06:39 Dose: 3 units Levothyroxine Sodium (Synthroid -) 25 mcg PO DAILY@0700 [facility] Last Admin: 02/13/17 06:40 Dose: 25 mcg Metoprolol Tartrate (Lopressor -) 25 mg PO TID [facility] Last Admin: 02/13/17 15:18 Dose: 25 mg - Objective Vital Signs: Vital Signs Temperature -98.5 F L 02/13/17 15:23 Pulse Rate 86 02/13/17 15:23 Respiratory Rate 16 02/13/17 15:23 Blood Pressure 115/59 02/13/17 15:23 O2 Sat by Pulse Oximetry (%) 94 L 02/12/17 21:00 Constitutional: Yes: Cachectic Genitourinary: Yes: Other (+ shallow based vulvar ulcers, perirectal ulcer) Labs: CBC, BMP 02/13/17 06:15 02/13/17 06:15 INR, PTT INR 1.08 (0.82-1.09) 01/26/17 05:50 Fibrinogen 397.0 mg/dL (238-498) 01/26/17 05:50 Assessment/Plan Genital/ Perirectal HSV2 CLL Continue valtrex po HIV testing ( pt consents)
--- NOTE | 2017-02-13 17:03 | PN ---
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, Physician Chief Complaint: Ms Stock says she feels fine. Denies cp, sob, n/v. More awake and alert today. - Current Medication List Current Medications: Active Medications Acetaminophen (Tylenol -) 650 mg PO Q6H PRN PRN Reason: FEVER OR PAIN Last Admin: 02/03/17 09:36 Dose: 650 mg Acetaminophen (Tylenol Suppository -) 650 mg [place] Q6H PRN PRN Reason: FEVER OR PAIN Last Admin: 02/13/17 02:43 Dose: 650 mg Allopurinol (Zyloprim -) 300 mg PO DAILY [facility] Last Admin: 02/13/17 10:11 Dose: 300 mg Bacitracin (Bacitracin -) 1 applic TP BID [facility] Last Admin: 02/13/17 10:11 Dose: 1 applic Fluconazole (Diflucan -) 100 mg PO DAILY [facility] Last Admin: 02/13/17 10:11 Dose: 100 mg Sodium Chloride (1/2 Normal Saline) 1,000 mls @ 60 mls/hr IV ASDIR [facility] Insulin Aspart (Novolog Vial Sliding Scale -) 1 vial SQ ACHS [facility] PRN Reason: Protocol Last Admin: 02/13/17 12:22 Dose: 2 unit Insulin Detemir (Levemir Vial) 3 units SQ AM [facility] Last Admin: 02/13/17 06:39 Dose: 3 units Levothyroxine Sodium (Synthroid -) 25 mcg PO DAILY@0700 [facility] Last Admin: 02/13/17 06:40 Dose: 25 mcg Metoprolol Tartrate (Lopressor -) 25 mg PO TID [facility] Last Admin: 02/13/17 15:18 Dose: 25 mg Valacyclovir HCl (Valtrex -) 500 mg PO BID [facility] - Objective Vital Signs: Vital Signs Temperature -98.5 F L 02/13/17 15:23 Pulse Rate 86 02/13/17 15:23 Respiratory Rate 16 02/13/17 15:23 Blood Pressure 115/59 02/13/17 15:23 O2 Sat by Pulse Oximetry (%) 94 L 02/12/17 21:00 Constitutional: Yes: No Distress, Calm, Thin Cardiovascular: Yes: Regular Rate and Rhythm. No: Gallop, Murmur, Rub Respiratory: Yes: Regular, CTA Bilaterally. No: Rales, Rhonchi, Wheezes Gastrointestinal: Yes: Normal Bowel Sounds, Soft. No: Distention, Tenderness Extremities: Yes: WNL Edema: No Labs: CBC, BMP 02/13/17 06:15 02/13/17 06:15 INR, PTT INR 1.08 (0.82-1.09) 01/26/17 05:50 Fibrinogen 397.0 mg/dL (238-498) 01/26/17 05:50 Assessment/Plan 1. Acute hypoxic respiratory failure 2/2 large right pleural effusion -chest tube removal per Dr Cat -monitor for re-occurrence -pulmonary following 2. Bacterial pneumonia -ID following and case discussed -antibiotics stopped after full course 3. CLL, chronic anemia requiring transfusion -oncology following -case d/w patient and family -planning to start chemotherapy tomorrow -monitor for tumor lysis syndrome 4. Breast cancer s/p resection, +margin, ER+ - Per Dr. Young, "no adjuvant therapy was given as she declined per her primary oncologist in [place]" 5. Thrombocytosis -continue to monitor -management per oncology 6. Vaginal sores -improving with valtrex 7. DM II -continue low dose levemir -SSI 8. Hypothyroidism -continue synthroid 9. Hypernatremia -resolved 19. Nutrition -MBS performed -in discussion with family about goals of care 11. Prophylaxis -Hold all chemical anticoagulation -Pressure ulcers: allevyn dressing Dispo -discussed with family about goals of care -made aware poor prognosis -considering DNR and possible hospice -also considering PEG tube 42 minutes spent in care of patient and discussion with family about goals of care
[2017-02-13] MEDS: valACYclovir HCL 500 MG TABLET (FP) PO SCH (22:19)
[2017-02-13] MEDS: SODIUM CHLORIDE 0.45% 1,000 ML IV SCH (22:20)
[2017-02-14] MEDS: INSULIN SLIDING SCALE (NOVOLOG) 1 VIAL SQ SCH ×4 (07:10→22:12)
[2017-02-14] MEDS: INSULIN DETEMIR 100 UNITS/ML MDV SQ SCH (07:15)
[2017-02-14] MEDS: LEVOTHYROXINE NA 25 MCG TABLET (FP) PO SCH (07:16)
[2017-02-14] MEDS: METOPROLOL TARTRATE 25 MG TABLET (FP) PO SCH ×3 (07:16→22:11)
[2017-02-14 07:51] LABS: MCH 29.6 pg (25.7-33.7); MCHC 29.4 g/dl (32.0-36.0); MEAN CELL VOLUME 100.5 fl (80-96); MEAN PLT VOLUME 9.1 fl (7.5-11.1); RDW 27.1 % (11.6-15.6)
[2017-02-14 07:58] LABS: WHITE BLOOD COUNT 49.2 K/mm3 (4.0-10.0)
[2017-02-14 07:59] LABS: PLATELET COUNT 52 K/MM3 (134-434)
[2017-02-14 08:25] LABS: ANION GAP 9 (8-16); CALCIUM 8.1 mg/dL (8.5-10.1); CO2 29 mmol/L (21-32); CREATININE 0.6 mg/dL (0.55-1.02); GLUCOSE,RANDOM 115 mg/dL (74-106); MAGNESIUM 2.2 mg/dL (1.8-2.4); PHOSPHOROUS 2.8 mg/dL (2.5-4.9)
[2017-02-14 09:21] LABS: PLATELET ESTIMATE DECREASED (NORMAL)
[2017-02-14 09:37] LABS: SMUDGE CELLS MANY
--- NOTE | 2017-02-14 09:39 | PN ---
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 (short form) - Note 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: PULMONARY More alert, awake. Febrile this AM. Last Vital Signs Temp Pulse Resp BP Pulse Ox 100.9 F H 87 20 99/54 98 02/14/17 06:23 02/14/17 06:23 02/14/17 06:23 02/14/17 06:23 02/14/17 06:22 Gen: breathing nonlabored Heart: RRR Lung: decreased breath sounds at the bases Abd: soft, nontender Ext: no edema CBC, BMP 02/14/17 06:15 02/14/17 06:15 Active Medications Acetaminophen (Tylenol -) 650 mg PO Q6H PRN PRN Reason: FEVER OR PAIN Last Admin: 02/03/17 09:36 Dose: 650 mg Acetaminophen (Tylenol Suppository -) [address] Q6H PRN PRN Reason: FEVER OR PAIN Last Admin: 02/13/17 02:43 Dose: 650 mg Allopurinol (Zyloprim -) 300 mg PO DAILY [facility] Last Admin: 02/13/17 10:11 Dose: 300 mg Bacitracin (Bacitracin -) 1 applic TP BID [facility] Last Admin: 02/13/17 22:20 Dose: 1 applic Chlorambucil (Leukeran -) 2 mg PO DAILY [facility] Fluconazole (Diflucan -) 100 mg PO DAILY [facility] Last Admin: 02/13/17 10:11 Dose: 100 mg Sodium Chloride (1/2 Normal Saline) 1,000 mls @ 60 mls/hr IV ASDIR [facility] Last Admin: 02/13/17 22:20 Dose: Not Given Insulin Aspart (Novolog Vial Sliding Scale -) 1 vial SQ ACHS [facility] PRN Reason: Protocol Last Admin: 02/14/17 07:10 Dose: Not Given Insulin Detemir (Levemir Vial) 3 units SQ AM [facility] Last Admin: 02/14/17 07:15 Dose: 3 units Levothyroxine Sodium (Synthroid -) 25 mcg PO DAILY@0700 [facility] Last Admin: 02/14/17 07:16 Dose: 25 mcg Metoprolol Tartrate (Lopressor -) 25 mg PO TID [facility] Last Admin: 02/14/17 07:16 Dose: 25 mg Valacyclovir HCl (Valtrex -) 500 mg PO BID [facility] Last Admin: 02/13/17 22:19 Dose: 500 mg A/P Acute Hypoxic Respiratory Failure improved 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 Lactic Acidosis likely due to hypoxia improved HTN DM Hypothyroidism - transfuse PRBC - O2 to keep SpO2 >90% - BiPAP as needed - aspiration precautions - DVT prophylaxis - continue discussions regarding goals of care and advanced directives, poor overall prognosis Problem List - Problems (1) Acute respiratory failure with hypoxia Code(s): J96.01 - ACUTE RESPIRATORY FAILURE WITH HYPOXIA (2) Pleural effusion Code(s): J90 - PLEURAL EFFUSION, NOT ELSEWHERE CLASSIFIED (3) CLL (chronic lymphocytic leukemia) Code(s): C91.10 - CHRONIC LYMPHOCYTIC LEUK OF B-CELL TYPE NOT ACHIEVE REMIS (4) Diabetes mellitus Code(s): E11.9 - TYPE 2 DIABETES MELLITUS WITHOUT COMPLICATIONS (5) Hypertension Code(s): I10 - ESSENTIAL (PRIMARY) HYPERTENSION (6) Hypothyroid Code(s): E03.9 - HYPOTHYROIDISM, UNSPECIFIED (7) Anemia Code(s): D64.9 - ANEMIA, UNSPECIFIED Qualifiers: Qualified Code(s): D64.9 - Anemia, unspecified (8) Lactic acidosis Code(s): E87.2 - ACIDOSIS
[2017-02-14] MEDS ORDERED: valACYclovir HCL 500 MG TABLET (FP) PO SCH (10:00)
[2017-02-14] MEDS ORDERED: CHLORAMBUCIL 2 MG PO SCH (10:00)
[2017-02-14] MEDS ORDERED: PT OWN MED DRAWER 7, Y5N ONE (10:18)
[2017-02-14] MEDS: ACETAMINOPHEN 325 MG TABLET (FP) PO PRN (10:21)
[2017-02-14] MEDS: FLUCONAZOLE 100 MG TABLET (UD) PO SCH (10:21)
[2017-02-14] MEDS: ALLOPURINOL 300 MG TABLET (FP) PO SCH (10:21)
[2017-02-14] MEDS: BACITRACIN 30 GM TUBE TOPICAL OINTMENT TP SCH ×2 (10:22→22:10)
[2017-02-14] MEDS: valACYclovir HCL 500 MG TABLET (FP) PO SCH ×2 (10:22→22:14)
--- NOTE | 2017-02-14 11:03 | PN ---
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, [employer] - Note 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: Selected Entries 02/13/17 02/13/17 02/13/17 07:51 09:00 11:56 Breakfast 75% Lunch Supper Temperature 99.6 F 98.2 F 02/13/17 02/13/17 02/13/17 15:23 17:00 18:30 Breakfast Lunch 75% Supper 25% Temperature -98.5 F L 98.1 F 02/13/17 02/14/17 02/14/17 22:00 02:20 06:23 Breakfast Lunch Supper Temperature 98.9 F 98.6 F 100.9 F H Palliative care consult appreciated. Pt is full code at present, [place] d/c being considered. Case reviewed with staff.
[2017-02-14 11:24] LABS: HIV 1 & 2 AB NEGATIVE; HIV 1 AGp24 NEGATIVE
--- NOTE | 2017-02-14 11:50 | PN ---
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, Physician Chief Complaint: Ms Stock is lethargic today but arousable. No cp, sob, n/v. - Current Medication List Current Medications: Active Medications Acetaminophen (Tylenol -) 650 mg PO Q6H PRN PRN Reason: FEVER OR PAIN Last Admin: 02/14/17 10:21 Dose: 650 mg Acetaminophen (Tylenol Suppository -) 650 mg [place] Q6H PRN PRN Reason: FEVER OR PAIN Last Admin: 02/13/17 02:43 Dose: 650 mg Allopurinol (Zyloprim -) 300 mg PO DAILY [facility] Last Admin: 02/14/17 10:21 Dose: 300 mg Bacitracin (Bacitracin -) 1 applic TP BID [facility] Last Admin: 02/14/17 10:22 Dose: 1 applic Chlorambucil (Leukeran -) 2 mg PO DAILY [facility] Fluconazole (Diflucan -) 100 mg PO DAILY [facility] Last Admin: 02/14/17 10:21 Dose: 100 mg Sodium Chloride (1/2 Normal Saline) 1,000 mls @ 60 mls/hr IV ASDIR [facility] Last Admin: 02/13/17 22:20 Dose: Not Given Insulin Aspart (Novolog Vial Sliding Scale -) 1 vial SQ ACHS [facility] PRN Reason: Protocol Last Admin: 02/14/17 07:10 Dose: Not Given Insulin Detemir (Levemir Vial) 3 units SQ AM [facility] Last Admin: 02/14/17 07:15 Dose: 3 units Levothyroxine Sodium (Synthroid -) 25 mcg PO DAILY@0700 [facility] Last Admin: 02/14/17 07:16 Dose: 25 mcg Metoprolol Tartrate (Lopressor -) 25 mg PO TID [facility] Last Admin: 02/14/17 07:16 Dose: 25 mg Valacyclovir HCl (Valtrex -) 500 mg PO BID [facility] Last Admin: 02/14/17 10:22 Dose: 500 mg - Objective Vital Signs: Vital Signs Temperature 100.9 F H 02/14/17 06:23 Pulse Rate 87 02/14/17 06:23 Respiratory Rate 20 02/14/17 06:23 Blood Pressure 99/54 02/14/17 06:23 O2 Sat by Pulse Oximetry (%) 98 02/14/17 06:22 Constitutional: Yes: No Distress, Calm, Thin Cardiovascular: Yes: Regular Rate and Rhythm. No: Gallop, Murmur, Rub Respiratory: Yes: Regular, CTA Bilaterally. No: Rales, Rhonchi, Wheezes Gastrointestinal: Yes: Normal Bowel Sounds, Soft. No: Distention, Tenderness Extremities: Yes: WNL Edema: No Labs: CBC, BMP 02/14/17 06:15 02/14/17 06:15 INR, PTT INR 1.08 (0.82-1.09) 01/26/17 05:50 Fibrinogen 397.0 mg/dL (238-498) 01/26/17 05:50 Assessment/Plan 1. Acute hypoxic respiratory failure 2/2 large right pleural effusion -chest tube removal per Dr Cat -monitor for re-occurrence -pulmonary following -resolved currently 2. Bacterial pneumonia -ID following and case discussed -antibiotics stopped after full course 3. CLL, chronic anemia requiring transfusion -oncology following -case d/w patient and family -started chemotherapy today -monitor for tumor lysis syndrome 4. Breast cancer s/p resection, +margin, ER+ - Per Dr. Young, "no adjuvant therapy was given as she declined per her primary oncologist in [place]" 5. Anemia -patient significantly anemic today -transfusion per hematology 6. Vaginal sores -improving with valtrex 7. DM II -continue low dose levemir -SSI 8. Hypothyroidism -continue synthroid 9. Hypernatremia -resolved 19. Nutrition -MBS performed -in discussion with family about goals of care 11. Prophylaxis -Hold all chemical anticoagulation -Pressure ulcers: allevyn dressing Dispo -palliative care note states family is considering [place], which is appropriate -await recommendations -will contact family in next 24-48 hours, do not want them to feel pressured about decision as son was very overwhelmed yesterday
--- NOTE | 2017-02-14 12:45 | PN ---
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 (short form) - Note 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: Chief Complaint: effusion, SVT History of Present Illness: denies sob, PND, palpitations, leg swelling. shakes her head but otherwise minimal communication. getting transfusion. Current Medications Acetaminophen (Tylenol -) 650 mg PO Q6H PRN PRN Reason: FEVER OR PAIN Last Admin: 02/14/17 10:21 Dose: 650 mg Acetaminophen (Tylenol Suppository -) 650 mg [place] Q6H PRN PRN Reason: FEVER OR PAIN Last Admin: 02/13/17 02:43 Dose: 650 mg Allopurinol (Zyloprim -) 300 mg PO DAILY [facility] Last Admin: 02/14/17 10:21 Dose: 300 mg Bacitracin (Bacitracin -) 1 applic TP BID [facility] Last Admin: 02/14/17 10:22 Dose: 1 applic Chlorambucil (Leukeran -) 2 mg PO DAILY [facility] Last Admin: 02/14/17 12:10 Dose: 2 mg Fluconazole (Diflucan -) 100 mg PO DAILY [facility] Last Admin: 02/14/17 10:21 Dose: 100 mg Sodium Chloride (1/2 Normal Saline) 1,000 mls @ 60 mls/hr IV ASDIR [facility] Last Admin: 02/13/17 22:20 Dose: Not Given Insulin Aspart (Novolog Vial Sliding Scale -) 1 vial SQ ACHS [facility] PRN Reason: Protocol Last Admin: 02/14/17 12:11 Dose: 2 unit Insulin Detemir (Levemir Vial) 3 units SQ AM [facility] Last Admin: 02/14/17 07:15 Dose: 3 units Levothyroxine Sodium (Synthroid -) 25 mcg PO DAILY@0700 [facility] Last Admin: 02/14/17 07:16 Dose: 25 mcg Metoprolol Tartrate (Lopressor -) 25 mg PO TID [facility] Last Admin: 02/14/17 07:16 Dose: 25 mg Valacyclovir HCl (Valtrex -) 500 mg PO BID [facility] Last Admin: 02/14/17 10:22 Dose: 500 mg Vital Signs - 24 hr 02/13/17 02/13/17 02/13/17 15:23 17:00 21:00 Temperature -98.5 F L 98.1 F Pulse Rate 86 82 Respiratory 16 18 18 Rate Blood Pressure 115/59 125/60 O2 Sat by Pulse Oximetry (%) 02/13/17 02/14/17 02/14/17 22:00 02:20 06:22 Temperature 98.9 F 98.6 F Pulse Rate 90 102 H Respiratory 20 20 Rate Blood Pressure 116/54 100/50 O2 Sat by Pulse 98 Oximetry (%) 02/14/17 06:23 Temperature 100.9 F H Pulse Rate 87 Respiratory 20 Rate Blood Pressure 99/54 O2 Sat by Pulse Oximetry (%) Intake & Output 02/12/17 02/13/17 02/14/17 02/15/17 07:59 07:59 07:59 07:59 Intake Total 1220 920 990 Balance 1220 920 990 Constitutional: Yes: Well Nourished, No Distress, Calm Cardiovascular: Yes: Regular Rate and Rhythm, S1, S2. No: JVD, Gallop, Murmur Respiratory: Yes: Regular, Diminished (L base). No: Accessory Muscle Use, Rales , Wheezes Extremities: No: Cold Edema: No Neurological: Yes: Alert. No: Seizure Psychiatric: No: Agitated Labs: CBC, BMP 02/14/17 06:15 02/14/17 06:15 Assessment/Plan ekg: sr, pac's. non-specific t wave abnormalities echo here 02/06: nl lv/rv. mod tio, severe mr, mod-sev tr, rvsp 50-60. pleural effusion echo images reviewed by Dr. Welch; report of severe MR and mod-severe TR appears overestimated. MR and TR both appear very much within moderate range a/p: 81 year old female with significant past medical history of hypertension, hyperlipidemia, diabetes, anemia, recent dx of CLL, and hypothyroidism who presents to the ED BIBA from [facility] facility for respiratory distress and found to have large right pleural effusion 2/2 CLL and whose hospital course is now complicated by SVT. SVT - admitted for respiratory distress and found to have large right pleural effusion 2/2 CLL and hospital course complicated by episode of SVT. - no further svt episodes here, on lopressor 25 tid--bp tolerating this dose - 02/14: will reassess bp after blood transfusion, if remains low will need to hold metoprolol. - cont same meds severe MR/mod-severe TR/moderate pulm HTN - echo reviewed by our team: no JVD or other signs chf, no audible murmurs in pt with thin habitus - given unspecified degree of underlying dementia and functional status, and uncontrolled hematologic malignancy now causing pleural effusion, may not be a candidate for any therapy other than diuretics in any event - observe for s/sx of chf - no lasix currently indicated pleural effusion - s/p thoracentesis--exudative c/w CLL disease process HTN - cont bb as bp allows HL - ok to defer statin given co-morbidities. CLL - heme following.
[2017-02-14] MEDS ORDERED: SODIUM CHLORIDE 500 ML IV STA (15:36)
--- NOTE | 2017-02-14 17:01 | PN ---
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 (short form) - Note 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: off zosyn since 02/07 on valtrex and diflucan started chemo today (chlorambucil) noted to be anemic and transfused febrile to 100.9 this am prior to transfusion now hypotensive and going to the ICU alert asking for ice cream no complaints denies SOB no chest/abdominal pain Vital Signs Period Temp Pulse Resp BP Sys/Choi Pulse Ox Last 24 Hr 96.8 F-100.9 F 78-102 18-20 99-167/40-60 98-98 NAD alert cor-rrr lungs decreased bs on the left abd soft,nt ext no edema shallow vulvar and perineal ulcer- no purulence CBC, BMP 02/14/17 06:15 02/14/17 06:15 [id number] Current Medications Generic Name Dose Route Start Last Admin Trade Name Freq PRN Reason Stop Dose Admin Acetaminophen 650 mg 01/25/17 09:53 02/14/17 10:21 Tylenol - PO 650 mg Q6H PRN Administration FEVER OR PAIN Acetaminophen 650 mg 01/28/17 15:33 02/13/17 02:43 Tylenol Suppository - [place] 650 mg Q6H PRN Administration FEVER OR PAIN Allopurinol 300 mg 01/25/17 21:00 02/14/17 10:21 Zyloprim - PO 300 mg DAILY [facility] Administration Bacitracin 1 applic 01/30/17 22:00 02/14/17 10:22 Bacitracin - TP 1 applic BID [facility] Administration Chlorambucil 2 mg 02/14/17 10:00 02/14/17 12:10 Leukeran - PO 2 mg DAILY [facility] Administration Fluconazole 100 mg 02/08/17 10:00 02/14/17 10:21 Diflucan - PO 100 mg DAILY [facility] Administration Sodium Chloride 1,000 mls @ 60 mls/hr 02/13/17 16:30 02/13/17 22:20 1/2 Normal Saline IV Not Given ASDIR [facility] Insulin Aspart 1 vial 01/25/17 11:00 02/14/17 12:11 Novolog Vial Sliding Scale - SQ 2 unit ACHS [facility] Administration Protocol Insulin Detemir 3 units 01/26/17 07:00 02/14/17 07:15 Levemir Vial SQ 3 units AM [facility] Administration Levothyroxine Sodium 25 mcg 02/03/17 07:00 02/14/17 07:16 Synthroid - PO 25 mcg DAILY@0700 [facility] Administration Metoprolol Tartrate 25 mg 02/07/17 22:00 02/14/17 16:58 Lopressor - PO Not Given TID [facility] Valacyclovir HCl 500 mg 02/13/17 22:00 02/14/17 10:22 Valtrex - PO 500 mg BID [facility] Administration a/p fever/hypotension r/o sepsis anemia CLL recent chest tube for pleural effusion repeat blood cultures/urine culture CXRAY vancomycin cefepime continue valtrex for genital HSV CLL- per oncology anemia- s/p transfusion
[2017-02-14] MEDS ORDERED: VANCOMYCIN 1 GRAM (PRE-DOCKED) 1,000 MG/250 ML BAG IVPB ONE (17:04)
[2017-02-14] MEDS: SODIUM CHLORIDE 0.45% 1,000 ML IV SCH ×2 (17:27→17:53)
--- NOTE | 2017-02-14 17:28 | PN ---
Physical Exam: SUBJECTIVE: Patient seen and examined patient of cll, started on chemo today received one unit of blood for anemia Patient Bp dropped, but increased after getting Iv bolus, Patient used to have chest tube for effusion but has been removed. Patient had completed a course of zosyn Patient had fever, fall in BP, r/o sepsis. Anemia. denies chest pain, sob, lighheadidness, palpitations OBJECTIVE: Vital Signs Period Temp Pulse Resp BP Sys/Choi Pulse Ox Last 24 Hr 96.8 F-100.9 F 78-102 18-20 99-167/40-54 98-98 GENERAL: The patient is awake, alert, and fully oriented, in no acute distress. HEAD: Normal with no signs of trauma. ENT: moist mucous membranes. LUNGS: breath sounds decreased on right side, no wheez, no crackels HEART: s1s2 normal, irregular ABDOMEN: Soft, nontender, nondistended, normoactive bowel sounds, no guarding EXTREMITIES: 2+ pulses, warm, well-perfused, no edema. PSYCH: Normal mood, normal affect. SKIN: Warm, dry, Laboratory Results - last 24 hr 02/13/17 02/14/17 02/14/17 22:15 06:15 06:15 WBC 49.2 H* RBC 2.00 L Hgb 5.9 L* D Hct 20.1 L MCV 100.5 H MCHC 29.4 L RDW 27.1 H Plt Count 52 L MPV 9.1 Neutrophils % 18.0 L D Lymphocytes % 80.0 H Monocytes % 1.0 L Differential Comment Manual diff done Reactive Lymphocytes 1 D Smudge Cells Many Platelet Estimate Decreased Sodium 141 Potassium 4.4 Chloride 103 Carbon Dioxide 29 Anion Gap 9 BUN 12 D Creatinine 0.6 D POC Glucometer 120 Random Glucose 115 H Calcium 8.1 L Phosphorus 2.8 D Magnesium 2.2 HIV 1&2 Antibody Screen HIV P24 Antigen Blood Type Antibody Screen Crossmatch 02/14/17 02/14/17 02/14/17 06:15 07:09 09:27 WBC RBC Hgb Hct MCV MCHC RDW Plt Count MPV Neutrophils % Lymphocytes % Monocytes % Differential Comment Reactive Lymphocytes Smudge Cells Platelet Estimate Sodium Potassium Chloride Carbon Dioxide Anion Gap BUN Creatinine POC Glucometer 135 Random Glucose Calcium Phosphorus Magnesium HIV 1&2 Antibody Screen Negative HIV P24 Antigen Negative Blood Type A POSITIVE Antibody Screen Negative Crossmatch See Detail 02/14/17 02/14/17 11:56 17:00 WBC RBC Hgb Hct MCV MCHC RDW Plt Count MPV Neutrophils % Lymphocytes % Monocytes % Differential Comment Reactive Lymphocytes Smudge Cells Platelet Estimate Sodium Potassium Chloride Carbon Dioxide Anion Gap BUN Creatinine POC Glucometer 157 151 Random Glucose Calcium Phosphorus Magnesium HIV 1&2 Antibody Screen HIV P24 Antigen Blood Type Antibody Screen Crossmatch Active Medications Generic Name Dose Route Start Last Admin Trade Name Freq PRN Reason Stop Dose Admin Acetaminophen 650 mg 01/25/17 09:53 02/14/17 10:21 Tylenol - PO 650 mg Q6H PRN Administration FEVER OR PAIN Acetaminophen 650 mg 01/28/17 15:33 02/13/17 02:43 Tylenol Suppository - [place] 650 mg Q6H PRN Administration FEVER OR PAIN Allopurinol 300 mg 01/25/17 21:00 02/14/17 10:21 Zyloprim - PO 300 mg DAILY [facility] Administration Bacitracin 1 applic 01/30/17 22:00 02/14/17 10:22 Bacitracin - TP 1 applic BID [facility] Administration Cefepime HCl 1 gm 02/14/17 18:00 Maxipime (Restricted To Id) - IVPB Q8H-IV [facility] Protocol Chlorambucil 2 mg 02/14/17 10:00 02/14/17 12:10 Leukeran - PO 2 mg DAILY [facility] Administration Fluconazole 100 mg 02/08/17 10:00 02/14/17 10:21 Diflucan - PO 100 mg DAILY [facility] Administration Sodium Chloride 1,000 mls @ 75 mls/hr 02/14/17 17:28 1/2 Normal Saline IV ASDIR [facility] Insulin Aspart 1 vial 01/25/17 11:00 02/14/17 17:03 Novolog Vial Sliding Scale - SQ 2 unit ACHS [facility] Administration Protocol Insulin Detemir 3 units 01/26/17 07:00 02/14/17 07:15 Levemir Vial SQ 3 units AM [facility] Administration Levothyroxine Sodium 25 mcg 02/03/17 07:00 02/14/17 07:16 Synthroid - PO 25 mcg DAILY@0700 [facility] Administration Metoprolol Tartrate 25 mg 02/07/17 22:00 02/14/17 16:58 Lopressor - PO Not Given TID [facility] Valacyclovir HCl 500 mg 02/13/17 22:00 02/14/17 10:22 Valtrex - PO 500 mg BID [facility] Administration ASSESSMENT/PLAN: 1. Acute hypoxic respiratory failure 2/2 large right pleural effusion - chest tube has been removed -repeat cxr in morning, monitor for re-occurrence - continue incentive spirometry -pulmonary on case 2 r/o sepsis patient develop hypotension, have few readings of fever follow blood and urine culture on vanco and 3. CLL, chronic anemia requiring transfusion -oncology following -got chemotherapy today -monitor for tumor lysis syndrome - isolation precautions 4. Anemia got one unit of blood follow hb 5. Vaginal sores -on valtrex 6. DM II -continue low dose levemir -SSI - monitor blood glucose 7. Hypothyroidism -continue synthroid -Pressure ulcers: allevyn dressing fluid : /2 n 75ml/hr electrolyte : follow in am nutrition dysphagia puree gi pro : not required dvt pro on scd, thrombocytopenia, dispo: admit in icu Visit type - Emergency Visit Emergency Visit: Yes ED Registration Date: 01/25/17 Care time: The patient presented to the Emergency Department on the above date and was hospitalized for further evaluation of their emergent condition. - New Patient This patient is new to me today: Yes Date on this admission: 02/14/17 - Critical Care Critical Care patient: Yes Total Critical Care Time (in minutes): 45 Critical Care Statement: The care of this patient involved high complexity decision making to prevent further life threatening deterioration of the patient 's condition and/or to evalute & treat vital organ system(s) failure or risk of failure.
[2017-02-14] MEDS ORDERED: CEFEPIME HCL 1 GM VIAL (RESTRICTED TO ID) IVPB SCH (18:00)
[2017-02-14] MEDS ORDERED: ACETAMINOPHEN 650 MG SUPP.RECT PR PRN (19:15)
[2017-02-14] MEDS ORDERED: ACETAMINOPHEN 325 MG TABLET (FP) PO PRN (19:15)
[2017-02-14] MEDS: CEFEPIME 1 GM in DEXTROSE 5%-WATER - 100 ML IVPB SCH (19:43)
--- NOTE | 2017-02-14 19:50 | CONSULT ---
Consult - text type - Consultation Consultation Note: PULM/CCM CC: hypotension, anemia HPI: Briefly Ms Stock is an 81 y/o woman with pmhx notable for HTN, DM, CLL, anemia, LV systolic dysfunction, hypothyroidism, dementia who was admitted to hospital 20 days ago with pleural effusion and respiratory failure now s/p chest tube (since removed). She has required regular transfusion. This morning had low grade temp, and was started chemo ( chlorambucil) She became hypotensive requiring fluid boluses and was transfused for hgb 7.1--> 5.8, repeat pending. There was no overt signs of bleeding, no melena, no hematemesis , no abd pain, no lightheadedness. She was transferred to ICU for closer monitoring. She had been on P/T, Valtrex and flucon. Broadened by ID for fever , given her functional immunoincompetenece. BP improved with PRBC and fluid. 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 Ambulatory Orders Aa/Hydrolyzed Collagen, Whey [Lps Neutral Flavor Liquid] 30 ml PO BID 10/15/16 Acetaminophen [Tylenol] 650 mg PO Q6H PRN 10/15/16 Albuterol 2.5/Ipratropium 0.5 [Duoneb -] 1 amp NEB QID PRN 10/15/16 Aspirin [Ecotrin] 81 mg PO DAILY 10/15/16 Atorvastatin Ca [Lipitor] 40 mg PO HS 10/15/16 Gabapentin 300 mg PO HS 10/15/16 Insulin Detemir [Levemir Flextouch] 6 unit SQ AM 10/15/16 Menthol/Zinc Oxide [Calmoseptine Ointment] 3.5 gm TP TID 10/15/16 Metoprolol Tartrate [Lopressor -] 25 mg PO BID 10/15/16 Montelukast Na [Singulair -] 10 mg PO HS 10/15/16 Thyroid [Sharon Thyroid] 30 mg PO DAILY 10/15/16 Ascorbate Calcium [Vitamin C] 500 mg PO TID 01/25/17 Benzonatate [Tessalon Pearls -] 100 mg PO TID 01/25/17 Cephalexin Monohydrate [Keflex -] 500 mg PO BID 01/25/17 Chlorhexidine Gluconate [Hibiclens For Decolonization -] 1 applic TP TID Chlorpheniramine/Dextromethorp [Robitussin Long-Acting Liq] 10 ml PO Q8H PRN 03/08 Docusate Sodium [Colace -] 200 mg PO HS 01/25/17 Ferrous Sulfate 325 mg PO TID 01/25/17 Insulin (Novolog) [Novolog Flexpen] 0 units SQ TID 01/25/17 Multivitamin with Minerals [Icaps Plus] 1 each PO DAILY 01/25/17 Active Medications Acetaminophen (Tylenol -) 650 mg PO Q6H PRN PRN Reason: FEVER OR PAIN Acetaminophen (Tylenol Suppository -) 650 mg [place] Q6H PRN PRN Reason: FEVER OR PAIN Allopurinol (Zyloprim -) 300 mg PO DAILY [facility] Bacitracin (Bacitracin -) 1 applic TP BID [facility] Chlorambucil (Leukeran -) 2 mg PO DAILY [facility] Fluconazole (Diflucan -) 100 mg PO DAILY [facility] Sodium Chloride (1/2 Normal Saline) 1,000 mls @ 75 mls/hr IV ASDIR [facility] Last Admin: 02/14/17 17:53 Dose: 75 mls/hr Cefepime HCl 1 gm/ Dextrose 100 mls @ 200 mls/hr IVPB Q8H-IV [facility] PRN Reason: Protocol Last Admin: 02/14/17 19:43 Dose: 200 mls/hr Insulin Aspart (Novolog Vial Sliding Scale -) 1 vial SQ ACHS [facility] PRN Reason: Protocol Insulin Detemir (Levemir Vial) 3 units SQ AM [facility] Levothyroxine Sodium (Synthroid -) 25 mcg PO DAILY@0700 [facility] Metoprolol Tartrate (Lopressor -) 25 mg PO TID [facility] Valacyclovir HCl (Valtrex -) 500 mg PO BID [facility] Vital Signs Temp 97.3 F L 02/14/17 17:42 Pulse 76 02/14/17 17:42 Resp 21 02/14/17 17:42 BP 105/65 02/14/17 17:42 Pulse Ox 96 02/14/17 17:42 Intake & Output 02/13/17 02/14/17 02/14/17 23:59 11:59 23:59 Intake Total 510 1030 200 Balance 510 1030 200 Intake: IV 240 680 1/2 Normal Saline 1,000 240 680 ml @ 60 mls/hr IV ASDIR [facility] Rx#:[id number] Oral 270 200 Packed Cells 350 Other: Voiding Method Diaper Diaper Incontinent Bowel Movement No CBC, BMP 02/14/17 06:15 02/14/17 06:15 GENERAL: The patient is awake, alert, INAD. HEAD: Normocephalic, slight pallor ENT: moist mucous membranes, no thrush LUNGS: breath sounds decreased on right side, no wheezes, no accessory muscle use HEART: s1s2 normal, irregular ABDOMEN: Soft, nontender, nondistended, normoactive bowel sounds, no guarding or rebound EXTREMITIES: 2+ pulses, warm, well-perfused, no edema. PSYCH: Normal mood, normal affect. SKIN: Warm, dry,, cap reflil < 2 sec A/ 81 y/o woman with CLL and chronic anemia/pancytopenia now with hypotension, ongoing transfusion requirement, and fever Acute Hypoxic Respiratory Failure improved 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 Lactic Acidosis likely due to hypoxia improved HTN DM Hypothyroidism p/ - transfuse PRBC, f/u repeat and q8 CBC - O2 to keep SpO2 >90% - broad spectrum abx as per ID, Cefepime from P/T today - BP improved with volume, will hold BB if recurs - BiPAP as needed - aspiration precautions - DVT prophylaxis - continue discussions regarding goals of care and advanced directives, poor overall prognosis - If BP stable can return to floor Denton Trean ACNP [id number]
--- NOTE | 2017-02-14 21:22 | PN ---
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 (short form) - Note 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: Patient seen and examined Transferred to ICU with hypotension and fall in Hct. Given 500 cc bolus of fluid and 2 units of packed cells with improvement in BP. No obvious melena or bleeding, Seems comfortable now lying in bed Had low grade temp earlier today Last Vital Signs Temp Pulse Resp BP Pulse Ox 97.3 F L 76 21 105/65 96 02/14/17 17:42 02/14/17 17:42 02/14/17 20:57 02/14/17 17:42 02/14/17 20:57 HEENT: ADA, EOM Intact Cor: RSR, No murmurs, No gallops Lungs: poor inspiratory effort bilaterally Abd: Soft, Normal bowel sounds, No organomegaly Vulvar ulcers Ext:No significant edema Skin: No rashes, Integument intact CBC, BMP 02/14/17 06:15 02/14/17 06:15 Current Medications Generic Name Dose Route Start Last Admin Trade Name Freq PRN Reason Stop Dose Admin Acetaminophen 650 mg 02/14/17 19:15 Tylenol - PO Q6H PRN FEVER OR PAIN Acetaminophen 650 mg 02/14/17 19:15 Tylenol Suppository - [place] Q6H PRN FEVER OR PAIN Allopurinol 300 mg 02/15/17 10:00 Zyloprim - PO DAILY [facility] Bacitracin 1 applic 02/14/17 22:00 Bacitracin - TP BID [facility] Chlorambucil 2 mg 02/15/17 10:00 Leukeran - PO DAILY [facility] Fluconazole 100 mg 02/15/17 10:00 Diflucan - PO DAILY [facility] Sodium Chloride 1,000 mls @ 75 mls/hr 02/14/17 17:28 02/14/17 17:53 1/2 Normal Saline IV 75 mls/hr ASDIR [facility] Administration Cefepime HCl 1 gm/ Dextrose 100 mls @ 200 mls/hr 02/14/17 18:00 02/14/17 19:43 IVPB 200 mls/hr Q8H-IV [facility] Administration Protocol Insulin Aspart 1 vial 02/14/17 22:00 Novolog Vial Sliding Scale - SQ ACHS [facility] Protocol Insulin Detemir 3 units 02/15/17 07:00 Levemir Vial SQ AM [facility] Levothyroxine Sodium 25 mcg 02/15/17 07:00 Synthroid - PO DAILY@0700 [facility] Metoprolol Tartrate 25 mg 02/14/17 22:00 Lopressor - PO TID [facility] Valacyclovir HCl 500 mg 02/14/17 22:00 Valtrex - PO BID [facility] Impression: CLL Malignant pleural effusion Chemotherapy with leukeran instituted Hypotension Hypovolemia- improved Anemia- s/p transfusion Fever- broad spectrum antibiotics Plan : Current therapy for CLL Ab-per ID Monitor for blood loss/hemolysis
[2017-02-15] MEDS: CEFEPIME 1 GM in DEXTROSE 5%-WATER - 100 ML IVPB SCH ×3 (02:00→17:58)
[2017-02-15] MEDS: METOPROLOL TARTRATE 25 MG TABLET (FP) PO SCH ×3 (06:13→21:13)
[2017-02-15 06:35] LABS: CALCIUM 8.1 mg/dL (8.5-10.1); COCKROFT - GAULT 205.615; CREATININE 0.2 mg/dL (0.55-1.02); MAGNESIUM 2.2 mg/dL (1.8-2.4); PHOSPHOROUS 2.3 mg/dL (2.5-4.9)
[2017-02-15] MEDS ORDERED: INSULIN DETEMIR 100 UNITS/ML MDV SQ SCH (07:00)
[2017-02-15] MEDS ORDERED: LEVOTHYROXINE NA 25 MCG TABLET (FP) PO SCH (07:00)
[2017-02-15] MEDS: INSULIN SLIDING SCALE (NOVOLOG) 1 VIAL SQ SCH ×4 (07:04→21:28)
[2017-02-15 07:40] LABS: MCHC 31.4 g/dl (32.0-36.0); MEAN CELL VOLUME 95.4 fl (80-96); MEAN PLT VOLUME 9.2 fl (7.5-11.1); PLATELET COUNT 44 K/MM3 (134-434)
[2017-02-15 07:44] LABS: WHITE BLOOD COUNT 40.7 K/mm3 (4.0-10.0)
[2017-02-15 07:46] LABS: ANISOCYTOSIS 2+
[2017-02-15] MEDS ORDERED: MAGNESIUM OXIDE 400 MG TABLET (FP) PO ONE (09:14)
[2017-02-15] MEDS ORDERED: PT OWN MED DRAWER 7, Y5N ONE ×2 (09:42→21:06)
[2017-02-15] MEDS ORDERED: ALLOPURINOL 300 MG TABLET (FP) PO SCH (10:00)
[2017-02-15] MEDS ORDERED: NAPH,MB-DB/K PH,MBDB POWDER PACKET PO ONE (10:00)
[2017-02-15] MEDS ORDERED: FLUCONAZOLE 100 MG TABLET (UD) PO SCH (10:00)
[2017-02-15] MEDS ORDERED: CHLORAMBUCIL 2 MG PO SCH (10:00)
[2017-02-15] MEDS: valACYclovir HCL 500 MG TABLET (FP) PO SCH ×2 (10:02→21:13)
[2017-02-15] MEDS: BACITRACIN 30 GM TUBE TOPICAL OINTMENT TP SCH ×2 (10:02→21:14)
--- NOTE | 2017-02-15 10:34 | PN ---
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, Physician Chief Complaint: Ms Stock is more alert today, interaction improved. She is without complaint. Denies cp, sob, n/v. - Current Medication List Current Medications: Active Medications Acetaminophen (Tylenol -) 650 mg PO Q6H PRN PRN Reason: FEVER OR PAIN Acetaminophen (Tylenol Suppository -) 650 mg [place] Q6H PRN PRN Reason: FEVER OR PAIN Allopurinol (Zyloprim -) 300 mg PO DAILY [facility] Last Admin: 02/15/17 09:52 Dose: 300 mg Bacitracin (Bacitracin -) 1 applic TP BID [facility] Last Admin: 02/15/17 10:02 Dose: 1 applic Chlorambucil (Leukeran -) 2 mg PO DAILY [facility] Last Admin: 02/15/17 09:54 Dose: 2 mg Fluconazole (Diflucan -) 100 mg PO DAILY [facility] Last Admin: 02/15/17 09:52 Dose: 100 mg Sodium Chloride (1/2 Normal Saline) 1,000 mls @ 75 mls/hr IV ASDIR [facility] Last Admin: 02/14/17 17:53 Dose: 75 mls/hr Cefepime HCl 1 gm/ Dextrose 100 mls @ 200 mls/hr IVPB Q8H-IV [facility] PRN Reason: Protocol Last Admin: 02/15/17 09:52 Dose: 200 mls/hr Insulin Aspart (Novolog Vial Sliding Scale -) 1 vial SQ ACHS [facility] PRN Reason: Protocol Last Admin: 02/15/17 07:04 Dose: Not Given Insulin Detemir (Levemir Vial) 3 units SQ AM [facility] Last Admin: 02/15/17 06:16 Dose: 3 units Levothyroxine Sodium (Synthroid -) 25 mcg PO DAILY@0700 [facility] Last Admin: 02/15/17 06:13 Dose: 25 mcg Metoprolol Tartrate (Lopressor -) 25 mg PO TID [facility] Last Admin: 02/15/17 06:13 Dose: 25 mg Valacyclovir HCl (Valtrex -) 500 mg PO BID [facility] Last Admin: 02/15/17 10:02 Dose: 500 mg - Objective Vital Signs: Vital Signs Temperature 98 F 02/15/17 06:00 Pulse Rate 92 H 02/15/17 10:27 Respiratory Rate 22 02/15/17 06:00 Blood Pressure 135/64 02/15/17 06:00 O2 Sat by Pulse Oximetry (%) 96 02/15/17 10:27 Constitutional: Yes: No Distress, Calm, Thin Cardiovascular: Yes: Regular Rate and Rhythm, Murmur. No: Gallop, Rub Respiratory: Yes: Regular, CTA Bilaterally. No: Rales, Rhonchi, Wheezes Gastrointestinal: Yes: Normal Bowel Sounds, Soft. No: Distention, Tenderness Extremities: Yes: WNL Edema: No Labs: CBC, BMP 02/15/17 05:20 02/15/17 05:20 INR, PTT INR 1.08 (0.82-1.09) 01/26/17 05:50 Fibrinogen 397.0 mg/dL (238-498) 01/26/17 05:50 Assessment/Plan 1. Acute hypoxic respiratory failure 2/2 large right pleural effusion -chest tube removal per Dr Cat -monitor for re-occurrence -pulmonary following -resolved currently 2. Bacterial pneumonia -ID following and case discussed -spiking fevers yesterday, started on cefepime -chest x-ray shows rotation, ? other source 3. CLL, chronic anemia requiring transfusion -oncology following -case d/w patient and family -started chemotherapy today -monitor for tumor lysis syndrome 4. Breast cancer s/p resection, +margin, ER+ - Per Dr. Young, "no adjuvant therapy was given as she declined per her primary oncologist in [place]" 5. Anemia -patient with proper response to transfusion -had episode of hypotension with transfusion -now stable -can transfer out of ICU 6. Vaginal sores -improving with valtrex 7. DM II -continue low dose levemir -SSI 8. Hypothyroidism -continue synthroid 9. Hypernatremia -resolved 19. Nutrition -MBS performed -in discussion with family about goals of care -continue current diet 11. Prophylaxis -Hold all chemical anticoagulation -Pressure ulcers: allevyn dressing
--- NOTE | 2017-02-15 11:09 | PN ---
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 Case reviewed with staff. Palliative care note 02/13.
--- NOTE | 2017-02-15 11:31 | PN ---
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, Physician History of Present Illness: Transferred to ICU after episode of hypotension, fever Clinically improved after IVF, PRBCs Awake, alert Offers no complaints Refused blood c/s Empirically treated with stat vancomycin, now on cefepime Temps down, afebrile CXR residual R infiltrate HIV test negative - Current Medication List Current Medications: Active Medications Acetaminophen (Tylenol -) 650 mg PO Q6H PRN PRN Reason: FEVER OR PAIN Acetaminophen (Tylenol Suppository -) 650 mg [place] Q6H PRN PRN Reason: FEVER OR PAIN Allopurinol (Zyloprim -) 300 mg PO DAILY [facility] Last Admin: 02/15/17 09:52 Dose: 300 mg Bacitracin (Bacitracin -) 1 applic TP BID [facility] Last Admin: 02/15/17 10:02 Dose: 1 applic Chlorambucil (Leukeran -) 2 mg PO DAILY [facility] Last Admin: 02/15/17 09:54 Dose: 2 mg Fluconazole (Diflucan -) 100 mg PO DAILY [facility] Last Admin: 02/15/17 09:52 Dose: 100 mg Sodium Chloride (1/2 Normal Saline) 1,000 mls @ 75 mls/hr IV ASDIR [facility] Last Admin: 02/14/17 17:53 Dose: 75 mls/hr Cefepime HCl 1 gm/ Dextrose 100 mls @ 200 mls/hr IVPB Q8H-IV [facility] PRN Reason: Protocol Last Admin: 02/15/17 09:52 Dose: 200 mls/hr Insulin Aspart (Novolog Vial Sliding Scale -) 1 vial SQ ACHS [facility] PRN Reason: Protocol Last Admin: 02/15/17 07:04 Dose: Not Given Insulin Detemir (Levemir Vial) 3 units SQ AM [facility] Last Admin: 02/15/17 06:16 Dose: 3 units Levothyroxine Sodium (Synthroid -) 25 mcg PO DAILY@0700 [facility] Last Admin: 02/15/17 06:13 Dose: 25 mcg Metoprolol Tartrate (Lopressor -) 25 mg PO TID [facility] Last Admin: 02/15/17 06:13 Dose: 25 mg Valacyclovir HCl (Valtrex -) 500 mg PO BID [facility] Last Admin: 02/15/17 10:02 Dose: 500 mg - Objective Vital Signs: Vital Signs Temperature 98 F 02/15/17 06:00 Pulse Rate 92 H 02/15/17 10:27 Respiratory Rate 22 02/15/17 06:00 Blood Pressure 135/64 02/15/17 06:00 O2 Sat by Pulse Oximetry (%) 96 02/15/17 10:27 Constitutional: Yes: No Distress Eyes: Yes: Conjunctiva Clear Cardiovascular: Yes: Regular Rate and Rhythm, S1, S2 Respiratory: Yes: Diminished Gastrointestinal: Yes: Normal Bowel Sounds, Soft. No: Tenderness Edema: Yes Labs: CBC, BMP 02/15/17 05:20 02/15/17 05:20 INR, PTT INR 1.08 (0.82-1.09) 01/26/17 05:50 Fibrinogen 397.0 mg/dL (238-498) 01/26/17 05:50 Assessment/Plan S/P hypotension, possible sepsis Genital HSV CLL Hx malignant effusion Continue empiric cefepime valtrex po
--- NOTE | 2017-02-15 12:32 | PN ---
Teaching Attending Note Name of Resident: Triston Gonzlaes ATTENDING PHYSICIAN STATEMENT I saw and evaluated the patient. I reviewed the resident's note and discussed the case with the resident. I agree with the resident's findings and plan as documented. SUBJECTIVE: Pt seen and examined in the ICU. Transferred down for fevers, hypotension and concern for tumor lysis syndrome. Given IVF, started on antibiotics with improvement in hemodynamics. Fevers resolving. Electrolytes normal. OBJECTIVE: Last Vital Signs Temp Pulse Resp BP Pulse Ox 98.7 F 92 H 20 129/67 96 02/15/17 10:00 02/15/17 10:27 02/15/17 10:00 02/15/17 10:00 02/15/17 10:27 Intake & Output 02/12/17 02/13/17 02/14/17 02/15/17 23:59 23:59 23:59 23:59 Intake Total 320 1210 1230 1600 Output Total 0 Balance 320 1210 1230 1600 Gen: NAD at rest Heart: RRR Lung: decreased breath sounds at the bases Abd: soft, nontender Ext: + edema CBC, BMP 02/15/17 05:20 02/15/17 05:20 Active Medications Acetaminophen (Tylenol -) 650 mg PO Q6H PRN PRN Reason: FEVER OR PAIN Acetaminophen (Tylenol Suppository -) 650 mg [place] Q6H PRN PRN Reason: FEVER OR PAIN Allopurinol (Zyloprim -) 300 mg PO DAILY [facility] Last Admin: 02/15/17 09:52 Dose: 300 mg Bacitracin (Bacitracin -) 1 applic TP BID [facility] Last Admin: 02/15/17 10:02 Dose: 1 applic Chlorambucil (Leukeran -) 2 mg PO DAILY [facility] Last Admin: 02/15/17 09:54 Dose: 2 mg Fluconazole (Diflucan -) 100 mg PO DAILY [facility] Last Admin: 02/15/17 09:52 Dose: 100 mg Sodium Chloride (1/2 Normal Saline) 1,000 mls @ 75 mls/hr IV ASDIR [facility] Last Admin: 02/14/17 17:53 Dose: 75 mls/hr Cefepime HCl 1 gm/ Dextrose 100 mls @ 200 mls/hr IVPB Q8H-IV [facility] PRN Reason: Protocol Last Admin: 02/15/17 09:52 Dose: 200 mls/hr Insulin Aspart (Novolog Vial Sliding Scale -) 1 vial SQ ACHS [facility] PRN Reason: Protocol Last Admin: 02/15/17 11:54 Dose: 2 units Insulin Detemir (Levemir Vial) 3 units SQ AM [facility] Last Admin: 02/15/17 06:16 Dose: 3 units Levothyroxine Sodium (Synthroid -) 25 mcg PO DAILY@0700 [facility] Last Admin: 02/15/17 06:13 Dose: 25 mcg Metoprolol Tartrate (Lopressor -) 25 mg PO TID [facility] Last Admin: 02/15/17 06:13 Dose: 25 mg Valacyclovir HCl (Valtrex -) 500 mg PO BID [facility] Last Admin: 02/15/17 10:02 Dose: 500 mg ASSESSMENT AND PLAN: Acute Hypoxic Respiratory Failure improved 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 Lactic Acidosis likely due to hypoxia improved Sepsis Anemia s/p PRBC transfusions HTN DM Hypothyroidism - monitor H/H - continue antibiotics - f/u cultures - O2 to keep SpO2 >90% - BiPAP as needed - aspiration precautions - DVT prophylaxis - continue discussions regarding goals of care and advanced directives, poor overall prognosis - can monitor on floor Problem List - Problems (1) Acute respiratory failure with hypoxia Code(s): J96.01 - ACUTE RESPIRATORY FAILURE WITH HYPOXIA (2) Pleural effusion Code(s): J90 - PLEURAL EFFUSION, NOT ELSEWHERE CLASSIFIED (3) CLL (chronic lymphocytic leukemia) Code(s): C91.10 - CHRONIC LYMPHOCYTIC LEUK OF B-CELL TYPE NOT ACHIEVE REMIS (4) Diabetes mellitus Code(s): E11.9 - TYPE 2 DIABETES MELLITUS WITHOUT COMPLICATIONS (5) Hypertension Code(s): I10 - ESSENTIAL (PRIMARY) HYPERTENSION (6) Hypothyroid Code(s): E03.9 - HYPOTHYROIDISM, UNSPECIFIED (7) Anemia Code(s): D64.9 - ANEMIA, UNSPECIFIED Qualifiers: Qualified Code(s): D64.9 - Anemia, unspecified (8) Lactic acidosis Code(s): E87.2 - ACIDOSIS
[2017-02-15 13:10] LABS: TROPONIN I < 0.02 ng/ml (0.00-0.05)
--- NOTE | 2017-02-15 14:20 | PN ---
Physical Exam: SUBJECTIVE: Patient seen and examined denies chest pain, sob, lightheadidness denies pain abdomen. on nasal canula, spo2 > 90 plt 52 potassium 3.7 OBJECTIVE: Vital Signs Period Temp Pulse Resp BP Sys/Choi Pulse Ox Last 24 Hr 96.8 F-98.8 F 74-92 18-24 100-142/44-78 96-97 GENERAL: The patient is awake, alert, and fully oriented, in no acute distress. HEAD: Normal with no signs of trauma. ENT: moist mucous membranes. LUNGS: breath sounds decreased on right side, no wheez, no crackels, normal breath sound on left side. HEART: s1s2 normal, irregular ABDOMEN: Soft, nontender, nondistended, normoactive bowel sounds, no guarding EXTREMITIES: 2+ pulses, warm, well-perfused, no edema. PSYCH: Normal mood, normal affect. SKIN: Warm, dry, Laboratory Results - last 24 hr 02/14/17 02/14/17 02/14/17 06:15 09:27 17:00 WBC RBC Hgb Hct MCV MCHC RDW Plt Count MPV Neutrophils % Lymphocytes % Monocytes % Reactive Lymphocytes Anisocytosis Macrocytosis Retic Count Sodium Potassium Chloride Carbon Dioxide Anion Gap BUN Creatinine POC Glucometer 151 Random Glucose Calcium Phosphorus Magnesium LD Total Troponin I < 0.02 Blood Type A POSITIVE Antibody Screen Negative Direct Antiglob Test Crossmatch See Detail 02/14/17 02/15/17 02/15/17 21:42 05:20 05:20 WBC 40.7 H* RBC 3.00 L D Hgb 9.0 L D Hct 28.6 L D MCV 95.4 MCHC 31.4 L RDW 22.0 H D Plt Count 44 L MPV 9.2 Neutrophils % 28.0 L D Lymphocytes % 57.0 H D Monocytes % 3.0 L D Reactive Lymphocytes 12 D Anisocytosis 2+ Macrocytosis 2+ Retic Count Sodium 144 Potassium 3.7 Chloride 107 Carbon Dioxide 28 Anion Gap 9 BUN 9 D Creatinine 0.2 L D POC Glucometer 150.06011 Random Glucose 93 Calcium 8.1 L Phosphorus 2.3 L Magnesium 2.2 LD Total 339 H Troponin I Blood Type Antibody Screen Direct Antiglob Test Crossmatch 02/15/17 02/15/17 02/15/17 05:20 05:20 05:29 WBC RBC Hgb Hct MCV MCHC RDW Plt Count MPV Neutrophils % Lymphocytes % Monocytes % Reactive Lymphocytes Anisocytosis Macrocytosis Retic Count 1.08 D Sodium Potassium Chloride Carbon Dioxide Anion Gap BUN Creatinine POC Glucometer [phone] Random Glucose Calcium Phosphorus Magnesium LD Total Troponin I Blood Type Antibody Screen Direct Antiglob Test Negative Crossmatch 02/15/17 10:14 WBC RBC Hgb Hct MCV MCHC RDW Plt Count MPV Neutrophils % Lymphocytes % Monocytes % Reactive Lymphocytes Anisocytosis Macrocytosis Retic Count Sodium Potassium Chloride Carbon Dioxide Anion Gap BUN Creatinine POC Glucometer [phone] Random Glucose Calcium Phosphorus Magnesium LD Total Troponin I Blood Type Antibody Screen Direct Antiglob Test Crossmatch Active Medications Generic Name Dose Route Start Last Admin Trade Name Freq PRN Reason Stop Dose Admin Acetaminophen 650 mg 02/14/17 19:15 Tylenol - PO Q6H PRN FEVER OR PAIN Acetaminophen 650 mg 02/14/17 19:15 Tylenol Suppository - [place] Q6H PRN FEVER OR PAIN Allopurinol 300 mg 02/15/17 10:00 02/15/17 09:52 Zyloprim - PO 300 mg DAILY SRINIVAAS Administration Bacitracin 1 applic 02/14/17 22:00 02/15/17 10:02 Bacitracin - TP 1 applic BID SRINIVASA Administration Chlorambucil 2 mg 02/15/17 10:00 02/15/17 09:54 Leukeran - PO 2 mg DAILY SRINIVAS[facility] Administration Fluconazole 100 mg 02/15/17 10:00 02/15/17 09:52 Diflucan - PO 100 mg DAILY SRINIVASA Administration Sodium Chloride 1,000 mls @ 75 mls/hr 02/14/17 17:28 02/14/17 17:53 1/2 Normal Saline IV 75 mls/hr ASDIR SRINIVASA Administration Cefepime HCl 1 gm/ Dextrose 100 mls @ 200 mls/hr 02/14/17 18:00 02/15/17 09:52 IVPB 200 mls/hr Q8H-IV SRINIVASA Administration Protocol Insulin Aspart 1 vial 02/14/17 22:00 02/15/17 11:54 Novolog Vial Sliding Scale - SQ 2 units ACHS SRINIVAS[facility] Administration Protocol Insulin Detemir 3 units 02/15/17 07:00 02/15/17 06:16 Levemir Vial SQ 3 units AM SRINIVAS[facility] Administration Levothyroxine Sodium 25 mcg 02/15/17 07:00 02/15/17 06:13 Synthroid - PO 25 mcg DAILY@0700 [facility] Administration Metoprolol Tartrate 25 mg 02/14/17 22:00 02/15/17 13:44 Lopressor - PO 25 mg TID SRIN[facility] Administration Valacyclovir HCl 500 mg 02/14/17 22:00 02/15/17 10:02 Valtrex - PO 500 mg BID SRINIVASA Administration Microbiology 02/03/17 Unknown Vulva Herpes Simplex Virus Rapid Culture - Preliminary 01/30/17 20:00 Blood - Peripheral Venous Blood Culture - Final NO GROWTH AFTER 5 DAYS INCUBATION 01/30/17 20:00 Blood - Peripheral Venous Blood Culture - Final NO GROWTH AFTER 5 DAYS INCUBATION 01/26/17 12:00 Pleural Fluid AFB Smear Concentration - Final 01/26/17 12:00 Pleural Fluid Mycobacterial Culture - Preliminary 01/28/17 05:35 Serum Cryptococcal Antigen - Final 01/30/17 23:00 Urine - Urine - Catheterized Urine Culture - Final NO GROWTH OBTAINED 01/27/17 08:52 Blood - Peripheral Venous Blood Culture - Final NO GROWTH AFTER 5 DAYS INCUBATION 01/27/17 08:42 Blood - Peripheral Venous Blood Culture - Final NO GROWTH AFTER 5 DAYS INCUBATION 01/25/17 06:07 Blood - Peripheral Venous Blood Culture - Final NO GROWTH AFTER 5 DAYS INCUBATION 01/25/17 06:07 Blood - Peripheral Venous Blood Culture - Final NO GROWTH AFTER 5 DAYS INCUBATION 01/26/17 12:00 Pleural Fluid Gram Stain - Final 01/26/17 12:00 Pleural Fluid Body Fluid Culture - Final NO GROWTH OF AEROBIC ORGANISMS AFTER 48 HOURS INCUBATION 01/26/17 12:00 Pleural Fluid Anaerobic Culture - Final NO ANAEROBES WERE ISOLATED 01/27/17 11:30 Urine - Urine - Catheterized Urine Culture - Final NO GROWTH OBTAINED 01/26/17 12:00 Pleural Fluid LOIS Preparation - Preliminary 01/26/17 12:00 Pleural Fluid Fungal Culture - Preliminary 01/25/17 07:10 Urine - Urine - Catheterized Urine Culture - Final ASSESSMENT/PLAN: 1. Acute hypoxic respiratory failure 2/2 large right pleural effusion - chest tube has been removed h/o malignent effusion - cxr reviewed - continue incentive spirometry -pulmonary on case 2 r/o sepsis blood pressure stable follow blood and urine culture on cefpime, valacylovir, flucan 3. CLL, chronic anemia requiring transfusion -oncology following -got chemotherapy yesterday -monitor for tumor lysis syndrome - isolation precautions 4. Anemia got one unit of blood hb 9.0 after blood transfusion 5. Vaginal sores -on valtrex 6. DM II -continue low dose levemir -SSI - monitor blood glucose 7. Hypothyroidism -continue synthroid Pressure ulcers: allevyn dressing fluid : 1/2 n 75ml/hr electrolyte : follow in am nutrition dysphagia puree gi pro : not required dvt pro on scd, thrombocytopenia, dispo: transfer to med surg Visit type - Emergency Visit Emergency Visit: Yes ED Registration Date: 01/25/17 Care time: The patient presented to the Emergency Department on the above date and was hospitalized for further evaluation of their emergent condition. - New Patient This patient is new to me today: No - Critical Care Critical Care patient: Yes Total Critical Care Time (in minutes): 45 Critical Care Statement: The care of this patient involved high complexity decision making to prevent further life threatening deterioration of the patient 's condition and/or to evalute & treat vital organ system(s) failure or risk of failure.
[2017-02-15] MEDS: SODIUM CHLORIDE 0.45% 1,000 ML IV SCH ×2 (18:00→19:05)
--- NOTE | 2017-02-15 18:51 | PN ---
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 (short form) - Note 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: Chief Complaint: effusion, SVT History of Present Illness: transferred to the ICU yesterday for hypotension. bp now improved. more alert today, verbal responses to questions. denies sob, PND, cp, palpitations, leg swelling. states she ate today but doesn't remember what she ate. Current Medications Acetaminophen (Tylenol -) 650 mg PO Q6H PRN PRN Reason: FEVER OR PAIN Acetaminophen (Tylenol Suppository -) 650 mg [place] Q6H PRN PRN Reason: FEVER OR PAIN Allopurinol (Zyloprim -) 300 mg PO DAILY [facility] Last Admin: 02/15/17 09:52 Dose: 300 mg Bacitracin (Bacitracin -) 1 applic TP BID [facility] Last Admin: 02/15/17 10:02 Dose: 1 applic Chlorambucil (Leukeran -) 2 mg PO DAILY [facility] Last Admin: 02/15/17 09:54 Dose: 2 mg Fluconazole (Diflucan -) 100 mg PO DAILY [facility] Last Admin: 02/15/17 09:52 Dose: 100 mg Sodium Chloride (1/2 Normal Saline) 1,000 mls @ 75 mls/hr IV ASDIR [facility] Last Admin: 02/15/17 18:00 Dose: 75 mls/hr Cefepime HCl 1 gm/ Dextrose 100 mls @ 200 mls/hr IVPB Q8H-IV SRINIVASA PRN Reason: Protocol Last Admin: 02/15/17 17:58 Dose: 200 mls/hr Insulin Aspart (Novolog Vial Sliding Scale -) 1 vial SQ ACHS SRINIVASA PRN Reason: Protocol Last Admin: 02/15/17 17:59 Dose: 2 units Insulin Detemir (Levemir Vial) 3 units SQ AM [facility] Last Admin: 02/15/17 06:16 Dose: 3 units Levothyroxine Sodium (Synthroid -) 25 mcg PO DAILY@0700 [facility] Last Admin: 02/15/17 06:13 Dose: 25 mcg Metoprolol Tartrate (Lopressor -) 25 mg PO TID [facility] Last Admin: 02/15/17 13:44 Dose: 25 mg Valacyclovir HCl (Valtrex -) 500 mg PO BID [facility] Last Admin: 02/15/17 10:02 Dose: 500 mg Vital Signs Period Temp Pulse Resp BP Sys/Choi Pulse Ox Last 24 Hr 98 F-98.8 F 66-92 - 118-149/60-79 92-97 Intake & Output 02/13/17 02/14/17 02/15/17 02/16/17 07:59 07:59 07:59 07:59 Intake Total 833 235 9006 1100 Output Total 0 Balance 611 810 2138 1100 Constitutional: Yes: Well Nourished, No Distress, Calm Cardiovascular: Yes: Regular Rate and Rhythm, S1, S2. No: JVD, Gallop, Murmur Respiratory: Yes: Regular, Diminished (R base). No: Accessory Muscle Use, Rales , Wheezes Extremities: No: Cold Edema: No Neurological: Yes: Alert. No: Seizure Psychiatric: No: Agitated Labs: CBC, BMP 02/15/17 05:20 02/15/17 05:20 Assessment/Plan ekg: sr, pac's. non-specific t wave abnormalities tele: SR with pac's. intermittent MAT, SVT, freq nsvt. echo here 02/06: nl lv/rv. mod tio, severe mr, mod-sev tr, rvsp 50-60. pleural effusion echo images reviewed by Dr. Welch; report of severe MR and mod-severe TR appears overestimated. MR and TR both appear very much within moderate range 02/14 cxr report and images reviewed. RLL consolidation with small effusion a/p: 81 year old female with significant past medical history of hypertension, hyperlipidemia, diabetes, anemia, recent dx of CLL, and hypothyroidism who presents to the ED BIBA from [facility] facility for respiratory distress and found to have large right pleural effusion 2/2 CLL and whose hospital course is now complicated by SVT. SVT - admitted for respiratory distress and found to have large right pleural effusion 2/2 CLL and hospital course complicated by episode of SVT. - no further svt episodes here, on lopressor 25 tid--bp tolerating this dose - 02/14: will reassess bp after blood transfusion, if remains low will need to hold metoprolol. - 02/15: bp improved, + svt and frequent nsvt. Will uptitrate metoprolol. For MAT, ongoing treatment of underlying pulmonary disease per pmd, pulm, heme/onc severe MR/mod-severe TR/moderate pulm HTN - echo reviewed by our team: no JVD or other signs chf, no audible murmurs in pt with thin habitus - given unspecified degree of underlying dementia and functional status, and uncontrolled hematologic malignancy now causing pleural effusion, may not be a candidate for any therapy other than diuretics in any event - observe for s/sx of chf - no lasix currently indicated pleural effusion - s/p thoracentesis--exudative c/w CLL disease process. - mild recurrence vs infiltrate on follow up cxr. HTN - cont bb as bp allows HL - ok to defer statin given co-morbidities. CLL - heme following.
[2017-02-15] MEDS ORDERED: POTASSIUM CHLORIDE ORAL LIQUID 20 MEQ/15 ML PO ONE (18:52)
[2017-02-15] MEDS ORDERED: ACETAMINOPHEN 650 MG SUPP.RECT PR PRN (19:03)
[2017-02-15] MEDS ORDERED: ACETAMINOPHEN 325 MG TABLET (FP) PO PRN (19:03)
--- NOTE | 2017-02-15 22:36 | PN ---
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 (short form) - Note 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: PAtient seen and examined alert answering simple questions afvss Cor: RSR, No murmurs, No gallops Lungs: decreased at bases Abd: Soft, Normal bowel sounds, No organomegaly Ext:No significant edema vulva/peranal area---ulcers improved Abnormal Lab Results 02/15/17 02/15/17 05:20 05:20 WBC 40.7 H* RBC 3.00 L D Hgb 9.0 L D Hct 28.6 L D MCHC 31.4 L RDW 22.0 H D Plt Count 44 L Neutrophils % 28.0 L D Lymphocytes % 57.0 H D Monocytes % 3.0 L D Creatinine 0.2 L D Calcium 8.1 L Phosphorus 2.3 L LD Total 339 H Active Medications Generic Name Dose Route Start Last Admin Trade Name Freq PRN Reason Stop Dose Admin Acetaminophen 650 mg 02/15/17 19:03 Tylenol - PO Q6H PRN FEVER OR PAIN Acetaminophen 650 mg 02/15/17 19:03 Tylenol Suppository - [place] Q6H PRN FEVER OR PAIN Allopurinol 300 mg 02/16/17 10:00 Zyloprim - PO DAILY SRINIVASA Bacitracin 1 applic 02/15/17 22:00 02/15/17 21:14 Bacitracin - TP 1 applic BID SRINIVASA Administration Chlorambucil 2 mg 02/16/17 10:00 Leukeran - PO DAILY SRINIVASA Fluconazole 100 mg 02/16/17 10:00 Diflucan - PO DAILY SRINIVASA Cefepime HCl 1 gm/ Dextrose 100 mls @ 200 mls/hr 02/16/17 02:00 02/16/17 01:05 IVPB 200 mls/hr Q8H-IV SRINIVASA Administration Protocol Sodium Chloride 1,000 mls @ 75 mls/hr 02/15/17 19:03 02/15/17 19:05 1/2 Normal Saline IV 75 mls/hr ASDIR SRINIVASA Administration Insulin Aspart 1 vial 02/15/17 22:00 02/15/17 21:28 Novolog Vial Sliding Scale - SQ Not Given ACHS [facility] Protocol Insulin Detemir 3 units 02/16/17 07:00 Levemir Vial SQ AM [facility] Levothyroxine Sodium 25 mcg 02/16/17 07:00 Synthroid - PO DAILY@0700 [facility] Metoprolol Tartrate 37.5 mg 02/15/17 22:00 02/15/17 21:13 Lopressor - PO 37.5 mg TID SR[facility]ASA Administration Valacyclovir HCl 500 mg 02/15/17 22:00 02/15/17 21:13 Valtrex - PO 500 mg BID SRINIVASA Administration A/P 81 y/o patient with CLL, h/o breast cancer, dementia, has been [facility] resident and wheel chair 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 pleural effusion CLL--trisomy 12. also generalized adenopathy diagnosed several yrs. ago in [place] Never treated, was being monitored More recently transfusion dependent emiliana --neg. LDH --300s given overall comorbidities, functional status will need to discuss with family goals of care---discussed with son, daughter in law,patient discusseed at length side effects of chemotherapy including life threatening sepsis, tumor lysis which could be potentially fatal they have agreed upon chlorambucil started chlorambucil 02/14 information material given will need monitoring of CBC/CMP twice weekly Breast cancer -- s/p resection. +margin. 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 on prophylaxis sepsis--on cefepime ongoing discussions regarding goals of care
[2017-02-16] MEDS: CEFEPIME 1 GM in DEXTROSE 5%-WATER - 100 ML IVPB SCH ×3 (01:05→17:23)
[2017-02-16] MEDS: METOPROLOL TARTRATE 25 MG TABLET (FP) PO SCH ×2 (06:05→13:16)
[2017-02-16] MEDS: LEVOTHYROXINE NA 25 MCG TABLET (FP) PO SCH (06:05)
[2017-02-16] MEDS: INSULIN SLIDING SCALE (NOVOLOG) 1 VIAL SQ SCH ×4 (06:05→21:32)
[2017-02-16] MEDS: INSULIN DETEMIR 100 UNITS/ML MDV SQ SCH (06:06)
[2017-02-16 06:10] LABS: MCH 30.1 pg (25.7-33.7); MCHC 31.6 g/dl (32.0-36.0); MEAN CELL VOLUME 95.4 fl (80-96); MEAN PLT VOLUME 9.3 fl (7.5-11.1); PLATELET COUNT 51 K/MM3 (134-434); RDW 22.2 % (11.6-15.6)
[2017-02-16 06:32] LABS: CALCIUM 7.9 mg/dL (8.5-10.1); COCKROFT - GAULT 137.02; CREATININE 0.3 mg/dL (0.55-1.02); PHOSPHOROUS 2.1 mg/dL (2.5-4.9); WHITE BLOOD COUNT 41.6 K/mm3 (4.0-10.0)
[2017-02-16] MEDS ORDERED: PT OWN MED DRAWER 7, Y5N ONE ×2 (09:34→20:54)
[2017-02-16] MEDS: FLUCONAZOLE 100 MG TABLET (UD) PO SCH (09:41)
[2017-02-16] MEDS: ALLOPURINOL 300 MG TABLET (FP) PO SCH (09:42)
[2017-02-16] MEDS: NAPH,MB-DB/K PH,MBDB POWDER PACKET PO SCH ×2 (09:42→22:00)
[2017-02-16] MEDS: CHLORAMBUCIL 2 MG PO SCH (09:43)
[2017-02-16] MEDS: valACYclovir HCL 500 MG TABLET (FP) PO SCH ×2 (09:43→21:32)
[2017-02-16] MEDS: BACITRACIN 30 GM TUBE TOPICAL OINTMENT TP SCH ×2 (09:48→21:31)
[2017-02-16] MEDS ORDERED: CHLORAMBUCIL 2 MG PO SCH (10:00)
--- NOTE | 2017-02-16 13:33 | EKG ---
Test Reason : Blood Pressure : / mmHG Vent. Rate : 082 BPM Atrial Rate : 047 BPM P-R Int : 000 ms QRS Dur : 088 ms QT Int : 366 ms P-R-T Axes : 000 051 093 degrees QTc Int : 427 ms POOR DATA QUALITY, INTERPRETATION MAY BE ADVERSELY AFFECTED SINUS RHYTHM PREMATURE ATRIAL COMPLEXES NONSPECIFIC T WAVE ABNORMALITY ABNORMAL ECG Confirmed by MEGHNA GOLDSTEIN MD ([id number]) on 02/16/2017 1:32:48 PM Referred By: Confirmed By:MEGHNA GOLDSTEIN MD
[2017-02-16 13:40] LABS: SMUDGE CELLS MANY
[2017-02-16 13:41] LABS: PLATELET ESTIMATE MARKEDLY DECREASED (NORMAL)
[2017-02-16 13:55] LABS: URIC ACID 2.8 mg/dL (2.6-7.2)
--- NOTE | 2017-02-16 14:16 | PN ---
Physical Exam: SUBJECTIVE: Patient seen and examined OBJECTIVE: Vital Signs Period Temp Pulse Resp BP Sys/Choi Pulse Ox Last 24 Hr 97.2 F-98.7 F 66-83 16-26 118-151/63-80 92-96 GENERAL: The patient is awake, alert, and fully oriented, in no acute distress. HEAD: Normal with no signs of trauma. ENT: moist mucous membranes. LUNGS: breath sounds decreased on right side, no wheez, no crackels, normal breath sound on left side. HEART: s1s2 normal, irregular ABDOMEN: Soft, nontender, nondistended, normoactive bowel sounds, no guarding EXTREMITIES: 2+ pulses, warm, well-perfused, no edema. PSYCH: Normal mood, normal affect. SKIN: Warm, dry, Laboratory Results - last 24 hr 02/15/17 02/15/17 02/15/17 05:20 17:25 21:26 WBC RBC Hgb Hct MCV MCHC RDW Plt Count MPV Neutrophils % Lymphocytes % Monocytes % Differential Comment Smudge Cells Platelet Estimate Haptoglobin 453 H Sodium Potassium Chloride Carbon Dioxide Anion Gap BUN Creatinine POC Glucometer 162.46473 139.63098 Random Glucose Uric Acid Calcium Phosphorus Magnesium LD Total 02/16/17 02/16/17 02/16/17 05:15 05:15 05:45 WBC 41.6 H* RBC 3.03 L Hgb 9.1 L Hct 28.9 L MCV 95.4 MCHC 31.6 L RDW 22.2 H Plt Count 51 L MPV 9.3 Neutrophils % 13.0 L D Lymphocytes % 86.0 H D Monocytes % 1.0 L Differential Comment Manual diff done Smudge Cells Many Platelet Estimate Markedly decreased Haptoglobin Sodium 143 Potassium 3.6 Chloride 104 Carbon Dioxide 28 Anion Gap 11 BUN 8 Creatinine 0.3 L D POC Glucometer 113.93089 Random Glucose 89 Uric Acid 2.8 Calcium 7.9 L Phosphorus 2.1 L Magnesium 2.0 LD Total 348 H 02/16/17 10:08 WBC RBC Hgb Hct MCV MCHC RDW Plt Count MPV Neutrophils % Lymphocytes % Monocytes % Differential Comment Smudge Cells Platelet Estimate Haptoglobin Sodium Potassium Chloride Carbon Dioxide Anion Gap BUN Creatinine POC Glucometer 149.87208 Random Glucose Uric Acid Calcium Phosphorus Magnesium LD Total Active Medications Generic Name Dose Route Start Last Admin Trade Name Freq PRN Reason Stop Dose Admin Acetaminophen 650 mg 02/15/17 19:03 Tylenol - PO Q6H PRN FEVER OR PAIN Acetaminophen 650 mg 02/15/17 19:03 Tylenol Suppository - [place] Q6H PRN FEVER OR PAIN Allopurinol 300 mg 02/16/17 10:00 02/16/17 09:42 Zyloprim - PO 300 mg DAILY SRINIVASA Administration Bacitracin 1 applic 02/15/17 22:00 02/16/17 09:48 Bacitracin - TP 1 applic BID SR[facility]IVASA Administration Chlorambucil 4 mg 02/16/17 10:00 02/16/17 09:43 Leukeran - PO 4 mg DAILY [facility]ASA Administration Fluconazole 100 mg 02/16/17 10:00 02/16/17 09:41 Diflucan - PO 100 mg DAILY SRIN[facility]ASA Administration Cefepime HCl 1 gm/ Dextrose 100 mls @ 200 mls/hr 02/16/17 02:00 02/16/17 09:41 IVPB 200 mls/hr Q8H-IV SR[facility]IVASA Administration Protocol Sodium Chloride 1,000 mls @ 75 mls/hr 02/15/17 19:03 02/15/17 19:05 1/2 Normal Saline IV 75 mls/hr ASDIR [facility] Administration Insulin Aspart 1 vial 02/15/17 22:00 02/16/17 10:13 Novolog Vial Sliding Scale - SQ Not Given ACHS [facility] Protocol Insulin Detemir 3 units 02/16/17 07:00 02/16/17 06:06 Levemir Vial SQ 3 units AM SR[facility]IVASA Administration Levothyroxine Sodium 25 mcg 02/16/17 07:00 02/16/17 06:05 Synthroid - PO 25 mcg DAILY@0700 [facility] Administration Metoprolol Tartrate 37.5 mg 02/15/17 22:00 02/16/17 13:16 Lopressor - PO 37.5 mg TID [facility] Administration Potassium Phos/Sodium Phos 1 packet 02/16/17 10:00 02/16/17 09:42 Phos-Nak Packet - PO 02/16/17 22:01 1 packet BID SRINIVASA Administration Valacyclovir HCl 500 mg 02/15/17 22:00 02/16/17 09:43 Valtrex - PO 500 mg BID SRINIVASA Administration Microbiology 02/03/17 Unknown Vulva Herpes Simplex Virus Rapid Culture - Preliminary 01/30/17 20:00 Blood - Peripheral Venous Blood Culture - Final NO GROWTH AFTER 5 DAYS INCUBATION 01/30/17 20:00 Blood - Peripheral Venous Blood Culture - Final NO GROWTH AFTER 5 DAYS INCUBATION 01/26/17 12:00 Pleural Fluid AFB Smear Concentration - Final 01/26/17 12:00 Pleural Fluid Mycobacterial Culture - Preliminary 01/28/17 05:35 Serum Cryptococcal Antigen - Final 01/30/17 23:00 Urine - Urine - Catheterized Urine Culture - Final NO GROWTH OBTAINED 01/27/17 08:52 Blood - Peripheral Venous Blood Culture - Final NO GROWTH AFTER 5 DAYS INCUBATION 01/27/17 08:42 Blood - Peripheral Venous Blood Culture - Final NO GROWTH AFTER 5 DAYS INCUBATION 01/25/17 06:07 Blood - Peripheral Venous Blood Culture - Final NO GROWTH AFTER 5 DAYS INCUBATION 01/25/17 06:07 Blood - Peripheral Venous Blood Culture - Final NO GROWTH AFTER 5 DAYS INCUBATION 01/26/17 12:00 Pleural Fluid Gram Stain - Final 01/26/17 12:00 Pleural Fluid Body Fluid Culture - Final NO GROWTH OF AEROBIC ORGANISMS AFTER 48 HOURS INCUBATION 01/26/17 12:00 Pleural Fluid Anaerobic Culture - Final NO ANAEROBES WERE ISOLATED 01/27/17 11:30 Urine - Urine - Catheterized Urine Culture - Final NO GROWTH OBTAINED 01/26/17 12:00 Pleural Fluid LOIS Preparation - Preliminary 01/26/17 12:00 Pleural Fluid Fungal Culture - Preliminary 01/25/17 07:10 Urine - Urine - Catheterized Urine Culture - Final ASSESSMENT/PLAN: 1. Acute hypoxic respiratory failure 2/2 large right pleural effusion - chest tube has been removed h/o malignent effusion - continue incentive spirometry -pulmonary on case 2 r/o sepsis blood pressure stable follow blood and urine culture on cefpime, valacylovir, flucan 3. CLL, chronic anemia requiring transfusion -oncology following -got chemotherapy yesterday -monitor for tumor lysis syndrome - isolation precautions 4. Anemia got one unit of blood hb 9.1 after blood transfusion 5. Vaginal sores -on valtrex 6. DM II -continue low dose levemir -SSI - monitor blood glucose 7. Hypothyroidism -continue synthroid Pressure ulcers: allevyn dressing fluid : 1/2 n 75ml/hr electrolyte : follow in am nutrition dysphagia puree gi pro : not required dvt pro on scd, thrombocytopenia, dispo: transfer to med surg Visit type - Emergency Visit Emergency Visit: Yes ED Registration Date: 01/25/17 Care time: The patient presented to the Emergency Department on the above date and was hospitalized for further evaluation of their emergent condition. - New Patient This patient is new to me today: No - Critical Care Critical Care patient: Yes Total Critical Care Time (in minutes): 45 Critical Care Statement: The care of this patient involved high complexity decision making to prevent further life threatening deterioration of the patient 's condition and/or to evalute & treat vital organ system(s) failure or risk of failure.
--- NOTE | 2017-02-16 14:22 | PN ---
Teaching Attending Note Name of Resident: Triston Gonzales ATTENDING PHYSICIAN STATEMENT I saw and evaluated the patient. I reviewed the resident's note and discussed the case with the resident. I agree with the resident's findings and plan as documented. SUBJECTIVE: Patient seen and examined in the ICU. Awake and responsive, but confused. Denies CP or SOB. Hemodynamics stable. Intake & Output 02/13/17 02/14/17 02/15/17 02/16/17 23:59 23:59 23:59 23:59 Intake Total 1210 1230 2700 1045 Output Total 0 0 Balance 1210 1230 2700 1045 Last Vital Signs Temp Pulse Resp BP Pulse Ox 97.8 F 74 18 136/72 96 02/16/17 08:00 02/16/17 12:55 02/16/17 12:55 02/16/17 12:55 02/16/17 10:22 Active Medications Acetaminophen (Tylenol -) 650 mg PO Q6H PRN PRN Reason: FEVER OR PAIN Acetaminophen (Tylenol Suppository -) 650 mg [place] Q6H PRN PRN Reason: FEVER OR PAIN Allopurinol (Zyloprim -) 300 mg PO DAILY [facility] Last Admin: 02/16/17 09:42 Dose: 300 mg Bacitracin (Bacitracin -) 1 applic TP BID [facility] Last Admin: 02/16/17 09:48 Dose: 1 applic Chlorambucil (Leukeran -) 4 mg PO DAILY [facility] Last Admin: 02/16/17 09:43 Dose: 4 mg Fluconazole (Diflucan -) 100 mg PO DAILY [facility] Last Admin: 02/16/17 09:41 Dose: 100 mg Cefepime HCl 1 gm/ Dextrose 100 mls @ 200 mls/hr IVPB Q8H-IV SRINIVASA PRN Reason: Protocol Last Admin: 02/16/17 09:41 Dose: 200 mls/hr Sodium Chloride (1/2 Normal Saline) 1,000 mls @ 75 mls/hr IV ASDIR [facility] Last Admin: 02/15/17 19:05 Dose: 75 mls/hr Insulin Aspart (Novolog Vial Sliding Scale -) 1 vial SQ ACHS [facility] PRN Reason: Protocol Last Admin: 02/16/17 10:13 Dose: Not Given Insulin Detemir (Levemir Vial) 3 units SQ AM [facility] Last Admin: 02/16/17 06:06 Dose: 3 units Levothyroxine Sodium (Synthroid -) 25 mcg PO DAILY@0700 [facility] Last Admin: 02/16/17 06:05 Dose: 25 mcg Metoprolol Tartrate (Lopressor -) 37.5 mg PO TID [facility] Last Admin: 02/16/17 13:16 Dose: 37.5 mg Potassium Phos/Sodium Phos (Phos-Nak Packet -) 1 packet PO BID [facility] Stop: 02/16/17 22:01 Last Admin: 02/16/17 09:42 Dose: 1 packet Valacyclovir HCl (Valtrex -) 500 mg PO BID [facility] Last Admin: 02/16/17 09:43 Dose: 500 mg Gen: NAD at rest, mildly confused Heart: S1S2 Lung: decreased breath sounds at the bases Abd: soft, nontender Ext: (+) edema Laboratory Results - last 24 hr 02/15/17 02/15/17 02/15/17 05:20 17:25 21:26 WBC RBC Hgb Hct MCV MCHC RDW Plt Count MPV Neutrophils % Lymphocytes % Monocytes % Differential Comment Smudge Cells Platelet Estimate Haptoglobin 453 H Sodium Potassium Chloride Carbon Dioxide Anion Gap BUN Creatinine POC Glucometer 162.03973 139.05072 Random Glucose Uric Acid Calcium Phosphorus Magnesium LD Total 02/16/17 02/16/17 02/16/17 05:15 05:15 05:45 WBC 41.6 H* RBC 3.03 L Hgb 9.1 L Hct 28.9 L MCV 95.4 MCHC 31.6 L RDW 22.2 H Plt Count 51 L MPV 9.3 Neutrophils % 13.0 L D Lymphocytes % 86.0 H D Monocytes % 1.0 L Differential Comment Manual diff done Smudge Cells Many Platelet Estimate Markedly decreased Haptoglobin Sodium 143 Potassium 3.6 Chloride 104 Carbon Dioxide 28 Anion Gap 11 BUN 8 Creatinine 0.3 L D POC Glucometer 113.35124 Random Glucose 89 Uric Acid 2.8 Calcium 7.9 L Phosphorus 2.1 L Magnesium 2.0 LD Total 348 H 02/16/17 10:08 WBC RBC Hgb Hct MCV MCHC RDW Plt Count MPV Neutrophils % Lymphocytes % Monocytes % Differential Comment Smudge Cells Platelet Estimate Haptoglobin Sodium Potassium Chloride Carbon Dioxide Anion Gap BUN Creatinine POC Glucometer 149.49239 Random Glucose Uric Acid Calcium Phosphorus Magnesium LD Total Problem List - Problems (1) Acute respiratory failure with hypoxia Code(s): J96.01 - ACUTE RESPIRATORY FAILURE WITH HYPOXIA (2) Pleural effusion Code(s): J90 - PLEURAL EFFUSION, NOT ELSEWHERE CLASSIFIED (3) CLL (chronic lymphocytic leukemia) Code(s): C91.10 - CHRONIC LYMPHOCYTIC LEUK OF B-CELL TYPE NOT ACHIEVE REMIS (4) Diabetes mellitus Code(s): E11.9 - TYPE 2 DIABETES MELLITUS WITHOUT COMPLICATIONS (5) Hypertension Code(s): I10 - ESSENTIAL (PRIMARY) HYPERTENSION (6) Hypothyroid Code(s): E03.9 - HYPOTHYROIDISM, UNSPECIFIED (7) Anemia Code(s): D64.9 - ANEMIA, UNSPECIFIED Qualifiers: Qualified Code(s): D64.9 - Anemia, unspecified (8) Lactic acidosis Code(s): E87.2 - ACIDOSIS ASSESSMENT AND PLAN: Acute Hypoxic Respiratory Failure improved 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 Lactic Acidosis Sepsis Anemia s/p PRBC transfusions HTN DM Hypothyroidism - monitor H/H, monitor transfusion thresholds - ABX per ID - O2 to keep SpO2 >90% - Aspiration precautions - DVT prophylaxis - continue discussions regarding goals of care and advanced directives, poor overall prognosis - 7W Critical care time spent in reviewing chart, evaluating pt and formulating plan [address] Darby
--- NOTE | 2017-02-16 14:32 | PN ---
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, Physician History of Present Illness: Awake, responsive No complaints offered No c/o dyspnea/ cough Afebrile - Current Medication List Current Medications: Active Medications Acetaminophen (Tylenol -) 650 mg PO Q6H PRN PRN Reason: FEVER OR PAIN Acetaminophen (Tylenol Suppository -) 650 mg [place] Q6H PRN PRN Reason: FEVER OR PAIN Allopurinol (Zyloprim -) 300 mg PO DAILY [facility] Last Admin: 02/16/17 09:42 Dose: 300 mg Bacitracin (Bacitracin -) 1 applic TP BID [facility] Last Admin: 02/16/17 09:48 Dose: 1 applic Chlorambucil (Leukeran -) 4 mg PO DAILY [facility] Last Admin: 02/16/17 09:43 Dose: 4 mg Fluconazole (Diflucan -) 100 mg PO DAILY [facility] Last Admin: 02/16/17 09:41 Dose: 100 mg Cefepime HCl 1 gm/ Dextrose 100 mls @ 200 mls/hr IVPB Q8H-IV SRINIVASA PRN Reason: Protocol Last Admin: 02/16/17 09:41 Dose: 200 mls/hr Sodium Chloride (1/2 Normal Saline) 1,000 mls @ 75 mls/hr IV ASDIR [facility] Last Admin: 02/15/17 19:05 Dose: 75 mls/hr Insulin Aspart (Novolog Vial Sliding Scale -) 1 vial SQ ACHS [facility] PRN Reason: Protocol Last Admin: 02/16/17 10:13 Dose: Not Given Insulin Detemir (Levemir Vial) 3 units SQ AM [facility] Last Admin: 02/16/17 06:06 Dose: 3 units Levothyroxine Sodium (Synthroid -) 25 mcg PO DAILY@0700 [facility] Last Admin: 02/16/17 06:05 Dose: 25 mcg Metoprolol Tartrate (Lopressor -) 37.5 mg PO TID [facility] Last Admin: 02/16/17 13:16 Dose: 37.5 mg Potassium Phos/Sodium Phos (Phos-Nak Packet -) 1 packet PO BID [facility] Stop: 02/16/17 22:01 Last Admin: 02/16/17 09:42 Dose: 1 packet Valacyclovir HCl (Valtrex -) 500 mg PO BID [facility] Last Admin: 02/16/17 09:43 Dose: 500 mg - Objective Vital Signs: Vital Signs Temperature 97.8 F 02/16/17 08:00 Pulse Rate 74 02/16/17 12:55 Respiratory Rate 18 02/16/17 12:55 Blood Pressure 136/72 02/16/17 12:55 O2 Sat by Pulse Oximetry (%) 96 02/16/17 10:22 Constitutional: Yes: No Distress, Thin Eyes: Yes: Conjunctiva Clear Cardiovascular: Yes: Regular Rate and Rhythm, S1, S2 Respiratory: Yes: CTA Bilaterally, Diminished Gastrointestinal: Yes: Normal Bowel Sounds, Soft. No: Tenderness Edema: LLE: 1+, RLE: 1+ Labs: CBC, BMP 02/16/17 05:15 02/16/17 05:15 INR, PTT INR 1.08 (0.82-1.09) 01/26/17 05:50 Fibrinogen 397.0 mg/dL (238-498) 01/26/17 05:50 Assessment/Plan S/P hypotension, possible sepsis BP improved. Cultures negative Genital HSV CLL Hx malignant effusion Continue empiric cefepime x 24hr valtrex po
--- NOTE | 2017-02-16 15:59 | PN ---
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 pt consious vulva ulcers herpes has been diagnosed she is getting Valtrex 500mg po bid Selected Entries 02/16/17 02/16/17 08:00 12:55 Temperature 97.8 F Pulse Rate 74 Blood Pressure 136/72 Blood Pressure 93 Mean ext genitalia : vulva ulcers improved with Valtrex. still one deep at introitus tender .. Ass: Herpes Genitalis recommend ; continuue Valtrex
--- NOTE | 2017-02-16 16:53 | PN ---
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, Physician Chief Complaint: Ms Stock says she is feeling fine. Denies cp, sob, n/v - Current Medication List Current Medications: Active Medications Acetaminophen (Tylenol -) 650 mg PO Q6H PRN PRN Reason: FEVER OR PAIN Acetaminophen (Tylenol Suppository -) 650 mg [place] Q6H PRN PRN Reason: FEVER OR PAIN Allopurinol (Zyloprim -) 300 mg PO DAILY [facility] Last Admin: 02/16/17 09:42 Dose: 300 mg Bacitracin (Bacitracin -) 1 applic TP BID [facility] Last Admin: 02/16/17 09:48 Dose: 1 applic Chlorambucil (Leukeran -) 4 mg PO DAILY [facility] Last Admin: 02/16/17 09:43 Dose: 4 mg Fluconazole (Diflucan -) 100 mg PO DAILY [facility] Last Admin: 02/16/17 09:41 Dose: 100 mg Cefepime HCl 1 gm/ Dextrose 100 mls @ 200 mls/hr IVPB Q8H-IV SRINIVAS[facility] PRN Reason: Protocol Last Admin: 02/16/17 09:41 Dose: 200 mls/hr Sodium Chloride (1/2 Normal Saline) 1,000 mls @ 75 mls/hr IV ASDIR [facility] Last Admin: 02/15/17 19:05 Dose: 75 mls/hr Insulin Aspart (Novolog Vial Sliding Scale -) 1 vial SQ ACHS [facility] PRN Reason: Protocol Last Admin: 02/16/17 10:13 Dose: Not Given Insulin Detemir (Levemir Vial) 3 units SQ AM [facility] Last Admin: 02/16/17 06:06 Dose: 3 units Levothyroxine Sodium (Synthroid -) 25 mcg PO DAILY@0700 [facility] Last Admin: 02/16/17 06:05 Dose: 25 mcg Metoprolol Tartrate (Lopressor -) 37.5 mg PO TID [facility] Last Admin: 02/16/17 13:16 Dose: 37.5 mg Potassium Phos/Sodium Phos (Phos-Nak Packet -) 1 packet PO BID [facility] Stop: 02/16/17 22:01 Last Admin: 02/16/17 09:42 Dose: 1 packet Valacyclovir HCl (Valtrex -) 500 mg PO BID [facility] Last Admin: 02/16/17 09:43 Dose: 500 mg - Objective Vital Signs: Vital Signs Temperature 97.8 F 02/16/17 08:00 Pulse Rate 74 02/16/17 12:55 Respiratory Rate 18 02/16/17 12:55 Blood Pressure 136/72 02/16/17 12:55 O2 Sat by Pulse Oximetry (%) 96 02/16/17 10:22 Constitutional: Yes: No Distress, Calm, Thin Cardiovascular: Yes: Regular Rate and Rhythm. No: Gallop, Murmur, Rub Respiratory: Yes: Regular, CTA Bilaterally. No: Rales, Rhonchi, Wheezes Gastrointestinal: Yes: Normal Bowel Sounds, Soft. No: Distention, Tenderness Extremities: Yes: WNL Edema: No Labs: CBC, BMP 02/16/17 05:15 02/16/17 05:15 INR, PTT INR 1.08 (0.82-1.09) 01/26/17 05:50 Fibrinogen 397.0 mg/dL (238-498) 01/26/17 05:50 Assessment/Plan 1. Acute hypoxic respiratory failure 2/2 large right pleural effusion -chest tube removal per Dr Cat -monitor for re-occurrence -pulmonary following -resolved currently 2. Bacterial pneumonia -continue empiric cefepime for 24 hours -ID note reviewed 3. CLL, chronic anemia requiring transfusion -oncology following -continue chemotherapy 4. Breast cancer s/p resection, +margin, ER+ - Per Dr. Young, "no adjuvant therapy was given as she declined per her primary oncologist in [place]" 5. Anemia -patient with proper response to transfusion -had episode of hypotension with transfusion -now stable -can transfer out of ICU 6. Vaginal sores -improving with valtrex 7. DM II -continue low dose levemir -SSI 8. Hypothyroidism -continue synthroid 9. Hypernatremia -resolved 19. Nutrition -MBS performed -in discussion with family about goals of care -continue current diet 11. Prophylaxis -Hold all chemical anticoagulation -Pressure ulcers: allevyn dressing
[2017-02-16] MEDS: SODIUM CHLORIDE 0.45% 1,000 ML IV SCH (19:15)
--- NOTE | 2017-02-16 19:17 | PN ---
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 (short form) - Note 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: Chief Complaint: effusion, SVT S: more alert today, verbal responses to questions. denies sob, PND, cp, palpitations, leg swelling. Current Medications Acetaminophen (Tylenol -) 650 mg PO Q6H PRN PRN Reason: FEVER OR PAIN Acetaminophen (Tylenol Suppository -) 650 mg [place] Q6H PRN PRN Reason: FEVER OR PAIN Allopurinol (Zyloprim -) 300 mg PO DAILY [facility] Last Admin: 02/16/17 09:42 Dose: 300 mg Bacitracin (Bacitracin -) 1 applic TP BID [facility] Last Admin: 02/16/17 09:48 Dose: 1 applic Chlorambucil (Leukeran -) 4 mg PO DAILY [facility] Last Admin: 02/16/17 09:43 Dose: 4 mg Fluconazole (Diflucan -) 100 mg PO DAILY [facility] Last Admin: 02/16/17 09:41 Dose: 100 mg Cefepime HCl 1 gm/ Dextrose 100 mls @ 200 mls/hr IVPB Q8H-IV SRINIVASA PRN Reason: Protocol Last Admin: 02/16/17 17:23 Dose: 200 mls/hr Sodium Chloride (1/2 Normal Saline) 1,000 mls @ 75 mls/hr IV ASDIR [facility] Last Admin: 02/15/17 19:05 Dose: 75 mls/hr Insulin Aspart (Novolog Vial Sliding Scale -) 1 vial SQ ACHS [facility] PRN Reason: Protocol Last Admin: 02/16/17 17:23 Dose: Not Given Insulin Detemir (Levemir Vial) 3 units SQ AM [facility] Last Admin: 02/16/17 06:06 Dose: 3 units Levothyroxine Sodium (Synthroid -) 25 mcg PO DAILY@0700 [facility] Last Admin: 02/16/17 06:05 Dose: 25 mcg Metoprolol Tartrate (Lopressor -) 37.5 mg PO TID [facility] Last Admin: 02/16/17 13:16 Dose: 37.5 mg Potassium Phos/Sodium Phos (Phos-Nak Packet -) 1 packet PO BID [facility] Stop: 02/16/17 22:01 Last Admin: 02/16/17 09:42 Dose: 1 packet Valacyclovir HCl (Valtrex -) 500 mg PO BID [facility] Last Admin: 02/16/17 09:43 Dose: 500 mg Vital Signs Period Temp Pulse Resp BP Sys/Choi Pulse Ox Last 24 Hr 97.2 F-98.6 F 69-83 18- 118-157/64-85 94-96 Intake & Output 02/14/17 02/15/17 02/16/17 02/17/17 07:59 07:59 07:59 07:59 Intake Total 990 2350 2145 1070 Output Total 0 0 Balance 990 2350 2145 1070 Weight 128 lb 11.999 oz Constitutional: Yes: Well Nourished, No Distress, Calm Cardiovascular: Yes: Regular Rate and Rhythm, S1, S2. No: JVD, Gallop, Murmur Respiratory: Yes: Regular, Diminished (R base). No: Accessory Muscle Use, Rales , Wheezes Extremities: No: Cold Edema: No Neurological: Yes: Alert. No: Seizure Psychiatric: No: Agitated Labs: CBC, BMP 02/16/17 05:15 02/16/17 05:15 Assessment/Plan ekg: sr, pac's. non-specific t wave abnormalities tele: SR with pac's. intermittent MAT, freq nsvt. echo here 02/06: nl lv/rv. mod tio, severe mr, mod-sev tr, rvsp 50-60. pleural effusion echo images reviewed by Dr. Welch; report of severe MR and mod-severe TR appears overestimated. MR and TR both appear very much within moderate range 02/14 cxr report and images reviewed. RLL consolidation with small effusion a/p: 81 year old female with significant past medical history of hypertension, hyperlipidemia, diabetes, anemia, recent dx of CLL, and hypothyroidism who presents to the ED BIB[facility] from [facility] facility for respiratory distress and found to have large right pleural effusion 2/2 CLL and whose hospital course is now complicated by SVT. SVT - admitted for respiratory distress and found to have large right pleural effusion 2/2 CLL and hospital course complicated by episode of SVT. - no further svt episodes here, on lopressor 25 tid--bp tolerating this dose - 02/14: will reassess bp after blood transfusion, if remains low will need to hold metoprolol. - 02/15-02/16: bp improved, + svt and frequent nsvt. Will uptitrate metoprolol. For MAT, ongoing treatment of underlying pulmonary disease per pmd, pulm, heme/ onc severe MR/mod-severe TR/moderate pulm HTN - echo reviewed by our team: no JVD or other signs chf, no audible murmurs in pt with thin habitus - given unspecified degree of underlying dementia and functional status, and uncontrolled hematologic malignancy now causing pleural effusion, may not be a candidate for any therapy other than diuretics in any event - observe for s/sx of chf - no lasix currently indicated pleural effusion - s/p thoracentesis--exudative c/w CLL disease process. - mild recurrence vs infiltrate on follow up cxr. HTN - cont bb as bp allows HL - ok to defer statin given co-morbidities. CLL - heme following.
[2017-02-16] MEDS ORDERED: POTASSIUM CHLORIDE TABS 20 MEQ TABLET.ER (FP) PO ONE (19:18)
[2017-02-16] MEDS: METOPROLOL TARTRATE 50 MG TABLET (FP) PO SCH (21:31)
[2017-02-17] MEDS: CEFEPIME 1 GM in DEXTROSE 5%-WATER - 100 ML IVPB SCH ×2 (03:00→09:12)
[2017-02-17] MEDS ORDERED: PT OWN MED DRAWER 7, Y5N ONE ×2 (03:45→21:43)
[2017-02-17] MEDS: INSULIN DETEMIR 100 UNITS/ML MDV SQ SCH (06:05)
[2017-02-17] MEDS: METOPROLOL TARTRATE 50 MG TABLET (FP) PO SCH ×3 (06:05→21:55)
[2017-02-17] MEDS: LEVOTHYROXINE NA 25 MCG TABLET (FP) PO SCH (06:05)
[2017-02-17] MEDS: INSULIN SLIDING SCALE (NOVOLOG) 1 VIAL SQ SCH ×4 (06:06→22:00)
[2017-02-17 06:28] LABS: MCH 30.9 pg (25.7-33.7); MCHC 32.4 g/dl (32.0-36.0); MEAN CELL VOLUME 95.3 fl (80-96); MEAN PLT VOLUME 9.4 fl (7.5-11.1); PLATELET COUNT 46 K/MM3 (134-434); RDW 22.1 % (11.6-15.6); WHITE BLOOD COUNT 36.7 K/mm3 (4.0-10.0)
[2017-02-17 06:31] LABS: CREATININE 0.3 mg/dL (0.55-1.02)
[2017-02-17 06:32] LABS: CALCIUM 7.8 mg/dL (8.5-10.1); COCKROFT - GAULT 133.45; MAGNESIUM 1.9 mg/dL (1.8-2.4); PHOSPHOROUS 2.5 mg/dL (2.5-4.9)
[2017-02-17] MEDS: ALLOPURINOL 300 MG TABLET (FP) PO SCH (09:12)
[2017-02-17] MEDS: FLUCONAZOLE 100 MG TABLET (UD) PO SCH (09:12)
[2017-02-17] MEDS: valACYclovir HCL 500 MG TABLET (FP) PO SCH ×2 (09:13→21:55)
[2017-02-17] MEDS: BACITRACIN 30 GM TUBE TOPICAL OINTMENT TP SCH ×2 (09:13→21:56)
[2017-02-17 09:27] LABS: SMUDGE CELLS 3
[2017-02-17 09:28] LABS: ANISOCYTOSIS 2+; HYPOCHROMIA 1+; MICROCYTOSIS 1+; PLATELET ESTIMATE DECREASED (NORMAL); POLYCHROMASIA FEW
--- NOTE | 2017-02-17 09:57 | PN ---
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 (short form) - Note 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: has been afebrile alert Vital Signs Period Temp Pulse Resp BP Sys/Choi Pulse Ox Last 24 Hr 97.8 F-98 F 68-83 16-18 128-157/66-88 93-96 cor-rrr lungs decreased bs on left abd soft,nt ext no edema CBC, BMP 02/17/17 05:15 02/17/17 05:15 patient refused cultures cxray unchanged a/p fever/hypotension-resolved cxray unchanged will d/c cefepime and observe anemia-s/p transfusion CLL recent chest tube for pleural effusion CXRAY unchanged continue valtrex for genital HSV CLL- per oncology anemia- s/p transfusion Current Medications Acetaminophen (Tylenol -) 650 mg PO Q6H PRN PRN Reason: FEVER OR PAIN Acetaminophen (Tylenol Suppository -) 650 mg [place] Q6H PRN PRN Reason: FEVER OR PAIN Allopurinol (Zyloprim -) 300 mg PO DAILY [facility] Last Admin: 02/17/17 09:12 Dose: 300 mg Bacitracin (Bacitracin -) 1 applic TP BID [facility] Last Admin: 02/17/17 09:13 Dose: 1 applic Chlorambucil (Leukeran -) 4 mg PO DAILY [facility] Last Admin: 02/16/17 09:43 Dose: 4 mg Fluconazole (Diflucan -) 100 mg PO DAILY [facility] Last Admin: 02/17/17 09:12 Dose: 100 mg Cefepime HCl 1 gm/ Dextrose 100 mls @ 200 mls/hr IVPB Q8H-IV [facility] PRN Reason: Protocol Last Admin: 02/17/17 09:12 Dose: 200 mls/hr Sodium Chloride (1/2 Normal Saline) 1,000 mls @ 75 mls/hr IV ASDIR [facility] Last Admin: 02/16/17 19:15 Dose: 75 mls/hr Insulin Aspart (Novolog Vial Sliding Scale -) 1 vial SQ ACHS [facility] PRN Reason: Protocol Last Admin: 02/17/17 06:06 Dose: Not Given Insulin Detemir (Levemir Vial) 3 units SQ AM [facility] Last Admin: 02/17/17 06:05 Dose: 3 units Levothyroxine Sodium (Synthroid -) 25 mcg PO DAILY@0700 [facility] Last Admin: 02/17/17 06:05 Dose: 25 mcg Metoprolol Tartrate (Lopressor -) 50 mg PO TID [facility] Last Admin: 02/17/17 06:05 Dose: 50 mg Valacyclovir HCl (Valtrex -) 500 mg PO BID [facility] Last Admin: 02/17/17 09:13 Dose: 500 mg
[2017-02-17] MEDS: CHLORAMBUCIL 2 MG PO SCH (11:02)
--- NOTE | 2017-02-17 11:17 | PN ---
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, PROJECT SPECIALIST - Note 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: Selected Entries 02/16/17 02/16/17 02/16/17 02:00 08:00 10:00 Breakfast 25% Skin Risk Level High Risk Temperature 97.2 F L 97.8 F 02/16/17 02/16/17 02/17/17 15:00 22:00 08:00 Breakfast Skin Risk Level Moderate Risk Temperature 98 F 97.8 F 02/17/17 09:34 Breakfast 25% Skin Risk Level Temperature Case reviewed with PMD and critical care, as well as nursing. Coughing with po intake, likely secondary to dyscoordination of oral and pharyngeal stages of deglutition. Swallow itself, once triggered is quite brisk. No aspiration when seated fully upright in chair for MBS on 02/09/17. Likely aspirating intermittently at this time with responsive, unprotective cough. Not accepting sufficient nutrition. Prognosis for recovery is quite limited. Family spoke with palliative care regarding Naranja. Pt is a full code. Consider NGT/GT? for improved nutrition. Critical care will speak to family regarding TF/Naranja.
--- NOTE | 2017-02-17 11:41 | PN ---
Teaching Attending Note Name of Resident: Triston Gonzales ATTENDING PHYSICIAN STATEMENT I saw and evaluated the patient. I reviewed the resident's note and discussed the case with the resident. I agree with the resident's findings and plan as documented. SUBJECTIVE: Patient seen and examined in the ICU. Awake and responsive, but remains confused. Denies CP or SOB. Poor oral intake. Intake & Output 02/14/17 02/15/17 02/16/17 02/17/17 23:59 23:59 23:59 23:59 Intake Total 1230 2700 2115 936 Output Total 0 0 Balance 1230 2700 2115 936 Weight 128 lb 11.999 oz 125 lb 3.561 oz Last Vital Signs Temp Pulse Resp BP Pulse Ox 97.8 F 68 16 131/67 93 L 02/17/17 08:00 02/17/17 08:00 02/17/17 08:00 02/17/17 08:00 02/16/17 23:24 Active Medications Acetaminophen (Tylenol -) 650 mg PO Q6H PRN PRN Reason: FEVER OR PAIN Acetaminophen (Tylenol Suppository -) 650 mg [place] Q6H PRN PRN Reason: FEVER OR PAIN Allopurinol (Zyloprim -) 300 mg PO DAILY [facility] Last Admin: 02/17/17 09:12 Dose: 300 mg Bacitracin (Bacitracin -) 1 applic TP BID [facility] Last Admin: 02/17/17 09:13 Dose: 1 applic Chlorambucil (Leukeran -) 4 mg PO DAILY [facility] Last Admin: 02/17/17 11:02 Dose: 4 mg Fluconazole (Diflucan -) 100 mg PO DAILY [facility] Last Admin: 02/17/17 09:12 Dose: 100 mg Sodium Chloride (1/2 Normal Saline) 1,000 mls @ 75 mls/hr IV ASDIR [facility] Last Admin: 02/16/17 19:15 Dose: 75 mls/hr Insulin Aspart (Novolog Vial Sliding Scale -) 1 vial SQ ACHS [facility] PRN Reason: Protocol Last Admin: 02/17/17 11:24 Dose: Not Given Insulin Detemir (Levemir Vial) 3 units SQ AM [facility] Last Admin: 02/17/17 06:05 Dose: 3 units Levothyroxine Sodium (Synthroid -) 25 mcg PO DAILY@0700 [facility] Last Admin: 02/17/17 06:05 Dose: 25 mcg Metoprolol Tartrate (Lopressor -) 50 mg PO TID [facility] Last Admin: 02/17/17 06:05 Dose: 50 mg Valacyclovir HCl (Valtrex -) 500 mg PO BID [facility] Last Admin: 02/17/17 09:13 Dose: 500 mg Gen: NAD at rest, mildly confused Heart: S1S2 Lung: decreased breath sounds at the bases Abd: soft, nontender Ext: (+) edema Laboratory Results - last 24 hr 02/14/17 02/16/17 02/16/17 09:27 05:15 05:15 WBC RBC Hgb Hct MCV MCHC RDW Plt Count MPV Neutrophils % 13.0 L D Lymphocytes % 86.0 H D Monocytes % 1.0 L Differential Comment Manual diff done Reactive Lymphocytes Smudge Cells Many Platelet Estimate Markedly decreased Platelet Comment Polychromasia Hypochromic-Microcytic Anisocytosis Microcytosis Sodium Potassium Chloride Carbon Dioxide Anion Gap BUN Creatinine POC Glucometer Random Glucose Uric Acid 2.8 Calcium Phosphorus Magnesium Blood Type A POSITIVE Antibody Screen Negative Crossmatch See Detail 02/16/17 02/16/17 02/17/17 17:21 21:15 05:15 WBC 36.7 H* RBC 2.92 L Hgb 9.0 L Hct 27.9 L MCV 95.3 MCHC 32.4 RDW 22.1 H Plt Count 46 L MPV 9.4 Neutrophils % 14.0 L Lymphocytes % 81.0 H Monocytes % 2.0 L D Differential Comment Reactive Lymphocytes 3 D Smudge Cells 3 Platelet Estimate Decreased Platelet Comment No clumping noted Polychromasia Few Hypochromic-Microcytic 1+ Anisocytosis 2+ Microcytosis 1+ Sodium Potassium Chloride Carbon Dioxide Anion Gap BUN Creatinine POC Glucometer 147.79023 161.15051 Random Glucose Uric Acid Calcium Phosphorus Magnesium Blood Type Antibody Screen Crossmatch 02/17/17 02/17/17 05:15 05:36 WBC RBC Hgb Hct MCV MCHC RDW Plt Count MPV Neutrophils % Lymphocytes % Monocytes % Differential Comment Reactive Lymphocytes Smudge Cells Platelet Estimate Platelet Comment Polychromasia Hypochromic-Microcytic Anisocytosis Microcytosis Sodium 143 Potassium 3.5 Chloride 105 Carbon Dioxide 30 Anion Gap 8 BUN 8 Creatinine 0.3 L POC Glucometer 110.96714 Random Glucose 80 Uric Acid Calcium 7.8 L Phosphorus 2.5 Magnesium 1.9 Blood Type Antibody Screen Crossmatch Problem List - Problems (1) Acute respiratory failure with hypoxia Code(s): J96.01 - ACUTE RESPIRATORY FAILURE WITH HYPOXIA (2) Pleural effusion Code(s): J90 - PLEURAL EFFUSION, NOT ELSEWHERE CLASSIFIED (3) CLL (chronic lymphocytic leukemia) Code(s): C91.10 - CHRONIC LYMPHOCYTIC LEUK OF B-CELL TYPE NOT ACHIEVE REMIS (4) Diabetes mellitus Code(s): E11.9 - TYPE 2 DIABETES MELLITUS WITHOUT COMPLICATIONS (5) Hypertension Code(s): I10 - ESSENTIAL (PRIMARY) HYPERTENSION (6) Hypothyroid Code(s): E03.9 - HYPOTHYROIDISM, UNSPECIFIED (7) Anemia Code(s): D64.9 - ANEMIA, UNSPECIFIED Qualifiers: Qualified Code(s): D64.9 - Anemia, unspecified (8) Lactic acidosis Code(s): E87.2 - ACIDOSIS ASSESSMENT AND PLAN: Acute Hypoxic Respiratory Failure improved 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 Lactic Acidosis Sepsis Anemia s/p PRBC transfusions HTN DM Hypothyroidism - monitor H/H, monitor transfusion thresholds - ABX per ID - O2 to keep SpO2 >90% - Aspiration precautions - DVT prophylaxis - continue discussions regarding goals of care and advanced directives, poor overall prognosis -> [place] would be appropriate - 7W Critical care time spent in reviewing chart, evaluating pt and formulating plan [address] Darby
--- NOTE | 2017-02-17 14:50 | PN ---
Physical Exam: SUBJECTIVE: Patient seen and examined OBJECTIVE: Vital Signs Period Temp Pulse Resp BP Sys/Choi Pulse Ox Last 24 Hr 97.8 F-98 F 68-77 16-18 108-157/61-88 93-98 GENERAL: The patient is awake, alert, and fully oriented, in no acute distress. HEAD: Normal with no signs of trauma. ENT: moist mucous membranes. LUNGS: breath sounds decreased on right side, no wheez, no crackels, normal breath sound on left side. HEART: s1s2 normal, irregular ABDOMEN: Soft, nontender, nondistended, normoactive bowel sounds, no guarding EXTREMITIES: 2+ pulses, warm, well-perfused, no edema. PSYCH: Normal mood, normal affect. SKIN: Warm, dry, Laboratory Results - last 24 hr 02/14/17 02/16/17 02/16/17 09:27 17:21 21:15 WBC RBC Hgb Hct MCV MCHC RDW Plt Count MPV Neutrophils % Lymphocytes % Monocytes % Reactive Lymphocytes Smudge Cells Platelet Estimate Platelet Comment Polychromasia Hypochromic-Microcytic Anisocytosis Microcytosis Sodium Potassium Chloride Carbon Dioxide Anion Gap BUN Creatinine POC Glucometer 147.70840 [phone] Random Glucose Calcium Phosphorus Magnesium Blood Type A POSITIVE Antibody Screen Negative Crossmatch See Detail 02/17/17 02/17/17 02/17/17 05:15 05:15 05:36 WBC 36.7 H* RBC 2.92 L Hgb 9.0 L Hct 27.9 L MCV 95.3 MCHC 32.4 RDW 22.1 H Plt Count 46 L MPV 9.4 Neutrophils % 14.0 L Lymphocytes % 81.0 H Monocytes % 2.0 L D Reactive Lymphocytes 3 D Smudge Cells 3 Platelet Estimate Decreased Platelet Comment No clumping noted Polychromasia Few Hypochromic-Microcytic 1+ Anisocytosis 2+ Microcytosis 1+ Sodium 143 Potassium 3.5 Chloride 105 Carbon Dioxide 30 Anion Gap 8 BUN 8 Creatinine 0.3 L POC Glucometer 110.81387 Random Glucose 80 Calcium 7.8 L Phosphorus 2.5 Magnesium 1.9 Blood Type Antibody Screen Crossmatch 02/17/17 11:23 WBC RBC Hgb Hct MCV MCHC RDW Plt Count MPV Neutrophils % Lymphocytes % Monocytes % Reactive Lymphocytes Smudge Cells Platelet Estimate Platelet Comment Polychromasia Hypochromic-Microcytic Anisocytosis Microcytosis Sodium Potassium Chloride Carbon Dioxide Anion Gap BUN Creatinine POC Glucometer 114.38583 Random Glucose Calcium Phosphorus Magnesium Blood Type Antibody Screen Crossmatch Active Medications Generic Name Dose Route Start Last Admin Trade Name Freq PRN Reason Stop Dose Admin Acetaminophen 650 mg 02/15/17 19:03 Tylenol - PO Q6H PRN FEVER OR PAIN Acetaminophen 650 mg 02/15/17 19:03 Tylenol Suppository - SD Q6H PRN FEVER OR PAIN Allopurinol 300 mg 02/16/17 10:00 02/17/17 09:12 Zyloprim - PO 300 mg DAILY [facility] Administration Bacitracin 1 applic 02/15/17 22:00 02/17/17 09:13 Bacitracin - TP 1 applic BID [facility] Administration Chlorambucil 4 mg 02/16/17 10:00 02/17/17 11:02 Leukeran - PO 4 mg DAILY [facility] Administration Fluconazole 100 mg 02/16/17 10:00 02/17/17 09:12 Diflucan - PO 100 mg DAILY [facility] Administration Sodium Chloride 1,000 mls @ 75 mls/hr 02/15/17 19:03 02/16/17 19:15 1/2 Normal Saline IV 75 mls/hr ASDIR [facility] Administration Insulin Aspart 1 vial 02/15/17 22:00 02/17/17 11:24 Novolog Vial Sliding Scale - SQ Not Given [facility] Protocol Insulin Detemir 3 units 02/16/17 07:00 02/17/17 06:05 Levemir Vial SQ 3 units AM [facility] Administration Levothyroxine Sodium 25 mcg 02/16/17 07:00 02/17/17 06:05 Synthroid - PO 25 mcg DAILY@0700 [facility] Administration Metoprolol Tartrate 50 mg 02/16/17 22:00 02/17/17 14:44 Lopressor - PO 50 mg TID [facility] Administration Valacyclovir HCl 500 mg 02/15/17 22:00 02/17/17 09:13 Valtrex - PO 500 mg BID [facility] Administration ASSESSMENT/PLAN: 1. Acute hypoxic respiratory failure 2/2 large right pleural effusion - chest tube has been removed h/o malignent effusion - continue incentive spirometry -pulmonary on case 2 r/o sepsis blood pressure stable antibiotics as per id 3. CLL, chronic anemia requiring transfusion -oncology following - isolation precautions 4. Anemia got one unit of blood hb 9.1 after blood transfusion 5. Vaginal sores -on valtrex 6. DM II -continue low dose levemir -SSI - monitor blood glucose 7. Hypothyroidism -continue synthroid Pressure ulcers: allevyn dressing fluid : /2 n 75ml/hr electrolyte : follow in am nutrition dysphagia puree gi pro : not required dvt pro on scd, thrombocytopenia, dispo: transfer to med surg Visit type - Emergency Visit Emergency Visit: Yes ED Registration Date: 01/25/17 Care time: The patient presented to the Emergency Department on the above date and was hospitalized for further evaluation of their emergent condition. - New Patient This patient is new to me today: No - Critical Care Critical Care patient: Yes Total Critical Care Time (in minutes): 45 Critical Care Statement: The care of this patient involved high complexity decision making to prevent further life threatening deterioration of the patient 's condition and/or to evalute & treat vital organ system(s) failure or risk of failure.
[2017-02-17] MEDS: SODIUM CHLORIDE 0.45% 1,000 ML IV SCH ×2 (17:01→20:00)
--- NOTE | 2017-02-17 17:15 | PN ---
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, Physician Chief Complaint: Ms Stock says she is feeling fine. Denies cp, sob, n/v - Current Medication List Current Medications: Active Medications Acetaminophen (Tylenol -) 650 mg PO Q6H PRN PRN Reason: FEVER OR PAIN Acetaminophen (Tylenol Suppository -) 650 mg SD Q6H PRN PRN Reason: FEVER OR PAIN Allopurinol (Zyloprim -) 300 mg PO DAILY [facility] Last Admin: 02/17/17 09:12 Dose: 300 mg Bacitracin (Bacitracin -) 1 applic TP BID [facility] Last Admin: 02/17/17 09:13 Dose: 1 applic Chlorambucil (Leukeran -) 4 mg PO DAILY [facility] Last Admin: 02/17/17 11:02 Dose: 4 mg Fluconazole (Diflucan -) 100 mg PO DAILY [facility] Last Admin: 02/17/17 09:12 Dose: 100 mg Sodium Chloride (1/2 Normal Saline) 1,000 mls @ 75 mls/hr IV ASDIR [facility] Last Admin: 02/17/17 17:01 Dose: 75 mls/hr Insulin Aspart (Novolog Vial Sliding Scale -) 1 vial SQ ACHS [facility] PRN Reason: Protocol Last Admin: 02/17/17 17:00 Dose: Not Given Insulin Detemir (Levemir Vial) 3 units SQ AM [facility] Last Admin: 02/17/17 06:05 Dose: 3 units Levothyroxine Sodium (Synthroid -) 25 mcg PO DAILY@0700 [facility] Last Admin: 02/17/17 06:05 Dose: 25 mcg Metoprolol Tartrate (Lopressor -) 50 mg PO TID [facility] Last Admin: 02/17/17 14:44 Dose: 50 mg Valacyclovir HCl (Valtrex -) 500 mg PO BID [facility] Last Admin: 02/17/17 09:13 Dose: 500 mg - Objective Vital Signs: Vital Signs Temperature 98 F 02/17/17 16:27 Pulse Rate 70 02/17/17 16:27 Respiratory Rate 16 02/17/17 16:27 Blood Pressure 124/71 02/17/17 16:27 O2 Sat by Pulse Oximetry (%) 98 02/17/17 10:00 Constitutional: Yes: No Distress, Calm, Thin Cardiovascular: Yes: Regular Rate and Rhythm. No: Gallop, Murmur, Rub Respiratory: Yes: Regular, CTA Bilaterally. No: Rales, Rhonchi, Wheezes Gastrointestinal: Yes: Normal Bowel Sounds, Soft. No: Distention, Tenderness Extremities: Yes: WNL Edema: No Labs: CBC, BMP 02/17/17 05:15 02/17/17 05:15 INR, PTT INR 1.08 (0.82-1.09) 01/26/17 05:50 Fibrinogen 397.0 mg/dL (238-498) 01/26/17 05:50 Assessment/Plan 1. Acute hypoxic respiratory failure 2/2 large right pleural effusion -chest tube removal per Dr Cat -monitor for re-occurrence -pulmonary following -resolved currently 2. Bacterial pneumonia -cefepime stopped today -monitor off antibiotics 3. CLL, chronic anemia requiring transfusion -oncology following -continue chemotherapy 4. Breast cancer s/p resection, +margin, ER+ - Per Dr. Young, "no adjuvant therapy was given as she declined per her primary oncologist in [place]" 5. Anemia -stable after transfusion 6. Vaginal sores -improving with valtrex 7. DM II -continue low dose levemir -SSI 8. Hypothyroidism -continue synthroid 9. Hypernatremia -resolved 19. Nutrition -MBS performed -in discussion with family about goals of care -continue current diet 11. Prophylaxis -Hold all chemical anticoagulation -Pressure ulcers: allevyn dressing
--- NOTE | 2017-02-17 18:32 | PN ---
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 (short form) - Note 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: Chief Complaint: effusion, SVT S: Alert today, verbal responses to questions. Currently eating. Per aid, patient coughing with thin liquids but tolerating eating thicker foods. denies sob, PND, cp, palpitations, leg swelling. Current Medications Acetaminophen (Tylenol -) 650 mg PO Q6H PRN PRN Reason: FEVER OR PAIN Acetaminophen (Tylenol Suppository -) 650 mg [place] Q6H PRN PRN Reason: FEVER OR PAIN Allopurinol (Zyloprim -) 300 mg PO DAILY [facility] Last Admin: 02/17/17 09:12 Dose: 300 mg Bacitracin (Bacitracin -) 1 applic TP BID [facility] Last Admin: 02/17/17 09:13 Dose: 1 applic Chlorambucil (Leukeran -) 4 mg PO DAILY [facility] Last Admin: 02/17/17 11:02 Dose: 4 mg Fluconazole (Diflucan -) 100 mg PO DAILY [facility] Last Admin: 02/17/17 09:12 Dose: 100 mg Sodium Chloride (1/2 Normal Saline) 1,000 mls @ 75 mls/hr IV ASDIR [facility] Last Admin: 02/17/17 17:01 Dose: 75 mls/hr Insulin Aspart (Novolog Vial Sliding Scale -) 1 vial SQ ACHS [facility] PRN Reason: Protocol Last Admin: 02/17/17 17:00 Dose: Not Given Insulin Detemir (Levemir Vial) 3 units SQ AM [facility] Last Admin: 02/17/17 06:05 Dose: 3 units Levothyroxine Sodium (Synthroid -) 25 mcg PO DAILY@0700 [facility] Last Admin: 02/17/17 06:05 Dose: 25 mcg Metoprolol Tartrate (Lopressor -) 50 mg PO TID [facility] Last Admin: 02/17/17 14:44 Dose: 50 mg Valacyclovir HCl (Valtrex -) 500 mg PO BID [facility] Last Admin: 02/17/17 09:13 Dose: 500 mg Vital Signs - 24 hr 02/16/17 02/16/17 02/16/17 18:29 20:17 22:00 Temperature Pulse Rate 75 77 Respiratory 18 18 Rate Blood Pressure 157/85 135/88 O2 Sat by Pulse 95 Oximetry (%) 02/16/17 02/17/17 02/17/17 23:24 08:00 09:00 Temperature 97.8 F Pulse Rate 68 Respiratory 16 16 Rate Blood Pressure 131/67 O2 Sat by Pulse 93 L 98 Oximetry (%) 02/17/17 02/17/17 02/17/17 10:00 12:00 14:00 Temperature Pulse Rate 70 70 72 Respiratory 18 14 18 Rate Blood Pressure 108/61 127/70 116/69 O2 Sat by Pulse 98 Oximetry (%) 02/17/17 02/17/17 16:27 18:00 Temperature 98 F Pulse Rate 70 68 Respiratory 16 18 Rate Blood Pressure 124/71 134/74 O2 Sat by Pulse Oximetry (%) Intake & Output 02/15/17 02/16/17 02/17/17 02/18/17 07:59 07:59 07:59 07:59 Intake Total 2350 2145 2005 850 Output Total 0 0 Balance 2350 2145 2005 850 Weight 125 lb 3.561 oz Constitutional: Yes: Well Nourished, No Distress, Calm Cardiovascular: Yes: Regular Rate and Rhythm, S1, S2. No: JVD, Gallop, Murmur Respiratory: Yes: Regular, Diminished (R base). No: Accessory Muscle Use, Rales , Wheezes Extremities: No: Cold Edema: No Neurological: Yes: Alert. No: Seizure Psychiatric: No: Agitated Labs: CBC, BMP 02/17/17 05:15 02/17/17 05:15 Assessment/Plan ekg: sr, pac's. non-specific t wave abnormalities tele: SR with pac's, pvc's. one brief 9-beat run of svt echo here 02/06: nl lv/rv. mod tio, severe mr, mod-sev tr, rvsp 50-60. pleural effusion echo images reviewed by Dr. Welch; report of severe MR and mod-severe TR appears overestimated. MR and TR both appear very much within moderate range 02/14 cxr report and images reviewed. RLL consolidation with small effusion a/p: 81 year old female with significant past medical history of hypertension, hyperlipidemia, diabetes, anemia, recent dx of CLL, and hypothyroidism who presents to the ED [facility]IB[facility] from [facility] facility for respiratory distress and found to have large right pleural effusion 2/2 CLL and whose hospital course is now complicated by SVT. SVT - admitted for respiratory distress and found to have large right pleural effusion 2/2 CLL and hospital course complicated by episode of SVT. - no further svt episodes here, on lopressor 25 tid--bp tolerating this dose - 02/14: will reassess bp after blood transfusion, if remains low will need to hold metoprolol. - 02/15-02/16: bp improved, + svt and frequent nsvt. Will uptitrate metoprolol. For MAT, ongoing treatment of underlying pulmonary disease per pmd, pulm, heme/ onc - 02/17 will transition to long acting bb. - electrolyte repletion prn severe MR/mod-severe TR/moderate pulm HTN - echo reviewed by our team: no JVD or other signs chf, no audible murmurs in pt with thin habitus - given unspecified degree of underlying dementia and functional status, and uncontrolled hematologic malignancy now causing pleural effusion, may not be a candidate for any therapy other than diuretics in any event - observe for s/sx of chf - no lasix currently indicated. tolerating IVF. pleural effusion - s/p thoracentesis--exudative c/w CLL disease process. - mild recurrence vs infiltrate on follow up cxr. - coughing with thin liquids, speech and swallow eval at discretion of pmd HTN - cont bb as bp allows HL - ok to defer statin given co-morbidities. CLL - tx per heme
[2017-02-17] MEDS ORDERED: POTASSIUM CHLORIDE TABS 20 MEQ TABLET.ER (FP) PO ONE (18:34)
[2017-02-17] MEDS: KCL 10 MEQ IVPB 100 ML IVPB SCH ×3 (19:00→21:00)
[2017-02-17] MEDS ORDERED: POTASSIUM CHLORIDE ORAL LIQUID 20 MEQ/15 ML ONE (23:14)
[2017-02-18] MEDS: METOPROLOL SUCCINATE 50 MG TAB.SR.24H (FP) PO SCH ×2 (06:28→18:17)
[2017-02-18] MEDS: LEVOTHYROXINE NA 25 MCG TABLET (FP) PO SCH (06:29)
[2017-02-18] MEDS: INSULIN DETEMIR 100 UNITS/ML MDV SQ SCH (06:29)
[2017-02-18] MEDS: INSULIN SLIDING SCALE (NOVOLOG) 1 VIAL SQ SCH ×4 (06:37→21:54)
[2017-02-18 07:00] LABS: MCH 30.8 pg (25.7-33.7); MCHC 31.9 g/dl (32.0-36.0); MEAN CELL VOLUME 96.5 fl (80-96); MEAN PLT VOLUME 8.7 fl (7.5-11.1); PLATELET COUNT 50 K/MM3 (134-434); RDW 22.9 % (11.6-15.6)
[2017-02-18 07:09] LABS: WHITE BLOOD COUNT 44.7 K/mm3 (4.0-10.0)
[2017-02-18 07:24] LABS: CALCIUM 8.2 mg/dL (8.5-10.1); COCKROFT - GAULT 201.7645; CREATININE 0.2 mg/dL (0.55-1.02)
[2017-02-18 08:45] LABS: SMUDGE CELLS FEW
[2017-02-18 08:46] LABS: ANISOCYTOSIS 2+; HYPOCHROMIA 1+; MICROCYTOSIS 1+; PLATELET COMMENT2 NO CLOTTING DETECTED; PLATELET ESTIMATE DECREASED (NORMAL); POIKILOCYTOSIS 2+; POLYCHROMASIA 1+
--- NOTE | 2017-02-18 09:13 | PN ---
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 (short form) - Note 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: Patient seen and examined in the ICU. Awake and responsive, but remains confused. Denies CP or SOB. No acute events overnight. Intake & Output 02/15/17 02/16/17 02/17/17 02/18/17 23:59 23:59 23:59 23:59 Intake Total 2700 2115 1886 1300 Output Total 0 0 0 Balance 2700 2115 1886 1300 Weight 128 lb 11.999 oz 125 lb 3.561 oz 125 lb 9.6 oz Last Vital Signs Temp Pulse Resp BP Pulse Ox 97 F L 76 16 137/74 98 02/18/17 06:00 02/18/17 06:00 02/18/17 09:00 02/18/17 06:00 02/17/17 21:00 Active Medications Acetaminophen (Tylenol -) 650 mg PO Q6H PRN PRN Reason: FEVER OR PAIN Acetaminophen (Tylenol Suppository -) 650 mg IN Q6H PRN PRN Reason: FEVER OR PAIN Allopurinol (Zyloprim -) 300 mg PO DAILY [facility] Last Admin: 02/17/17 09:12 Dose: 300 mg Bacitracin (Bacitracin -) 1 applic TP BID [facility] Last Admin: 02/17/17 21:56 Dose: 1 applic Chlorambucil (Leukeran -) 4 mg PO DAILY [facility] Last Admin: 02/17/17 11:02 Dose: 4 mg Fluconazole (Diflucan -) 100 mg PO DAILY [facility] Last Admin: 02/17/17 09:12 Dose: 100 mg Sodium Chloride (1/2 Normal Saline) 1,000 mls @ 75 mls/hr IV ASDIR [facility] Last Admin: 02/17/17 20:00 Dose: 75 mls/hr Insulin Aspart (Novolog Vial Sliding Scale -) 1 vial SQ ACHS [facility] PRN Reason: Protocol Last Admin: 02/18/17 06:37 Dose: Not Given Insulin Detemir (Levemir Vial) 3 units SQ AM [facility] Last Admin: 02/18/17 06:29 Dose: 3 units Levothyroxine Sodium (Synthroid -) 25 mcg PO DAILY@0700 [facility] Last Admin: 02/18/17 06:29 Dose: 25 mcg Metoprolol Succinate (Toprol Xl -) 75 mg PO BID@06,18 [facility] Last Admin: 02/18/17 06:28 Dose: 75 mg Valacyclovir HCl (Valtrex -) 500 mg PO BID [facility] Last Admin: 02/17/17 21:55 Dose: 500 mg Gen: NAD at rest, mildly confused Heart: S1S2 Lung: decreased breath sounds at the bases Abd: soft, nontender Ext: (+) edema Laboratory Results - last 24 hr 02/14/17 02/17/17 02/17/17 09:27 05:15 11:23 WBC RBC Hgb Hct MCV MCHC RDW Plt Count MPV Neutrophils % 14.0 L Lymphocytes % 81.0 H Monocytes % 2.0 L D Reactive Lymphocytes 3 D Smudge Cells 3 Platelet Estimate Decreased Platelet Comment No clumping noted Polychromasia Few Hypochromic-Microcytic 1+ Poikilocytosis Anisocytosis 2+ Microcytosis 1+ Macrocytosis Sodium Potassium Chloride Carbon Dioxide Anion Gap BUN Creatinine POC Glucometer 114.03431 Random Glucose Calcium Blood Type A POSITIVE Antibody Screen Negative Crossmatch See Detail 02/17/17 02/17/17 02/18/17 16:44 23:56 05:35 WBC 44.7 H* RBC 2.92 L Hgb 9.0 L Hct 28.2 L MCV 96.5 H MCHC 31.9 L RDW 22.9 H Plt Count 50 L MPV 8.7 Neutrophils % 15.0 L Lymphocytes % 77.0 H Monocytes % 1.0 L Reactive Lymphocytes 6 D Smudge Cells Few Platelet Estimate Decreased Platelet Comment No clotting detected Polychromasia 1+ Hypochromic-Microcytic 1+ Poikilocytosis 2+ Anisocytosis 2+ Microcytosis 1+ Macrocytosis 1+ Sodium Potassium Chloride Carbon Dioxide Anion Gap BUN Creatinine POC Glucometer 92.20427 178.91351 Random Glucose Calcium Blood Type Antibody Screen Crossmatch 02/18/17 02/18/17 05:35 06:33 WBC RBC Hgb Hct MCV MCHC RDW Plt Count MPV Neutrophils % Lymphocytes % Monocytes % Reactive Lymphocytes Smudge Cells Platelet Estimate Platelet Comment Polychromasia Hypochromic-Microcytic Poikilocytosis Anisocytosis Microcytosis Macrocytosis Sodium 142 Potassium 3.6 Chloride 105 Carbon Dioxide 29 Anion Gap 8 BUN 8 Creatinine 0.2 L D POC Glucometer 101.29393 Random Glucose 83 Calcium 8.2 L Blood Type Antibody Screen Crossmatch Problem List - Problems (1) Acute respiratory failure with hypoxia Code(s): J96.01 - ACUTE RESPIRATORY FAILURE WITH HYPOXIA (2) Pleural effusion Code(s): J90 - PLEURAL EFFUSION, NOT ELSEWHERE CLASSIFIED (3) CLL (chronic lymphocytic leukemia) Code(s): C91.10 - CHRONIC LYMPHOCYTIC LEUK OF B-CELL TYPE NOT ACHIEVE REMIS (4) Diabetes mellitus Code(s): E11.9 - TYPE 2 DIABETES MELLITUS WITHOUT COMPLICATIONS (5) Hypertension Code(s): I10 - ESSENTIAL (PRIMARY) HYPERTENSION (6) Hypothyroid Code(s): E03.9 - HYPOTHYROIDISM, UNSPECIFIED (7) Anemia Code(s): D64.9 - ANEMIA, UNSPECIFIED Qualifiers: Qualified Code(s): D64.9 - Anemia, unspecified (8) Lactic acidosis Code(s): E87.2 - ACIDOSIS ASSESSMENT AND PLAN: Acute Hypoxic Respiratory Failure improved 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 Lactic Acidosis Sepsis Anemia s/p PRBC transfusions HTN DM Hypothyroidism - monitor H/H, monitor transfusion thresholds - ABX per ID - O2 to keep SpO2 >90% - Aspiration precautions - DVT prophylaxis - continue discussions regarding goals of care and advanced directives, poor overall prognosis -> [place] would be appropriate - 7W Dr Darby
--- NOTE | 2017-02-18 09:36 | PN ---
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, Physician History of Present Illness: Awake, alert Offers no complaints Temps remain down No recurrent fever/ hypotension WBC remains chronically elevated (CLL) - Current Medication List Current Medications: Active Medications Acetaminophen (Tylenol -) 650 mg PO Q6H PRN PRN Reason: FEVER OR PAIN Acetaminophen (Tylenol Suppository -) [address] Q6H PRN PRN Reason: FEVER OR PAIN Allopurinol (Zyloprim -) 300 mg PO DAILY [facility] Last Admin: 02/17/17 09:12 Dose: 300 mg Bacitracin (Bacitracin -) 1 applic TP BID [facility] Last Admin: 02/17/17 21:56 Dose: 1 applic Chlorambucil (Leukeran -) 4 mg PO DAILY [facility] Last Admin: 02/17/17 11:02 Dose: 4 mg Fluconazole (Diflucan -) 100 mg PO DAILY [facility] Last Admin: 02/17/17 09:12 Dose: 100 mg Sodium Chloride (1/2 Normal Saline) 1,000 mls @ 75 mls/hr IV ASDIR [facility] Last Admin: 02/17/17 20:00 Dose: 75 mls/hr Insulin Aspart (Novolog Vial Sliding Scale -) 1 vial SQ ACHS [facility] PRN Reason: Protocol Last Admin: 02/18/17 06:37 Dose: Not Given Insulin Detemir (Levemir Vial) 3 units SQ AM [facility] Last Admin: 02/18/17 06:29 Dose: 3 units Levothyroxine Sodium (Synthroid -) 25 mcg PO DAILY@0700 [facility] Last Admin: 02/18/17 06:29 Dose: 25 mcg Metoprolol Succinate (Toprol Xl -) 75 mg PO BID@06,18 [facility] Last Admin: 02/18/17 06:28 Dose: 75 mg Valacyclovir HCl (Valtrex -) 500 mg PO BID [facility] Last Admin: 02/17/17 21:55 Dose: 500 mg - Objective Vital Signs: Vital Signs Temperature 97 F L 02/18/17 06:00 Pulse Rate 76 02/18/17 06:00 Respiratory Rate 16 02/18/17 09:00 Blood Pressure 137/74 02/18/17 06:00 O2 Sat by Pulse Oximetry (%) 98 02/17/17 21:00 Constitutional: Yes: No Distress, Thin Eyes: Yes: Conjunctiva Clear Cardiovascular: Yes: Regular Rate and Rhythm, S1, S2 Respiratory: Yes: Diminished Gastrointestinal: Yes: Normal Bowel Sounds, Soft. No: Tenderness Edema: No Labs: CBC, BMP 02/18/17 05:35 02/18/17 05:35 INR, PTT INR 1.08 (0.82-1.09) 01/26/17 05:50 Fibrinogen 397.0 mg/dL (238-498) 01/26/17 05:50 Assessment/Plan S/P hypotension, possible sepsis BP improved. Cultures negative Cefepime D/C'd Genital HSV CLL Hx malignant effusion Observe off cefepime Continue valtrex po
[2017-02-18] MEDS ORDERED: PT OWN MED DRAWER 7, Y5N ONE ×2 (09:38→09:48)
[2017-02-18] MEDS: FLUCONAZOLE 100 MG TABLET (UD) PO SCH (09:43)
[2017-02-18] MEDS: ALLOPURINOL 300 MG TABLET (FP) PO SCH (09:43)
[2017-02-18] MEDS: CHLORAMBUCIL 2 MG PO SCH (09:50)
[2017-02-18] MEDS: valACYclovir HCL 500 MG TABLET (FP) PO SCH ×2 (09:51→21:53)
[2017-02-18] MEDS: BACITRACIN 30 GM TUBE TOPICAL OINTMENT TP SCH ×2 (09:52→21:54)
--- NOTE | 2017-02-18 10:13 | PN ---
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 (short form) - Note 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: S: no cp sob palps dizzy Current Medications Generic Name Dose Route Start Last Admin Trade Name Freq PRN Reason Stop Dose Admin Acetaminophen 650 mg 02/15/17 19:03 Tylenol - PO Q6H PRN FEVER OR PAIN Acetaminophen 650 mg 02/15/17 19:03 Tylenol Suppository - [place] Q6H PRN FEVER OR PAIN Allopurinol 300 mg 02/16/17 10:00 02/18/17 09:43 Zyloprim - PO 300 mg DAILY [facility] Administration Bacitracin 1 applic 02/15/17 22:00 02/18/17 09:52 Bacitracin - TP 1 applic BID SR[facility]IVASA Administration Chlorambucil 4 mg 02/16/17 10:00 02/18/17 09:50 Leukeran - PO 4 mg DAILY [facility] Administration Fluconazole 100 mg 02/16/17 10:00 02/18/17 09:43 Diflucan - PO 100 mg DAILY SR[facility]AS[facility] Administration Sodium Chloride 1,000 mls @ 75 mls/hr 02/15/17 19:03 02/17/17 20:00 1/2 Normal Saline IV 75 mls/hr ASDIR SRINIVASA Administration Insulin Aspart 1 vial 02/15/17 22:00 02/18/17 06:37 Novolog Vial Sliding Scale - SQ Not Given ACHS [facility] Protocol Insulin Detemir 3 units 02/16/17 07:00 02/18/17 06:29 Levemir Vial SQ 3 units AM [facility]AS[facility] Administration Levothyroxine Sodium 25 mcg 02/16/17 07:00 02/18/17 06:29 Synthroid - PO 25 mcg DAILY@0700 [facility] Administration Metoprolol Succinate 75 mg 02/18/17 06:00 02/18/17 06:28 Toprol Xl - PO 75 mg BID@06,18 [facility] Administration Valacyclovir HCl 500 mg 02/15/17 22:00 02/18/17 09:51 Valtrex - PO 500 mg BID SRIN[facility]AS[facility] Administration Vital Signs Period Temp Pulse Resp BP Sys/Choi Pulse Ox Last 24 Hr 97 F-98 F 68-84 14-18 116-143/58-74 98-98 Constitutional: Yes: No Distress, Calm Cardiovascular: Yes: Regular Rate and Rhythm, S1, S2. No: JVD, Gallop, Murmur Respiratory: Yes: Regular, Diminished (R base). No: Accessory Muscle Use, Rales , Wheezes Extremities: No: Cold Edema: No Neurological: Yes: Alert. No: Seizure Psychiatric: No: Agitated no jaundice diaphoresis Labs: CBC, BMP 02/18/17 05:35 02/18/17 05:35 ekg: sr, pac's. non-specific t wave abnormalities tele: SR with pac's, pvc's. brief run of svt echo here 02/06: nl lv/rv. mod tio, severe mr, mod-sev tr, rvsp 50-60. pleural effusion echo images reviewed by Dr. Welch; report of severe MR and mod-severe TR appears overestimated. MR and TR both appear very much within moderate range a/p: 81 year old female with significant past medical history of hypertension, hyperlipidemia, diabetes, anemia, recent dx of CLL, and hypothyroidism who presents to the ED BIBA from [facility] facility for respiratory distress and found to have large right pleural effusion 2/2 CLL and whose hospital course is now complicated by SVT. SVT - admitted for respiratory distress and found to have large right pleural effusion 2/2 CLL and hospital course complicated by episode of SVT. - no further svt episodes here, on lopressor 25 tid--bp tolerating this dose - 02/14: will reassess bp after blood transfusion, if remains low will need to hold metoprolol. - 02/15-02/16: bp improved, + svt and frequent nsvt. Will uptitrate metoprolol. For MAT, ongoing treatment of underlying pulmonary disease per pmd, pulm, heme/ onc - : cont toprol - electrolyte repletion prn severe MR/mod-severe TR/moderate pulm HTN - echo reviewed by our team: no JVD or other signs chf, no audible murmurs in pt with thin habitus - given unspecified degree of underlying dementia and functional status, and uncontrolled hematologic malignancy now causing pleural effusion, may not be a candidate for any therapy other than diuretics in any event - observe for s/sx of chf - no lasix currently indicated. pleural effusion - s/p thoracentesis--exudative c/w CLL disease process. - mild recurrence vs infiltrate on follow up cxr. HTN - cont bb as bp allows HL - ok to defer statin given co-morbidities. CLL - tx per heme
--- NOTE | 2017-02-18 14:26 | PN ---
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 (short form) - Note 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: Patient seen and examined Awake , alert, responsive Denies specific problems of headache, epistaxis, chest pains, SOB, nausea, abdominal pains, dysuria, back pains Last Vital Signs Temp Pulse Resp BP Pulse Ox 97 F L 92 H 16 147/64 98 02/18/17 06:00 02/18/17 12:00 02/18/17 12:00 02/18/17 12:00 02/17/17 21:00 HEENT: ADA, EOM Intact Oropharynx: No thrush, No mucositis Cor: irregular rhythm Lungs: diminished breath sounds bilaterally Abd: Soft, Normal bowel sounds, No organomegaly Ext:No significant edema Skin: No rashes, Integument intact CBC, BMP 02/18/17 05:35 02/18/17 05:35 Current Medications Generic Name Dose Route Start Last Admin Trade Name Freq PRN Reason Stop Dose Admin Acetaminophen 650 mg 02/15/17 19:03 Tylenol - PO Q6H PRN FEVER OR PAIN Acetaminophen 650 mg 02/15/17 19:03 Tylenol Suppository - [place] Q6H PRN FEVER OR PAIN Allopurinol 300 mg 02/16/17 10:00 02/18/17 09:43 Zyloprim - PO 300 mg DAILY SRINIVAS[facility] Administration Bacitracin 1 applic 02/15/17 22:00 02/18/17 09:52 Bacitracin - TP 1 applic BID [facility]AS[facility] Administration Chlorambucil 4 mg 02/16/17 10:00 02/18/17 09:50 Leukeran - PO 4 mg DAILY [facility] Administration Fluconazole 100 mg 02/16/17 10:00 02/18/17 09:43 Diflucan - PO 100 mg DAILY [facility]AS[facility] Administration Sodium Chloride 1,000 mls @ 75 mls/hr 02/15/17 19:03 02/17/17 20:00 1/2 Normal Saline IV 75 mls/hr ASDIR SRINIVAS[facility] Administration Insulin Aspart 1 vial 02/15/17 22:00 02/18/17 11:53 Novolog Vial Sliding Scale - SQ 2 units ACHS [facility] Administration Protocol Insulin Detemir 3 units 02/16/17 07:00 02/18/17 06:29 Levemir Vial SQ 3 units AM [facility] Administration Levothyroxine Sodium 25 mcg 02/16/17 07:00 02/18/17 06:29 Synthroid - PO 25 mcg DAILY@0700 [facility] Administration Metoprolol Succinate 75 mg 02/18/17 06:00 02/18/17 06:28 Toprol Xl - PO 75 mg BID@ [facility] Administration Valacyclovir HCl 500 mg 02/15/17 22:00 02/18/17 09:51 Valtrex - PO 500 mg BID SR[facility] Administration Impression: Possible sepsis-treated with antibiotics, now discontinued. CLL-- treated with oral leukeran daily Anemia---multifactorial, chronic disease, marrow infiltration Thrombocytopenia, ?? CLL, ?? infection ?? hypersplenism HSV--Valtrex DM- insulin Plan: continue to monitor CBC Continue with leukeran daily Sono of liver and spleen
--- NOTE | 2017-02-18 18:28 | PN ---
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, Physician Chief Complaint: No complaints, minimally inter active History of Present Illness: 81 yrs old F multiple medical co morbidities H/o CLL, T2DM on Insulin, long hospitalization with respiratory failure secondary to large pleural effusion s/ p chest tube drainage, gradually recovering - Current Medication List Current Medications: Active Medications Acetaminophen (Tylenol -) 650 mg PO Q6H PRN PRN Reason: FEVER OR PAIN Acetaminophen (Tylenol Suppository -) 650 mg [place] Q6H PRN PRN Reason: FEVER OR PAIN Allopurinol (Zyloprim -) 300 mg PO DAILY [facility]S [facility] Last Admin: 02/18/17 09:43 Dose: 300 mg Bacitracin (Bacitracin -) 1 applic TP BID [facility] Last Admin: 02/18/17 09:52 Dose: 1 applic Chlorambucil (Leukeran -) 4 mg PO DAILY [facility] B[facility]S [facility] Last Admin: 02/18/17 09:50 Dose: 4 mg Fluconazole (Diflucan -) 100 mg PO DAILY [facility] 234 B[facility]S AT [facility] Last Admin: 02/18/17 09:43 Dose: 100 mg Sodium Chloride (1/2 Normal Saline) 1,000 mls @ 75 mls/hr IV ASDIR [facility] 234 BEDS AT [facility] Last Admin: 02/17/17 20:00 Dose: 75 mls/hr Insulin Aspart (Novolog Vial Sliding Scale -) 1 vial SQ ACHS [facility] B[facility]S AT [facility] PRN Reason: Protocol Last Admin: 02/18/17 16:39 Dose: Not Given Insulin Detemir (Levemir Vial) 3 units SQ AM [facility] B[facility]S [facility] Last Admin: 02/18/17 06:29 Dose: 3 units Levothyroxine Sodium (Synthroid -) 25 mcg PO DAILY@0700 [facility] 234 B[facility]S [facility] Last Admin: 02/18/17 06:29 Dose: 25 mcg Metoprolol Succinate (Toprol Xl -) 75 mg PO BID@06,18 [facility] 234 BEDS AT [facility] Last Admin: 02/18/17 18:17 Dose: 75 mg Valacyclovir HCl (Valtrex -) 500 mg PO BID [facility] 234 BEDS AT [facility] Last Admin: 02/18/17 09:51 Dose: 500 mg - Objective Vital Signs: Vital Signs Temperature 97.4 F L 02/18/17 14:00 Pulse Rate 93 H 02/18/17 14:00 Respiratory Rate 16 02/18/17 14:00 Blood Pressure 140/72 02/18/17 14:00 O2 Sat by Pulse Oximetry (%) 98 02/17/17 21:00 Constitutional: Yes: Pallor, Thin Eyes: Yes: Conjunctiva Clear HENT: Yes: WNL, Atraumatic, Normocephalic Neck: Yes: WNL, Supple, Trachea Midline Cardiovascular: Yes: WNL, Regular Rate and Rhythm Respiratory: Yes: WNL, Regular, CTA Bilaterally Gastrointestinal: Yes: WNL, Normal Bowel Sounds ...Rectal Exam: Yes: Deferred Edema: Yes Edema: RUE: Trace, LLE: Trace Peripheral Pulses WNL: Yes Neurological: Yes: WNL, Alert. No: Oriented ...Motor Strength: LUE, LLE, RUE, RLE Labs: CBC, BMP 02/18/17 05:35 02/18/17 05:35 INR, PTT INR 1.08 (0.82-1.09) 01/26/17 05:50 Fibrinogen 397.0 mg/dL (238-498) 01/26/17 05:50 Assessment/Plan 1.Patient was admitted with Acute hypoxic respiratory failure due to large right pleural effusion s/p Chest tube for drainage, now removed, gradually improving. on Pulmonary F/U 2. CLL, chronic anemia: continue chemotherapy 3. Breast cancer s/p resection, +margin, ER+ 5. Anemia: Chonic H/H are stable 6. Vaginal sores on valtrex 7. DM II : Low dose Basal insulin with correction dose 8. Hypothyroidism: continue synthroid 9. Malnutrition; Nutrition consult
[2017-02-18] MEDS: SODIUM CHLORIDE 0.45% 1,000 ML IV SCH (21:31)
[2017-02-18] MEDS ORDERED: INSULIN (NOVOLOG) ASPART 100 UNITS/ML 10ML VIAL ONE (21:46)
[2017-02-19] MEDS: METOPROLOL SUCCINATE 50 MG TAB.SR.24H (FP) PO SCH ×2 (06:24→16:59)
[2017-02-19] MEDS: LEVOTHYROXINE NA 25 MCG TABLET (FP) PO SCH (06:24)
[2017-02-19] MEDS: INSULIN SLIDING SCALE (NOVOLOG) 1 VIAL SQ SCH ×4 (06:29→21:42)
[2017-02-19] MEDS: INSULIN DETEMIR 100 UNITS/ML MDV SQ SCH (06:29)
[2017-02-19 08:32] LABS: MCH 30.8 pg (25.7-33.7); MCHC 31.8 g/dl (32.0-36.0); MEAN CELL VOLUME 96.9 fl (80-96); MEAN PLT VOLUME 9.4 fl (7.5-11.1); PLATELET COUNT 53 K/MM3 (134-434); RDW 23.3 % (11.6-15.6)
[2017-02-19 08:39] LABS: MCH 30.8 pg (25.7-33.7); MCHC 31.6 g/dl (32.0-36.0); MEAN CELL VOLUME 97.3 fl (80-96); MEAN PLT VOLUME 8.7 fl (7.5-11.1); PLATELET COUNT 51 K/MM3 (134-434); RDW 23.2 % (11.6-15.6)
[2017-02-19 08:50] LABS: WHITE BLOOD COUNT 48.7 K/mm3 (4.0-10.0)
[2017-02-19 09:48] LABS: ALBUMIN 2.3 g/dl (3.4-5.0); ALK PHOS 49 U/L (45-117); ANION GAP 10 (8-16); BILIRUBIN,TOTAL 0.3 mg/dL (0.2-1.0); CALCIUM 8.2 mg/dL (8.5-10.1); CO2 29 mmol/L (21-32); COCKROFT - GAULT 201.7645; CREATININE 0.2 mg/dL (0.55-1.02); GLUCOSE,RANDOM 83 mg/dL (74-106); SGOT/AST 17 U/L (15-37); SGPT/ALT 10 U/L (12-78); TOT PROT 5.6 g/dl (6.4-8.2)
[2017-02-19 10:06] LABS: ANISOCYTOSIS 2+; HYPOCHROMIA 1+; PLATELET COMMENT2 NO CLOTTING DETECTED; PLATELET ESTIMATE DECREASED (NORMAL); SMUDGE CELLS FEW
--- NOTE | 2017-02-19 10:54 | PN ---
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 (short form) - Note 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: S: no cp sob palps dizzy Current Medications Generic Name Dose Route Start Last Admin Trade Name Freq PRN Reason Stop Dose Admin Acetaminophen 650 mg 02/15/17 19:03 Tylenol - PO Q6H PRN FEVER OR PAIN Acetaminophen 650 mg 02/15/17 19:03 Tylenol Suppository - [place] Q6H PRN FEVER OR PAIN Allopurinol 300 mg 02/16/17 10:00 02/18/17 09:43 Zyloprim - PO 300 mg DAILY SRINIVASA Administration Bacitracin 1 applic 02/15/17 22:00 02/18/17 21:54 Bacitracin - TP 1 applic BID SRINIVASA Administration Chlorambucil 4 mg 02/16/17 10:00 02/18/17 09:50 Leukeran - PO 4 mg DAILY [facility] Administration Fluconazole 100 mg 02/16/17 10:00 02/18/17 09:43 Diflucan - PO 100 mg DAILY [facility] Administration Sodium Chloride 1,000 mls @ 75 mls/hr 02/15/17 19:03 02/18/17 21:31 1/2 Normal Saline IV Not Given ASDIR [facility] Insulin Aspart 1 vial 02/15/17 22:00 02/19/17 06:29 Novolog Vial Sliding Scale - SQ Not Given ACHS [facility] Protocol Insulin Detemir 3 units 02/16/17 07:00 02/19/17 06:29 Levemir Vial SQ 3 units AM [facility] Administration Levothyroxine Sodium 25 mcg 02/16/17 07:00 02/19/17 06:24 Synthroid - PO 25 mcg DAILY@0700 SR[facility] Administration Metoprolol Succinate 75 mg 02/18/17 06:00 02/19/17 06:24 Toprol Xl - PO 75 mg BID@06,18 SR[facility] Administration Valacyclovir HCl 500 mg 02/15/17 22:00 02/18/17 21:53 Valtrex - PO 500 mg BID SRIN[facility]ASA Administration Vital Signs Period Temp Pulse Resp BP Sys/Choi Pulse Ox Last 24 Hr 97.4 F-99.2 F 71-100 16-20 120-167/70-93 Constitutional: Yes: No Distress, Calm Cardiovascular: Yes: Regular Rate and Rhythm, S1, S2. No: JVD, Gallop, Murmur Respiratory: Yes: Regular, Diminished (R base). No: Accessory Muscle Use, Rales , Wheezes Extremities: No: Cold Edema: No Neurological: Yes: Alert. No: Seizure Psychiatric: No: Agitated no jaundice diaphoresis Labs: CBC, BMP 02/19/17 06:00 02/19/17 06:00 ekg: sr, pac's. non-specific t wave abnormalities tele: SR, no svt echo here 02/06: nl lv/rv. mod tio, severe mr, mod-sev tr, rvsp 50-60. pleural effusion echo images reviewed by Dr. Welch: report of severe MR and mod-severe TR appears overestimated. MR and TR both appear very much within moderate range a/p: 81 year old female with significant past medical history of hypertension, hyperlipidemia, diabetes, anemia, recent dx of CLL, and hypothyroidism who presents to the ED BIBA from [facility] facility for respiratory distress and found to have large right pleural effusion 2/2 CLL and whose hospital course is now complicated by SVT. SVT - admitted for respiratory distress and found to have large right pleural effusion 2/2 CLL and hospital course complicated by episode of SVT. - no further svt episodes here, on lopressor 25 tid--bp tolerating this dose - 02/14: will reassess bp after blood transfusion, if remains low will need to hold metoprolol. - 02/15-02/16: bp improved, + svt and frequent nsvt. Will uptitrate metoprolol. For MAT, ongoing treatment of underlying pulmonary disease per pmd, pulm, heme/ onc - 02/17-: no sig svt on tele, cont toprol - electrolyte repletion prn severe MR/mod-severe TR/moderate pulm HTN - echo reviewed by our team: no JVD or other signs chf, no audible murmurs in pt with thin habitus - given unspecified degree of underlying dementia and functional status, and uncontrolled hematologic malignancy now causing pleural effusion, may not be a candidate for any therapy other than diuretics in any event - observe for s/sx of chf - no lasix currently indicated. pleural effusion - s/p thoracentesis--exudative c/w CLL disease process. HTN - cont bb HL - ok to defer statin given co-morbidities. CLL - tx per heme
[2017-02-19] MEDS ORDERED: PT OWN MED DRAWER 7, Y5N ONE ×2 (11:05→21:17)
[2017-02-19] MEDS: valACYclovir HCL 500 MG TABLET (FP) PO SCH ×2 (11:21→21:42)
[2017-02-19] MEDS: FLUCONAZOLE 100 MG TABLET (UD) PO SCH (11:21)
[2017-02-19] MEDS: ALLOPURINOL 300 MG TABLET (FP) PO SCH (11:21)
[2017-02-19] MEDS: CHLORAMBUCIL 2 MG PO SCH (11:22)
[2017-02-19] MEDS: BACITRACIN 30 GM TUBE TOPICAL OINTMENT TP SCH ×2 (11:22→21:42)
--- NOTE | 2017-02-19 11:40 | PN ---
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 (short form) - Note 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: Patient seen and examined Awake and alert Complains of constipation No chest pain, SOB, abdominal pains Last Vital Signs Temp Pulse Resp BP Pulse Ox 98.2 F 71 20 151/79 98 02/19/17 08:57 02/19/17 08:57 02/19/17 08:57 02/19/17 08:57 02/17/17 21:00 HEENT: ADA, EOM Intact Oropharynx: No thrush, No mucositis Nodes: bilateral axillary adenopathy Cor: RSR, No murmurs, No gallops Lungs: decreased breath sounds bilaterally Abd: Soft, Normal bowel sounds, No organomegaly Ext:No significant edema Skin: No rashes, Integument intact CBC, BMP 02/19/17 06:00 02/19/17 06:00 Current Medications Generic Name Dose Route Start Last Admin Trade Name Freq PRN Reason Stop Dose Admin Acetaminophen 650 mg 02/15/17 19:03 02/19/17 11:22 Tylenol - PO 650 mg Q6H PRN Administration FEVER OR PAIN Acetaminophen 650 mg 02/15/17 19:03 Tylenol Suppository - [place] Q6H PRN FEVER OR PAIN Allopurinol 300 mg 02/16/17 10:00 02/19/17 11:21 Zyloprim - PO 300 mg DAILY SR[facility]ASA Administration Bacitracin 1 applic 02/15/17 22:00 02/19/17 11:22 Bacitracin - TP 1 applic BID SR[facility]AS[facility] Administration Chlorambucil 4 mg 02/16/17 10:00 02/19/17 11:22 Leukeran - PO 4 mg DAILY SRNIIVAS[facility] Administration Fluconazole 100 mg 02/16/17 10:00 02/19/17 11:21 Diflucan - PO 100 mg DAILY [facility] Administration Sodium Chloride 1,000 mls @ 75 mls/hr 02/15/17 19:03 02/18/17 21:31 1/2 Normal Saline IV Not Given ASDIR SRINIVASA Insulin Aspart 1 vial 02/15/17 22:00 02/19/17 11:36 Novolog Vial Sliding Scale - SQ Not Given ACHS [facility] Protocol Insulin Detemir 3 units 02/16/17 07:00 02/19/17 06:29 Levemir Vial SQ 3 units AM [facility]AS[facility] Administration Levothyroxine Sodium 25 mcg 02/16/17 07:00 02/19/17 06:24 Synthroid - PO 25 mcg DAILY@0700 SR[facility] Administration Metoprolol Succinate 75 mg 02/18/17 06:00 02/19/17 06:24 Toprol Xl - PO 75 mg BID@ SR[facility]AS[facility] Administration Valacyclovir HCl 500 mg 02/15/17 22:00 02/19/17 11:21 Valtrex - PO 500 mg BID SRINIVASA Administration Impression CLL Malignant pleural effusion Anemia Thrombocytopenia Continuing on Leukeran therapy.
--- NOTE | 2017-02-19 13:45 | PN ---
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 (short form) - Note 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: Awake and responsive, but remains confused. Denies CP or SOB. Intake & Output 02/16/17 02/17/17 02/18/17 02/19/17 23:59 23:59 23:59 23:59 Intake Total 21140 850 Output Total 0 0 0 Balance 2114 1885 2489 850 Weight 128 lb 11.999 oz 125 lb 3.561 oz 125 lb 9.6 oz Last Vital Signs Temp Pulse Resp BP Pulse Ox 98.2 F 71 20 151/79 98 02/19/17 08:57 02/19/17 08:57 02/19/17 08:57 02/19/17 08:57 02/17/17 21:00 Active Medications Acetaminophen (Tylenol -) 650 mg PO Q6H PRN PRN Reason: FEVER OR PAIN Last Admin: 02/19/17 11:22 Dose: 650 mg Acetaminophen (Tylenol Suppository -) 650 mg [place] Q6H PRN PRN Reason: FEVER OR PAIN Allopurinol (Zyloprim -) 300 mg PO DAILY [facility] Last Admin: 02/19/17 11:21 Dose: 300 mg Bacitracin (Bacitracin -) 1 applic TP BID [facility] Last Admin: 02/19/17 11:22 Dose: 1 applic Chlorambucil (Leukeran -) 4 mg PO DAILY [facility] Last Admin: 02/19/17 11:22 Dose: 4 mg Fluconazole (Diflucan -) 100 mg PO DAILY [facility] Last Admin: 02/19/17 11:21 Dose: 100 mg Sodium Chloride (1/2 Normal Saline) 1,000 mls @ 75 mls/hr IV ASDIR [facility] Last Admin: 02/18/17 21:31 Dose: Not Given Insulin Aspart (Novolog Vial Sliding Scale -) 1 vial SQ ACHS [facility] PRN Reason: Protocol Last Admin: 02/19/17 11:36 Dose: Not Given Insulin Detemir (Levemir Vial) 3 units SQ AM [facility] Last Admin: 02/19/17 06:29 Dose: 3 units Levothyroxine Sodium (Synthroid -) 25 mcg PO DAILY@0700 [facility] Last Admin: 02/19/17 06:24 Dose: 25 mcg Metoprolol Succinate (Toprol Xl -) 75 mg PO BID@06,18 [facility] Last Admin: 02/19/17 06:24 Dose: 75 mg Valacyclovir HCl (Valtrex -) 500 mg PO BID [facility] Last Admin: 02/19/17 11:21 Dose: 500 mg Gen: NAD at rest, mildly confused Heart: S1S2 Lung: decreased breath sounds at the bases Abd: soft, nontender Ext: (+) edema Laboratory Results - last 24 hr 02/18/17 02/18/17 02/19/17 16:35 21:52 06:00 WBC 48.0 H* RBC 3.26 L Hgb 10.0 L D Hct 31.7 L MCV 97.3 H MCHC 31.6 L RDW 23.2 H Plt Count 51 L MPV 8.7 Neutrophils % Lymphocytes % Monocytes % Reactive Lymphocytes Smudge Cells Platelet Estimate Platelet Comment Hypochromic-Microcytic Anisocytosis Sodium Potassium Chloride Carbon Dioxide Anion Gap BUN Creatinine Creat Clearance w eGFR POC Glucometer [id number] Random Glucose Calcium Total Bilirubin AST ALT Alkaline Phosphatase Total Protein Albumin 02/19/17 02/19/17 02/19/17 06:00 06:00 06:26 WBC 48.7 H* RBC 3.24 L Hgb 10.0 L Hct 31.4 L MCV 96.9 H MCHC 31.8 L RDW 23.3 H Plt Count 53 L MPV 9.4 Neutrophils % 8.0 L D Lymphocytes % 70.0 H Monocytes % 2.0 L D Reactive Lymphocytes 20 D Smudge Cells Few Platelet Estimate Decreased Platelet Comment No clotting detected Hypochromic-Microcytic 1+ Anisocytosis 2+ Sodium 143 Potassium 3.6 Chloride 104 Carbon Dioxide 29 Anion Gap 10 BUN 8 Creatinine 0.2 L Creat Clearance w eGFR > 60 POC Glucometer 101 Random Glucose 83 Calcium 8.2 L Total Bilirubin 0.3 AST 17 ALT 10 L D Alkaline Phosphatase 49 Total Protein 5.6 L Albumin 2.3 L 02/19/17 11:33 WBC RBC Hgb Hct MCV MCHC RDW Plt Count MPV Neutrophils % Lymphocytes % Monocytes % Reactive Lymphocytes Smudge Cells Platelet Estimate Platelet Comment Hypochromic-Microcytic Anisocytosis Sodium Potassium Chloride Carbon Dioxide Anion Gap BUN Creatinine Creat Clearance w eGFR POC Glucometer 141 Random Glucose Calcium Total Bilirubin AST ALT Alkaline Phosphatase Total Protein Albumin Problem List - Problems (1) Acute respiratory failure with hypoxia Code(s): J96.01 - ACUTE RESPIRATORY FAILURE WITH HYPOXIA (2) Pleural effusion Code(s): J90 - PLEURAL EFFUSION, NOT ELSEWHERE CLASSIFIED (3) CLL (chronic lymphocytic leukemia) Code(s): C91.10 - CHRONIC LYMPHOCYTIC LEUK OF B-CELL TYPE NOT ACHIEVE REMIS (4) Diabetes mellitus Code(s): E11.9 - TYPE 2 DIABETES MELLITUS WITHOUT COMPLICATIONS (5) Hypertension Code(s): I10 - ESSENTIAL (PRIMARY) HYPERTENSION (6) Hypothyroid Code(s): E03.9 - HYPOTHYROIDISM, UNSPECIFIED (7) Anemia Code(s): D64.9 - ANEMIA, UNSPECIFIED Qualifiers: Qualified Code(s): D64.9 - Anemia, unspecified (8) Lactic acidosis Code(s): E87.2 - ACIDOSIS ASSESSMENT AND PLAN: Acute Hypoxic Respiratory Failure improved 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 Lactic Acidosis Sepsis Anemia s/p PRBC transfusions HTN DM Hypothyroidism - normal transfusion thresholds - ABX per ID - O2 to keep SpO2 >90% - Aspiration precautions - DVT prophylaxis - continue discussions regarding goals of care and advanced directives, poor overall prognosis -> Coty would be appropriate Dr Darby
--- NOTE | 2017-02-19 14:13 | PN ---
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, Physician Chief Complaint: No complaints, minimally inter active History of Present Illness: 81 yrs old F multiple medical co morbidities H/o CLL, T2DM on Insulin, long hospitalization for hypoxic respiratory failure, s/p chest tube drainage, gradually recovering, yesterday moved to floor. - Current Medication List Current Medications: Active Medications Acetaminophen (Tylenol -) 650 mg PO Q6H PRN PRN Reason: FEVER OR PAIN Last Admin: 02/19/17 11:22 Dose: 650 mg Acetaminophen (Tylenol Suppository -) 650 mg SC Q6H PRN PRN Reason: FEVER OR PAIN Allopurinol (Zyloprim -) 300 mg PO DAILY [facility] Last Admin: 02/19/17 11:21 Dose: 300 mg Bacitracin (Bacitracin -) 1 applic TP BID [facility] Last Admin: 02/19/17 11:22 Dose: 1 applic Chlorambucil (Leukeran -) 4 mg PO DAILY [facility] Last Admin: 02/19/17 11:22 Dose: 4 mg Fluconazole (Diflucan -) 100 mg PO DAILY [facility] Last Admin: 02/19/17 11:21 Dose: 100 mg Sodium Chloride (1/2 Normal Saline) 1,000 mls @ 75 mls/hr IV ASDIR [facility] Last Admin: 02/18/17 21:31 Dose: Not Given Insulin Aspart (Novolog Vial Sliding Scale -) 1 vial SQ ACHS [facility] PRN Reason: Protocol Last Admin: 02/19/17 11:36 Dose: Not Given Insulin Detemir (Levemir Vial) 3 units SQ AM [facility] Last Admin: 02/19/17 06:29 Dose: 3 units Levothyroxine Sodium (Synthroid -) 25 mcg PO DAILY@0700 [facility] Last Admin: 02/19/17 06:24 Dose: 25 mcg Metoprolol Succinate (Toprol Xl -) 75 mg PO BID@06,18 [facility] Last Admin: 02/19/17 06:24 Dose: 75 mg Valacyclovir HCl (Valtrex -) 500 mg PO BID [facility] Last Admin: 02/19/17 11:21 Dose: 500 mg - Objective Vital Signs: Vital Signs Temperature 98.2 F 02/19/17 08:57 Pulse Rate 71 02/19/17 08:57 Respiratory Rate 20 02/19/17 08:57 Blood Pressure 151/79 02/19/17 08:57 O2 Sat by Pulse Oximetry (%) 98 04/28/17 21:00 Constitutional: Yes: Pallor, Thin Eyes: Yes: WNL, Conjunctiva Clear, EOM Intact HENT: Yes: WNL, Atraumatic, Normocephalic Neck: Yes: WNL, Trachea Midline Cardiovascular: Yes: WNL, Regular Rate and Rhythm Respiratory: Yes: WNL, Regular, Rales Gastrointestinal: Yes: WNL, Normal Bowel Sounds, Soft ...Rectal Exam: Yes: WNL, Deferred Genitourinary: Yes: WNL Edema: Yes Edema: RUE: Trace, LLE: Trace Neurological: Yes: Alert, Lethargy Labs: CBC, BMP 02/19/17 06:00 02/19/17 06:00 INR, PTT INR 1.08 (0.82-1.09) 01/26/17 05:50 Fibrinogen 397.0 mg/dL (238-498) 01/26/17 05:50 Assessment/Plan 1.Patient was admitted with Acute hypoxic respiratory failure due to large right pleural effusion s/p Chest tube thoracocetsis, now removed, gradually improving. on Pulmonary F/U 2. CLL, chronic anemia: continue chemotherapy 3. Breast cancer s/p resection, +margin, ER+ 5. Anemia: Chonic H/H are stable 6. Vaginal sores on valtrex 7. DM II : Low dose Basal insulin with correction dose 8. Hypothyroidism: continue synthroid 9. Malnutrition; Nutrition consult 10. Thrombocytopenia: due to CLL
[2017-02-19] MEDS ORDERED: INSULIN (NOVOLOG) ASPART 100 UNITS/ML 10ML VIAL ONE (16:47)
[2017-02-19] MEDS: SODIUM CHLORIDE 0.45% 1,000 ML IV SCH (22:20)
[2017-02-20] MEDS: INSULIN SLIDING SCALE (NOVOLOG) 1 VIAL SQ SCH ×4 (06:35→21:57)
[2017-02-20] MEDS: LEVOTHYROXINE NA 25 MCG TABLET (FP) PO SCH (06:35)
[2017-02-20] MEDS: INSULIN DETEMIR 100 UNITS/ML MDV SQ SCH (06:35)
[2017-02-20] MEDS: METOPROLOL SUCCINATE 50 MG TAB.SR.24H (FP) PO SCH (06:51)
--- NOTE | 2017-02-20 09:29 | PN ---
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, Physician Chief Complaint: PSVT History of Present Illness: denies palpitations yest or today no cp, sob, syncope - Current Medication List Current Medications: Active Medications Acetaminophen (Tylenol -) 650 mg PO Q6H PRN PRN Reason: FEVER OR PAIN Last Admin: 02/19/17 11:22 Dose: 650 mg Acetaminophen (Tylenol Suppository -) 650 mg [place] Q6H PRN PRN Reason: FEVER OR PAIN Allopurinol (Zyloprim -) 300 mg PO DAILY [facility] Last Admin: 02/19/17 11:21 Dose: 300 mg Bacitracin (Bacitracin -) 1 applic TP BID [facility] Last Admin: 02/19/17 21:42 Dose: 1 applic Chlorambucil (Leukeran -) 4 mg PO DAILY [facility] Last Admin: 02/19/17 11:22 Dose: 4 mg Fluconazole (Diflucan -) 100 mg PO DAILY [facility] Last Admin: 02/19/17 11:21 Dose: 100 mg Sodium Chloride (1/2 Normal Saline) 1,000 mls @ 75 mls/hr IV ASDIR [facility] Last Admin: 02/19/17 22:20 Dose: 75 mls/hr Insulin Aspart (Novolog Vial Sliding Scale -) 1 vial SQ ACHS [facility] PRN Reason: Protocol Last Admin: 02/20/17 06:35 Dose: Not Given Insulin Detemir (Levemir Vial) 3 units SQ AM [facility] Last Admin: 02/20/17 06:35 Dose: Not Given Levothyroxine Sodium (Synthroid -) 25 mcg PO DAILY@0700 [facility] Last Admin: 02/20/17 06:35 Dose: 25 mcg Metoprolol Succinate (Toprol Xl -) 75 mg PO BID@06,18 [facility] Last Admin: 02/20/17 06:51 Dose: Not Given Valacyclovir HCl (Valtrex -) 500 mg PO BID [facility] Last Admin: 02/19/17 21:42 Dose: 500 mg - Objective Vital Signs: Vital Signs Temperature 98.1 F 02/20/17 06:00 Pulse Rate 69 02/20/17 06:00 Respiratory Rate 16 02/20/17 06:00 Blood Pressure 142/72 02/20/17 06:00 O2 Sat by Pulse Oximetry (%) 98 02/17/17 21:00 Constitutional: Yes: Well Nourished, No Distress, Calm Cardiovascular: Yes: Regular Rate and Rhythm, S1, S2. No: Gallop, Murmur Respiratory: Yes: Regular, CTA Bilaterally. No: Accessory Muscle Use, Rales, Wheezes Extremities: No: Cold Edema: No Neurological: Yes: Alert. No: Seizure Psychiatric: No: Agitated Labs: CBC, BMP 02/19/17 06:00 02/19/17 06:00 INR, PTT INR 1.08 (0.82-1.09) 01/26/17 05:50 Fibrinogen 397.0 mg/dL (238-498) 01/26/17 05:50 - ....Imaging EKG: Other (tele: NSR; 3 runs brief PSVT) Assessment/Plan echo here 02/06: nl lv/rv. mod tio, severe mr, mod-sev tr, rvsp 50-60. pleural effusion echo images reviewed by Dr. Welch: report of severe MR and mod-severe TR appears overestimated. MR and TR both appear very much within moderate range a/p: 81 year old female with significant past medical history of hypertension, hyperlipidemia, diabetes, anemia, recent dx of CLL, and hypothyroidism who presents to the ED BIBA from [facility] facility for respiratory distress and found to have large right pleural effusion 2/2 CLL and whose hospital course is now complicated by SVT. SVT - admitted for respiratory distress and found to have large right pleural effusion 2/2 CLL and hospital course complicated by episode of SVT. - no further svt episodes here, on lopressor 25 tid--bp tolerating this dose - 02/14: will reassess bp after blood transfusion, if remains low will need to hold metoprolol. - 02/15-02/16: bp improved, + svt and frequent nsvt. Will uptitrate metoprolol. For MAT, ongoing treatment of underlying pulmonary disease per pmd, pulm, heme/ onc - 02/17-: no sig svt on tele, cont toprol -02/20: episodes continue (3 in 24 hrs) though brief and asymptomatic--ongoing despite toprol 75 bid - change toprol 75 bid to lopressor 50 bid (pills need to be crushed, per RN), add diltiazem - electrolyte repletion prn MR/mTR/moderate pulm HTN - echo reviewed by our team: MR and TR only moderate - no JVD or other signs chf, no audible murmurs in pt with thin habitus - ? related to mild stable diast chf - observe for sx's, not actively diuresing pleural effusion - s/p thoracentesis--exudative c/w CLL disease process. HTN - cont bb HL - ok to defer statin given co-morbidities. CLL - tx per heme
[2017-02-20] MEDS ORDERED: METOPROLOL TARTRATE 50 MG TABLET (FP) PO SCH (09:45)
[2017-02-20] MEDS ORDERED: PT OWN MED DRAWER 7, Y5N ONE ×2 (09:52→21:05)
[2017-02-20] MEDS: ALLOPURINOL 300 MG TABLET (FP) PO SCH (10:38)
[2017-02-20] MEDS: CHLORAMBUCIL 2 MG PO SCH (10:39)
[2017-02-20] MEDS: FLUCONAZOLE 100 MG TABLET (UD) PO SCH (10:40)
[2017-02-20] MEDS: valACYclovir HCL 500 MG TABLET (FP) PO SCH ×2 (10:40→21:11)
[2017-02-20] MEDS: BACITRACIN 30 GM TUBE TOPICAL OINTMENT TP SCH ×2 (10:40→21:12)
--- NOTE | 2017-02-20 11:43 | PN ---
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, Physician Chief Complaint: Ms Stock says she is feeling fine. Denies cp, sob, n/v. Appears more awake today. - Current Medication List Current Medications: Active Medications Acetaminophen (Tylenol -) 650 mg PO Q6H PRN PRN Reason: FEVER OR PAIN Last Admin: 02/19/17 11:22 Dose: 650 mg Acetaminophen (Tylenol Suppository -) 650 mg [place] Q6H PRN PRN Reason: FEVER OR PAIN Allopurinol (Zyloprim -) 300 mg PO DAILY [facility] Last Admin: 02/20/17 10:38 Dose: 300 mg Bacitracin (Bacitracin -) 1 applic TP BID [facility] Last Admin: 02/20/17 10:40 Dose: 1 applic Chlorambucil (Leukeran -) 4 mg PO DAILY [facility] Last Admin: 02/20/17 10:39 Dose: 4 mg Diltiazem HCl (Cardizem -) 60 mg PO TID [facility] Fluconazole (Diflucan -) 100 mg PO DAILY [facility] Last Admin: 02/20/17 10:40 Dose: 100 mg Sodium Chloride (1/2 Normal Saline) 1,000 mls @ 75 mls/hr IV ASDIR [facility] Last Admin: 02/19/17 22:20 Dose: 75 mls/hr Insulin Aspart (Novolog Vial Sliding Scale -) 1 vial SQ ACHS [facility] PRN Reason: Protocol Last Admin: 02/20/17 06:35 Dose: Not Given Insulin Detemir (Levemir Vial) 3 units SQ AM [facility] Last Admin: 02/20/17 06:35 Dose: Not Given Levothyroxine Sodium (Synthroid -) 25 mcg PO DAILY@0700 [facility] Last Admin: 02/20/17 06:35 Dose: 25 mcg Metoprolol Tartrate (Lopressor -) 50 mg PO BID [facility] Valacyclovir HCl (Valtrex -) 500 mg PO BID [facility] Last Admin: 02/20/17 10:40 Dose: 500 mg - Objective Vital Signs: Vital Signs Temperature 98.1 F 02/20/17 06:00 Pulse Rate 69 02/20/17 06:00 Respiratory Rate 16 02/20/17 06:00 Blood Pressure 142/72 02/20/17 06:00 O2 Sat by Pulse Oximetry (%) 98 02/17/17 21:00 Constitutional: Yes: No Distress, Calm, Thin Cardiovascular: Yes: Regular Rate and Rhythm. No: Gallop, Murmur, Rub Respiratory: Yes: Regular, CTA Bilaterally. No: Rales, Rhonchi, Wheezes Gastrointestinal: Yes: Normal Bowel Sounds, Soft. No: Distention, Tenderness Extremities: Yes: WNL Edema: Yes Edema: LLE: Trace, RLE: Trace Labs: CBC, BMP 02/19/17 06:00 02/19/17 06:00 INR, PTT INR 1.08 (0.82-1.09) 01/26/17 05:50 Fibrinogen 397.0 mg/dL (238-498) 01/26/17 05:50 Assessment/Plan 1. Acute hypoxic respiratory failure 2/2 large right pleural effusion -resolved -appreciate pulmonary assistance 2. Bacterial pneumonia -doing well off antibiotics 3. CLL, chronic anemia requiring transfusion -oncology following -continue chemotherapy 4. Breast cancer s/p resection, +margin, ER+ - Per Dr. Young, "no adjuvant therapy was given as she declined per her primary oncologist in [place]" 5. Anemia -stable after transfusion 6. Vaginal sores -improving with valtrex 7. DM II -continue low dose levemir -SSI 8. Hypothyroidism -continue synthroid 9. Hypernatremia -resolved 19. Nutrition -speech therapy following -will discuss if can safely swallow 11. Prophylaxis -Hold all chemical anticoagulation -Pressure ulcers: allevyn dressing Dispo -spoke with son who is going to view [place] today. Requesting Ms Stock be made DNR (does not want chest compressions, but still wants intubation, defibrillation, and chemical resuscitation).
--- NOTE | 2017-02-20 12:23 | PN ---
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, Physician History of Present Illness: pulmonary awake,confused comfortable,-resp distress - Current Medication List Current Medications: Active Medications Acetaminophen (Tylenol -) 650 mg PO Q6H PRN PRN Reason: FEVER OR PAIN Last Admin: 02/19/17 11:22 Dose: 650 mg Acetaminophen (Tylenol Suppository -) 650 mg [place] Q6H PRN PRN Reason: FEVER OR PAIN Allopurinol (Zyloprim -) 300 mg PO DAILY [facility] Last Admin: 02/20/17 10:38 Dose: 300 mg Bacitracin (Bacitracin -) 1 applic TP BID [facility] Last Admin: 02/20/17 10:40 Dose: 1 applic Chlorambucil (Leukeran -) 4 mg PO DAILY [facility] Last Admin: 02/20/17 10:39 Dose: 4 mg Diltiazem HCl (Cardizem -) 60 mg PO TID [facility] Fluconazole (Diflucan -) 100 mg PO DAILY [facility] Last Admin: 02/20/17 10:40 Dose: 100 mg Sodium Chloride (1/2 Normal Saline) 1,000 mls @ 75 mls/hr IV ASDIR [facility] Last Admin: 02/19/17 22:20 Dose: 75 mls/hr Insulin Aspart (Novolog Vial Sliding Scale -) 1 vial SQ ACHS [facility] PRN Reason: Protocol Last Admin: 02/20/17 12:01 Dose: Not Given Insulin Detemir (Levemir Vial) 3 units SQ AM [facility] Last Admin: 02/20/17 06:35 Dose: Not Given Levothyroxine Sodium (Synthroid -) 25 mcg PO DAILY@0700 [facility] Last Admin: 02/20/17 06:35 Dose: 25 mcg Metoprolol Tartrate (Lopressor -) 50 mg PO BID [facility] Valacyclovir HCl (Valtrex -) 500 mg PO BID [facility] Last Admin: 02/20/17 10:40 Dose: 500 mg - Objective Vital Signs: Vital Signs Temperature 98.1 F 02/20/17 06:00 Pulse Rate 69 02/20/17 06:00 Respiratory Rate 16 02/20/17 06:00 Blood Pressure 142/72 02/20/17 06:00 O2 Sat by Pulse Oximetry (%) 98 02/17/17 21:00 Constitutional: Yes: Well Nourished, Calm Eyes: Yes: WNL HENT: Yes: WNL Neck: Yes: WNL Cardiovascular: Yes: Regular Rate and Rhythm, S1, S2 Respiratory: Yes: Rales (scattered maral crackles) Gastrointestinal: Yes: Normal Bowel Sounds, Soft Extremities: Yes: WNL Edema: No Labs: Assessment/Plan Problem List - Problems (1) Acute respiratory failure with hypoxia Code(s): J96.01 - ACUTE RESPIRATORY FAILURE WITH HYPOXIA (2) Pleural effusion Code(s): J90 - PLEURAL EFFUSION, NOT ELSEWHERE CLASSIFIED (3) CLL (chronic lymphocytic leukemia) Code(s): C91.10 - CHRONIC LYMPHOCYTIC LEUK OF B-CELL TYPE NOT ACHIEVE REMIS (4) Diabetes mellitus Code(s): E11.9 - TYPE 2 DIABETES MELLITUS WITHOUT COMPLICATIONS (5) Hypertension Code(s): I10 - ESSENTIAL (PRIMARY) HYPERTENSION (6) Hypothyroid Code(s): E03.9 - HYPOTHYROIDISM, UNSPECIFIED (7) Anemia Code(s): D64.9 - ANEMIA, UNSPECIFIED Qualifiers: Anemia type: unspecified type Qualified Code(s): D64.9 - Anemia, unspecified (8) Lactic acidosis Code(s): E87.2 - ACIDOSIS Assessment/Plan Acute Hypoxic Respiratory Failure improved Malignant Right Pleural Effusion CLL CLL HTN DM Hypothyroidism - O2 to keep SpO2 >90% - BiPAP prn - aspiration precautions - DVT prophylaxis - prognosis poor DR CHAVARRIA
--- NOTE | 2017-02-20 12:35 | PN ---
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, CHILD NUTRITION DIRECTOR - Note 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: Selected Entries 02/18/17 02/18/17 02/18/17 09:05 10:11 15:38 Breakfast 50% Lunch 50% 50% Skin Risk Level Supper 50% Total Score - Skin Risk Assessment Wound Type [ Perineum] Wound Type [ Sacrum] Temperature 02/18/17 02/19/17 02/19/17 18:40 02:01 06:00 Breakfast Lunch Skin Risk Level Supper 25% Total Score - Skin Risk Assessment Wound Type [ Perineum] Wound Type [ Sacrum] Temperature 99.2 F 98.4 F 02/19/17 02/19/17 02/19/17 08:57 12:26 15:38 Breakfast 50% Lunch 50% Skin Risk Level Supper Total Score - Skin Risk Assessment Wound Type [ Perineum] Wound Type [ Sacrum] Temperature 98.2 F 97.7 F 02/19/17 02/19/17 02/20/17 18:35 22:00 01:19 Breakfast Lunch Skin Risk Level Very High Risk Supper 50% Total Score - 7 Skin Risk Assessment Wound Type [ ulcerated inner Perineum] labia herpes lesions Wound Type [ Pressure Ulcer Sacrum] Temperature 98.0 F 98.4 F 99.0 F 02/20/17 02/20/17 06:00 10:00 Breakfast 50% Lunch Skin Risk Level Supper Total Score - Skin Risk Assessment Wound Type [ ulcerated inner Perineum] labia herpes lesions Wound Type [ Pressure Ulcer Sacrum] Temperature 98.1 F 98.2 F Did quite well this morning, tolerating hot cereal and magic cup. Counseled staff on reminding pt to swallow with each bite.
[2017-02-20] MEDS: dilTIAZem HCL 60 MG TABLET (FP) PO SCH ×2 (15:09→21:11)
[2017-02-20] MEDS: METOPROLOL TARTRATE 50 MG TABLET (FP) PO SCH (21:10)
--- NOTE | 2017-02-20 21:40 | PN ---
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 (short form) - Note 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: PAtient seen and examined alert answering simple questions Last Vital Signs Temp Pulse Resp BP Pulse Ox 98 F 72 19 133/78 98 02/20/17 18:39 02/20/17 18:39 02/20/17 19:57 02/20/17 18:39 02/17/17 21:00 Cor: RSR, No murmurs, No gallops Lungs: decreased at bases Abd: Soft, Normal bowel sounds, No organomegaly Ext:No significant edema vulva/peranal area---ulcers improved Active Medications Generic Name Dose Route Start Last Admin Trade Name Freq PRN Reason Stop Dose Admin Acetaminophen 650 mg 02/15/17 19:03 02/19/17 11:22 Tylenol - PO 650 mg Q6H PRN Administration FEVER OR PAIN Acetaminophen 650 mg 02/15/17 19:03 Tylenol Suppository - SD Q6H PRN FEVER OR PAIN Allopurinol 300 mg 02/16/17 10:00 02/20/17 10:38 Zyloprim - PO 300 mg DAILY [facility] Administration Bacitracin 1 applic 02/15/17 22:00 02/20/17 21:12 Bacitracin - TP 1 applic BID [facility] Administration Chlorambucil 4 mg 02/16/17 10:00 02/20/17 10:39 Leukeran - PO 4 mg DAILY [facility] Administration Diltiazem HCl 60 mg 02/20/17 14:00 02/20/17 21:11 Cardizem - PO 60 mg TID [facility] Administration Fluconazole 100 mg 02/16/17 10:00 02/20/17 10:40 Diflucan - PO 100 mg DAILY [facility] Administration Sodium Chloride 1,000 mls @ 75 mls/hr 02/15/17 19:03 02/19/17 22:20 1/2 Normal Saline IV 75 mls/hr ASDIR [facility] Administration Insulin Aspart 1 vial 02/15/17 22:00 02/20/17 17:48 Novolog Vial Sliding Scale - SQ Not Given ACHS [facility] Protocol Insulin Detemir 3 units 02/16/17 07:00 02/20/17 06:35 Levemir Vial SQ Not Given AM [facility] Levothyroxine Sodium 25 mcg 02/16/17 07:00 02/20/17 06:35 Synthroid - PO 25 mcg DAILY@0700 [facility] Administration Metoprolol Tartrate 50 mg 02/20/17 22:00 02/20/17 21:10 Lopressor - PO 50 mg BID [facility] Administration Valacyclovir HCl 500 mg 02/15/17 22:00 02/20/17 21:11 Valtrex - PO 500 mg BID [facility] Administration A/P 81 y/o patient with CLL, h/o breast cancer, dementia, has been senior care resident and wheel chair 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 pleural effusion CLL--trisomy 12. also generalized adenopathy diagnosed several yrs. ago in [place] Never treated, was being monitored More recently transfusion dependent emiliana --neg. LDH --300s given overall comorbidities, functional statusdiscussed with family goals of care---discussed with son, daughter in law,patient discusseed at length side effects of chemotherapy including life threatening sepsis, tumor lysis which could be potentially fatal they have agreed upon chlorambucil started chlorambucil 02/14 information material given will need monitoring of CBC/CMP twice weekly Breast cancer -- s/p resection. +margin. 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 on prophylaxis sepsis--resolved CBC/CMP--stable ongoing discussions regarding goals of care
[2017-02-21] MEDS: SODIUM CHLORIDE 0.45% 1,000 ML IV SCH (05:21)
[2017-02-21] MEDS: dilTIAZem HCL 60 MG TABLET (FP) PO SCH (05:55)
[2017-02-21] MEDS: INSULIN SLIDING SCALE (NOVOLOG) 1 VIAL SQ SCH ×2 (06:00→12:28)
[2017-02-21] MEDS: INSULIN DETEMIR 100 UNITS/ML MDV SQ SCH (06:02)
[2017-02-21] MEDS: LEVOTHYROXINE NA 25 MCG TABLET (FP) PO SCH (06:11)
[2017-02-21 07:46] LABS: MCH 30.8 pg (25.7-33.7); MCHC 31.2 g/dl (32.0-36.0); MEAN CELL VOLUME 98.6 fl (80-96); MEAN PLT VOLUME 9.1 fl (7.5-11.1); PLATELET COUNT 45 K/MM3 (134-434); RDW 23.1 % (11.6-15.6)
[2017-02-21 07:50] LABS: CALCIUM 8.5 mg/dL (8.5-10.1); COCKROFT - GAULT 134.5125; CREATININE 0.3 mg/dL (0.55-1.02); MAGNESIUM 2.1 mg/dL (1.8-2.4); PHOSPHOROUS 2.2 mg/dL (2.5-4.9)
[2017-02-21 08:46] LABS: WHITE BLOOD COUNT 47.7 K/mm3 (4.0-10.0)
[2017-02-21] MEDS ORDERED: PT OWN MED DRAWER 7, Y5N ONE (09:31)
[2017-02-21] MEDS: METOPROLOL TARTRATE 50 MG TABLET (FP) PO SCH (10:07)
[2017-02-21] MEDS: FLUCONAZOLE 100 MG TABLET (UD) PO SCH (10:07)
[2017-02-21] MEDS: BACITRACIN 30 GM TUBE TOPICAL OINTMENT TP SCH (10:18)
[2017-02-21] MEDS: valACYclovir HCL 500 MG TABLET (FP) PO SCH (10:18)
[2017-02-21] MEDS: ALLOPURINOL 300 MG TABLET (FP) PO SCH (10:19)
[2017-02-21 11:05] VITALS: BP 120/55; PULSE 60; TEMP 97.6
--- NOTE | 2017-02-21 11:08 | PN ---
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 (short form) - Note 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: Chief Complaint: PSVT History of Present Illness: denies palpitations yest or today. denies dizziness. no cp, sob, syncope Current Medications Acetaminophen (Tylenol -) 650 mg PO Q6H PRN PRN Reason: FEVER OR PAIN Last Admin: 02/19/17 11:22 Dose: 650 mg Acetaminophen (Tylenol Suppository -) 650 mg [place] Q6H PRN PRN Reason: FEVER OR PAIN Allopurinol (Zyloprim -) 300 mg PO DAILY [facility] Last Admin: 02/21/17 10:19 Dose: 300 mg Bacitracin (Bacitracin -) 1 applic TP BID [facility] Last Admin: 02/21/17 10:18 Dose: 1 applic Chlorambucil (Leukeran -) 4 mg PO DAILY [facility] Last Admin: 02/20/17 10:39 Dose: 4 mg Diltiazem HCl (Cardizem -) 60 mg PO TID [facility] Last Admin: 02/21/17 05:55 Dose: 60 mg Fluconazole (Diflucan -) 100 mg PO DAILY [facility] Last Admin: 02/21/17 10:07 Dose: 100 mg Sodium Chloride (1/2 Normal Saline) 1,000 mls @ 75 mls/hr IV ASDIR [facility] Last Admin: 02/21/17 05:21 Dose: 75 mls/hr Insulin Aspart (Novolog Vial Sliding Scale -) 1 vial SQ ACHS [facility] PRN Reason: Protocol Last Admin: 02/21/17 06:00 Dose: Not Given Insulin Detemir (Levemir Vial) 3 units SQ AM [facility] Last Admin: 02/21/17 06:02 Dose: Not Given Levothyroxine Sodium (Synthroid -) 25 mcg PO DAILY@0700 [facility] Last Admin: 02/21/17 06:11 Dose: 25 mcg Metoprolol Tartrate (Lopressor -) 50 mg PO BID [facility] Last Admin: 02/21/17 10:07 Dose: 50 mg Valacyclovir HCl (Valtrex -) 500 mg PO BID [facility] Last Admin: 02/21/17 10:18 Dose: 500 mg - Objective Vital Signs: Vital Signs - 24 hr 02/20/17 02/20/17 02/20/17 14:53 18:39 19:57 Temperature 97.7 F 98 F Pulse Rate 72 72 Respiratory 18 19 19 Rate Blood Pressure 135/73 133/78 O2 Sat by Pulse Oximetry (%) 02/20/17 02/21/17 02/21/17 22:00 02:25 05:15 Temperature 98.2 F 97.6 F 98.6 F Pulse Rate 88 62 64 Respiratory 19 20 20 Rate Blood Pressure 101/56 132/74 120/58 O2 Sat by Pulse 94 L Oximetry (%) 02/21/17 09:00 Temperature Pulse Rate Respiratory 20 Rate Blood Pressure O2 Sat by Pulse Oximetry (%) Intake & Output 02/19/17 02/20/17 02/21/17 02/22/17 07:59 07:59 07:59 07:59 Intake Total 2039 150 1800 Output Total 0 Balance 2039 150 1800 Constitutional: Yes: Well Nourished, No Distress, Calm no jvd Cardiovascular: Yes: Regular Rate and Rhythm, S1, S2. No: Gallop, Murmur Respiratory: Yes: dullness at right base. No: Accessory Muscle Use, Rales, Wheezes Extremities: No: Cold Edema: No Neurological: Yes: Alert. No: Seizure Psychiatric: No: Agitated Labs: CBC, BMP 02/21/17 05:35 02/21/17 05:35 - ....Imaging EKG: Other (tele: NSR; still with brief PSVT, pac's) Assessment/Plan echo here 02/06: nl lv/rv. mod tio, severe mr, mod-sev tr, rvsp 50-60. pleural effusion echo images reviewed by Dr. Welch: report of severe MR and mod-severe TR appears overestimated. MR and TR both appear very much within moderate range a/p: 81 year old female with significant past medical history of hypertension, hyperlipidemia, diabetes, anemia, recent dx of CLL, and hypothyroidism who presents to the ED BIBA from [facility] facility for respiratory distress and found to have large right pleural effusion 2/2 CLL and whose hospital course is now complicated by SVT. SVT - admitted for respiratory distress and found to have large right pleural effusion 2/2 CLL and hospital course complicated by episode of SVT. - no further svt episodes here, on lopressor 25 tid--bp tolerating this dose - 02/14: will reassess bp after blood transfusion, if remains low will need to hold metoprolol. - 02/15-02/16: bp improved, + svt and frequent nsvt. Will uptitrate metoprolol. For MAT, ongoing treatment of underlying pulmonary disease per pmd, pulm, heme/ onc - 02/17-: no sig svt on tele, cont toprol -02/20: episodes continue (3 in 24 hrs) though brief and asymptomatic--ongoing despite toprol 75 bid. change toprol 75 bid to lopressor 50 bid (pills need to be crushed, per RN), add diltiazem - 02/20 still with psvt. increase lopressor to tid dosing. monitor for hypotension. - electrolyte repletion prn (has been requiring daily k repletion) MR/mTR/moderate pulm HTN - echo reviewed by our team: MR and TR only moderate - no JVD or other signs chf, no audible murmurs in pt with thin habitus - ? related to mild stable diast chf - observe for sx's, not actively diuresing pleural effusion - s/p thoracentesis--exudative c/w CLL disease process. - reaccumulation. monitor for respiratory symptoms. 02/21 consider trial off IVF , now that eating more, if ok from onc perspective. cxr in am. - speech and swallow eval at discretion of pmd. HTN - cont bb, dilt. monitor for hypotension HL - ok to defer statin given co-morbidities. CLL - tx per heme
--- NOTE | 2017-02-21 11:30 | DS ---
Physical Examination Vital Signs: Vital Signs Temperature 97.6 F 02/21/17 10:00 Pulse Rate 60 02/21/17 10:00 Respiratory Rate 20 02/21/17 10:00 Blood Pressure 120/55 02/21/17 10:00 O2 Sat by Pulse Oximetry (%) 94 L 02/20/17 22:00 Constitutional: Yes: No Distress, Calm, Thin Cardiovascular: Yes: Regular Rate and Rhythm. No: Gallop, Murmur, Rub Respiratory: Yes: Regular, CTA Bilaterally. No: Rales, Rhonchi, Wheezes Gastrointestinal: Yes: Normal Bowel Sounds, Soft. No: Distention, Tenderness Extremities: Yes: WNL Edema: Yes Edema: LLE: Trace, RLE: Trace Labs: CBC, BMP 02/21/17 05:35 02/21/17 05:35 Discharge Summary Reason For Visit: ACUTE RESPIRATORY FAILURE WITH HYPOXIA Current Active Problems Acute respiratory failure with hypoxia (Acute) CLL (chronic lymphocytic leukemia) (Acute) DVT prophylaxis (Acute) Elevated lactic acid level (Acute) Lactic acidosis (Acute) Pleural effusion (Acute) Pressure ulcer (Acute) Vaginal sore (Acute) Hospital Course: 1. Acute hypoxic respiratory failure 2/2 large right pleural effusion 2. Bacterial pneumonia 3. CLL, chronic anemia requiring transfusion 4. Breast cancer s/p resection, +margin, ER+ 5. Anemia 6. Vaginal sores 7. DM II 8. Hypothyroidism 9. Hypernatremia 10. Nutrition Ms Stokc is a pleasant 81 year old female who came in with malignant pleural effusion causing hypoxic respiratory failure. She was admitted to the hospital and seen by pulmonary. She was supported with oxygen and a chest tube was placed. It was maintained until drainage stopped and successfully removed. Her fluid was sent and was positive for malignant cells. She also had pneumonia and finished a full course of antibiotics. She was seen by oncology and treatment was discussed for her CLL, low dose chlorambucil was started and she tolerated it. She had anemia and was transfused, she had a transfusion reaction causing hypotension but she did not require pressors. She was found to have painful vaginal sores and was HSV-2 positive. She was started on valtrex and this improved. Case d/w son and was made DNR (no chest compressions, but intubation and chemical resuscitation) and transferred to [place]. 40 minutes spent in preparation of this discharge Condition: Guarded - Instructions Diet, Activity, Other Instructions: Dysphagia pureed diet, nectar thick liquids. Activity for comfort. Referrals: Arnulfo Trejo MD [Primary Care Provider] - Disposition: TRANSFER ACUTE CARE/OTHER HOSP - Home Medications Comprehensive Discharge Medication List: Ambulatory Orders Albuterol 2.5/Ipratropium 0.5 [Duoneb -] 1 amp NEB QID PRN 10/15/16 Docusate Sodium [Colace -] 200 mg PO HS 01/25/17 Acetaminophen Suppository [Tylenol .Suppository -] 650 mg SC Q6H PRN #0 supp.rect 02/21/17 Acetaminophen [Tylenol .Regular Strength -] 650 mg PO Q6H PRN #0 tablet Allopurinol [Zyloprim -] 300 mg PO DAILY tablet 02/21/17 Bacitracin - [Bacitracin Topical Ointment -] 1 applic TP BID tube 02/21/17 Diltiazem [Cardizem -] 60 mg PO TID tablet 02/21/17 Insulin (Levemir) [Levemir Vial] 3 units SQ AM ml 02/21/17 Insulin Sliding Scale [Novolog Vial Sliding Scale -] 1 vial SQ ACHS units 02/21 Levothyroxine [Synthroid -] 25 mcg PO DAILY@0700 tablet 02/21/17 Metoprolol Tartrate [Lopressor -] 50 mg PO BID tablet 02/21/17 Valacyclovir HCl [Valtrex -] 500 mg PO BID tablet 02/21/17
--- NOTE | 2017-02-21 11:46 | PN ---
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, Physician History of Present Illness: pulmonary awake,-resp distress,to be transferred to [facility] today - Current Medication List Current Medications: Active Medications Acetaminophen (Tylenol -) 650 mg PO Q6H PRN PRN Reason: FEVER OR PAIN Last Admin: 02/19/17 11:22 Dose: 650 mg Acetaminophen (Tylenol Suppository -) 650 mg [place] Q6H PRN PRN Reason: FEVER OR PAIN Allopurinol (Zyloprim -) 300 mg PO DAILY [facility] Last Admin: 02/21/17 10:19 Dose: 300 mg Bacitracin (Bacitracin -) 1 applic TP BID [facility] Last Admin: 02/21/17 10:18 Dose: 1 applic Chlorambucil (Leukeran -) 4 mg PO DAILY [facility] Last Admin: 02/20/17 10:39 Dose: 4 mg Diltiazem HCl (Cardizem -) 60 mg PO TID [facility] Last Admin: 02/21/17 05:55 Dose: 60 mg Fluconazole (Diflucan -) 100 mg PO DAILY [facility] Last Admin: 02/21/17 10:07 Dose: 100 mg Insulin Aspart (Novolog Vial Sliding Scale -) 1 vial SQ ACHS [facility] PRN Reason: Protocol Last Admin: 02/21/17 06:00 Dose: Not Given Insulin Detemir (Levemir Vial) 3 units SQ AM [facility] Last Admin: 02/21/17 06:02 Dose: Not Given Levothyroxine Sodium (Synthroid -) 25 mcg PO DAILY@0700 [facility] Last Admin: 02/21/17 06:11 Dose: 25 mcg Metoprolol Tartrate (Lopressor -) 50 mg PO BID [facility] Potassium Chloride (K-Dur -) 40 meq PO ONCE ONE Stop: 02/21/17 11:01 Valacyclovir HCl (Valtrex -) 500 mg PO BID [facility] Last Admin: 02/21/17 10:18 Dose: 500 mg - Objective Vital Signs: Vital Signs Temperature 97.6 F 02/21/17 10:00 Pulse Rate 60 02/21/17 10:00 Respiratory Rate 20 02/21/17 10:00 Blood Pressure 120/55 02/21/17 10:00 O2 Sat by Pulse Oximetry (%) 94 L 02/20/17 22:00 Constitutional: Yes: Well Nourished, Calm Eyes: Yes: WNL HENT: Yes: WNL Neck: Yes: WNL Cardiovascular: Yes: Regular Rate and Rhythm, S1, S2 Respiratory: Yes: Diminished (POOR INSPIRATORY EFFORT) Gastrointestinal: Yes: Normal Bowel Sounds, Soft Extremities: Yes: WNL Edema: No Labs: CBC, BMP 02/21/17 05:35 02/21/17 05:35 INR, PTT INR 1.08 (0.82-1.09) 01/26/17 05:50 Fibrinogen 397.0 mg/dL (238-498) 01/26/17 05:50 Assessment/Plan Problem List - Problems (1) Acute respiratory failure with hypoxia Code(s): J96.01 - ACUTE RESPIRATORY FAILURE WITH HYPOXIA (2) Pleural effusion Code(s): J90 - PLEURAL EFFUSION, NOT ELSEWHERE CLASSIFIED (3) CLL (chronic lymphocytic leukemia) Code(s): C91.10 - CHRONIC LYMPHOCYTIC LEUK OF B-CELL TYPE NOT ACHIEVE REMIS (4) Diabetes mellitus Code(s): E11.9 - TYPE 2 DIABETES MELLITUS WITHOUT COMPLICATIONS (5) Hypertension Code(s): I10 - ESSENTIAL (PRIMARY) HYPERTENSION (6) Hypothyroid Code(s): E03.9 - HYPOTHYROIDISM, UNSPECIFIED (7) Anemia Code(s): D64.9 - ANEMIA, UNSPECIFIED Qualifiers: Anemia type: unspecified type Qualified Code(s): D64.9 - Anemia, unspecified (8) Lactic acidosis Code(s): E87.2 - ACIDOSIS Assessment/Plan Acute Hypoxic Respiratory Failure improved Malignant Right Pleural Effusion CLL CLL HTN DM Hypothyroidism - O2 to keep SpO2 >90% - aspiration precautions - DVT prophylaxis - prognosis poor - Transfer to [facility] today DR CHAVARRIA
[2017-02-21] MEDS ORDERED: POTASSIUM CHLORIDE TABS 20 MEQ TABLET.ER (FP) PO ONE (12:00)
[2017-02-21 12:30] LABS: PLATELET ESTIMATE MARKEDLY DECREASED (NORMAL); SMUDGE CELLS MANY
[2017-02-21] MEDS: CHLORAMBUCIL 2 MG PO SCH (13:05)
[2017-02-21] MEDS ORDERED: METOPROLOL TARTRATE 50 MG TABLET (FP) PO SCH ×2 (15:00→22:00)
== END 2017-02-21 13:45 | disposition hospice, inpatient (51) | DRG 840 ==
LOC: JER 05:37 → JERBED 08:43 → J4W 13:46 → J8W 02-09 14:56 → JICU 02-14 17:23 → J4W 02-18 20:56
PROVIDERS: ADMIT Internal Medicine; ATTEND Internal Medicine
PROC: 5A09357 Assistance with Respiratory Ventilation, Less than 24 Consecutive Hours, Continuous Positive Airway Pressure (ICD-10-PCS; 2017-01-25)
PROC: 30233N1 Transfusion of Nonautologous Red Blood Cells into Peripheral Vein, Percutaneous Approach (ICD-10-PCS; 2017-01-25)
PROC: 0W993ZX Drainage of Right Pleural Cavity, Percutaneous Approach, Diagnostic (ICD-10-PCS; principal; 2017-01-26)
PROC: 0W9930Z Drainage of Right Pleural Cavity with Drainage Device, Percutaneous Approach (ICD-10-PCS; 2017-01-26)
PROC: 0WP9X0Z Removal of Drainage Device from Right Pleural Cavity, External Approach (ICD-10-PCS; 2017-02-09)
PROC: 3E03305 Introduction of Other Antineoplastic into Peripheral Vein, Percutaneous Approach (ICD-10-PCS; 2017-02-14)
DX: C91.10 Chronic lymphocytic leukemia of B-cell type not having achieved remission (principal); J96.01 Acute respiratory failure with hypoxia; J15.9 Unspecified bacterial pneumonia; A41.9 Sepsis, unspecified organism; I50.22 Chronic systolic (congestive) heart failure; E87.0 Hyperosmolality and hypernatremia; E87.2 Acidosis; J94.2 Hemothorax; I47.1 Supraventricular tachycardia; R64 Cachexia; J91.0 Malignant pleural effusion; D61.818 Other pancytopenia; E46 Unspecified protein-calorie malnutrition; E78.5 Hyperlipidemia, unspecified; E11.9 Type 2 diabetes mellitus without complications; D64.9 Anemia, unspecified; E03.9 Hypothyroidism, unspecified; Z79.4 Long term (current) use of insulin; Z85.3 Personal history of malignant neoplasm of breast; I11.0 Hypertensive heart disease with heart failure; F03.90 Unspecified dementia, unspecified severity, without behavioral disturbance, psychotic disturbance, mood disturbance, and anxiety; Z86.73 Personal history of transient ischemic attack (TIA), and cerebral infarction without residual deficits; Z99.3 Dependence on wheelchair; D69.6 Thrombocytopenia, unspecified; N76.6 Ulceration of vulva; I34.0 Nonrheumatic mitral (valve) insufficiency; I36.1 Nonrheumatic tricuspid (valve) insufficiency; A60.09 Herpesviral infection of other urogenital tract; Z68.20 Body mass index [BMI] 20.0-20.9, adult; E88.09 Other disorders of plasma-protein metabolism, not elsewhere classified; I27.2 Other secondary pulmonary hypertension; T80.89XA Other complications following infusion, transfusion and therapeutic injection, initial encounter; Y84.8 Other medical procedures as the cause of abnormal reaction of the patient, or of later complication, without mention of misadventure at the time of the procedure; I95.89 Other hypotension; Y92.230 Patient room in hospital as the place of occurrence of the external cause; Z66 Do not resuscitate; L89.152 Pressure ulcer of sacral region, stage 2
CPT/HCPCS: 32557; 36415; 36430; 36600; 71010-TC; 71020-TC; 71250-TC; 74230-TC; 76098-TC; 76700-TC; 76942-TC; 80048; 80053; 81003; 81015; 82042; 82150; 82375; 82438; 82550; 82784; 82803; 82945; 83010; 83050; 83605; 83615; 83735; 83880; 84100; 84157; 84311; 84443; 84484; 84550; 85025; 85027; 85044; 85384; 85610; 85730; 86593; 86850; 86880; 86900; 86901; 86922; 87040; 87070; 87075; 87086; 87102; 87116; 87205; 87206; 87210; 87255; 87389; 87899; 88108; 89051; 92611-GN; 93005; 93010; 93306-TC; 94640; 94660; 99285-25; C1729; C1769; C1894; J1644; J8999; P9038; P9058